=== PATIENT | female | born 1950 | race Caucasian/White ===

== ENCOUNTER 2020-04-29 08:33 | Day surgery (SDC) | payer OTHER, MEDICARE ==
--- OUTSIDE RECORDS SUMMARY | 2020-04-29 08:51 | XMS REPORT | Clinical Summary ---
:1950 Author Organization [facility] Address [address] [place] [address] Care Team Providers Name Role Phone Rafy Ortega MD Primary Care Provider Allergies Not on File Medications Not on file Active Problems Not on file Social History Tobacco Use Types Packs/Day Years Used Date Never Assessed Sex Assigned at Date Recorded Not on file Job Start Date Occupation Industry Not on file Not on file Not on file Travel History Travel Start Travel End No recent travel history available. Last Filed Vital Signs Not on file Plan of Treatment Health Maintenance Due Date Last Done Comments BREAST CANCER SCREENING 2002 COLONOSCOPY SCREENING 2002 SHINGLES VACCINES (#1) 2002 65+ PNEUMOCOCCAL VACCINE (1 of 2 - PCV13) 2017 INFLUENZA VACCINE 05/14/2020 Results Not on fileafter 04/29/2019 Insurance Payer Benefit Plan / Subscriber ID Effective Dates Phone Addre ss Type Group MEDICARE MEDICARE PART A xxxxxxxxxxx 1991-Present [place], [place] Medicare AND B AARP AARP SUPPLEMENT xxxxxxxxx 2018-[employer] Commercial t Advance Directives For more information, please contact: [phone] Type Date Recorded 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
--- OUTSIDE RECORDS SUMMARY | 2020-04-29 08:52 | XMS REPORT | Continuity of Care Document ---
:1950 Author Organization [facility] t Address [address] [place] [address] Care Team Providers Name Role Phone Jordan URBIN Montgomery Primary Care Physician Gema TONG Attending Clinician Julius RUBIN, K.H. Attending Clinician Gentry LEWIS, A Attending Clinician Unavailable Rylee Flores Attending Clinician Jaime RUBIN Attending Clinician Doctor Unassigned, Name Attending Clinician Unavailable Jaime RUBIN Admitting Clinician Payers Payer Name Policy Type Policy Number Effective Date Expiration Date S ource Problems This patient has no known problems. Allergies, Adverse Reactions, Alerts Allergy Allergy Status Severity Reaction(s) Onset Inactive Treating Comm ents Source Name Type Date Date Clinician pentobar DA Active [facility] 2018-10 [facility] [place] [facility] [place] [facility] 11[facility] [place] [facility] levoflox DA Active [place] 2018-10 [facility] acin 11-09 [place] 00:00: d 00 [facility] oseltami DA Active [place] 2018-10 [facility] vir 11-09 [place] 00:[facility]: d [facility] pentobar DA Active [place] 2016-10 [facility] 10-26 [place] [facility]: d [facility]ine DA Active [facility] 2016- [facility] 10-26 [place] 00:00: d 00 [facility] levoflox DA Active [place] 2016-10 [facility] acin 10-26 [place] [facility]: d [facility] oseltami DA Active [place] 2016-10 [facility] 10-26 [place] 00:[facility]: d [facility] Social History Social Habit Start Date Stop Date Quantity Comments Source Sex Assigned At Neetu stobenjamin Rastafarian Medications This patient has no known medications. Procedures This patient has no known procedures. Plan of Care Planned Activity Planned Date Details Comments Source Future Scheduled 2020-05-14 INFLUENZA VACCINE [place] [facility] 00:00:00 [code = INFLUENZA VACCINE] Future Scheduled 2017 65+ PNEUMOCOCCAL [place] [facility] Test 00:00:00 VACCINE (1 of 2 - PCV13) [code = 65+ PNEUMOCOCCAL VACCINE (1 of 2 - PCV13)] Future Scheduled 2002 BREAST CANCER [facility] thodist Test 00:00:00 SCREENING [code = BREAST CANCER SCREENING] Future Scheduled 2002 COLONOSCOPY SCREENING [facility] Rastafarian Test 00:00:00 [code = COLONOSCOPY SCREENING] Future Scheduled 2002 [facility] 00:00:00 [code = SHINGLES VACCINES (#1)] Encounters Start End Encounter Admission Attending Care Care Encounter Source Date/Time Date/Time Type Type Clinicians Facility Department ID 2020-01-16 2020-01-16 Refill Gema [facility] [id number] 00:00:00 00:00:00 Coby George [id number] [place] 4.2.7.2.686 Professio [phone] nal 134 [facility] 2020-01-01 2020-01-01 Telemedici Julius [facility] [id number] 11:00:00 11:30:00 ne Visit Sendflor George [id number] [place] [id number] Professbrian [phone] nal 059 [facility] 2019-12-21 2019-12-21 Transition Melissa Rinaldi [id number] 00:00:00 00:00:00 of Care Mart Lorenzo [id number] [place] [id number] [id number] 2019-12-17 2019-12-18 Emergency Rome Dumont [facility] [id number] 15:19:36 17:56:00 Paul Sandoval [id number] [place] 4.2.7.2.686 [place] [phone] 081 2019-12-17 2019-12-17 Orders Doctor SALLIE [id number] 00:00:00 00:00:00 Only Unassigned, DEMI [id number] [place] [facility] 4.2.7.2.686 [id number] 009 2019-12-02 2019-12-02 Refill Gema [facility] [id number] 00:00:00 00:00:00 Coby George [id number] [place] [id number] [facility] [phone] [facility] 134 [facility] Results Test Description Test Time Test Comments Results Result [place] Comments - CT NECK 2019-09-09 Name: W/CONTRAST 13:47:00 MARYSE HINTON [facility] : 1950 Age/S: 68 / F [id number] Unit #: [id number] Loc: [place] [address] Phys: Todd Ruffin III, MD Acct: [id number] Dis Date: Status: REG CLI PHONE #: [phone] Exam Date: 09/09/2019 1257 FAX #: Reason: MALIGNANT NEOPLASM EXAMS: CPT: [id number] CT NECK W/CONTRAST 257[address] CT neck with contrast. Location: B2 Clinical indication: 68-year-old with malignant thyroid neoplasm Comparison: None Technique: Computed axial images were obtained from the skull base through the thoracic inlet following IV administration of 100 mL Isovue-300. Up to date CT equipment and radiation dose technique were utilized. Findings: The thyroid is absent. No mass or lymphadenopathy is identified within or near the thyroidectomy bed. The submandibular glands and parotid glands are symmetric in size, without acute abnormality. No cervical lymphadenopathy. Upper lungs are grossly clear. Is been prior right inferior nasal turbinectomy. Intraorbital contents are unremarkable. No acute osseous abnormality. Impression: Prior thyroidectomy. No mass or lymphadenopathy is identified. at 1347 Reported and signed by: Ej Guzman M.D. CC: Hermes Yen MD; Todd Ruffin III, MD Technologist:Jose Rutledge, RT(R)(CT)(MRI) CTDI: DLP: Trnscb Date/Time: 09/09/2019 (907) [email or web address] Orig Print D/T: S: 09/09/2019 (3833) PAGE 1 Signed Report ISTAT-GLUCOSE 2019-09-09 12:06:00 Test Item Value Reference Range Interpretation Comme nts ISTAT-GLUCOSE (test code = GLUP) 95 mg/dL 70-105 N [id number] 12:06:00 Test Item Value Reference Range Interpretation Comments ISTAT-BUN (test code = BUNP) mg/dL 8-26 BEDSIDE [id number] 12:06:00 Test Item Value Reference Range Interpretation Comments BEDSIDE CREATININE (test code = mg/dL 0.6-1.3 CREATBED) [id number] 12:06:00 Test Item Value Reference Range Interpretation Comments ISTAT-GLUCOSE (test code = GLUP) 95 mg/dL 70-105 N [id number] 12:06:00 Test Item Value Reference Range Interpretation Comments ISTAT-BUN (test code = BUNP) 6 mg/dL 8-26 L BEDSIDE [id number] 12:06:00 Test Item Value Reference Range Interpretation Comments BEDSIDE CREATININE (test code = mg/dL 0.6-1.3 CREATBED) [id number] 12:06:00 Test Item Value Reference Range Interpretation Comments ISTAT-GLUCOSE (test code = GLUP) 95 mg/dL 70-105 N [id number] 12:06:00 Test Item Value Reference Range Interpretation Comments ISTAT-BUN (test code = BUNP) 6 mg/dL 8-26 L BEDSIDE [id number] 12:06:00 Test Item Value Reference Range Interpretation Comments BEDSIDE CREATININE (test code = 0.6 mg/dL 0.6-1.3 N CREATBED)
[2020-04-29] MEDS ORDERED: Ringers Lactate 1,000 ML IV ONE (09:05)
[2020-04-29] MEDS ORDERED: CEFOXITIN/SWI 1gm 1 GM/10 ML SYR ONE (09:06)
[2020-04-29] MEDS ORDERED: MIDAZOLAM HCL 2 MG/2 ML INJ ONE (09:09)
[2020-04-29] MEDS ORDERED: FENTANYL CITR 100 MCG/2 ML ONE (09:09)
[2020-04-29] MEDS ORDERED: LIDOCAINE 2% MPF 5 ML VIAL ONE (09:09)
[2020-04-29] MEDS ORDERED: ROCURONIUM 50 MG/5 ML VIAL IV ONE (09:09)
[2020-04-29] MEDS ORDERED: propofoL 200 MG/20 ML VIAL IV ONE (09:09)
[2020-04-29] MEDS ORDERED: ONDANSETRON 4 MG/2 ML VIAL ONE ×2 (09:10→11:36)
[2020-04-29] MEDS ORDERED: BUPIVACA 0.25%/EPI 0.0005%/PF 30 ML VIAL ONE (09:59)
[2020-04-29] MEDS ORDERED: KETOROLAC 30 MG/ML INJ ONE (11:10)
[2020-04-29] MEDS ORDERED: GLYCOPYRROLATE 0.2 MG/ML SYR ONE (11:11)
--- NOTE | 2020-04-29 11:11 | P.OP ---
Preoperative diagnosis: Chronic Cholecystitis Postoperative diagnosis: Chronic Cholecystitis Primary procedure: Laparoscopic Cholecystectomy Anesthesia: GETA + Local Estimated blood loss: <10cc Specimen: Gallbladder Findings: Blue Dome, large, floppy gallbladder, adhesions Complications: None Transferred to: Recovery Room Condition: Good
[2020-04-29] MEDS ORDERED: NEOSTIGMINE 1 MG/ML -5 ML ONE (11:18)
[2020-04-29] MEDS: HYDROMORPHONE HCL 1 MG/ML INJ ONE ×6 (11:25→11:50)
--- NOTE | 2020-04-29 11:47 | OP ---
Date of Procedure: 04/29/2020 Surgeon: Erasmo Larose MD, Preoperative Diagnosis: Chronic cholecystitis. Postoperative Diagnosis: Chronic cholecystitis. Procedure Performed: Laparoscopic cholecystectomy. Anesthesia: General endotracheal plus local with 0.5% Marcaine with epinephrine. Estimated Blood Loss: Less than 10 cc. Specimen: Gallbladder. Findings: 1.Blue dome gallbladder. 2.Gallbladder was found to be large, floppy and distended. 3.Intraabdominal adhesions were present from omentum to gallbladder. 4.The patient had a nodular appearance to the liver consistent with early possible cirrhosis. Complications: None. Disposition: Transferred to recovery room in good condition. Procedure In Detail: After informed was obtained, the patient was brought to the operating room, pre pped and draped in the usual sterile fashion. After adequate anesthesia was achieved , the supraumbi lical area was anesthetized with 0.25% Marcaine, sharply incised, a 5 mm trocar was introduced in the abdomen without evidence of complication. Insufflation was obtained to 15 mmHg at this time. There was no injury to vital structures upon entry into the abdomen. Additional trocar site was chosen in the epigastrium. This was similarly anesthetized and sharply incised. A 5 mm trocar was introduced in the abdomen without evidence of complication. The umbilical trocar then up-sized to a 12 mm unde r direct visualization without evidence of complication. The additional trocar was placed in the rig ht upper quadrant, similarly anesthetized and sharply incised. A 5 mm trocar was introduced in the a bdomen without evidence of complication. The patient was then positioned head up right-side up posit ion. Ratcheted grasper was used to grasp the patient's gallbladder, placed towards the patient's rig ht shoulder. Dissection was continued down to remove intraabdominal adhesions on the anterior surfac e of the gallbladder. After this was removed, the gallbladder was dissected down to the Andrew nenita ch area and 2 structures were noted entering the gallbladder. These were identified as both, cystic duct and the cystic artery. After completely skeletonizing these structures, the critical view of sa fety was obtained and after the critical view of safety was verified, Endo clips were then applied, d oubly on the proximal side and singly on the distal side of both, the cystic duct and cystic artery. These were both ligated using Endo Rock. At this point, the gallbladder was removed from the hepa tic fossa without evidence of complication, placed in an EndoCatch bag and removed through umbilical trocar. The abdomen was then completely irrigated and suctioned out until completely dry. No additi onal hemostatic measures required. Clips were found to be in good anatomic position without evidence if spillage of bile at the end the procedure. The patient tolerated the procedure well. At this po int, the gallbladder was sent off for pathologic examination. The patient was positioned back in a n eutral position. The umbilical trocar site was inspected. The umbilical trocar was removed. The um bilical trocar site was closed using a Naman-Josiah suture passer with 0 Vicryl in interrupted fas hion with good approximation of tissues. The abdomen was then completely desufflated under direct vi sualization without evidence of complication. All trocars were then removed. All skin incisions wer e copiously irrigated and closed with a 4-0 Monocryl in a running fashion with Dermabond placed over top. The patient tolerated the procedure well without evidence of complication and transferred to [facility] in good condition. All counts were correct at the end of the case. MARLEEN/ELDA Voice ID: [id number] Report ID: [id number]
[2020-04-29] MEDS ORDERED: HYDROCODONE/APAP 5/325 MG TAB ONE (12:43)
[2020-04-29 13:39] VITALS: BP 124/68; TEMP 97; O2SAT 97
== END 2020-04-29 13:10 | disposition home or self-care (01) ==
LOC: OR 08:33
PROVIDERS: ATTEND Surgery
PROC: 0FT44ZZ Resection of Gallbladder, Percutaneous Endoscopic Approach (ICD-10-PCS; principal; 2020-04-29 10:00)
DX: K81.1 Chronic cholecystitis (principal); I10 Essential (primary) hypertension; K21.9 Gastro-esophageal reflux disease without esophagitis; E89.0 Postprocedural hypothyroidism; Z11.59 Encounter for screening for other viral diseases; F17.200 Nicotine dependence, unspecified, uncomplicated; Z85.850 Personal history of malignant neoplasm of thyroid; Z88.3 Allergy status to other anti-infective agents; Z88.8 Allergy status to other drugs, medicaments and biological substances; Z80.1 Family history of malignant neoplasm of trachea, bronchus and lung
CPT/HCPCS: 88304; 47562; U0002 ×2; J2704; J2250; J3010; J1170 ×3; J2710; J7120; J2405 ×2

== ENCOUNTER 2020-07-26 16:01 | Emergency (ER) | payer OTHER, MEDICARE ==
--- OUTSIDE RECORDS SUMMARY | 2020-07-26 16:16 | XMS REPORT | Clinical Summary ---
:1950 Author Organization [facility] Address [address] [place] [address] Care Team Providers Name Role Phone Rafy Ortega MD Primary Care Provider Allergies Not on File Medications Not on file Active Problems Not on file Social History Tobacco Use Types Packs/Day Years Used Date Never Assessed Sex Assigned at Date Recorded Not on file Last Filed Vital Signs Not on file Plan of Treatment Health Maintenance Due Date Last Done Comments BREAST CANCER SCREENING 2002 COLONOSCOPY SCREENING 2002 SHINGLES VACCINES (#1) 2002 65+ PNEUMOCOCCAL VACCINE (1 of - PPSV23) 2017 INFLUENZA VACCINE 05/14/2020 Results Not on fileafter 07/26/2019 Insurance Payer Benefit Plan / Subscriber ID Effective Dates Phone Addre ss Type Group MEDICARE MEDICARE PART A [id number] 1991-Present [place], [place] Medicare AND B AARP AARP SUPPLEMENT [id number] 2018-[place] Commercial t Advance Directives For more information, please contact: [phone] Type Date Recorded 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
--- OUTSIDE RECORDS SUMMARY | 2020-07-26 16:17 | XMS REPORT | Continuity of Care Document ---
:1950 Author Organization [facility] t Address [address] [place] [address] Care Team Providers Name Role Phone Jordan RUBIN Thornton Primary Care Physician Gema TONG Attending Clinician [...] Date Clinician pentobar DA Active [facility] 2018-10 [facility] bital 11-09 [place] [facility]: d 00 [facility] codeine DA Active [place] 2018-10 [facility] 11-[facility] [place] [facility]: d 00 [facility] levoflox DA Active [place] 2018-10 [facility] acin 11-09 [place] 00:00: d 00 [facility] oseltami DA Active [place] 2018-10 [facility] vir 11-09 [place] 00:00: d 00 [facility] pentobar DA Active [place] 2016-10 [facility] 10-26 [place] 00:00: d 00 [facility] codeine DA Active [place] 2016- [facility] 10-26 [place] 00:00: d 00 [facility] levoflox DA Active [place] 2016-10 [facility] acin 10-26 [place] 00:[facility]: d [facility] oseltami DA Active [place] 2016-10 [facility] vir 10-26 [place] 00:00: d 00 [facility] Social History Social Habit Start Date Stop Date Quantity Comments Source Sex Assigned At Neetu sheeba Rastafarian Medications This patient has no known medications. Procedures This patient has no known procedures. Plan of Care Planned Activity Planned Date Details Comments Source Future Scheduled 2020-05-14 INFLUENZA VACCINE [facility] Rastafarian Test 00:00:00 [code = INFLUENZA VACCINE] Future Scheduled 2017 65+ PNEUMOCOCCAL [place] [facility]ast[facility] Test 00:00:00 VACCINE (1 of 1 - PPSV23) [code = 65+ PNEUMOCOCCAL VACCINE (1 of 1 - PPSV23)] Future Scheduled 2002 BREAST CANCER [facility] thodist Test 00:00:00 SCREENING [code = BREAST CANCER SCREENING] Future Scheduled 2002 COLONOSCOPY SCREENING [facility] Rastafarian Test 00:00:00 [code = COLONOSCOPY SCREENING] Future Scheduled 2002 SHINGLES VACCINES (#1) [facility] Rastafarian Test 00:00:00 [code = SHINGLES VACCINES (#1)] Encounters Start End Encounter Admission Attending Care Care Encounter Source Date/Time Date/Time Type Type Clinicians Facility Department ID 2020-01-16 2020-01-16 [facility] [id number] 00:00:00 00:00:00 Coby George 350.1.13.10 [place] 4.2.7.2.686 Professio [phone] nal 134 [facility] 2020-01-01 2020-01-01 Telemedici Julius [facility] [id number] 11:00:00 11:30:00 ne Visit Sendflor George 350.1.13.10 [place] 4.2.7.2.686 Professio [phone] nal 059 [facility] 2019-12-21 2019-12-21 Transition Melissa Rinaldi [id number] 00:00:00 00:00:00 of Care Mart Lorenzo 350.1.13.10 [place] 4.2.7.2.686 [phone] [id number] 2019-12-17 2019-12-18 Emergency Rome Dumont [facility] 1.2.840.11 [id number] 15:19:36 17:56:00 Paul Sandoval 350.1.13.10 [place] 4.2.7.2.686 [place] [phone] [id number] 2019-12-17 2019-12-17 Orders Doctor SALLIE [id number] 00:00:00 00:00:00 Only Unassigned, DEMI 350.1.13.10 [place] [facility] 4.2.7.2.686 [phone] [id number] 2019-12-02 2019-12-02 Refill Gema [facility] [id number] 00:00:00 00:00:00 Coby George 350.1.13.10 [place] 4.2.7.2.686 [facility] [phone] nal 134 [facility] Results Test Description Test Time Test Comments Results Result [facility] e Comments - CT NECK 2019-09-09 Name: W/CONTRAST 13:47:00 MARYSE HINTON [facility] ED : 1950 Age/S: 68 / F [address] Unit #: [id number] Loc: [place] [address] Phys: Todd Ruffin III, MD Acct: [id number] Dis Date: Status: REG CLI PHONE #: [phone] Exam Date: 09/09/2019 1257 FAX #: Reason: MALIGNANT NEOPLASM EXAMS: CPT: [id number] CT NECK W/CONTRAST 40982 CT neck with contrast. Location: B2 Clinical [...] Rutledge, RT(R)(CT)(MRI) CTDI: DLP: Trnscb Date/Time: 09/09/2019 (768) [id number] Orig Print D/T: S: 09/09/2019 (4121) PAGE 1 Signed Report ISTAT-GLUCOSE 2019-09-09 12:06:00 Test Item Value Reference Range Interpretation Comme nts ISTAT-GLUCOSE (test code = GLUP) 95 mg/dL 70-105 N [id number] 12:06:00 Test Item Value Reference Range Interpretation Comments ISTAT-BUN (test code = BUNP) mg/dL 8-26 BEDSIDE [id number] 12:06:00 Test Item Value Reference Range Interpretation Comments BEDSIDE CREATININE (test code = mg/dL 0.6-1.3 CREATBED) [id number] 12:06:00 Test Item Value Reference Range Interpretation Comments ISTAT-GLUCOSE (test code = GLUP) 95 mg/dL 70-105 N [id number] 12:06:00 Test Item Value Reference Range Interpretation Comments ISTAT-BUN (test code = BUNP) 6 mg/dL 8-26 L BEDSIDE [id number] 12:06:00 Test Item Value Reference Range Interpretation Comments BEDSIDE CREATININE (test code = mg/dL 0.6-1.3 CREATBED) [id number] 12:06:00 Test Item Value Reference Range Interpretation Comments ISTAT-GLUCOSE (test code = GLUP) 95 mg/dL 70-105 N [id number] 12:06:00 Test Item Value Reference Range Interpretation Comments ISTAT-BUN (test code = BUNP) 6 mg/dL 8-26 L BEDSIDE [id number] 12:06:00 Test Item Value Reference Range Interpretation Comments BEDSIDE CREATININE (test code = 0.6 mg/dL 0.6-1.3 N CREATBED)
--- NOTE | 2020-07-26 18:34 | RAD REPORT ---
EXAM DESCRIPTION: RAD - Chest Single View - 07/26/2020 6:01 pm CLINICAL HISTORY: Cough;SOB;Chest pain COMPARISON: Two view chest March 18, 2019, portable chest November 2016 TECHNIQUE: AP portable chest image was obtained 07/26/2020 6:01 pm . FINDINGS: No peripheral mass or consolidation. Chronic interstitial opacification is present not sub stantially different from comparison. Shallow inspiration and portable technique results in accentuat ed pattern. Central vasculature is prominent. Heart size is upper normal. Trachea is midline. No dallin urable pleural effusion and no pneumothorax. No acute bone findings seen. Left shoulder prosthesis in place. Advanced right shoulder degenerative changes are present. 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 Small hiatal hernia suspected. No acute aortic findings suspected. IMPRESSION: No peripheral mass or consolidation. Chronic interstitial pattern, accentuated by lower lung volume and portable technique, could mask int erstitial edema or infiltrate.
[2020-07-26] MEDS ORDERED: dexAMETHasone 4 MG/ML VIAL ONE (18:35)
[2020-07-26] MEDS ORDERED: ALBUTEROL INHALER 60 PUFF/8 GM IH ONE (18:35)
[2020-07-26 18:42] LABS: Absolute Lymphocytes (CBC) 0.9 K/uL (0.7-4.9); Basophils % 0.6 % (0-1.3); Hematocrit 35.4 % (36.0-45.0); Lymphocytes % 18.8 % (15.3-44.8); MPV 8.8 fL (7.6-11.3); RBC Red Blood Cell Count 4.06 M/uL (3.86-4.86)
[2020-07-26 18:43] LABS: Protime INR 1.1
[2020-07-26 18:50] LABS: ALT/SGPT 14 U/L (12-78); AST/SGOT 15 U/L (15-37); Albumin 3.9 g/dL (3.4-5.0); Alkaline Phosphatase 86 U/L (45-117); BUN Blood Urea Nitrogen 13 mg/dL (7-18); Bicarbonate 29 mmol/L (21-32); Bilirubin Direct < 0.1 mg/dL (0-0.2); Bilirubin Total 0.3 mg/dL (0.2-1.0); Glucose Level 72 mg/dL (74-106); Magnesium 2.3 mg/dL (1.8-2.4); NT PRO-BNP 460 pg/mL (<125); Protein, Total 7.1 g/dL (6.4-8.2); Sodium Level 139 mmol/L (136-145); Troponin (Emerg Dept Use Only) < 0.02 ng/mL (0.0-0.045)
--- NOTE | 2020-07-26 19:36 | EDPHYS ---
Physician Documentation [facility] Name: Lidya Moura Age: 69 yrs Sex: Female : 1950 Arrival Date: 07/26/2020 Time: 16:06 Bed 3 Private MD: Hermes Ortega T ED Physician Esvin Bueno HPI: 07/26 17:50 This 69 yrs old Female presents to ER via Wheelchair with complaints of cp Fever, Breathing Difficulty. 17:50 The patient reports fever, that was measured at 101 degrees Fahrenheit. Onset: The cp symptoms/episode began/occurred yesterday. Associated signs and symptoms: Pertinent positives: cough, shortness of breath, sore throat, Pertinent negatives: diarrhea, vomiting. Severity of symptoms: in the emergency department the symptoms are unchanged despite home interventions. Historical: - Allergies: 16:13 Levofloxacin; jd3 16:13 Nembutal Sodium; jd3 - PMHx: 16:13 Back pain; Hypertension; THYROID CANCER; jd3 - PSHx: 16:13 back surgery; Tubal ligation; Appendectomy; Knee surgery; Thyroidectomy; jd3 - Immunization history:: Adult Immunizations up to date. - Social history:: Smoking status: Patient reports the use of cigarette tobacco products, smokes one-half pack cigarettes per day. ROS: 17:55 Constitutional: Negative for chills, fever, poor PO intake. cp 17:55 Eyes: Negative for injury, pain, redness, and discharge. cp 17:55 ENT: Positive for sore throat, Negative for drainage from ear(s), ear pain, difficulty swallowing, difficulty handling secretions. 17:55 Cardiovascular: Positive for chest pain, with cough. 17:55 Respiratory: Positive for cough, "sounds productive", shortness of breath, on exertion. wheezing. 17:55 Abdomen/GI: Negative for abdominal pain, vomiting, diarrhea, constipation. 17:55 : Negative for urinary symptoms. Exam: 17:35 ECG was reviewed by the Attending Physician. cp 18:00 Constitutional: The patient appears in no acute distress, alert, awake, cp non-diaphoretic, non-toxic, well developed, well nourished. 18:00 Head/Face: Normocephalic, atraumatic. cp 18:00 Eyes: Periorbital structures: appear normal, Conjunctiva: normal, no exudate, no injection, Lids and lashes: appear normal, bilaterally. 18:00 ENT: External ear(s): are unremarkable, Nose: is normal, Mouth: Lips: moist, Oral mucosa: moist, Posterior pharynx: Airway: no evidence of obstruction, patent. 18:00 Neck: ROM/movement: is normal, is supple, no meningismus, no nuchal rigidity, Lymph nodes: no appreciated lymphadenopathy. 18:00 Chest/axilla: Inspection: normal, Palpation: is normal, no crepitus, no tenderness. 18:00 Cardiovascular: Rate: normal, Rhythm: regular, Edema: is not appreciated, JVD: is not appreciated. 18:00 Respiratory: the patient does not display signs of respiratory distress, Respirations: labored breathing, that is mild, intercostal retractions, are absent, tachypnea, is not appreciated, Breath sounds: rhonchi, are not appreciated, stridor, is not appreciated, wheezing: expiratory that is mild, is heard diffusely. 18:00 Abdomen/GI: Inspection: abdomen appears normal, Palpation: abdomen is soft and non-tender, in all quadrants. 18:00 Back: pain, is absent, ROM is normal. 18:00 Skin: no rash present. 18:00 Neuro: Orientation: to person, place \\T\\ time. Mentation: is normal. Vital Signs: 16:13 BP 111 / 69; Pulse 65; Resp 20 S; Temp 98.7(O); Pulse Ox 96% on R/A; Weight 77.11 kg jd3 (R); Height 5 ft. 1 in. (154.94 cm) (R); Pain 6/10; 18:35 Temp 98.8(O); aa5 19:30 BP 118 / 90; Pulse 70; Resp 16; Pulse Ox 95% on R/A; Pain 0/10; lp1 16:13 Body Mass Index 32.12 (77.11 kg, 154.94 cm) jd3 MDM: 17:20 Patient medically screened. cp 19:00 Differential diagnosis: URI, bronchitis, pneumonia COVID-19. cp 19:34 Data reviewed: vital signs, nurses notes, lab test result(s), EKG, radiologic studies, cp plain films. 19:34 Test interpretation: by ED physician or midlevel provider: ECG. Counseling: I had a cp detailed discussion with the patient and/or guardian regarding: the historical points, exam findings, and any diagnostic results supporting the discharge/admit diagnosis, lab results, radiology results, the need for outpatient follow up, an sba underwriter, to return to the emergency department if symptoms worsen or persist or if there are any questions or concerns that arise at home. ED course: VSS. Patient appears non-toxic and no signs of respiratory distress. Oxygen sats 95% on RA. Will discharge to home for continued monitoring. 07/26 17:46 Order name: Basic Metabolic Panel; Complete Time: 19:06 07/26 19:28 Interpretation: Normal except: CL 108; GLUC 72; GFR 55; CA 8.3. 07/26 17:46 Order name: CBC with Diff; Complete Time: 19:06 07/26 19:07 Interpretation: Normal except: HGB 11.7; HCT 35.4; RDW 15.8. 07/26 17:46 Order name: LFT's; Complete Time: 19:06 07/26 19:07 Interpretation: Reviewed. 07/26 17:46 Order name: Magnesium; Complete Time: 19:06 07/26 17:46 Order name: NT PRO-BNP; Complete Time: 19:06 07/26 17:46 Order name: PT-INR; Complete Time: 19:06 07/26 19:07 Interpretation: PT 13.0; Reviewed. 07/26 17:46 Order name: Troponin (emerg Dept Use Only); Complete Time: 19:06 07/26 19:28 Interpretation: TROPED < 0.02; Reviewed. 07/26 17:46 Order name: XRAY Chest (1 view); Complete Time: 18:41 cp 07/26 18:41 Interpretation: Report reviewed. 07/26 17:46 Order name: COVID-19 07/26 17:46 Order name: Influenza Screen (a \\T\\ B); Complete Time: 19:27 cp 07/26 17:46 Order name: Strep; Complete Time: 19:27 cp 07/26 17:46 Order name: Procalcitonin; Complete Time: 19:27 cp 07/26 19:18 Order name: Throat Culture EDSC 07/26 17:46 Order name: EKG; Complete Time: 17:48 cp 07/26 17:46 Order name: Cardiac monitoring; Complete Time: 18:35 cp 07/26 17:46 Order name: EKG - Nurse/Tech; Complete Time: 17:49 cp 07/26 17:46 Order name: IV Saline Lock; Complete Time: 18:35 cp 07/26 17:46 Order name: Labs collected and sent; Complete Time: 18:35 cp 07/26 17:46 Order name: O2 Per Protocol; Complete Time: 18:35 cp 07/26 17:46 Order name: O2 Sat Monitoring; Complete Time: 18:35 cp EC:35 Rate is 65 beats/min. Rhythm is regular. [place] interval is normal. QRS interval is normal. cp QT interval is normal. Interpreted by me. Reviewed by me. Administered Medications: 18:20 Drug: Albuterol HFA Inhaler 2 puffs Route: Inhalation; aa5 18:20 Drug: Decadron - Dexamethasone 6 mg Route: IVP; Site: right antecubital; aa5 19:52 Follow up: Response: No adverse reaction lp1 Disposition: 07/26/20 19:35 Discharged to Home. Impression: Acute bronchitis. - Condition is Stable. - Discharge Instructions: Acute Bronchitis, Adult, COVID-19. - Prescriptions for Tessalon Perles 100 mg Oral Capsule - take 2 capsule by ORAL route every 8 hours As needed; 30 capsule. Zithromax Z- Angel 250 mg Oral Tablet - take 1 tablet by ORAL route as directed for 5 days Day 1 - take two (2) tablets one time. Day 2, 3, 4 , 5 take one (1) tablet once daily.; 6 tablet. Albuterol Sulfate 90 mcg/actuation - inhale 1-2 puff by INHALATION route every 4-6 hours; 1 Inhaler. dexamethasone 2 mg Oral tablet - take 1 tablet by ORAL route 3 times per day for 5 days; 15 tablet. - Medication Reconciliation Form, Thank You Letter, Antibiotic Education, Prescription Opioid Use form. - Follow up: Private Physician; When: 1 - 2 days; Reason: Recheck today's complaints. - Problem is new. - Symptoms have improved. Addendum: 07/30/2020 06:59 Co-signature as Attending Physician, Esvin Bueno MD. r n Signatures: Dispatcher MedHoEsvin Sweet MD MD rn Calderon, Audri, RN RN aa5 Stephanie Shelton RN RN lp1 Robert Craig PA PA cp Jefferson Muse RN RN jd3 Corrections: (The following items were deleted from the chart) 07/26 19:28 19:06 Normal except: CL 108; GLUC 72; GFR 55. cp cp 19:35 19:35 07/26/2020 19:35 Discharged to Home. Impression: Acute upper respiratory cp infection, unspecified. Condition is Stable. Forms are Medication Reconciliation Form, Thank You Letter, Antibiotic Education, Prescription Opioid Use. Follow up: Private Physician; When: 1 - 2 days; Reason: Recheck today's complaints. Problem is new. Symptoms have improved. cp 19:52 19:35 07/26/2020 19:35 Discharged to Home. Impression: Acute bronchitis. Condition is lp1 Stable. Forms are Medication Reconciliation Form, Thank You Letter, Antibiotic Education, Prescription Opioid Use. Follow up: Private Physician; When: 1 - 2 days; Reason: Recheck today's complaints. Problem is new. Symptoms have improved. cp
--- NOTE | 2020-07-26 19:36 | ER ---
Nurse's Notes [facility] Name: Lidya Moura Age: 69 yrs Sex: Female : 1950 Arrival Date: 07/26/2020 Time: 16:06 Bed 3 Private MD: Hermes Ortega T Diagnosis: Acute bronchitis Presentation: 07/26 16:11 Chief complaint: Patient states: "I started having a problem breathing yesterday.". jd3 Coronavirus screen: difficulty breathing, Client presents with at least one sign or symptom that may indicate coronavirus-19. Standard/surgical mask placed on the client. Provider contacted for isolation considerations. Ebola Screen: Patient negative for fever greater than or equal to 101.5 degrees Fahrenheit, and additional compatible Ebola Virus Disease symptoms. Initial Sepsis Screen: Does the patient meet any 2 criteria? No. Patient's initial sepsis screen is negative. Does the patient have a suspected source of infection? No. Patient's initial sepsis screen is negative. Risk Assessment: Do you want to hurt yourself or someone else? Patient reports no desire to harm self or others. Onset of symptoms was July 23, 2020. 16:11 Method Of Arrival: Wheelchair jd3 16:11 Acuity: DEVAN 3 jd3 Historical: - Allergies: 16:13 Levofloxacin; jd3 16:13 Nembutal Sodium; jd3 - PMHx: 16:13 Back pain; Hypertension; THYROID CANCER; jd3 - PSHx: 16:13 back surgery; Tubal ligation; Appendectomy; Knee surgery; Thyroidectomy; jd3 - Immunization history:: Adult Immunizations up to date. - Social history:: Smoking status: Patient reports the use of cigarette tobacco products, smokes one-half pack cigarettes per day. Screenin:10 Abuse screen: Denies threats or abuse. Nutritional screening: No deficits noted. aa5 Tuberculosis screening: No symptoms or risk factors identified. Fall Risk IV access (20 points). Ambulatory Aid- Crutches/Cane/Walker (15 pts). Total Jenkins Fall Scale indicates Low Risk Score (25-44 pts). Fall prevention measures have been instituted. Side Rails Up X 2 Placed close to Nursing Station. Assessment: 18:00 General: Appears comfortable, Behavior is calm, cooperative, Reports fever for up to aa5 102.0 F at home . Pain: Denies pain. Neuro: Level of Consciousness is awake, alert, obeys commands, Oriented to person, place, time, situation. Cardiovascular: Heart tones S1 S2 present Rhythm is sinus rhythm. Respiratory: Reports intermittent SOB and cough Airway is patent Respiratory effort is even, unlabored, Respiratory pattern is regular, symmetrical, Breath sounds are diminished bilaterally. GI: Abdomen is round Abd is soft and non tender X 4 quads. : No signs and/or symptoms were reported regarding the genitourinary system. EENT: No signs and/or symptoms were reported regarding the EENT system. Derm: Skin is pink, warm \\T\\ dry. Musculoskeletal: Range of motion: intact in all extremities. 18:35 Reassessment: Pt assisted to bedside commode, pt voided without difficulty. Pt placed aa5 back in bed. Pt notified of wait time for results. Warm blankets given and lights dimmed for comfort. . 19:27 General: Appears in no apparent distress. Behavior is appropriate for age. Pain: Denies lp1 pain. Neuro: Level of Consciousness is awake, alert, obeys commands, Oriented to person, place, time, situation. Cardiovascular: Patient's skin is warm and dry. Respiratory: Reports shortness of breath on exertion cough that is productive, Airway is patent Trachea midline Respiratory effort is even, unlabored, Respiratory pattern is regular, symmetrical, Breath sounds with rhonchi bilaterally. in left posterior lower lobe and right posterior lower lobe Onset: The symptoms/episode began/occurred gradually. GI: No signs and/or symptoms were reported involving the gastrointestinal system. : No signs and/or symptoms were reported regarding the genitourinary system. EENT: No signs and/or symptoms were reported regarding the EENT system. Derm: Skin is intact, Skin is dry, Skin is normal. Musculoskeletal: No deficits noted. Vital Signs: 16:13 BP 111 / 69; Pulse 65; Resp 20 S; Temp 98.7(O); Pulse Ox 96% on R/A; Weight 77.11 kg jd3 (R); Height 5 ft. 1 in. (154.94 cm) (R); Pain 6/10; 18:35 Temp 98.8(O); aa5 19:30 BP 118 / 90; Pulse 70; Resp 16; Pulse Ox 95% on R/A; Pain 0/10; lp1 16:13 Body Mass Index 32.12 (77.11 kg, 154.94 cm) jd3 ED Course: 16:06 Patient arrived in ED. mr 16:06 Hermes Ortega MD is Private Physician. mr 16:12 Triage completed. jd3 16:13 Arm band placed on. jd3 17:17 Robert Craig PA is PHCP. cp 17:17 Esvin Bueno MD is Attending Physician. cp 17:29 EKG done, by ED staff, reviewed by Esvin Bueno MD. mt 17:31 Elsa Frey, DEBBIE is Primary Nurse. aa5 18:00 Patient has correct armband on for positive identification. Placed in gown. Bed in low aa5 position. Call light in reach. Side rails up X2. 18:00 production shift supervisor on. Pulse ox on. NIBP on. aa5 18:02 XRAY Chest (1 view) In Process Unspecified. EDMS 18:08 Initial lab(s) drawn, by me, sent to lab. Inserted saline lock: 20 gauge in right aa5 antecubital area, using aseptic technique. Blood collected. 18:10 Flu and/or RSV swab sent to lab. Strep swab sent to lab. aa5 18:12 COVID-19 swab collected and sent to lab. aa5 19:02 Report given to DEBBIE Brown and DEBBIE Johnson. aa5 19:51 No provider procedures requiring assistance completed. IV discontinued, No lp1 redness/swelling at site. Pressure dressing applied. Administered Medications: 18:20 Drug: Albuterol HFA Inhaler 2 puffs Route: Inhalation; aa5 18:20 Drug: Decadron - Dexamethasone 6 mg Route: IVP; Site: right antecubital; aa5 19:52 Follow up: Response: No adverse reaction lp1 Outcome: 19:35 Discharge ordered by MD. cp 19:51 Discharged to home via wheelchair, with family. lp1 19:51 Condition: good 19:51 Discharge instructions given to patient, Instructed on discharge instructions, follow up and referral plans. medication usage, Demonstrated understanding of instructions, follow-up care, medications, Prescriptions given X 4. 19:52 Patient left the ED. lp1 Addendum: 07/31/2020 19:11 Addendum: COVID-19 Result: Negative result given to RN to notify pt. Notified pt of d m5 negative COVID 19 swab results. Pt advised that even with a negative test result they should remain in isolation until symptom free for 3 days without medication. Pt also advised to return to the ED for worsening symptoms. Signatures: Dispatcher [employer] Sylvia Jefferson RN RN dm5 Lillian Arceo mr Frey, Elsa, RN RN aa5 Stephanie Shelton RN RN lp1 Robert Craig PA PA cp Thompson, Moriah mt Davies, Jonathon RN RN jd3
[2020-07-26 20:51] VITALS: TEMP 98.8
[2020-07-26 20:53] VITALS: BP 118/90; O2SAT 95
--- NOTE | 2020-07-28 07:07 | EKG ---
Test Date: 2020-07-26 Test Time: 17:27:03 Traffic Enumerator: CASSANDRA MEASUREMENT RESULTS: Intervals: Rate: 65 KS: 158 QRSD: 72 QT: 410 QTc: 426 [place]: P: 54 KS: 158 QRS: 37 T: 65 INTERPRETIVE STATEMENTS: Normal sinus rhythm with sinus arrhythmia Normal ECG Compared to ECG 11/17/2016 05:22:03 Sinus bradycardia no longer present Electronically Signed On 07-28-20 07:04:08 CDT by Luis Bone
== END 2020-07-26 19:52 | disposition home or self-care (01) ==
LOC: ER 16:01
DX: J20.9 Acute bronchitis, unspecified (principal); Z20.828 Contact with and (suspected) exposure to other viral communicable diseases; I10 Essential (primary) hypertension; Z85.850 Personal history of malignant neoplasm of thyroid; Z88.8 Allergy status to other drugs, medicaments and biological substances
CPT/HCPCS: 93005; 87070; 85025; 80048; 36415; 83735; 85610; 80076; 87081; 84484; 84145; 83880; 87804 ×2; 71045; 96374; 99285; U0002; J1100

== ENCOUNTER 2021-03-20 07:31 | Day surgery (SDC) | payer OTHER, MEDICARE ==
[2021-03-20] MEDS ORDERED: Ringers Lactate 1,000 ML IV ONE (08:13)
[2021-03-20] MEDS ORDERED: propofoL 200 MG/20 ML VIAL IV ONE (08:43)
[2021-03-20] MEDS ORDERED: LIDOCAINE 1% MPF 5 ML VIAL ONE (08:44)
[2021-03-20] MEDS ORDERED: FENTANYL CITR 100 MCG/2 ML ONE ×2 (08:44→09:26)
[2021-03-20] MEDS ORDERED: ROCURONIUM 50 MG/5 ML VIAL IV ONE (08:44)
[2021-03-20] MEDS: CEFAZOLIN/SWI 2gm 2 GM/20 ML SYR ONE ×2 (08:45→09:05)
[2021-03-20] MEDS ORDERED: BUPIVACAINE 0.25% PF 30 ML VIAL ONE (08:49)
[2021-03-20] MEDS ORDERED: CEFAZOLIN/SWI 2gm 2 GM/20 ML SYR IVP SCH (09:00)
[2021-03-20] MEDS ORDERED: KETOROLAC 30 MG/ML INJ ONE (09:28)
[2021-03-20] MEDS ORDERED: dexAMETHasone 10 MG/ML VIAL ONE (09:28)
[2021-03-20] MEDS ORDERED: GLYCOPYRROLATE 0.2 MG/ML SYR ONE (09:31)
[2021-03-20] MEDS ORDERED: NEOSTIGMINE 1 MG/ML -5 ML ONE (09:31)
[2021-03-20] MEDS ORDERED: ONDANSETRON 4 MG/2 ML VIAL ONE ×3 (09:31→10:35)
--- NOTE | 2021-03-20 09:46 | P.OP ---
Preoperative diagnosis: Ventral Incarcerated Periumbilical Hernia Postoperative diagnosis: Ventral Incarcerated Periumbilical Hernia Primary procedure: Laparoscopic Ventral Hernia Repair with mesh Secondary procedure: Laparoscopic Adhesiolysis Anesthesia: GETA + Local Estimated blood loss: <10cc Specimen: none Findings: incarcerated ventral hernia Complications: None Implants: 11cm Round Bard Ventralite Mesh with Echo Transferred to: Recovery Room Condition: Good
[2021-03-20] MEDS: HYDROMORPHONE HCL 1 MG/ML INJ ONE ×4 (09:59→10:30)
[2021-03-20] MEDS ORDERED: HYDROCODONE/APAP 5/325 MG TAB ONE (12:01)
[2021-03-20 12:44] VITALS: BP 140/80; O2SAT 99
[2021-03-20 13:24] VITALS: TEMP 97
--- NOTE | 2021-03-20 18:54 | OP ---
Date of Procedure: 03/20/2021 Surgeon: Erasmo Larose MD, Preoperative Diagnosis: Ventral incarcerated periumbilical hernia. Postoperative Diagnosis: Ventral incarcerated periumbilical Procedures: 1.Laparoscopic ventral hernia repair with mesh. 2.Laparoscopic adhesiolysis. Anesthesia: General endotracheal plus local with 0.25% Marcaine without epinephrine. Estimated Blood Loss: Less than 10 mL. Specimen: None. Findings: Incarcerated ventral abdominal hernia. Complications: None. Implants: An 11 cm Bard Ventralight mesh with Echo Positioning System. Disposition: The patient was transferred to recovery room in good condition. Procedure In Detail: After informed consent was obtained, the patient was brought to the operating r oom, prepped and draped in the usual sterile fashion. After adequate anesthesia achieved, the area o f the left upper quadrant was anesthetized with 0.25% Marcaine and sharply incised. A 5 mm 0-degree optical trocar was introduced in the abdomen without evidence of complication. Insufflation was obta ined to 15 mmHg at this time. There was no injury to vital structure upon entry to the abdomen. Add itional trocar located in the left lower quadrant, at this same anesthetized, sharply incised and a 1 2 mm trocar was placed under direct visualization without evidence of complication. LigaSure was the n used to help reduce an incarcerated ventral abdominal wall hernia. Using a combination of electroc autery/ligature ligation as well as blunt dissection, the incarcerated omentum was removed from the h ernia sac without evidence of complication and returned to the normal anatomic position. I then insp ected the hernia defect and found to be approximately 3 cm in size in the midline. At this point, I brought the Endo Stitch with 0 V-Loc suture and closed the hernia defect using a running 0 V-Loc sutu re as described with good apposition and approximation tissues. I then sized the mesh appropriately and brought in the Bard Ventralight ST mesh with Echo Positioning System to the left lower quadrant t rocar, deployed the 11 cm mesh at this point after positioning it centrally over the defect. At this point, using the absorbable fixation tack, a crown was placed at this point and the balloon deployme nt system was removed through the trocar and found to be intact. At this point, the mesh was secured to the anterior abdominal wall using approximately 45 absorbable fixation tacks with good apposition of the tissue. No hemostatic maneuvers were required. The patient was then inspected under de-suff lation without evidence of complication. The mesh was in good position. I then rotated the patient slightly varying, closed the left lower quadrant trocar site using a Francine suture passer wi th 0 Vicryl in interrupted fashion with good approximation of tissues. The abdomen was then complete ly desufflated under direct visualization without evidence of complication. Remaining trocar was rem zara. All skin incisions were copiously irrigated and closed with 4-0 Monocryl in a running fashion. Dermabond placed over top. The patient tolerated the procedure well without evidence of complicati on and transferred to PACU in good condition. All counts were correct at the end of the case. MARLEEN/ELDA Voice ID: [id number] Report ID: [id number]
== END 2021-03-20 12:15 | disposition home or self-care (01) ==
LOC: OR 07:31
PROVIDERS: ATTEND Surgery
PROC: 0WUF4JZ Supplement Abdominal Wall with Synthetic Substitute, Percutaneous Endoscopic Approach (ICD-10-PCS; principal; 2021-03-20 08:30)
DX: K43.6 Other and unspecified ventral hernia with obstruction, without gangrene (principal); R10.9 Unspecified abdominal pain; Z20.822 Contact with and (suspected) exposure to COVID-19
CPT/HCPCS: 49653; U0003; J2704; J3010 ×2; J1100; J1170 ×2; J2710; J0690; J7120; J2405 ×3; C1781

== ENCOUNTER 2022-02-27 07:30 | Day surgery (SDC) | payer OTHER, MEDICARE ==
--- NOTE | 2022-02-26 09:20 | RAD REPORT ---
EXAM DESCRIPTION: Elena Mao And Lat (2 Views)02/26/2022 9:08 am CLINICAL HISTORY: Preop for cardiac catheterization COMPARISON: 2019 FINDINGS: 2 centimeter opacity right suprahilar region. Area of subsegmental atelectasis right upper lobe. Remainder of the lungs appear clear of acute infiltrate. Heart is normal size. Prominent kyphosis IMPRESSION: 2 centimeter opacity right suprahilar region. This may represent confluence of ribs and vessels or a nodule. CT chest is recommended
[2022-02-26 09:32] LABS: Absolute Lymphocytes (CBC) 1.9 K/uL (0.7-4.9); Hematocrit 40.9 % (36.0-45.0); Lymphocytes % 21.8 % (15.3-44.8); RBC Red Blood Cell Count 4.73 M/uL (3.86-4.86)
[2022-02-26 09:36] LABS: Protime INR 1.13
[2022-02-26 09:46] LABS: Potassium 4.4 mmol/L (3.5-5.1)
[~2022-02-27 07:30] MED LIST: NA CHLORIDE 0.9% 500 ML ONE
[2022-02-27] MEDS ORDERED: FENTANYL CITR 100 MCG/2 ML ONE (08:04)
[2022-02-27] MEDS ORDERED: HEPA 1000U/500MLS 1,000 UNIT/500 ML BAG IV ONE (08:04)
[2022-02-27] MEDS ORDERED: MIDAZOLAM HCL 2 MG/2 ML INJ ONE ×3 (08:04→08:51)
[2022-02-27] MEDS ORDERED: NA CHLORIDE 0.9% 0 ML ONE (08:05)
[2022-02-27] MEDS ORDERED: ATROPINE SULF 1 MG/10 ML SYR IV ONE (08:05)
[2022-02-27 10:16] VITALS: O2SAT 97
--- NOTE | 2022-02-27 10:45 | OP ---
Surgeon: Luis Bone MD [employer] Supervisor: Ms. Su Agudelo. Indication: Admitted as an outpatient to the laboratory chemical assistant today on 02/27/2022. The patient was admitted because of unstable angina. She is 71. Has a history of hypertension and hypothyroidism with class ic unstable angina symptoms. Procedure In Detail: Brought to the laboratory chemical assistant as an outpatient today. She was prepped and draped in the routine sterile fashion. Given Versed and fentanyl for sedation. A 6-Lao sheath was introduc ed in the right common femoral artery successfully using the Seldinger technique and 10 cc of Xylocai ne. She underwent left heart catheterization, selective coronary arteriogram, and a common femoral a rtery angiogram. Alyson catheters were used to cannulate the right main and the left main. She was found to have a normal circumflex that was small, nondominant. Left main was normal. The LAD had a myocardial bridge in the mid section. The RCA had a 40% mid stenosis, she was right dominant. Comm on femoral artery angiogram was normal without any significant stenosis. Angio-Seal was used to clos e the case. Total conscious sedation 45 minutes. 6-Lao sheath and catheters were used. The judy ent tolerated the procedure well. No complication. Blood Loss: 5 mL. 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 Plan: Medical therapy. I will increase her carvedilol to 25 b.i.d., consider nitroglycerin p.r.n. The patient will be staying in the hospital for 2 hours of bedrest after Angio-Seal and after she goes home, I will see her in the offic e in 2 weeks. VIRGIL/ELDA Voice ID: [id number] Report ID: [id number]
[2022-02-27 11:18] VITALS: BP 132/66
== END 2022-02-27 11:00 | disposition home or self-care (01) ==
LOC: CCL 07:30
DX: I25.110 Atherosclerotic heart disease of native coronary artery with unstable angina pectoris (principal); Q24.5 Malformation of coronary vessels; I10 Essential (primary) hypertension; E03.9 Hypothyroidism, unspecified; F32.A Depression, unspecified; Z88.1 Allergy status to other antibiotic agents; Z88.5 Allergy status to narcotic agent; Z88.8 Allergy status to other drugs, medicaments and biological substances; Z20.822 Contact with and (suspected) exposure to COVID-19
CPT/HCPCS: 85025; 80048; 36415; 85610; 85730; 71046; 93454; U0003; C1893; Q9966; C1760; G0269; J2250 ×2; J3010; J7040; J1644; J0583

== ENCOUNTER 2022-12-06 12:43 | Emergency (ER) | payer OTHER, MEDICARE ==
--- OUTSIDE RECORDS SUMMARY | 2022-12-06 12:54 | XMS REPORT | Continuity of Care Document ---
:1950 Author Organization [facility] t Address [address] [place] [place] [address] Care Team Providers Name Role Phone Hermes Ortega MD Primary Care Physician [phone] JOHNNY ARMENTA Attending Clinician Unavailable JOHNNY RIVERS Attending Clinician Unavailable JOHNNY RIVERS Attending Clinician Unavailable Bobo Attending Clinician Unavailable Darrell Elmore Attending Clinician Unavailable Stanley Katz Attending Clinician Unavailable KAY_Bety_CAROLINA Attending Clinician Unavailable Claudia RUBIN, Nik Kevin Attending Clinician Mario LEWIS, Emilee Attending Clinician Unavailable Bradley Roth MD Attending Clinician Nabor Dias NP, Rosalia Attending Clinician Maurice Morley MA Attending Clinician Unavailable Anoop RUBIN, Ines Smith Attending Clinician VLAD MARKHAM Attending Clinician Unavailable Ruben Browne Attending Clinician Unavailable Vlad Markham PA-C Attending Clinician Johnny Armenta MD Attending Clinician [facility], [facility] Lab Main Attending Clinician Unavailable Doctor Unassigned, [place] Attending Clinician Unavailable Crescencio FIGUEROA, Netta Xie Attending Clinician Neftali Cain DO Attending Clinician Lab, [facility] Pob I Attending Clinician Unavailable Eulogio RICARDO, Janak Attending Clinician JANAK LANTIGUA Attending Clinician Unavailable Es Almeida Attending Clinician Selvin RUBIN, Sendflor K.H. Attending Clinician SELVIN SENDFLOR K.H. Attending Clinician Unavailable Gentry LEWIS, Mart Goldman Attending Clinician Unavailable KIERRA DEY Attending Clinician Unavailable Julia RICARDO, Rome Mckee Attending Clinician Kierra Dey MD Attending Clinician Brianna_Nubia Attending Clinician Unavailable JOHNNY ARMENTA Admitting Clinician Unavailable JOHNNY RIVERS Admitting Clinician Unavailable Bobo Admitting Clinician Unavailable Darrell Elmore Admitting Clinician Unavailable Stanley Katz Admitting Clinician Unavailable Ruben Browne Admitting Clinician Unavailable Patrick_Galilea_CAROLINA Admitting Clinician Unavailable NIK PEREZ Admitting Clinician Unavailable INES DAVALOS Admitting Clinician Unavailable Johnny Armenta MD Admitting Clinician KIERRA DEY Admitting Clinician Unavailable Kierra Dey MD Admitting Clinician Shin Admitting Clinician Unavailable Payers Payer Name Policy Type Policy Number Effective Date Expiration Date S ouramanda MEDICARE PART A \\T\\ [id number] 1991 B 00:00:00 [facility] [id number] 2018 MEDICARE SUPPLEMENT 00:00:00 [place] B-[place]: [id number] 1991 [place] [employer] ([employer]) 00:00:00 [facility] [id number] 2021 OPTIONS (MEDICARE 00:00:00 SUPPLEMENT) CGS (MEDICARE DME [id number] 1991 [place] C) 00:00:00 Problems Condition Condition Condition Status Onset Resolution Last Treating Co mments Source Name Details Category Date Date Treatment Clinician Date Pain of Pain of Problem Active 2021-10 Brenda right Right 2-14 Orth[facility] shoulder Shoulder 00:00: dic joint Joint 00 Sports Medicin e Osteoarthr Osteoarthr Problem Active 2021-10 A zalea itis of itis of 2-14 Orthope right Right 00:00: dic glenohumer Glenohumer 00 Sp orts al joint al Joint Medici n e Osteoarthr Osteoarthr Problem Active 2021-10 A zalea itis of itis of 2-14 Orthope joint of Joint of 00:00: dic right Right 00 Sports shoulder Shoulder Medici n region Region e Mechanical Mechanical Problem Active 2021-10 A aurylea complicati Complicati 10-15 Or thope on of on of 00:00: dic internal Internal 00 Sports joint Joint Medicin prosthesis Prosthesis e History of History of Problem Active 2021-10 A aurylejones malignant Malignant 0-23 Orth ope neoplasm Neoplasm 00:00: dic of thyroid of Thyroid 00 Sp orts Medicin e Pain of Pain of Problem Active 2021-10 Brenda left knee Left Knee 0-05 Orth ope joint Joint 00:00: dic 00 Sports Medicin e Hyperparat Hyperparat Problem Active A ghazal hyroidism hyroidism 9-28 Orth ope 00:00: dic 00 Sports Medicin e Gastroesop Gastroesop Problem Active A ghazal hageal hageal 9-28 Orthope reflux Reflux 00:00: dic disease Disease 00 Sports without without Medicin esophagiti Esophagiti e s s Low back Low Back Problem Active Azale a pain Pain 9-28 Orthope 00:00: dic 00 Sports Medicin e Pain due Pain Due Problem Active Azale a to to 9-28 Orthope internal Internal 00:00: dic prosthetic Prosthetic 00 Sp orts device Device Medicin e Pain of Pain of Problem Active Brenda left Left 9-27 Orthope shoulder Shoulder 00:00: dic joint Joint 00 Sports Medicin e Abdominal Abdominal Disease Active Met hodi pain pain 4-22 st 00:00: Hospita 00 l Hiatal Hiatal Disease Active [facility] hernia hernia 4-21 st 00:00: Hospita 00 l Hiatal Hiatal Disease Active 2020-10 [facility] hernia hernia 2-28 st with GERD with GERD 00:00: Hosp king and and 00 l esophagiti esophagiti s s Knee pain Knee Pain Problem Active 2020-10 Katelyn middletona 2-01 Orthope 00:00: dic 00 Sports Medicin e Secondary Secondary Problem Active 2020-10 Katelyn morley hyperparat Hyperparat 1-08 Or thope hyroidism hyroidism 00:00: dic 00 Sports Medicin e 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 00 Sports Medicin e 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 Livan goldman 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 Ankylosis 00:00: dic 00 Sports Medicin e Gastroesop Gastroesop Problem Active 2020-10 Jones jeffersemijones hageal hageal 0-08 Orthope reflux Reflux 00:00: dic disease Disease 00 Sports Medicin e Pain in Pain in Problem Active Brenda left lower Left Lower 9-27 Or thope limb Limb 00:00: dic 00 Sports Medicin e Pain in Pain in Problem Active Brenda right arm Right Arm 9-27 Orth ope 00:00: dic 00 Sports Medicin e Pain in Pain in Problem Active Brenda bilateral Bilateral 9-27 Orth ope legs Legs 00:00: dic 00 Sports Medicin e Smoker Smoker Problem Active Brenda 8-30 Orthope 00:00: dic 00 Sports Medicin e Lumbar Lumbar Problem Active Brenda spondylosi Spondylosi 8-30 Or thope s s 00:00: dic 00 Sports Medicin e Degenerati Degenerati Problem Active Jones jefferspeyman on of on of 8-30 Orthope cervical Cervical 00:00: dic interverte Interverte 00 Sp orts bral disc bral Disc Medi ann e Degenerati Degenerati Problem Active A aurylea on of on of 8-30 Orthope lumbar Lumbar 00:00: dic interverte Interverte 00 Sp orts bral disc bral Disc Medi ann e Spinal Spinal Problem Active Brenda stenosis Stenosis 8-30 Orthop e in in 00:00: dic cervical Cervical 00 Sports region Region Medicin e Kyphosis Kyphosis Problem Active Azale a deformity Deformity 8-30 Orth ope of spine of Spine 00:00: dic 00 Sports Medicin e Late Late Problem Active Brenda effect of Effect of 8-30 Orth ope fracture Fracture 00:00: dic of of 00 Sports thoracic Thoracic Medici n vertebra Vertebra e Neck pain Neck Pain Problem Active Aza peyman 8-16 Orthope 00:00: dic 00 Sports Medicin e Localized, Localized, Problem Active A noaha primary Primary 5-19 Orthope osteoarthr Osteoarthr 00:00: di c itis itis 00 Sports Medicin e Tear of Tear of Problem Active Brenda lateral Lateral 5-19 Orthope meniscus Meniscus 00:00: dic of knee of Knee 00 Sports Medicin e Essential Essential Disease Active Uni vers hypertensi hypertensi 3-06 it y of on on 00:00: [place] 00 Medical Branch Cigarette Cigarette Disease Active Uni vers nicotine nicotine 3-06 [place] dependence [place] without 00 Medical complicati complicati Br anch on on DE LA TORRE DE LA TORRE Disease Active Univers (dyspnea (dyspnea 3-06 ity of on on 00:00: [place] exertion) exertion) 00 [facility] ck Branch Atypical Atypical Disease Active Unive rs chest pain chest pain 3-05 it y of 00:00: [place] 00 Medical Branch Fracture Fracture Problem Active Azale a of upper of Upper 1-22 Orthop e end of End of 00:00: dic humerus Humerus 00 Sports Medicin e Malignant Malignant Problem Active 2016-10 Aza peyman tumor of Tumor of 1-08 Orthop e thyroid Thyroid 00:00: dic gland Gland 00 Sports Medicin e Postoperat Postoperat Problem Active 2016-10 A ghazal chiquita chiquita 1-08 Orthope hypothyroi Hypothyroi 00:00: di c dism dism 00 Sports Medicin e Vitamin D Vitamin D Problem Active 2016-10 Aza peyman deficiency Deficiency 08 Or thope 00:00: dic 00 Sports Medicin e Depressive Depressive Problem Active 2016-10 A aurylea disorder Disorder 08 Orthop e 00:00: dic 00 Sports Medicin e Glaucoma Glaucoma Problem Active 2016-10 Azale a 08 Orthope 00:00: dic 00 Sports Medicin e Hypertensi Hypertensi Problem Active 2016-10 A ghazal ve ve 08 Orthope disorder Disorder 00:00: dic 00 Sports Medicin e Backache Backache Problem Active 2016-10 Azale a 08 Orthope 00:00: dic 00 Sports Medicin e Osteoporos Osteoporos Problem Active 2016-10 A ghazal is is 10-21 Orthope 00:00: dic 00 Sports Medicin e History of History of Problem Active 2016-10 A ghazal fracture Fracture 08 Orthop e 00:00: dic 00 Sports Medicin e Postsurgic Postsurgic Disease Active U nivers al al 6-20 ity of hypothyroi [place] dis[place] dism 00 [facility] Thyroid Thyroid Disease Active Univers cancer cancer 6-20 ity of 00:00: [place] 00 [facility] Bone Bone Disease Active Univers marrow marrow 6-20 ity of edema edema 00:00: [place] 00 [facility] Acquired Acquired Problem Active Azale a trigger Trigger 7-01 Orthope finger Finger 00:00: dic 00 Sports Medicin e Allergies, Adverse Reactions, Alerts Allergy Allergy Status Severity Reaction(s) Onset Inactive Treating Comm ents Source Name Type Date Date Clinician codeine DA Active CA NAUSEA-SENSI 2021-10 [facility] TIVE 2-19 Clear 00:00: God[place] 00 [facility] naloxone DA Active SV HEART 2021-10 [facility] PALPITATION, 2-19 Chely r FLUID IN 00:00: Godwin LUNGS 00 [facility] pentobar DA Active SV RESPIRATORY [facility]ital DISTRESS 07-11 [facility] 00:[facility] [place] codeine DA Active CA NAUSEA [facility] 07-11 [facility] [place] levoflox DA Active SV SWELLING [facility] acin 9-28 [facility] 00:[facility]: [facility] [place] oseltami DA Active SV ANXIETY [facility] vir 07-11 [facility] 00:[facility]: [facility] [place] Phenobar Propensi Active Hallucinatio "I get Methodi bital ty to ns 4-[address] adverse 00:00: " Hospita reaction 00 l s to drug SEPTRA Allergy Active Brenda to 8-30 Orthope substanc 00:00: dic e 00 Sports Medicin e pentobar DA Active SV RESPIRATORY 2018-10 [facility] bital DISTRESS 11-09 [place] 00:00: Orthope 00 dic Hospita l codeine DA Active CA NAUSEA 2018-10 [facility] 11-09 [place] 00:00: Orthope 00 dic Hospita l levoflox DA Active SV SWELLING 2018-10 [facility] acin 11-09 [place] 00:00: Orthope 00 dic Hospita l oseltami DA Active SV ANXIETY 2018-10 [facility] vir 11-09 [place] 00:00: Orthope 00 dic Hospita l pentobar DA Active SV 2018-10 [facility] bital 11-09 [place] 00:00: Orthope 00 dic Hospita l codeine DA Active CA 2018- [facility] 11-09 [place] 00:00: Orthope 00 dic Hospita l levoflox DA Active SV 2018-10 [facility] acin 11-09 [place] 00:00: Orthope 00 dic Hospita l oseltami DA Active SV 2018-10 [facility] vir 11-09 [place] 00:00: Orthope 00 dic Hospita l Oseltami Propensi Active Nausea Univer s vir ty to and/or 4-04 ity of Phosphat adverse Vomiting 00:00: [place] e reaction 00 Medical s Branch OSELTAMI DRUG Active N/V Univers VIR INGREDI 4-04 ity of PHOSPHAT 00:00: [place] E 00 Medical Branch pentobar DA Active SV 2016-10 [facility] [place] [facility] d [facility] codeine DA Active CA 2016- [facility] [place] [facility]: d [facility] levoflox DA Active SV 2016- [facility] acin [facility] [place] 00:[facility]: d [facility] oseltami DA Active SV 2016- [facility] vir 10-26 [place] 00:[facility]: d [facility] Codeine Propensi Active GI 2016-10 Methodi ty to Intolerance 10-26 st adverse 00:00: Hospita reaction 00 l s to drug Oseltami Propensi Active GI 2016-10 Method i vir ty to Intolerance 10-26 st adverse 00:00: Hospita reaction 00 l s to drug Levoflox Propensi Active Swelling Breathing M ethodi acin ty to 6-[address] adverse 00:00: Hospita reaction 00 l s to drug Pentobar Propensi Active Shortness Of Methodi bital ty to Breath 20 st adverse 00:00: Hospita reaction 00 l s to drug Levoflox Propensi Active Swelling Univ ers acin ty to 6-20 ity of adverse 00:00: [place] reaction 00 Medical s Branch Nembutal Propensi Active Anaphylaxis U nivers ty to 6-20 ity of adverse 00:00: [place] reaction 00 Medical s Branch LEVOFLOX DRUG Active Swelling Univer s ACIN INGREDI 6-20 ity of 00:00: Medical Branch NEMBUTAL DRUG Active High Anaphylaxis Uni vers 6-20 ity of 00:00: [place] [facility] Marcaine Allergy Active Brenda to 04-13 Orthope substanc 00:00: dic e 00 Sports Medicin e NEMBUTAL Allergy Active Brenda to 04-13 Orthope substanc 00:00: dic e 00 Sports Medicin e STADOL Allergy Active Brenda to 04-13 Orthope substanc 00:00: dic e 00 Sports Medicin e Levaquin Allergy Active Brenda to 04-13 Orthope substanc 00:00: dic e 00 Sports Medicin e Pentamid Propensi Active Other (See Me thodi ine ty to Comments) 03-17 st adverse 00:00: Hospita reaction 00 l s to drug Narcan Allergy Active Brenda to Orthope substanc dic e Sports Medicin e NO KNOWN Drug Active Univers ALLERGIE Class ity of S [facility] Family History Family Member Diagnosis Comments Start Date Stop Date Source Natural father [facility] Social History Social Habit Start Date Stop Date Quantity Comments Source History of tobacco Cigarette Smoker [facility] Exposure to 2022-11-09 2022-11-19 Yes [place] of SARS-CoV-2 (event) 00:00:00 13:19:00 [facility] Alcohol intake 2022-02-05 2022-02-05 Lifetime [facility] 00:00:00 00:00:00 non-drinker Hospital (finding) Cigarettes smoked 2022-01-25 2022-01-25 [facility] current (pack per 00:00:00 00:00:00 Hospita l day) - Reported Cigarette 2022-01-25 2022-01-25 [facility] pack-years 00:00:00 00:00:00 Hospital Tobacco use and 2022-01-25 2022-01-25 Smokeless [facility] exposure 00:00:00 00:00:00 tobacco non-user Hospital Sex Ass[birth year] [facility] 00:00:00 00:00:00 Hospital Smoking Status Start Date Stop Date Source Former Smoker Brenda [facility] Unknown if ever smoked [facility] Smokes tobacco daily 2022-01-25 00:00:00 [facility] Medications Ordered Filled Start Stop Current Ordering Indication Dosage Frequency Signature Comments Components Source Medication Medication Date Date Medication? Clinician (SIG) Name Name NaCl 0.9% 2022- No 1000mL at 999 Uni vers (NS) bolus 2- 02-06 mL/hr, ity of infusion 22:00: 23:42 1,000 mL, Gabe as 1,000 mL 00 :00 IV Medical Infusion, Branch ONCE, 1 dose, On Sat11/19/22 at 1600, ALAN NaCl 0.9% 2022- No 1000mL at 999 Uni vers (NS) bolus 2-06 02-06 mL/hr, ity of infusion 20:15: 21:04 1,000 mL, Gabe as 1,000 mL 00 :00 IV Medical Infusion, Branch ONCE, 1 dose, On Sat11/19/22 at 1415, ALAN sertraline Yes 150mg QD Take 150 Me thodi (ZOLOFT) 4-[address] 100 MG 13:48: mouth Hospita tablet 01 daily. l sertraline Yes 150mg QD Take 150 Me thodi (ZOLOFT) 4-[address] 100 MG 13:48: mouth Hospita tablet 01 daily. l sertraline 0 Yes 150mg QD Take 150 Me thodi (ZOLOFT) 4-[address] 100 MG 13:48: mouth Hospita tablet 01 daily. l sertraline 2021-0 Yes 150mg QD Take 150 Me thodi (ZOLOFT) 4-[address] 100 MG 13:48: mouth Hospita tablet 01 daily. l sertraline 202-0 Yes 150mg QD Take 150 Me thodi (ZOLOFT) 4-[address] 100 MG 13:48: mouth Hospita tablet 01 daily. l sertraline 2021-0 Yes 150mg QD Take 150 Me thodi (ZOLOFT) 4-[address] 100 MG 13:48: mouth Hospita tablet 01 daily. l liothyronin 2021-0 Yes 10ug QD Take 10 Met hodi e (CYTOMEL) 4-[address] 5 MCG 13:48: mouth Hospita tablet 55 daily. l sucralfate 2021-0 Yes 1g QD Take 1 g Met hodi (CARAFATE) 4-[address] 1 gram 13:48: every Hospita tablet 55 evening. l albuterol 2021-0 Yes 2{puff} Q6H Inhale 2 M ethodi (PROAIR 4-[address] HFA) 90 13:48: every 6 Hospita mcg/actuati 55 (six) l on inhaler hours as needed for wheezing. liothyronin 2021-0 Yes 10ug QD Take 10 Met hodi e (CYTOMEL) 4-[address] 5 MCG 13:48: mouth Hospita tablet 55 daily. l sucralfate 2021-0 Yes 1g QD Take 1 g Met hodi (CARAFATE) 4-[address] 1 gram 13:48: every Hospita tablet 55 evening. l albuterol 2022-0 Yes 2{puff} Q6H Inhale 2 M ethodi (PROAIR 4-[address] HFA) 90 13:48: every 6 Hospita mcg/actuati 55 (six) l on inhaler hours as needed for wheezing. liothyronin 2-0 Yes 10ug QD Take 10 Met hodi e (CYTOMEL) 4-[address] 5 MCG 13:48: mouth Hospita tablet 55 daily. l sucralfate 2021-0 Yes 1g QD Take 1 g Met hodi (CARAFATE) 4-[address] 1 gram 13:48: every Hospita tablet 55 evening. l albuterol 2021-0 Yes 2{puff} Q6H Inhale 2 M ethodi (PROAIR 4-[address] HFA) 90 13:48: every 6 Hospita mcg/actuati 55 (six) l on inhaler hours as needed for wheezing. liothyronin 2021-0 Yes 10ug QD Take 10 Met hodi e (CYTOMEL) 4-[address] 5 MCG 13:48: mouth Hospita tablet 55 daily. l sucralfate 2021-0 Yes 1g QD Take 1 g Met hodi (CARAFATE) 4-[address] 1 gram 13:48: every Hospita tablet 55 evening. l albuterol 2021-0 Yes 2{puff} Q6H Inhale 2 M ethodi (PROAIR 4-[address] HFA) 90 13:48: every 6 Hospita mcg/actuati 55 (six) l on inhaler hours as needed for wheezing. liothyronin 2021-0 Yes 10ug QD Take 10 Met hodi e (CYTOMEL) 4-[address] 5 MCG 13:48: mouth Hospita tablet 55 daily. l sucralfate 2021-0 Yes 1g QD Take 1 g Met hodi (CARAFATE) 4-[address] 1 gram 13:48: every Hospita tablet 55 evening. l albuterol 2021-0 Yes 2{puff} Q6H Inhale 2 M ethodi (PROAIR 4-[address] HFA) 90 13:48: every 6 Hospita mcg/actuati 55 (six) l on inhaler hours as needed for wheezing. liothyronin 2-0 Yes 10ug QD Take 10 Met hodi e (CYTOMEL) 4-[address] 5 MCG 13:48: mouth Hospita tablet 55 daily. l sucralfate 2021-0 Yes 1g QD Take 1 g Met hodi (CARAFATE) 4-[address] 1 gram 13:48: every Hospita tablet 55 evening. l albuterol 2021-0 Yes 2{puff} Q6H Inhale 2 M ethodi (PROAIR 4-[address] HFA) 90 13:48: every 6 Hospita mcg/actuati 55 (six) l on inhaler hours as needed for wheezing. tiZANidine 2022-0 Yes 4mg Q8H Take 4 mg Me thodi (ZANAFLEX) 4-[address] 4 MG tablet 00:00: every 8 Hos marry 00 (eight) l hours. tiZANidine 2022-0 Yes 4mg Q8H Take 4 mg Me thodi (ZANAFLEX) 4-[address] 4 MG tablet 00:00: every 8 Hos marry 00 (eight) l hours. tiZANidine 2022-0 Yes 4mg Q8H Take 4 mg Me thodi (ZANAFLEX) 4-[address] 4 MG tablet 00:00: every 8 Hos marry 00 (eight) l hours. tiZANidine 2022-0 Yes 4mg Q8H Take 4 mg Me thodi (ZANAFLEX) 4-[address] 4 MG tablet 00:00: every 8 Hos marry 00 (eight) l hours. tiZANidine 2022-0 Yes 4mg Q8H Take 4 mg Me thodi (ZANAFLEX) 4-[address] 4 MG tablet 00:00: every 8 Hos marry 00 (eight) l hours. tiZANidine 2022-0 Yes 4mg Q8H Take 4 mg Me thodi (ZANAFLEX) 4-[address] 4 MG tablet 00:00: every 8 Hos marry 00 (eight) l hours. lisinopriL 2022-0 2022- No QD Take by Met cody (SONALIL) -28 11-[address] 20 mg 16:14: 00:00 daily. Hospita tablet 33 :00 l lisinopriL 2022-0 2022- No QD Take by Met cody (PRINIVIL) -28 11-[address] 20 mg 16:14: 00:00 daily. Hospita tablet 33 :00 l lisinopriL 2022-0 2022- No QD Take by Met cody (PRINIVIL) -28 11-[address] 20 mg 16:14: 00:00 daily. Hospita tablet 33 :00 l lisinopriL 2022-0 2022- No QD Take by Met cody (PRINIVIL) -15 02-[address] 20 mg 16:14: 00:00 daily. Hospita tablet 33 :00 l DULoxetine 2021- No 60mg QD Take 60 mg Methodi (CYMBALTA) 2-15 02-[address] 60 MG 16:14: 00:00 daily. Hospita capsule 29 :00 l DULoxetine 2021- No 60mg QD Take 60 mg Methodi (CYMBALTA) 2-15 02-[address] 60 MG 16:14: 00:00 daily. Hospita capsule 29 :00 l DULoxetine 2021- No 60mg QD Take 60 mg [facility]i (CYMBALTA) 2-15 02-[address] 60 MG 16:14: 00:00 daily. Hospita capsule 29 :00 l DULoxetine 2021- No 60mg QD Take 60 mg [facility] (CYMBALTA) 2-15 02-[address] 60 MG 16:14: 00:00 daily. Hospita capsule 29 :00 l amLODIPine 2021- No amlodipine Methodi (NORVASC) 5 2-15 02-[address] mg tablet 16:14: 00:00 tablet Hospi ta 26 :00 TAKE 1 l TABLET BY MOUTH IN THE MORNING amLODIPine 2021- No amlodipine Methodi (NORVASC) 5 2-15 02-[address] mg tablet 16:14: 00:00 tablet Hospi ta 26 :00 TAKE 1 l TABLET BY MOUTH IN THE MORNING amLODIPine 2021- No amlodipine Methodi (NORVASC) 5 2-15 02-[address] mg tablet 16:14: 00:00 tablet Hospi ta 26 :00 TAKE 1 l TABLET BY MOUTH IN THE MORNING amLODIPine 2021- No amlodipine Methodi (NORVASC) 5 2-15 02-[address] mg tablet 16:14: 00:00 tablet Hospi ta 26 :00 TAKE 1 l TABLET BY MOUTH IN THE MORNING predniSONE 2020-10- No Method i (DELTASONE) 2 02-15 st 10 mg 00:00: 00:00 Hospita tablet 00 :00 l predniSONE 2020-10- No Method i (DELTASONE) 12-10 02-15 st 10 mg 00:00: 00:00 Hospita tablet 00 :00 l predniSONE 2020-10- No Method i (DELTASONE) 12-10-15 st 10 mg 00:00: 00:00 Hospita tablet 00 :00 l predniSONE 2020-10- No Method i (DELTASONE) 12-10-15 st 10 mg 00:00: 00:00 Hospita tablet 00 :00 l carvediloL 2020-10 Yes 12.5mg Q.5D Take 12.5 Methodi (COREG) 2-[address] 12.5 MG 00:00: mouth 2 Hospita tablet 00 (two) l times a day. carvediloL 2020-10 Yes 12.5mg Q.5D Take 12.5 Methodi (COREG) 2-[address] 12.5 MG 00:00: mouth 2 Hospita tablet 00 (two) l times a day. carvediloL 2020-10 Yes 12.5mg Q.5D Take 12.5 Methodi (COREG) 2-[address] 12.5 MG 00:00: mouth 2 Hospita tablet 00 (two) l times a day. carvediloL 2020-10 Yes 12.5mg Q.5D Take 12.5 Methodi (COREG) 2-[address] 12.5 MG 00:00: mouth 2 Hospita tablet 00 (two) l times a day. carvediloL 2020-10 Yes 12.5mg Q.5D Take 12.5 Methodi (COREG) 2-[address] 12.5 MG 00:00: mouth 2 Hospita tablet 00 (two) l times a day. carvediloL 2020-10 Yes 12.5mg Q.5D Take 12.5 Methodi (COREG) 2-[address] 12.5 MG 00:00: mouth 2 Hospita tablet 00 (two) l times a day. cholecalcif 2020-10 Yes Method i rosy, 1-12 st vitamin D3, 00:00: Hospit a 1,250 mcg 00 l (50,000 unit) capsule cholecalcif 2020-10 Yes Method i rosy, 1-12 st vitamin D3, 00:00: Hospit a 1,250 mcg 00 l (50,000 unit) capsule cholecalcif 2020-10 Yes Method i rosy, 1-12 st vitamin D3, 00:00: Hospit a 1,250 mcg 00 l (50,000 unit) capsule cholecalcif 2020-10 Yes Method i rosy, 1-12 st vitamin D3, 00:00: Hospit a 1,250 mcg 00 l (50,000 unit) capsule cholecalcif 2020-10 Yes Method i rosy, 1-12 st vitamin D3, 00:00: Hospit a 1,250 mcg 00 l (50,000 unit) capsule cholecalcif 2020-10 Yes Method i rosy, 1-12 st vitamin D3, 00:00: Hospit a 1,250 mcg 00 l (50,000 unit) capsule sertraline sertraline No sertraline Brenda 50 mg 50 mg 8-30 50 mg Orthope tablet tablet 00:00: tablet dic 00 Sports Medicin e baclofen 10 baclofen 10 No baclofen Brenda mg tablet mg tablet 8-30 10 mg Orth ope 00:00: tablet dic 00 Sports Medicin e omeprazole omeprazole No omeprazole Brenda 20 mg 20 mg 8-30 20 mg Orthope capsule,del capsule,del 00:00: capsule,de dic ayed ayed 00 layed Sports release release release Medici n e sertraline sertraline No sertraline Brenda 50 mg 50 mg 8-30 50 mg Orthope tablet tablet 00:00: tablet dic 00 Sports Medicin e DULoxetine Yes 60mg Take 60 mg U nivers 60 mg 7-14 by mouth ity of capsule 20:27: daily. [place] [address] Medical Branch carvedilol Yes 12.5mg Take 12.5 Univers 12.5 mg 7-14 mg by ity of tablet 20:27: mouth 2 [place] [address] (two) Medical times Branch daily with meals. amLODIPine Yes 5mg Take 5 mg Un rex 5 mg tablet 7-14 by mouth ity of 20:27: daily. [place] [address] Medical Branch methadone 5 Yes 10mg Take 10 mg Univers mg tablet 7-14 by mouth ity of 20:27: every 6 [place] [address] (six) Medical hours as Branch needed. baclofen 10 Yes 10mg Take 10 mg Univers mg tablet 7-14 by mouth 3 ity of 20:27: (three) [place] 28 times Medical daily. Branch tiZANidine Yes 4mg Take 4 mg Un rex (ZANAFLEX) 7-14 by mouth 3 ity of 4 mg 20:27: (three) [place] capsule 28 times Medical daily. Branch liothyronin Yes 10ug Take 10 Uni vers e (CYTOMEL) 7-14 mcg by ity of 5 mcg 20:27: mouth [place] tablet 28 daily. Medical Branch SERTraline Yes 100mg Take 100 Un rex (ZOLOFT) 7-14 mg by ity of 100 mg 20:27: mouth [place] tablet 28 daily. Medical Branch DULoxetine Yes 60mg Take 60 mg U nivers 60 mg 7-14 by mouth ity of capsule 20:27: daily. [place] [address] Medical Branch carvedilol Yes 12.5mg Take 12.5 [facility] 12.5 mg 7-14 mg by ity of tablet 20:27: mouth 2 [place] (two) Medical times Branch daily with meals. amLODIPine Yes 5mg Take 5 mg Un rex 5 mg tablet 7-14 by mouth ity of 20:27: daily. [place] [address] Medical Branch methadone 5 Yes 10mg Take 10 mg [facility] mg tablet 7-14 by mouth ity of 20:27: every 6 [place] [address] (six) Medical hours as Branch needed. baclofen 10 Yes 10mg Take 10 mg [facility] mg tablet 7-14 by mouth 3 ity of 20:27: (three) [place] 28 times Medical daily. Branch tiZANidine Yes 4mg Take 4 mg [facility] (ZANAFLEX) 7-14 by mouth 3 ity of 4 mg 20:27: (three) [place] capsule 28 times Medical daily. Branch liothyronin Yes 10ug Take 10 Uni vers e (CYTOMEL) 7-14 mcg by ity of 5 mcg 20:27: mouth [place] tablet 28 daily. Medical Branch SERTraline Yes 100mg Take 100 Un re[facility] (ZOLOFT) 7-14 mg by ity of 100 mg 20:27: mouth [place] tablet 28 daily. Medical Branch DULoxetine 2021-0 Yes 60mg Take 60 mg U nivers 60 mg 7-14 by mouth ity of capsule 20:27: daily. [place] [address] Medical Branch carvedilol Yes 12.5mg Take 12.5 [facility] 12.5 mg 7-14 mg by ity of tablet 20:27: mouth 2 (two) Medical times Branch daily with meals. amLODIPine Yes 5mg Take 5 mg Un [facility] 5 mg tablet 7-14 by mouth ity of 20:27: daily. [place] [address] Medical Branch methadone 5 Yes 10mg Take 10 mg [facility] mg tablet 7-14 by mouth ity of 20:27: every 6 [place] [address] (six) Medical hours as Branch needed. baclofen 10 Yes 10mg Take 10 mg [facility] mg tablet 7-14 by mouth 3 ity of 20:27: (three) [place] 28 times Medical daily. Branch tiZANidine Yes 4mg Take 4 mg Un [facility] (ZANAFLEX) 7-14 by mouth 3 ity of 4 mg 20:27: (three) [place] capsule 28 times Medical daily. Branch liothyronin Yes 10ug Take 10 Uni vers e (CYTOMEL) 7-14 mcg by ity of 5 mcg 20:27: mouth [place] tablet 28 daily. Medical Branch SERTraline Yes 100mg Take 100 Un rex (ZOLOFT) 7-14 mg by ity of 100 mg 20:27: mouth [place] tablet 28 daily. Medical Branch DUOVISC Yes PRN, Univers (DUOVISC 04-26 Starting ity of VISCO 18:31: Wed [place] ELASTIC) 3 00 04/26/21 at Med ical %-4 %(0.5 1331, Branch mL) 1 % Until (0.55 mL) Discontinu intraocular ed, injection Routine, Intra-op DUOVISC 2020- No PRN, Univers (DUOVISC 04-2614 Starting ity of VISCO 18:31: 22:27 Wed [place] ELASTIC) 3 00 :28 04/26/21 at Med ical %-4 %(0.5 1331, Branch mL) 1 % Until Wed (0.55 mL) 04/26/21 at intraocular 1727, injection Routine, Intra-op carbachoL Yes PRN, Univers (MIOSTAT) 04-26 Starting ity of 0.01 % 18:29: Wed [place] intraocular 00 04/26/21 at Pa dical injection 1329, Branch Until Discontinu ed, Routine, Intra-op ceFAZolin Yes PRN, Univers (ANCEF) 04-26 Starting ity of injection 18:29: Wed [place] 00 04/26/21 at [facility] 1329, Branch Until Discontinu ed, ALAN, Intra-op neomycin-po Yes PRN, Univer s lymyxin-dex 04-26 Starting ity of amethasone 18:29: Wed [place] (MAXITROL) 00 04/26/21 at [facility] ical 3.5 1329, Branch mg/g-10,000 Until unit/g-0.1 Discontinu % ed, ophthalmic Routine, ointment Intra-op carbachoL 2020- No PRN, Univers (MIOSTAT) 04-26 Starting ity o f 0.01 % 18:29: 22:27 Wed [place] intraocular 00 :28 04/26/21 at Pa dical injection 1329, Branch Until Sat04/26/21 at 1727, Routine, Intra-op ceFAZolin 0 2020- No PRN, Univers (ANCEF) 04-26 Starting ity of injection 18:29: 22:27 Wed [place] 00 :28 04/26/21 at Medical 1329, Branch Until Sat04/26/21 at 1727, ALAN, Intra-op neomycin-po 2020- No PRN, Unive rs lymyxin-dex 04-26 Starting ity of amethasone 18:29: 22:27 Wed [place] (MAXITROL) 00 :28 04/26/21 at [facility] ical 3.5 1329, Branch mg/g-10,000 Until Wed unit/g-0.1 04/26/21 at % 1727, ophthalmic Routine, ointment Intra-op dexamethaso Yes PRN, Univer s ne 04-26 Starting ity of (DECADRON 18:28: Wed [place] PHOSPHATE) 00 04/26/21 at [facility] ical injection 1328, Branch Until Discontinu ed, Routine, Intra-op dexamethaso 2020- No PRN, Unive rs ne 04-26 Starting ity of (DECADRON 18:28: 22:27 Sat [place] PHOSPHATE) 00 :28 04/26/21 at [facility] ical injection 1328, Branch Until Sat04/26/21 at 1727, Routine, Intra-op balanced Yes PRN, Univers salt irrig 04-26 Starting ity o f soln comb1 18:17: Sat [place] (BSS PLUS) 00 04/26/21 at [facility] ical ophthalmic 1317, Branch solution Until 500 mL bag Discontinu ed, Routine, Intra-op EPINEPHrine Yes PRN, Univer s 1:1,000 (1 04-26 Starting ity o f mg/mL) 18:17: Sat (ADRENALIN) 00 04/26/21 at Pa dical injection 1317, Branch Until Discontinu ed, Routine, Intra-op sodium Yes PRN, Univers chloride 04-26 Starting ity of (NS) 18:17: Sat [place] injection 00 04/26/21 at [facility] [place] 1317, Branch Until Discontinu ed, Routine, Intra-op balanced 2020- No PRN, Univers salt irrig 04-26 Starting ity of soln comb1 18:17: 22:27 Sat [place] (BSS PLUS) 00 :28 04/26/21 at [facility] ical ophthalmic 1317, Branch solution Until Wed 500 mL bag 04/26/21 at 1727, Routine, Intra-op EPINEPHrine 2020- No PRN, Unive rs 1:1,000 (1 04-26 Starting ity of mg/mL) 18:17: 22:27 Sat [place] (ADRENALIN) 00 :28 04/26/21 at Pa dical injection 1317, Branch Until Sat04/26/21 at 1727, Routine, Intra-op sodium 2020- No PRN, Univers chloride 04-26 Starting ity of (NS) 18:17: 22:27 Sat [place] injection 00 :28 7 at [facility] ck 1317, Branch Until 04/26/21 at 1727, Routine, Intra-op water for Yes PRN, Univers irrigation 04-26 Starting ity o f irrigation 18:13: Sat [place] solution 00 04/26/21 at Medic al 1313, Branch Until Discontinu ed, Routine, Intra-op water for 2020- No PRN, Univers irrigation 04-26 Starting ity of irrigation 18:13: 22:27 [facility] solution 00 :28 04/26/21 at Medic al 1313, Branch Until Sat04/26/21 at 1727, Routine, Intra-op eye block Yes PRN, Univers syringe 04-26 Starting ity o f mL 18:10: Sat [place] 00 04/26/21 at Medical 1310, Branch Until Discontinu ed, Intra-op Hyaluronida Yes PRN, [facility] s se, Human 04-26 Starting ity of Recomb. 18:10: Sat [place] (HYLENEX) 00 04/26/21 at [facility] ck injection 1310, Branch Until Discontinu ed, Routine, Intra-op eye block 2020- No PRN, Univers syringe 11 04-26 Starting ity of mL 18:10: 22:27 [facility] 00 :28 04/26/21 at Medical 1310, Branch Until Sat04/26/21 at 1727, Intra-op Hyaluronida 2020- No PRN, [facility] rs se, Human 04-26 Starting ity o f Recomb. 18:10: 22:27 [facility] (HYLENEX) 00 :28 04/26/21 at [facility] [place] injection 1310, Branch Until Sat04/26/21 at 1727, Routine, Intra-op mydriatic 2020- No .5mL 0.5 mL, Univ ers #5 04-26 Right Eye, ity of ophthalmic 17:00: 17:15 ONCE, 1 [place] solution 00 :00 dose, Sat Medica l 0.5 mL 04/26/21 at Branch syringe 1200, Routine, DSU Pre-op lactated 2020- No 1000mL at 42 Unive rs ringers IV 04-26 mL/hr, ity of infusion 17:00: 17:15 1,000 mL, [place] 1,000 mL 00 :00 IV Medical Infusion, Branch ONCE, 1 dose, 04/26/21 at 1200, Routine, DSU Pre-op mydriatic 2020- No .5mL 0.5 mL, Univ ers #5 04-2614 Right Eye, ity of ophthalmic 17:00: 17:15 ONCE, 1 [place] solution 00 :00 dose, Wed Medica l 0.5 mL 04/26/21 at Branch syringe 1200, Routine, DSU Pre-op lactated 2020- No 1000mL at 42 Unive rs ringers IV 04-26 07-14 mL/hr, ity of infusion 17:00: 17:15 1,000 mL, [place] 1,000 mL 00 :00 IV Medical Infusion, Branch ONCE, 1 dose, 04/26/21 at 1200, Routine, DSU Pre-op DULoxetine Yes 60mg Take 60 mg U nivers 60 mg 7-14 by mouth ity of capsule 15:27: daily. [address] carvedilol Yes 12.5mg Take 12.5 [facility] 12.5 mg 7-14 mg by ity of tablet 15:27: mouth 2 [place] 28 (two) Medical times Branch daily with meals. amLODIPine Yes 5mg Take 5 mg Un rex 5 mg tablet 7-14 by mouth ity of 15:27: daily. [address] Branch methadone 5 Yes 10mg Take 10 mg [facility] mg tablet 7-14 by mouth ity of 15:27: every 6 [place] 28 (six) Medical hours as Branch needed. baclofen 10 Yes 10mg Take 10 mg [facility] mg tablet 7-14 by mouth 3 ity of 15:27: (three) [place] 28 times Medical daily. Branch tiZANidine Yes 4mg Take 4 mg Un re[facility] (ZANAFLEX) 7-14 by mouth 3 ity of 4 mg 15:27: (three) [place] capsule 28 times Medical daily. Branch liothyronin Yes 10ug Take 10 Uni vers e (CYTOMEL) 7-14 mcg by ity of 5 mcg 15:27: mouth [place] tablet 28 daily. Medical Branch SERTraline Yes 100mg Take 100 Un rex (ZOLOFT) 7-14 mg by ity of 100 mg 15:27: mouth [place] tablet 28 daily. Medical Branch HYDROcodone 2020- No 1{tbl} 1 tablet, Univers -acetaminop 7-04 07-04 Oral, ity of hen (NORCO) 04:45: 03:40 ONCE, 1 [place] 10-325 mg 00 :00 dose, Sat Medic al tablet 1 04/15/21 at [place] tablet 2345, Routine NaCl 0.9% 2019-10- No 500mL at 999 Univ ers (NS) bolus 1-27 11-27 mL/hr, 500 it y of infusion 03:00: 05:13 mL, IV [place] 500 mL 00 :00 Infusion, Medical ONCE, 1 Branch dose, [place] 09/08/20 at 2100, ALAN CLOTRIMAZOL 2019-0 Yes [id number] APPLY U nivers E-BETAMETHA 3-31 CREAM ity of SONE cream 00:00: TOPICALLY [place] 00 TO AREA Medical TWICE Branch DAILY CLOTRIMAZOL 2020-0 Yes [id number] APPLY U nivers E-BETAMETHA 3-31 CREAM ity of SONE cream 00:00: TOPICALLY [place] 00 TO AREA Medical TWICE Branch DAILY CLOTRIMAZOL 2020-0 Yes [id number] APPLY U nivers E-BETAMETHA 3-31 CREAM ity of SONE cream 00:00: TOPICALLY [place] 00 TO AREA Medical TWICE Branch DAILY CLOTRIMAZOL 2020-0 Yes [id number] APPLY U nivers E-BETAMETHA 3-31 CREAM ity of SONE cream 00:00: TOPICALLY [place] 00 TO AREA Medical TWICE Branch DAILY CLOTRIMAZOL 2020-0 Yes [id number] APPLY U nivers E-BETAMETHA 3-31 CREAM ity of SONE cream 00:00: TOPICALLY [place] 00 TO AREA Medical TWICE Branch DAILY CLOTRIMAZOL 2020-0 Yes [id number] APPLY U nivers E-BETAMETHA 3-31 CREAM ity of SONE cream 00:00: TOPICALLY [place] 00 TO AREA Medical TWICE Branch DAILY CLOTRIMAZOL 2020-0 Yes [id number] APPLY U nivers E-BETAMETHA 3-31 CREAM ity of SONE cream 00:00: TOPICALLY [place] 00 TO AREA Medical TWICE Branch DAILY CLOTRIMAZOL 2020-0 Yes [id number] APPLY U nivers E-BETAMETHA 3-31 CREAM ity of SONE cream 00:00: TOPICALLY [place] 00 TO AREA Medical TWICE Branch DAILY CLOTRIMAZOL 2020-0 Yes [id number] APPLY U nivers E-BETAMETHA 3-31 CREAM ity of SONE cream 00:00: TOPICALLY [place] 00 TO AREA Medical TWICE Branch DAILY CLOTRIMAZOL 2020-0 Yes [id number] APPLY U nivers E-BETAMETHA 3-31 CREAM ity of SONE cream 00:00: TOPICALLY [place] 00 TO AREA Medical TWICE Branch DAILY CLOTRIMAZOL 2020-0 Yes [id number] APPLY U nivers E-BETAMETHA 3-31 CREAM ity of SONE cream 00:00: TOPICALLY [place] 00 TO AREA Medical TWICE Branch DAILY clotrimazol 0 2021- No APPLY Meth [facility] e-betametha 3-31 04-14 CREAM [facility] 00:00: 00:00 TOPICALLY [facility] (LOTRISONE) 00 :00 TO AREA l 1-0.05 % TWICE cream DAILY clotrimazol 0 2021- No APPLY Meth alva e-betametha 3--14 CREAM [facility] 00:00: 00:00 TOPICALLY [facility] (LOTRISONE) 00 :00 TO AREA l 1-0.05 % TWICE cream DAILY clotrimazol 0 2021- No APPLY Meth alva e-betametha 3- 04-14 CREAM [facility] 00:00: 00:00 TOPICALLY [facility] (LOTRISONE) 00 :00 TO AREA l 1-0.05 % TWICE cream DAILY clotrimazol 0 2021- No APPLY Meth alva e-betametha 3-31 04-14 CREAM [facility] 00:00: 00:00 TOPICALLY [facility] (LOTRISONE) 00 :00 TO AREA l 1-0.05 % TWICE cream DAILY clotrimazol 0 2021- No APPLY Meth alva e-betametha 3-31 04-14 CREAM [facility] 00:00: 00:00 TOPICALLY [facility] (LOTRISONE) 00 :00 TO AREA l 1-0.05 % TWICE cream DAILY clotrimazol 2021- No APPLY Meth alva e-betametha 3- 04-[address] [facility] 00:00: 00:00 TOPICALLY [facility] (LOTRISONE) 00 :00 TO AREA l 1-0.05 % TWICE cream DAILY DULoxetine 2020-0 Yes 60mg Take 60 mg U nivers 60 mg 3-07 by mouth ity of capsule 00:07: daily. [place] [address] Medical Branch carvedilol 2020-0 Yes 12.5mg Take 12.5 Univers 12.5 mg 3-07 mg by ity of tablet 00:07: mouth 2 [place] [address] (two) Medical times Branch daily with meals. amLODIPine 2020-0 Yes 5mg Take 5 mg Un rex 5 mg tablet 3-07 by mouth ity of 00:07: daily. [place] [address] Medical Branch methadone 5 2020-0 Yes 10mg Take 10 mg Univers mg tablet 3-07 by mouth ity of 00:07: every 6 [place] [address] (six) Medical hours as Branch needed. baclofen 10 2020-0 Yes 10mg Take 10 mg Univers mg tablet 3-07 by mouth 3 ity of 00:07: (three) [place] [address] times Medical daily. Branch tiZANidine 2020-0 Yes 4mg Take 4 mg Un rex (ZANAFLEX) 3-07 by mouth 3 ity of 4 mg 00:07: (three) [place] capsule times Medical daily. Branch liothyronin 2020-0 Yes 10ug Take 10 Uni vers e (CYTOMEL) 3-07 mcg by ity of 5 mcg 00:07: mouth [place] tablet 11 daily. Medical Branch SERTraline 2020-0 Yes 100mg Take 100 Un rex (ZOLOFT) 3-07 mg by ity of 100 mg 00:07: mouth [place] tablet 11 daily. Medical Branch DULoxetine 2020-0 Yes 60mg Take 60 mg U nivers 60 mg 3-07 by mouth ity of capsule 00:07: daily. [place] [address] Medical Branch carvedilol 2020-0 Yes 12.5mg Take 12.5 Univers 12.5 mg 3-07 mg by ity of tablet 00:07: mouth 2 [place] [address] (two) Medical times [place] daily with meals. amLODIPine 2020-0 Yes 5mg Take 5 mg Un rex 5 mg tablet 3-07 by mouth ity of 00:07: daily. [place] [address] Medical Branch methadone 5 2020-0 Yes 10mg Take 10 mg Univers mg tablet 3-07 by mouth ity of 00:07: every 6 [place] [address] (six) Medical hours as Branch needed. baclofen 10 2020-0 Yes 10mg Take 10 mg [facility] mg tablet 3-07 by mouth 3 ity of 00:07: (three) [place] 11 times Medical daily. Branch tiZANidine 2020-0 Yes 4mg Take 4 mg Un rex (ZANAFLEX) 3-07 by mouth 3 ity of 4 mg 00:07: (three) [place] capsule 11 times Medical daily. Branch liothyronin 2020-0 Yes 10ug Take 10 Uni vers e (CYTOMEL) 3-07 mcg by ity of 5 mcg 00:07: mouth [place] tablet 11 daily. Medical Branch SERTraline 2020-0 Yes 100mg Take 100 Un rex (ZOLOFT) 3-07 mg by ity of 100 mg 00:07: mouth [place] tablet 11 daily. Medical Branch DULoxetine 2020-0 Yes 60mg Take 60 mg U nivers 60 mg 3-07 by mouth ity of capsule 00:07: daily. [place] [address] Medical Branch carvedilol 2020-0 Yes 12.5mg Take 12.5 Univers 12.5 mg 3-07 mg by ity of tablet 00:07: mouth 2 [place] [address] (two) Medical times Branch daily with meals. amLODIPine 2020-0 Yes 5mg Take 5 mg Un rex 5 mg tablet 3-07 by mouth ity of 00:07: daily. [place] [address] Medical Branch methadone 5 2020-0 Yes 10mg Take 10 mg Univers mg tablet 3-07 by mouth ity of 00:07: every 6 [place] [address] (six) Medical hours as Branch needed. baclofen 10 2020-0 Yes 10mg Take 10 mg Univers mg tablet 3-07 by mouth 3 ity of 00:07: (three) [place] 11 times Medical daily. Branch tiZANidine 2020-0 Yes 4mg Take 4 mg Un rex (ZANAFLEX) 3-07 by mouth 3 ity of 4 mg 00:07: (three) [place] capsule 11 times Medical daily. Branch liothyronin 2020-0 Yes 10ug Take 10 Uni vers e (CYTOMEL) 3-07 mcg by ity of 5 mcg 00:07: mouth [place] tablet 11 daily. Medical Branch SERTraline 2020-0 Yes 100mg Take 100 Un rex (ZOLOFT) 3-07 mg by ity of 100 mg 00:07: mouth [place] tablet 11 daily. Medical Branch DULoxetine 2020-0 Yes 60mg Take 60 mg U nivers 60 mg 3-07 by mouth ity of capsule 00:07: daily. [place] [address] Medical Branch carvedilol 2020-0 Yes 12.5mg Take 12.5 Univers 12.5 mg 3-07 mg by ity of tablet 00:07: mouth 2 [place] [address] (two) Medical times [place] daily with meals. amLODIPine 2020-0 Yes 5mg Take 5 mg Un rex 5 mg tablet 3-07 by mouth ity of 00:07: daily. [address] Branch methadone 5 2020-0 Yes 10mg Take 10 mg Univers mg tablet 3-07 by mouth ity of 00:07: every 6 [place] [address] (six) Medical hours as Branch needed. baclofen 10 2020-0 Yes 10mg Take 10 mg Univers mg tablet 3-07 by mouth 3 ity of 00:07: (three) [place] 11 times Medical daily. Branch tiZANidine 2020-0 Yes 4mg Take 4 mg Un rex (ZANAFLEX) 3-07 by mouth 3 ity of 4 mg 00:07: (three) [place] capsule 11 times Medical daily. Branch liothyronin 2020-0 Yes 10ug Take 10 Uni vers e (CYTOMEL) 3-07 mcg by ity of 5 mcg 00:07: mouth [place] tablet 11 daily. Medical Branch SERTraline 2020-0 Yes 100mg Take 100 Un rex (ZOLOFT) 3-07 mg by ity of 100 mg 00:07: mouth [place] tablet 11 daily. Medical Branch DULoxetine 2020-0 Yes 60mg Take 60 mg U nivers 60 mg 3-07 by mouth ity of capsule 00:07: daily. [place] [address] Medical Branch carvedilol 2020-0 Yes 12.5mg Take 12.5 Univers 12.5 mg 3-07 mg by ity of tablet 00:07: mouth 2 [place] [address] (two) Medical times [place] daily with meals. amLODIPine 2020-0 Yes 5mg Take 5 mg Un rex 5 mg tablet 3-07 by mouth ity of 00:07: daily. [place] [address] Medical Branch methadone 5 2020-0 Yes 10mg Take 10 mg Univers mg tablet 3-07 by mouth ity of 00:07: every 6 [place] [address] (six) Medical hours as Branch needed. baclofen 10 2020-0 Yes 10mg Take 10 mg Univers mg tablet 3-07 by mouth 3 ity of 00:07: (three) [place] 11 times Medical daily. Branch tiZANidine 2020-0 Yes 4mg Take 4 mg Un rex (ZANAFLEX) 3-07 by mouth 3 ity of 4 mg 00:07: (three) [place] capsule 11 times Medical daily. Branch liothyronin 2020-0 Yes 10ug Take 10 Uni vers e (CYTOMEL) 3-07 mcg by ity of 5 mcg 00:07: mouth [place] tablet 11 daily. Medical Branch SERTraline 2020-0 Yes 100mg Take 100 Un rex (ZOLOFT) 3-07 mg by ity of 100 mg 00:07: mouth [place] tablet 11 daily. Medical Branch DULoxetine 2020-0 Yes 60mg Take 60 mg U nivers 60 mg 3-07 by mouth ity of capsule 00:07: daily. [place] [address] Medical Branch carvedilol 2020-0 Yes 12.5mg Take 12.5 Univers 12.5 mg 3-07 mg by ity of tablet 00:07: mouth 2 [place] [address] (two) Medical times Branch daily with meals. amLODIPine 2020-0 Yes 5mg Take 5 mg Un rex 5 mg tablet 3-07 by mouth ity of 00:07: daily. [place] [address] Medical Branch methadone 5 2020-0 Yes 10mg Take 10 mg Univers mg tablet 3-07 by mouth ity of 00:07: every 6 [place] [address] (six) Medical hours as Branch needed. baclofen 10 2020-0 Yes 10mg Take 10 mg Univers mg tablet 3-07 by mouth 3 ity of 00:07: (three) [place] 11 times Medical daily. Branch tiZANidine 2020-0 Yes 4mg Take 4 mg Un rex (ZANAFLEX) 3-07 by mouth 3 ity of 4 mg 00:07: (three) [place] capsule 11 times Medical daily. Branch liothyronin 2020-0 Yes 10ug Take 10 Uni vers e (CYTOMEL) 3-07 mcg by ity of 5 mcg 00:07: mouth [place] tablet 11 daily. Medical Branch SERTraline 2020-0 Yes 100mg Take 100 Un rex (ZOLOFT) 3-07 mg by ity of 100 mg 00:07: mouth [place] tablet 11 daily. Medical Branch DULoxetine 2020-0 Yes 60mg Take 60 mg U nivers 60 mg 3-07 by mouth ity of capsule 00:07: daily. [place] [address] Medical Branch carvedilol 2020-0 Yes 12.5mg Take 12.5 [facility] 12.5 mg 3-07 mg by ity of tablet 00:07: mouth 2 [place] [address] (two) Medical times [place] daily with meals. amLODIPine 2020-0 Yes 5mg Take 5 mg Un rex 5 mg tablet 3-07 by mouth ity of 00:07: daily. [address] Branch methadone 5 2020-0 Yes 10mg Take 10 mg [facility] mg tablet 3-07 by mouth ity of 00:07: every 6 [place] [address] (six) Medical hours as Branch needed. baclofen 10 2020-0 Yes 10mg Take 10 mg [facility] mg tablet 3-07 by mouth 3 ity of 00:07: (three) [place] [address] times Medical daily. Branch tiZANidine 2020-0 Yes 4mg Take 4 mg Un rex (ZANAFLEX) 3-07 by mouth 3 ity of 4 mg 00:07: (three) [place] [id number] times Medical daily. Branch liothyronin 2020-0 Yes 10ug Take 10 Uni vers e (CYTOMEL) 3-07 mcg by ity of 5 mcg 00:07: mouth [place] tablet 11 daily. Medical Branch SERTraline 2020-0 Yes 100mg Take 100 Un rex (ZOLOFT) 3-07 mg by ity of 100 mg 00:07: mouth [place] tablet 11 daily. Medical Branch DULoxetine 2020-0 Yes 60mg Take 60 mg U nivers 60 mg 3-07 by mouth ity of capsule 00:07: daily. [address] carvedilol 2020-0 Yes 12.5mg Take 12.5 Univers 12.5 mg 3-07 mg by ity of tablet 00:07: mouth 2 [place] [address] (two) Medical times [place] daily with meals. amLODIPine 2020-0 Yes 5mg Take 5 mg Un rex 5 mg tablet 3-07 by mouth ity of 00:07: daily. [place] [address] Medical Branch methadone 5 2020-0 Yes 10mg Take 10 mg Univers mg tablet 3-07 by mouth ity of 00:07: every 6 [place] [address] (six) Medical hours as Branch needed. baclofen 10 2020-0 Yes 10mg Take 10 mg Univers mg tablet 3-07 by mouth 3 ity of 00:07: (three) [place] 11 times Medical daily. Branch tiZANidine 2020-0 Yes 4mg Take 4 mg Un rex (ZANAFLEX) 3-07 by mouth 3 ity of 4 mg 00:07: (three) [place] capsule 11 times Medical daily. Branch liothyronin 2020-0 Yes 10ug Take 10 Uni vers e (CYTOMEL) 3-07 mcg by ity of 5 mcg 00:07: mouth [place] tablet 11 daily. Medical Branch SERTraline 2020-0 Yes 100mg Take 100 Un rex (ZOLOFT) 3-07 mg by ity of 100 mg 00:07: mouth [place] tablet 11 daily. Medical Branch DULoxetine 2020-0 Yes 60mg Take 60 mg U nivers 60 mg 3-07 by mouth ity of capsule 00:07: daily. [place] [address] Medical Branch carvedilol 2020-0 Yes 12.5mg Take 12.5 Univers 12.5 mg 3-07 mg by ity of tablet 00:07: mouth 2 [place] [address] (two) Medical times Branch daily with meals. amLODIPine 2020-0 Yes 5mg Take 5 mg Un rex 5 mg tablet 3-07 by mouth ity of 00:07: daily. [place] [address] Medical Branch methadone 5 2020-0 Yes 10mg Take 10 mg [facility] mg tablet 3-07 by mouth ity of 00:07: every 6 [place] [address] (six) Medical hours as Branch needed. baclofen 10 2020-0 Yes 10mg Take 10 mg [facility] mg tablet 3-07 by mouth 3 ity of 00:07: (three) [place] 11 times Medical daily. Branch tiZANidine 2020-0 Yes 4mg Take 4 mg Un rex (ZANAFLEX) 3-07 by mouth 3 ity of 4 mg 00:07: (three) [place] capsule 11 times Medical daily. Branch liothyronin 2020-0 Yes 10ug Take 10 Uni vers e (CYTOMEL) 3-07 mcg by ity of 5 mcg 00:07: mouth [place] tablet 11 daily. Medical Branch SERTraline 2020-0 Yes 100mg Take 100 Un rex (ZOLOFT) 3-07 mg by ity of 100 mg 00:07: mouth [place] tablet 11 daily. Medical Branch DULoxetine 2020-0 Yes 60mg Take 60 mg U nivers 60 mg 3-07 by mouth ity of capsule 00:07: daily. [place] [address] Medical Branch carvedilol 2020-0 Yes 12.5mg Take 12.5 [facility] 12.5 mg 3-07 mg by ity of tablet 00:07: mouth 2 [place] [address] (two) Medical times Branch daily with meals. amLODIPine 2020-0 Yes 5mg Take 5 mg Un rex 5 mg tablet 3-07 by mouth ity of 00:07: daily. [place] [address] Medical Branch methadone 5 2020-0 Yes 10mg Take 10 mg [facility] mg tablet 3-07 by mouth ity of 00:07: every 6 [place] [address] (six) Medical hours as Branch needed. baclofen 10 2020-0 Yes 10mg Take 10 mg Univers mg tablet 3-07 by mouth 3 ity of 00:07: (three) [place] 11 times Medical daily. Branch tiZANidine 2020-0 Yes 4mg Take 4 mg Un rex (ZANAFLEX) 3-07 by mouth 3 ity of 4 mg 00:07: (three) [place] capsule 11 times Medical daily. Branch liothyronin 2020-0 Yes 10ug Take 10 Uni vers e (CYTOMEL) 3-07 mcg by ity of 5 mcg 00:07: mouth [place] tablet 11 daily. Medical Branch SERTraline 2020-0 Yes 100mg Take 100 Un rex (ZOLOFT) 3-07 mg by ity of 100 mg 00:07: mouth [place] tablet 11 daily. Medical Branch SERTraline 2020-0 Yes 50mg 50 mg, Unive rs (ZOLOFT) 3-06 Oral, ity of tablet 50 15:00: DAILY, [place] mg 00 First dose Medical on Sat [place] 12/18/19 at 0900, Until Discontinu ed, Routine carvediloL 2020-0 Yes 12.5mg 12.5 mg, U nivers (COREG) 3-06 Oral, BID ity of tablet 12.5 14:00: MEALS, [place] mg 00 First dose Medical on Sat Branch 12/18/19 at 0800, Until Discontinu ed, Routine levothyroxi 2020-0 Yes 150ug 150 mcg, U nivers ne 3-06 Oral, ity of (SYNTHROID) 12:00: QAM-0600, [place] tablet 150 00 First dose Med ical mcg on Sat Branch 12/18/19 at 0600, Until Discontinu ed, Routine nicotine 2020-0 Yes 1{patch 1 Patch, Un rex (NICODERM) 3-06 } Topical, ity o f 21 mg/24 hr 06:30: Administer [place] patch 1 00 over 24 Medical Patch Hours, Branch Q24H, First dose on Sat12/18/19 at 0030, Until Discontinu ed, Routine baclofen 2020-0 Yes 10mg 10 mg, Univers (LIORESAL) 3-06 Oral, TID, ity of tablet 10 05:30: First dose [place] mg 00 on [facility] 12/17/19 at Branch 2330, Until Discontinu ed, Routine methadone 2020-0 Yes 10mg 10 mg, Univer s (DOLOPHINE 3-06 Oral, QPM, ity of HCL) tablet 03:00: First dose [place] 10 mg 00 on [facility] Medical 12/17/19 at Branch 2100, Until Discontinu ed, Routine nitroglycer 2020-0 Yes .4mg 0.4 mg, Uni vers in 12-17 Sublingual ity of (NITROSTAT) 01:45: , Q5MIN [place] sublingual 02 PRN, Medical tablet 0.4 Starting Branc h mg [facility] 12/17/19 at 1945, Until Discontinu ed, ALAN, Chest pain ondansetron 2020-0 Yes 4mg 4 mg, Slow [facility] (ZOFRAN 12-17 IV Push, ity of (PF)) 00:41: Q6HPRN, [place] injection 4 33 Starting Medi ck mg [facility] 12/17/19 Branch at 1841, Until Discontinu ed, Routine, Nausea and Vomiting (N/V) acetaminoph 2020-0 Yes 650mg 650 mg, Un rex en 06 Oral, ity of (TYLENOL) 00:41: Q6HPRN, [place] tablet 650 22 Starting Medic al mg [facility] 12/17/19 Branch at 1841, Until Discontinu ed, Routine, Pain (scale 1-3) nitroglycer 2020-0 2020- No .4mg 0.4 mg, Un rex in 12-16 03-05 Sublingual ity of (NITROSTAT) 22:30: 22:33 , ONCE, 1 [place] sublingual 00 :00 dose, [facility] Medi ck tablet 0.4 12/17/19 at Bran ch mg 1645, ALAN CLOTRIMAZOL 2020-0 Yes [id number] APPLY U nivers E-BETAMETHA 2-19 CREAM ity of SONE cream 00:00: [place]ICALLY [place] 00 TO AREA Medical TWICE Branch DAILY CLOTRIMAZOL 2020-0 Yes [id number] APPLY U nivers E-BETAMETHA 2-19 CREAM ity of SONE cream 00:00[place] 00 TO AREA Medical TWICE Branch DAILY CLOTRIMAZOL 2020-0 Yes [id number] APPLY U nivers E-BETAMETHA 2-19 CREAM ity of SONE cream 00:00: [place]ALLY [place] 00 TO AREA Medical TWICE Branch DAILY CLOTRIMAZOL 2020-0 Yes [id number] APPLY U nivers E-BETAMETHA 2-19 CREAM ity of SONE cream 00:00: [place]ALLY [place] 00 TO AREA Medical TWICE Branch DAILY CLOTRIMAZOL 2019-0 Yes [id number] APPLY U nivers E-BETAMETHA 2-19 CREAM ity of SONE cream 00:00: [place]ALLY [place] 00 TO AREA Medical TWICE Branch DAILY DULoxetine 2018-10 Yes 60mg Take 60 mg U nivers 60 mg 2-12 by mouth ity of capsule 20:29: daily. [address] carvedilol 2018-10 Yes 12.5mg Take 12.5 [facility] 12.5 mg 2-12 mg by ity of tablet 20:29: mouth 2 [place] [address] (two) Medical times Branch daily with meals. amLODIPine 2018-10 Yes 5mg Take 5 mg Un re[facility] 5 mg tablet 2-12 by mouth ity of 20:29: daily. [address] methadone 5 2018-10 Yes 5mg Take 5 mg U nivers mg tablet 2-12 by mouth ity of 20:29: every 6 [place] [address] (six) Medical hours as Branch needed. baclofen 10 2018-10 Yes 10mg Take 10 mg [facility] mg tablet 2-12 by mouth 3 ity of 20:29: (three) [place] [address] times Medical daily. Branch tiZANidine 2018-10 Yes 4mg Take 4 mg [facility] (ZANAFLEX) 2-12 by mouth 3 ity of 4 mg 20:29: (three) [place] capsule times Medical daily. Branch DULoxetine 2018-10 Yes 60mg Take 60 mg U nivers 60 mg 2-12 by mouth ity of capsule 20:29: daily. [address] carvedilol 2018-10 Yes 12.5mg Take 12.5 [facility] 12.5 mg 2-12 mg by ity of tablet 20:29: mouth 2 [place] 46 (two) Medical times Branch daily with meals. amLODIPine 2018-10 Yes 5mg Take 5 mg Un [facility] 5 mg tablet 2-12 by mouth ity of 20:29: daily. [place] [address] Medical Branch methadone 5 2018-10 Yes 5mg Take 5 mg U nivers mg tablet 2-12 by mouth ity of 20:29: every 6 [place] [address] (six) Medical hours as Branch needed. baclofen 10 2018-10 Yes 10mg Take 10 mg [facility] mg tablet 2-12 by mouth 3 ity of 20:29: (three) [place] 46 times Medical daily. Branch tiZANidine 2018-10 Yes 4mg Take 4 mg Un [facility] (ZANAFLEX) 2-12 by mouth 3 ity of 4 mg 20:29: (three) [place] capsule 46 times Medical daily. Branch clotrimazol 2018-10 2020- No [id number] [facility] 2 it y of sone cream 00:00: 20:10 (two) [place] 00 :03 times Medical daily. Branch methadone 2018-10 Yes 20mg Q.[id number] Take 20 mg [facility] (DOLOPHINE) 1-11 [id number] mouth [address] 10 MG 00:00: 3D (three) [facility]osp[facility] tablet 00 times a l day as needed, methadone 2018-10 Yes 20mg Q.[id number] Take 20 mg [facility] (DOLOPHINE) 1-11 [id number] [address] mouth [address] 10 MG 00:00: 3D (three) Hospita tablet 00 times a l day as needed, methadone 2018-10 Yes 20mg Q.[id number] Take 20 mg [facility] (DOLOPHINE) 1-11 [id number] mouth [address] 10 MG 00:00: 3D (three) Hospita tablet 00 times a l day as needed, methadone 2018-10 Yes 20mg Q.[id number] Take 20 mg [facility] (DOLOPHINE) 1-11 [id number] mouth [address] 10 MG 00:00: 3D (three) Hospita tablet 00 times a l day as needed, methadone 2018-10 Yes 20mg Q.[id number] Take 20 mg [facility] (DOLOPHINE) 1-11 [id number] mouth [address] 10 MG 00:00: 3D (three) Hospita tablet 00 times a l day as needed, methadone 2018-10 Yes 20mg Q.[id number] Take 20 mg [facility] (DOLOPHINE) 1-11 [id number] mouth [address] 10 MG 00:00: 3D (three) Hospita tablet 00 times a l day as needed, baclofen 2018-10 Yes 10mg Q.[id number] Take 10 mg [facility] (LIORESAL) 1-04 [id number] mouth [facility] [address] 10 MG 00:00: 3D (three) Hospita tablet 00 times a l day as needed. baclofen 2018-10 Yes 10mg Q.[id number] Take 10 mg [facility] (LIORESAL) 1-04 [id number] [facility] mouth [facility] 10 MG 00:00: 3D (three) Hospita tablet 00 times a l day as needed. baclofen 2018-10 Yes 10mg Q.[id number] Take 10 mg [facility] (LIORESAL) 1-04 [id number] mouth [address] 10 MG 00:00: 3D (three) Hospita tablet 00 times a l day as needed. baclofen 2018-10 Yes 10mg Q.[id number] Take 10 mg [facility] (LIORESAL) 1-04 [id number] mouth [address] 10 MG 00:00: 3D (three) Hospita tablet 00 times a l day as needed. baclofen 2018-10 Yes 10mg Q.[id number] Take 10 mg [facility] (LIORESAL) 1-04 [id number] mouth [address] 10 MG 00:00: 3D (three) Hospita tablet 00 times a l day as needed. baclofen 2018-10 Yes 10mg Q.[id number] Take 10 mg [facility] (LIORESAL) 1-[id number] mouth [address] 10 MG 00:00: 3D (three) Hospita tablet 00 times a l day as needed. omeprazole 2018-10 Yes 40mg Q.5D Take 40 mg M [facility] (PriLOSEC) 0-[address] 40 MG 00:00: (two) Hospita capsule 00 times a l day. omeprazole 2018-10 Yes 40mg Q.5D Take 40 mg [facility] (PriLOSEC) 0-[address] 40 MG 00:00: (two) Hospita capsule 00 times a l day. omeprazole 2018-10 Yes 40mg Q.5D Take 40 mg M [facility] (PriLOSEC) 0-[address] 40 MG 00:00: (two) Hospita capsule 00 times a l day. omeprazole 2018-10 Yes 40mg Q.5D Take 40 mg M [facility] (PriLOSEC) 0-[address] 40 MG 00:00: (two) Hospita capsule 00 times a l day. omeprazole 2018-10 Yes 40mg Q.5D Take 40 mg M [facility] (PriLOSEC) 0-[address] 40 MG 00:00: (two) Hospita capsule 00 times a l day. omeprazole 2018-10 Yes 40mg Q.5D Take 40 mg M [facility] (PriLOSEC) 0-[address] 40 MG 00:00: (two) Hospita capsule 00 times a l day. alendronate 2021- No 70mg Take 70 mg [facility] (FOSAMAX) 06-[address] 70 MG 00:00: 00:00 Hospita tablet 00 :00 l alendronate 2021- No 70mg Take 70 mg [facility] (FOSAMAX) 06-[address] 70 MG 00:00: 00:00 Hospita tablet 00 :00 l alendronate 2021- No 70mg Take 70 mg [facility] (FOSAMAX) 06-[address] 70 MG 00:00: 00:00 Hospita tablet 00 :00 l alendronate 2021- No 70mg Take 70 mg [facility] (FOSAMAX) 06-[address] 70 MG 00:00: 00:00 Hospita tablet 00 :00 l benzonatate 2018- Yes [id number] 100mg Take 1 [facility] 100 mg 4-18 capsule by ity of capsule 00:00: mouth 3 (three) Medical times Branch daily as needed for Cough. benzonatate 2018- Yes [id number] 100mg Take 1 [facility] 100 mg 4-18 capsule by ity of capsule 00:00: mouth 3 (three) Medical times Branch daily as needed for Cough. benzonatate 2019-0 Yes [id number] 100mg Take 1 [facility] 100 mg 4-18 capsule by ity of capsule 00:00: mouth 3 (three) Medical times Branch daily as needed for Cough. benzonatate 2019-0 Yes [id number] 100mg Take 1 [facility] 100 mg 4-18 capsule by ity of capsule 00:00: mouth 3 (three) Medical times Branch daily as needed for Cough. benzonatate 2018-0 Yes [id number] 100mg Take 1 [facility] 100 mg 4-18 capsule by ity of capsule 00:00: mouth 3 (three) Medical times Branch daily as needed for Cough. benzonatate 2018-0 Yes [id number] 100mg Take 1 [facility] 100 mg 4-18 capsule by ity of capsule 00:00: mouth (three) Medical times Branch daily as needed for Cough. benzonatate 2018-0 Yes [id number] 100mg Take 1 [facility] 100 mg 4-18 capsule by ity of capsule 00:00: mouth (three) Medical times Branch daily as needed for Cough. benzonatate 2018-0 Yes [id number] 100mg Take 1 [facility] 100 mg 4-18 capsule by ity of capsule 00:00: mouth (three) Medical times Branch daily as needed for Cough. benzonatate 2018-0 Yes [id number] 100mg Take 1 [facility] 100 mg 4-18 capsule by ity of capsule 00:00: mouth (three) Medical times Branch daily as needed for Cough. benzonatate 2018-0 Yes [id number] 100mg Take 1 [facility] 100 mg 4-18 capsule by ity of capsule 00:00: mouth (three) Medical times Branch daily as needed for Cough. benzonatate 2018-0 Yes [id number] 100mg Take 1 [facility] 100 mg 4-18 capsule by ity of capsule 00:00: mouth 3 (three) Medical times Branch daily as needed for Cough. benzonatate 2019-0 Yes [id number] 100mg Take 1 [facility] 100 mg 4-18 capsule by ity of capsule 00:00: mouth 3 (three) Medical times Branch daily as needed for Cough. benzonatate 2018-0 Yes [id number] 100mg Take 1 [facility] 100 mg 4-18 capsule by ity of capsule 00:00: mouth 3 [place] 00 (three) Medical times Branch daily as needed for Cough. benzonatate 2019-0 Yes [id number] 100mg Take 1 [facility] 100 mg 4-18 capsule by ity of capsule 00:00: mouth 3 [place] 00 (three) Medical times Branch daily as needed for Cough. benzonatate 2019-0 Yes [id number] 100mg Take 1 [facility] 100 mg 4-18 capsule by ity of capsule 00:00: mouth 3 [place] 00 (three) Medical times Branch daily as needed for Cough. benzonatate 2019-0 Yes [id number] 100mg Take 1 [facility] 100 mg 4-18 capsule by ity of capsule 00:00: mouth 3 [place] 00 (three) Medical times Branch daily as needed for Cough. acetaminoph Yes [id number] 1-2 [facility] en-codeine 4-04 [id number] tablets by i ty of 300-30 mg 00:00: mouth [place] tablet 00 every 6 Medical hours as Branch needed for pain ibuprofen 2018- Yes [id number] 400mg Take 1 [facility] 400 mg 4-04 [id number] tablet by ity of tablet 00:00: mouth [place] 00 every 6 Medical (six) Branch hours. acetaminoph Yes [id number] 1-2 [facility] en-codeine 4-04 [id number] tablets by i ty of 300-30 mg 00:00: mouth [place] tablet 00 every 6 Medical hours as Branch needed for pain ibuprofen 2018- Yes [id number] 400mg Take 1 [facility] 400 mg 4-04 [id number] tablet by ity of tablet 00:00: mouth [place] 00 every 6 Medical (six) Branch hours. acetaminoph Yes [id number] 1-2 [facility] en-codeine 4-04 [id number] tablets by i ty of 300-30 mg 00:00: mouth [place] tablet 00 every 6 Medical hours as Branch needed for pain ibuprofen 2018- Yes [id number] 400mg Take 1 [facility] 400 mg 4-04 [id number] tablet by ity of tablet 00:00: mouth [place] 00 every 6 Medical (six) Branch hours. acetaminoph Yes [id number] 1-2 [facility] en-codeine 4-04 [id number] tablets by i ty of 300-30 mg 00:00: mouth [place] tablet 00 every 6 Medical hours as Branch needed for pain ibuprofen 2018- Yes [id number] 400mg Take 1 [facility] 400 mg 4-04 [id number] tablet by ity of tablet 00:00: mouth [place] 00 every 6 Medical (six) Branch hours. acetaminoph 2018- Yes [id number] 1-2 [facility] en-codeine 4-04 [id number] tablets by i ty of 300-30 mg 00:00: mouth [place] tablet 00 every 6 Medical hours as Branch needed for pain ibuprofen 2019-0 Yes [id number] 400mg Take 1 [facility] 400 mg 4-04 [id number] tablet by ity of tablet 00:00: mouth [place] 00 every 6 Medical (six) Branch hours. acetaminoph 2018- Yes [id number] 1-2 [facility] en-codeine 4-04 [id number] tablets by i ty of 300-30 mg 00:00: mouth [place] tablet 00 every 6 Medical hours as Branch needed for pain ibuprofen 2018- Yes [id number] 400mg Take 1 [facility] 400 mg 4-04 [id number] tablet by ity of tablet 00:00: mouth [place] 00 every 6 Medical (six) Branch hours. acetaminoph 2018- Yes [id number] 1-2 [facility] en-codeine 4-04 [id number] tablets by i ty of 300-30 mg 00:00: mouth [place] tablet 00 every 6 Medical hours as Branch needed for pain ibuprofen 2019-0 Yes [id number] 400mg Take 1 [facility] 400 mg 4-04 [id number] tablet by ity of tablet 00:00: mouth [place] 00 every 6 Medical (six) Branch hours. acetaminoph 2018- Yes [id number] 1-2 [facility] en-codeine 4-04 [id number] tablets by i ty of 300-30 mg 00:00: mouth [place] tablet 00 every 6 Medical hours as Branch needed for pain ibuprofen 2019-0 Yes [id number] 400mg Take 1 [facility] 400 mg 4-04 [id number] tablet by ity of tablet 00:00: mouth [place] 00 every 6 Medical (six) Branch hours. acetaminoph 2018- Yes [id number] 1-2 [facility] en-codeine 4-04 [id number] tablets by i ty of 300-30 mg 00:00: mouth [place] tablet 00 every 6 Medical hours as Branch needed for pain ibuprofen 2019-0 Yes [id number] 400mg Take 1 [facility] 400 mg 4-04 [id number] tablet by ity of tablet 00:00: mouth [place] 00 every 6 Medical (six) Branch hours. acetaminoph 2018- Yes [id number] 1-2 [facility] en-codeine 4-04 [id number] tablets by i ty of 300-30 mg 00:00: mouth [place] tablet 00 every 6 Medical hours as Branch needed for pain ibuprofen 2019-0 Yes [id number] 400mg Take 1 [facility] 400 mg 4-04 [id number] tablet by ity of tablet 00:00: mouth [place] 00 every 6 Medical (six) Branch hours. acetaminoph 2019-0 Yes [id number] 1-2 [facility] en-codeine 4-04 [id number] tablets by i ty of 300-30 mg 00:00: mouth [place] tablet 00 every 6 Medical hours as Branch needed for pain ibuprofen 2019-0 Yes [id number] 400mg Take 1 [facility] 400 mg 4-04 [id number] tablet by ity of tablet 00:00: mouth [place] 00 every 6 Medical (six) Branch hours. acetaminoph 2019-0 Yes [id number] 1-2 [facility] en-codeine 4-04 [id number] tablets by i ty of 300-30 mg 00:00: mouth [place] tablet 00 every 6 Medical hours as Branch needed for pain ibuprofen 2019-0 Yes [id number] 400mg Take 1 [facility] 400 mg 4-04 [id number] tablet by ity of tablet 00:00: mouth [place] 00 every 6 Medical (six) Branch hours. acetaminoph 2019-0 Yes [id number] 1-2 [facility] en-codeine 4-04 [id number] tablets by i ty of 300-30 mg 00:00: mouth [place] tablet 00 every 6 Medical hours as Branch needed for pain acetaminoph 2019-0 Yes [id number] 1-2 [facility] en-codeine 4-04 [id number] tablets by i ty of 300-30 mg 00:00: mouth [place] tablet 00 every 6 Medical hours as Branch needed for pain ibuprofen 2019-0 Yes [id number] 400mg Take 1 [facility] 400 mg 4-04 [id number] tablet by ity of tablet 00:00: mouth [place] 00 every 6 Medical (six) Branch hours. ibuprofen 2019-0 Yes [id number] 400mg Take 1 [facility] 400 mg 4-04 [id number] tablet by ity of tablet 00:00: mouth [place] 00 every 6 Medical (six) Branch hours. acetaminoph 2019-0 Yes [id number] 1-2 [facility] en-codeine 4-04 [id number] tablets by i ty of 300-30 mg 00:00: mouth [place] tablet 00 every 6 Medical hours as Branch needed for pain ibuprofen Yes [id number] 400mg Take 1 [facility] 400 mg 01-15 [id number] tablet by ity of tablet 00:00: mouth [place] 00 every 6 Medical (six) Branch hours. acetaminoph Yes [id number] 1-2 [facility] en-codeine 4- [id number] tablets by i ty of 300-30 mg 00:00: mouth [place] tablet 00 every 6 Medical hours as Branch needed for pain ibuprofen Yes [id number] 400mg Take 1 [facility] 400 mg 4- [id number] tablet by ity of tablet 00:00: mouth [place] 00 every 6 Medical (six) Branch hours. clindamycin clindamycin 2016-10 No clindamyci [facility]da HCl 300 mg HCl 300 mg 1-10 n HCl 300 [facility] capsule capsule 00:00: mg capsule d ic 00 Sports Medicin e Carbatrol Carbatrol 2016-10 No Carbatrol Brenda 100 mg 100 mg 1-08 100 mg [facility] capsule, capsule, 00:00: capsule, d ic extended extended 00 extended Spo rts release release release Medici n e Cymbalta 60 Cymbalta 60 2016-10 No Cymbalta Brenda mg mg 1-08 60 mg [facility] capsule,del capsule,del 00:00: capsule,de dic ayed ayed 00 layed Sports release release release Medici n e Synthroid Synthroid 2016-10 No Synthroid Brenda 25 mcg 25 mcg 1-08 25 mcg [facility] tablet tablet 00:00: tablet dic 00 Sports Medicin e levothyroxi Yes levothyrox [facility] 6-[address] (SYNTHROID) 00:00: mcg tablet [facility]osp[facility] 150 mcg 00 TAKE 1 l tablet TABLET BY MOUTH ONCE DAILY IN THE MORNING levothyroxi Yes levothyrox [facility] ne 6-[address] (SYNTHROID) 00:00: mcg tablet [facility]osp[facility] 150 mcg 00 TAKE 1 l tablet TABLET BY MOUTH ONCE DAILY IN THE MORNING levothyroxi Yes levothyrox [facility] ne 6-[address] (SYNTHROID) 00:00: mcg tablet [facility]ospita 150 mcg 00 TAKE 1 l tablet TABLET BY MOUTH ONCE DAILY IN THE MORNING levothyroxi Yes levothyrox [facility] ne 6-[address] (SYNTHROID) 00:00: mcg tablet [facility]ospita 150 mcg 00 TAKE 1 l tablet TABLET BY MOUTH ONCE DAILY IN THE MORNING levothyroxi 2017-0 Yes levothyrox [facility] ne 6-[address] (SYNTHROID) 00:00: mcg tablet [facility]ospita 150 mcg 00 TAKE 1 l tablet TABLET BY MOUTH ONCE DAILY IN THE MORNING levothyroxi 2017-0 Yes levothyrox [facility] ne 6-[address] (SYNTHROID) 00:00: mcg tablet [facility]ospita 150 mcg 00 TAKE 1 l tablet TABLET BY MOUTH ONCE DAILY IN THE MORNING levothyroxi 2017-0 Yes 150ug Take 1 Uni vers ne 150 mcg 6-27 tablet by ity of tablet 00:00: mouth [place] 00 every Medical morning. Branch ergocalcife 2017-0 Yes [id number] Take 1 Un [facility] rol, 6-27 capsule by ity of vitamin d2, 00:00: mouth [place] (VITAMIN 00 weekly. Medical D2) 50,000 Branch unit capsule levothyroxi 2017-0 Yes 150ug Take 1 Uni vers ne 150 mcg 6-27 tablet by ity of tablet 00:00: mouth [place] 00 every Medical morning. Branch ergocalcife 2017-0 Yes [id number] Take 1 [facility] rol, 6-27 capsule by ity of vitamin d2, 00:00: mouth [place] (VITAMIN 00 weekly. Medical D2) 50,000 Branch unit capsule levothyroxi 2017-0 Yes 150ug Take 1 Uni vers ne 150 mcg 6-27 tablet by ity of tablet 00:00: mouth [place] 00 every Medical morning. Branch ergocalcife 2017-0 Yes [id number] Take 1 [facility] rol, 6-27 capsule by ity of vitamin d2, 00:00: mouth [place] (VITAMIN 00 weekly. Medical D2) 50,000 Branch unit capsule levothyroxi 2017-0 Yes 150ug Take 1 Uni vers ne 150 mcg 6-27 tablet by ity of tablet 00:00: mouth [place] 00 every Medical morning. Branch ergocalcife 2017-0 Yes [id number] Take 1 [facility] rol, 6-27 capsule by ity of vitamin d2, 00:00: mouth [place] (VITAMIN 00 weekly. Medical D2) 50,000 Branch unit capsule levothyroxi 2017-0 Yes 150ug Take 1 Uni vers ne 150 mcg 6-27 tablet by ity of tablet 00:00: mouth [place] 00 every Medical morning. Branch ergocalcife 2017-0 Yes [id number] Take 1 [facility] rol, 6-27 capsule by ity of vitamin d2, 00:00: mouth [place] (VITAMIN 00 weekly. Medical D2) 50,000 Branch unit capsule levothyroxi 2017-0 Yes 150ug Take 1 [facility] vers ne 150 mcg 6-27 tablet by ity of tablet 00:00: mouth [place] 00 every Medical morning. Branch ergocalcife 2017-0 Yes [id number] Take 1 [facility] rol, 6-27 capsule by ity of vitamin d2, 00:00: mouth [place] (VITAMIN 00 weekly. Medical D2) 50,000 Branch unit capsule levothyroxi 2017-0 Yes 150ug Take 1 Uni vers ne 150 mcg 6-27 tablet by ity of tablet 00:00: mouth [place] 00 every Medical morning. Branch ergocalcife 2017-0 Yes [id number] Take 1 [facility] rol, 6-27 capsule by ity of vitamin d2, 00:00: mouth [place] (VITAMIN 00 weekly. Medical D2) 50,000 Branch unit capsule levothyroxi 2017-0 Yes 150ug Take 1 Uni vers ne 150 mcg 6-27 tablet by ity of tablet 00:00: mouth [place] 00 every Medical morning. Branch ergocalcife 2017-0 Yes [id number] Take 1 [facility] rol, 6-27 capsule by ity of vitamin d2, 00:00: mouth [place] (VITAMIN 00 weekly. Medical D2) 50,000 Branch unit capsule levothyroxi 2017-0 Yes 150ug Take 1 [facility] vers ne 150 mcg 6-27 tablet by ity of tablet 00:00: mouth [place] 00 every Medical morning. Branch ergocalcife 2017-0 Yes [id number] Take 1 [facility] rol, 6-27 capsule by ity of vitamin d2, 00:00: mouth [place] (VITAMIN 00 weekly. Medical D2) 50,000 Branch unit capsule levothyroxi 2017-0 Yes 150ug Take 1 [facility] vers ne 150 mcg 6-27 tablet by ity of tablet 00:00: mouth [place] 00 every Medical morning. Branch ergocalcife 2017-0 Yes [id number] Take 1 [facility] rol, 6-27 capsule by ity of vitamin d2, 00:00: mouth [place] (VITAMIN 00 weekly. Medical D2) 50,000 Branch unit capsule levothyroxi 2017-0 Yes 150ug Take 1 [facility] vers ne 150 mcg 6-27 tablet by ity of tablet 00:00: mouth [place] 00 every Medical morning. Branch ergocalcife 2017-0 Yes [id number] Take 1 [facility] rol, 6-27 capsule by ity of vitamin d2, 00:00: mouth [place] (VITAMIN 00 weekly. Medical D2) 50,000 Branch unit capsule levothyroxi 2017-0 Yes 150ug Take 1 [facility] vers ne 150 mcg 6-27 tablet by ity of tablet 00:00: mouth [place] 00 every Medical morning. Branch ergocalcife 2017-0 Yes [id number] Take 1 [facility] rol, 6-27 capsule by ity of vitamin d2, 00:00: mouth [place] (VITAMIN 00 weekly. Medical D2) 50,000 Branch unit capsule levothyroxi 2017-0 Yes 150ug Take 1 Uni vers ne 150 mcg 6-27 tablet by ity of tablet 00:00: mouth [place] 00 every Medical morning. Branch ergocalcife 2017-0 Yes [id number] Take 1 [facility] rol, 6-27 capsule by ity of vitamin d2, 00:00: mouth [place] (VITAMIN 00 weekly. Medical D2) 50,000 Branch unit capsule levothyroxi 2017-0 Yes 150ug Take 1 Uni vers ne 150 mcg 6-27 tablet by ity of tablet 00:00: mouth [place] 00 every Medical morning. Branch ergocalcife 2017-0 Yes [id number] Take 1 [facility] rol, 6-27 capsule by ity of vitamin d2, 00:00: mouth [place] (VITAMIN 00 weekly. Medical D2) 50,000 Branch unit capsule levothyroxi 2017-0 Yes 150ug Take 1 [facility] vers ne 150 mcg 6-27 tablet by ity of tablet 00:00: mouth [place] 00 every Medical morning. Branch ergocalcife 2017-0 Yes [id number] Take 1 [facility] rol, 6-27 capsule by ity of vitamin d2, 00:00: mouth [place] (VITAMIN 00 weekly. Medical D2) 50,000 Branch unit capsule levothyroxi 2017-0 Yes 150ug Take 1 Uni vers ne 150 mcg 6-27 tablet by ity of tablet 00:00: mouth [place] 00 every Medical morning. Branch ergocalcife 2017-0 Yes [id number] Take 1 [facility] rol, 6-27 capsule by ity of vitamin d2, 00:00: mouth [place] (VITAMIN 00 weekly. Medical D2) 50,000 Branch unit capsule ergocalcife 2021- No 1{capsu Q7D Take 1 [facility] rol 6 02-15 le} capsule by st (VITAMIN 00:00: 00:00 mouth once [facility] D2) 50,000 00 :00 a week. l unit capsule ergocalcife 2021- No 1{capsu Q7D Take 1 [facility]l 6 02-15 le} capsule by st (VITAMIN 00:00: 00:00 mouth once [facility] D2) 50,000 00 :00 a week. l unit capsule ergocalcife 2021- No 1{capsu Q7D Take 1 [facility] rol 6 02-15 le} capsule by st (VITAMIN 00:00: 00:00 mouth once [facility] D2) 50,000 00 :00 a week. l unit capsule ergocalcife 2021- No 1{capsu Q7D Take 1 [facility] rol 6 02-15 le} capsule by st (VITAMIN 00:00: 00:00 mouth once [facility] D2) 50,000 00 :00 a week. l unit capsule aripiprazol aripiprazol No aripiprazo [facility]da e 10 mg e 10 mg le 10 mg Orth[facility] pe tablet TAKE tablet TAKE tablet dic 1 TABLET BY 1 TABLET BY TAKE 1 Sports MOUTH AT MOUTH AT TABLET BY Me dicin BEDTIME BEDTIME MOUTH AT e BEDTIME BinaxNOW BinaxNOW No BinaxNOW Aza peyman COVID-19 Ag COVID-19 Ag COVID-19 [facility] Self Test Self Test Ag Self di c kit Use as kit Use as Test kit Sports Directed on Directed on Use as Medicin the Package the Package Directed e on the Package carvedilol carvedilol No carvedilol Brenda 12.5 mg 12.5 mg 12.5 mg [facility] e tablet TAKE tablet TAKE tablet dic 1 TABLET BY 1 TABLET BY TAKE 1 Sports MOUTH TWICE MOUTH TWICE TABLET BY Medicin DAILY DAILY MOUTH e TWICE DAILY cholecalcif cholecalcif No cholecalci Brenda rosy rosy ferol [facility] (vitamin (vitamin (vitamin dic D3) 1,250 D3) 1,250 D3) 1,250 Sports mcg (50,000 mcg (50,000 mcg M edicin unit) unit) (50,000 e capsule capsule unit) TAKE ONE TAKE ONE capsule CAPSULE A CAPSULE A TAKE ONE DAY FOR 10 DAY FOR 10 CAPSULE A WEEKS, THEN WEEKS, THEN DAY FOR 10 1 CAPSULE A 1 CAPSULE A WEEKS, DAY FOR A DAY FOR A THEN 1 MONTH MONTH CAPSULE A DAY FOR A MONTH Euthyrox Euthyrox No Euthyrox Aza peyman 150 mcg 150 mcg 150 mcg Orthop e tablet TAKE tablet TAKE tablet dic 1 TABLET BY 1 TABLET BY TAKE 1 Sports MOUTH ONCE MOUTH ONCE TABLET BY Medicin DAILY IN DAILY IN MOUTH ONCE e THE MORNING THE MORNING DAILY IN THE MORNING levothyroxi levothyroxi No levothyrox Brenda ne 175 mcg ne 175 mcg ine 175 [facility] tablet tablet mcg tablet dic Sports Medicin e liothyronin liothyronin No liothyroni Brenda e 5 mcg e 5 mcg ne 5 mcg Ortho pe tablet TAKE tablet TAKE tablet dic 1 TABLET BY 1 TABLET BY TAKE 1 Sports MOUTH TWICE MOUTH TWICE TABLET BY Medicin DAILY DAILY MOUTH e TWICE DAILY methadone methadone No methadone Brenda 10 mg 10 mg 10 mg [facility] tablet TAKE tablet TAKE tablet dic 1 TABLET BY 1 TABLET BY TAKE 1 Sports MOUTH EVERY MOUTH EVERY TABLET BY Medicin 8 HOURS 8 HOURS MOUTH e EVERY 8 HOURS sertraline sertraline No sertraline Brenda 100 mg 100 mg 100 mg [facility] tablet TAKE tablet TAKE tablet dic 1 TABLET BY 1 TABLET BY TAKE 1 Sports MOUTH ONCE MOUTH ONCE TABLET BY Medicin DAILY IN DAILY IN MOUTH ONCE e THE MORNING THE MORNING DAILY IN THE MORNING tizanidine tizanidine No tizanidine Brenda 4 mg tablet 4 mg tablet 4 mg O rthope TAKE 1 TAKE 1 tablet dic TABLET BY TABLET BY TAKE 1 Spo rts MOUTH EVERY MOUTH EVERY TABLET BY Medicin 8 HOURS 8 HOURS MOUTH e EVERY 8 HOURS aripiprazol aripiprazol No aripiprazo Brenda e 10 mg e 10 mg le 10 mg [facility] pe tablet TAKE tablet TAKE tablet dic 1 TABLET BY 1 TABLET BY TAKE 1 Sports MOUTH AT MOUTH AT TABLET BY Pa dicin BEDTIME BEDTIME MOUTH AT e BEDTIME BinaxNOW BinaxNOW No BinaxNOW Aza peyman COVID-19 Ag COVID-19 Ag COVID-19 [facility] Self Test Self Test Ag Self di c kit Use as kit Use as Test kit Sports Directed on Directed on Use as Medicin the Package the Package Directed e on the Package carvedilol carvedilol No carvedilol Brenda 12.5 mg 12.5 mg 12.5 mg [facility] e tablet TAKE tablet TAKE tablet dic 1 TABLET BY 1 TABLET BY TAKE 1 Sports MOUTH TWICE MOUTH TWICE TABLET BY Medicin DAILY DAILY MOUTH e TWICE DAILY cholecalcif cholecalcif No cholecalci Brenda rosy rosy ferol [facility] (vitamin (vitamin (vitamin dic D3) 1,250 D3) 1,250 D3) 1,250 Sports mcg (50,000 mcg (50,000 mcg M edicin unit) unit) (50,000 e capsule capsule unit) TAKE ONE TAKE ONE capsule CAPSULE A CAPSULE A TAKE ONE DAY FOR 10 DAY FOR 10 CAPSULE A WEEKS, THEN WEEKS, THEN DAY FOR 1 CAPSULE A 1 CAPSULE A WEEKS, DAY FOR A DAY FOR A THEN 1 MONTH MONTH CAPSULE A DAY FOR A MONTH Euthyrox Euthyrox No Euthyrox Aza peyman 150 mcg 150 mcg 150 mcg [facility] e tablet TAKE tablet TAKE tablet dic 1 TABLET BY 1 TABLET BY TAKE 1 Sports MOUTH ONCE MOUTH ONCE TABLET BY Medicin DAILY IN DAILY IN MOUTH ONCE e THE MORNING THE MORNING DAILY IN THE MORNING liothyronin liothyronin No liothyroni Brenda e 5 mcg e 5 mcg ne 5 mcg [facility] pe tablet TAKE tablet TAKE tablet dic 1 TABLET BY 1 TABLET BY TAKE 1 Sports MOUTH TWICE MOUTH TWICE TABLET BY Medicin DAILY DAILY MOUTH e TWICE DAILY methadone methadone No methadone Brenda 10 mg 10 mg 10 mg [facility] tablet TAKE tablet TAKE tablet dic 1 TABLET BY 1 TABLET BY TAKE 1 Sports MOUTH EVERY MOUTH EVERY TABLET BY Medicin 8 HOURS 8 HOURS MOUTH e EVERY 8 HOURS sertraline sertraline No sertraline Brenda 100 mg 100 mg 100 mg [facility] tablet TAKE tablet TAKE tablet dic 1 TABLET BY 1 TABLET BY TAKE 1 Sports MOUTH ONCE MOUTH ONCE TABLET BY Medicin DAILY IN DAILY IN MOUTH ONCE e THE MORNING THE MORNING DAILY IN THE MORNING tizanidine tizanidine No tizanidine Brenda 4 mg tablet 4 mg tablet 4 mg [facility] TAKE 1 TAKE 1 tablet dic TABLET BY TABLET BY TAKE 1 Spo rts MOUTH EVERY MOUTH EVERY TABLET BY Medicin 8 HOURS 8 HOURS MOUTH e EVERY 8 HOURS aripiprazol aripiprazol No aripiprazo Brenda e 10 mg e 10 mg le 10 mg [facility] pe tablet TAKE tablet TAKE tablet dic 1 TABLET BY 1 TABLET BY TAKE 1 Sports MOUTH AT MOUTH AT TABLET BY Pa dicin BEDTIME BEDTIME MOUTH AT e BEDTIME BinaxNOW BinaxNOW No BinaxNOW Aza peyman COVID-19 Ag COVID-19 Ag COVID-19 [facility] Self Test Self Test Ag Self di c kit Use as kit Use as Test kit Sports Directed on Directed on Use as Medicin the Package the Package Directed e on the Package carvedilol carvedilol No carvedilol Brenda 12.5 mg 12.5 mg 12.5 mg [facility] e tablet TAKE tablet TAKE tablet dic 1 TABLET BY 1 TABLET BY TAKE 1 Sports MOUTH TWICE MOUTH TWICE TABLET BY Medicin DAILY DAILY MOUTH e TWICE DAILY cefuroxime cefuroxime No cefuroxime Brenda axetil 500 axetil 500 axetil 500 [facility] mg tablet mg tablet mg tablet dic Sports Medicin e cholecalcif cholecalcif No cholecalci Brenda rosy rosy ferol [facility] (vitamin (vitamin (vitamin dic D3) 1,250 D3) 1,250 D3) 1,250 Sports mcg (50,000 mcg (50,000 mcg M edicin unit) unit) (50,000 e capsule capsule unit) TAKE ONE TAKE ONE capsule CAPSULE A CAPSULE A TAKE ONE DAY FOR 10 DAY FOR 10 CAPSULE A WEEKS, THEN WEEKS, THEN DAY FOR 10 1 CAPSULE A 1 CAPSULE A WEEKS, DAY FOR A DAY FOR A THEN 1 MONTH MONTH CAPSULE A DAY FOR A MONTH cyanocobala cyanocobala No cyanocobal [facility] min (vit min (vit garcia (vit Or thope B-12) 1,000 B-12) 1,000 B-12) dic mcg/mL mcg/mL 1,000 [facility] injection injection mcg/mL Med icin solution solution injection e INJECT 1 ML INJECT 1 ML solution INTRAMUSCUL INTRAMUSCUL INJECT 1 BECKA ONCE A BECKA ONCE A ML WEEK WEEK INTRAMUSCU LARLY ONCE A WEEK dicyclomine dicyclomine No dicyclomin Brenda 10 mg 10 mg e 10 mg [facility] capsule capsule capsule dic TAKE 1 TAKE 1 TAKE 1 Sports CAPSULE BY CAPSULE BY CAPSULE BY Medicin MOUTH EVERY MOUTH EVERY MOUTH e 8 HOURS 8 HOURS EVERY 8 NEEDED NEEDED HOURS NEEDED Euthyrox Euthyrox No Euthyrox Aza peyman 150 mcg 150 mcg 150 mcg [facility] e tablet TAKE tablet TAKE tablet dic 1 TABLET BY 1 TABLET BY TAKE 1 Sports MOUTH ONCE MOUTH ONCE TABLET BY Medicin DAILY IN DAILY IN MOUTH ONCE e THE MORNING THE MORNING DAILY IN THE MORNING famotidine famotidine No famotidine Brenda 40 mg 40 mg 40 mg [facility] tablet tablet tablet dic [facility] Medicin e liothyronin liothyronin No liothyroni Brenda e 5 mcg e 5 mcg ne 5 mcg [facility] pe tablet TAKE tablet TAKE tablet dic 1 TABLET BY 1 TABLET BY TAKE 1 Sports MOUTH TWICE MOUTH TWICE TABLET BY Medicin DAILY DAILY MOUTH e TWICE DAILY methadone methadone No methadone Brenda 10 mg 10 mg 10 mg [facility] tablet TAKE tablet TAKE tablet dic 1 TABLET BY 1 TABLET BY TAKE 1 Sports MOUTH EVERY MOUTH EVERY TABLET BY Medicin 8 HOURS 8 HOURS MOUTH e EVERY 8 HOURS omeprazole omeprazole No omeprazole Brenda 40 mg 40 mg 40 mg [facility] capsule,del capsule,del capsule,de dic ayed ayed layed Sports release release release Medici n TAKE 1 TAKE 1 TAKE 1 e CAPSULE BY CAPSULE BY CAPSULE BY MOUTH TWICE MOUTH TWICE MOUTH DAILY. TAKE DAILY. TAKE TWICE 30 MINUTES 30 MINUTES DAILY. BEFORE BEFORE TAKE 30 BREAKFAST BREAKFAST MINUTES AND LAST AND LAST BEFORE MEAL FOR MEAL FOR BREAKFAST ONE MONTH ONE MONTH AND LAST AFTER ONE AFTER ONE MEAL FOR MONTH TAKE MONTH TAKE ONE MONTH ONCE DAILY ONCE DAILY AFTER ONE MONTH TAKE ONCE DAILY sertraline sertraline No sertraline Brenda 100 mg 100 mg 100 mg [facility] tablet TAKE tablet TAKE tablet dic 1 TABLET BY 1 TABLET BY TAKE 1 Sports MOUTH ONCE MOUTH ONCE TABLET BY Medicin DAILY IN DAILY IN MOUTH ONCE e THE MORNING THE MORNING DAILY IN THE MORNING tizanidine tizanidine No tizanidine Brenda 4 mg tablet 4 mg tablet 4 mg [facility] TAKE 1 TAKE 1 tablet dic TABLET BY TABLET BY TAKE 1 Spo rts MOUTH EVERY MOUTH EVERY TABLET BY Medicin 8 HOURS 8 HOURS MOUTH e EVERY 8 HOURS aripiprazol aripiprazol No aripiprazo Brenda e 10 mg e 10 mg le 10 mg [facility] pe tablet TAKE tablet TAKE tablet dic 1 TABLET BY 1 TABLET BY TAKE 1 Sports MOUTH AT MOUTH AT TABLET BY Pa dicin BEDTIME BEDTIME MOUTH AT e BEDTIME BinaxNOW BinaxNOW No BinaxNOW Aza peyman COVID-19 Ag COVID-19 Ag COVID-19 [facility] Self Test Self Test Ag Self di c kit Use as kit Use as Test kit Sports Directed on Directed on Use as Medicin the Package the Package Directed e on the Package carvedilol carvedilol No carvedilol Brenda 12.5 mg 12.5 mg 12.5 mg [facility] e tablet TAKE tablet TAKE tablet dic 1 TABLET BY 1 TABLET BY TAKE 1 Sports MOUTH TWICE MOUTH TWICE TABLET BY Medicin DAILY DAILY MOUTH e TWICE DAILY cefuroxime cefuroxime No cefuroxime Brenda axetil 500 axetil 500 axetil 500 [facility] mg tablet mg tablet mg tablet dic Sports Medicin e cholecalcif cholecalcif No cholecalci Brenda rosy rosy ferol [facility] (vitamin (vitamin (vitamin dic D3) 1,250 D3) 1,250 D3) 1,250 Sports mcg (50,000 mcg (50,000 mcg M edicin unit) unit) (50,000 e capsule capsule unit) TAKE ONE TAKE ONE capsule CAPSULE A CAPSULE A TAKE ONE DAY FOR 10 DAY FOR 10 CAPSULE A WEEKS, THEN WEEKS, THEN DAY FOR 10 1 CAPSULE A 1 CAPSULE A WEEKS, DAY FOR A DAY FOR A THEN 1 MONTH MONTH CAPSULE A DAY FOR A MONTH cyanocobala cyanocobala No cyanocobal [facility] min (vit min (vit garcia (vit Or thope B-12) 1,000 B-12) 1,000 B-12) dic mcg/mL mcg/mL 1,000 [facility] injection injection mcg/mL Med icin solution solution injection e INJECT 1 ML INJECT 1 ML solution INTRAMUSCUL INTRAMUSCUL INJECT 1 BECKA ONCE A BECKA ONCE A ML WEEK WEEK INTRAMUSCU LARLY ONCE A WEEK dicyclomine dicyclomine No dicyclomin Brenda 10 mg 10 mg e 10 mg [facility] capsule capsule capsule dic TAKE 1 TAKE 1 TAKE 1 Sports CAPSULE BY CAPSULE BY CAPSULE BY Medicin MOUTH EVERY MOUTH EVERY MOUTH e 8 HOURS 8 HOURS EVERY 8 NEEDED NEEDED HOURS NEEDED Euthyrox Euthyrox No Euthyrox Aza peyman 150 mcg 150 mcg 150 mcg [facility] e tablet TAKE tablet TAKE tablet dic 1 TABLET BY 1 TABLET BY TAKE 1 Sports MOUTH ONCE MOUTH ONCE TABLET BY Medicin DAILY IN DAILY IN MOUTH ONCE e THE MORNING THE MORNING DAILY IN THE MORNING famotidine famotidine No famotidine Brenda 40 mg 40 mg 40 mg [facility] tablet tablet tablet dic [facility] Medicin e liothyronin liothyronin No liothyroni Brenda e 5 mcg e 5 mcg ne 5 mcg [facility] pe tablet TAKE tablet TAKE tablet dic 1 TABLET BY 1 TABLET BY TAKE 1 Sports MOUTH TWICE MOUTH TWICE TABLET BY Medicin DAILY DAILY MOUTH e TWICE DAILY methadone methadone No methadone Brenda 10 mg 10 mg 10 mg [facility] tablet TAKE tablet TAKE tablet dic 1 TABLET BY 1 TABLET BY TAKE 1 Sports MOUTH EVERY MOUTH EVERY TABLET BY Medicin 8 HOURS 8 HOURS MOUTH e EVERY 8 HOURS omeprazole omeprazole No omeprazole Brenda 40 mg 40 mg 40 mg [facility] capsule,del capsule,del capsule,de dic ayed ayed layed Sports release release release Medici n TAKE 1 TAKE 1 TAKE 1 e CAPSULE BY CAPSULE BY CAPSULE BY MOUTH TWICE MOUTH TWICE MOUTH DAILY. TAKE DAILY. TAKE TWICE 30 MINUTES 30 MINUTES DAILY. BEFORE BEFORE TAKE 30 BREAKFAST BREAKFAST MINUTES AND LAST AND LAST BEFORE MEAL FOR MEAL FOR BREAKFAST ONE MONTH ONE MONTH AND LAST AFTER ONE AFTER ONE MEAL FOR MONTH TAKE MONTH TAKE ONE MONTH ONCE DAILY ONCE DAILY AFTER ONE MONTH TAKE ONCE DAILY sertraline sertraline No sertraline Brenda 100 mg 100 mg 100 mg [facility] tablet TAKE tablet TAKE tablet dic 1 TABLET BY 1 TABLET BY TAKE 1 Sports MOUTH ONCE MOUTH ONCE TABLET BY Medicin DAILY IN DAILY IN MOUTH ONCE e THE MORNING THE MORNING DAILY IN THE MORNING tizanidine tizanidine No tizanidine Brenda 4 mg tablet 4 mg tablet 4 mg [facility] TAKE 1 TAKE 1 tablet dic TABLET BY TABLET BY TAKE 1 Spo rts MOUTH EVERY MOUTH EVERY TABLET BY Medicin 8 HOURS 8 HOURS MOUTH e EVERY 8 HOURS aripiprazol aripiprazol No aripiprazo Brenda e 10 mg e 10 mg le 10 mg [facility] pe tablet TAKE tablet TAKE tablet dic 1 TABLET BY 1 TABLET BY TAKE 1 Sports MOUTH AT MOUTH AT TABLET BY Me dicin BEDTIME BEDTIME MOUTH AT e BEDTIME BinaxNOW BinaxNOW No BinaxNOW Aza peyman COVID-19 Ag COVID-19 Ag COVID-19 [facility] Self Test Self Test Ag Self di c kit Use as kit Use as Test kit Sports Directed on Directed on Use as Medicin the Package the Package Directed e on the Package carvedilol carvedilol No carvedilol Brenda 12.5 mg 12.5 mg 12.5 mg [facility] e tablet TAKE tablet TAKE tablet dic 1 TABLET BY 1 TABLET BY TAKE 1 Sports MOUTH TWICE MOUTH TWICE TABLET BY Medicin DAILY DAILY MOUTH e TWICE DAILY cefuroxime cefuroxime No cefuroxime Brenda axetil 500 axetil 500 axetil 500 [facility] mg tablet mg tablet mg tablet dic Sports Medicin e cholecalcif cholecalcif No cholecalci Brenda rosy rosy ferol [facility] (vitamin (vitamin (vitamin dic D3) 1,250 D3) 1,250 D3) 1,250 Sports mcg (50,000 mcg (50,000 mcg M edicin unit) unit) (50,000 e capsule capsule unit) TAKE ONE TAKE ONE capsule CAPSULE A CAPSULE A TAKE ONE DAY FOR 10 DAY FOR 10 CAPSULE A WEEKS, THEN WEEKS, THEN DAY FOR 10 1 CAPSULE A 1 CAPSULE A WEEKS, DAY FOR A DAY FOR A THEN 1 MONTH MONTH CAPSULE A DAY FOR A MONTH cyanocobala cyanocobala No cyanocobal [facility] min (vit min (vit garcia (vit Or thope B-12) 1,000 B-12) 1,000 B-12) dic mcg/mL mcg/mL 1,000 [facility] injection injection mcg/mL Med icin solution solution injection e INJECT 1 ML INJECT 1 ML solution INTRAMUSCUL INTRAMUSCUL INJECT 1 BECKA ONCE A BECKA ONCE A ML WEEK WEEK INTRAMUSCU LARLY ONCE A WEEK dicyclomine dicyclomine No dicyclomin Brenda 10 mg 10 mg e 10 mg [facility] capsule capsule capsule dic TAKE 1 TAKE 1 TAKE 1 Sports CAPSULE BY CAPSULE BY CAPSULE BY Medicin MOUTH EVERY MOUTH EVERY MOUTH e 8 HOURS 8 HOURS EVERY 8 NEEDED NEEDED HOURS NEEDED Euthyrox Euthyrox No Euthyrox Aza peyman 150 mcg 150 mcg 150 mcg [facility] e tablet TAKE tablet TAKE tablet dic 1 TABLET BY 1 TABLET BY TAKE 1 Sports MOUTH ONCE MOUTH ONCE TABLET BY Medicin DAILY IN DAILY IN MOUTH ONCE e THE MORNING THE MORNING DAILY IN THE MORNING famotidine famotidine No famotidine Brenda 40 mg 40 mg 40 mg [facility] tablet tablet tablet dic [facility] e liothyronin liothyronin No liothyroni Brenda e 5 mcg e 5 mcg ne 5 mcg [facility] pe tablet TAKE tablet TAKE tablet dic 2 TABLETS 2 TABLETS TAKE 2 Spo rts BY MOUTH BY MOUTH TABLETS BY M edicin ONCE DAILY ONCE DAILY MOUTH ONCE e DAILY methadone methadone No methadone Brenda 10 mg 10 mg 10 mg [facility] tablet TAKE tablet TAKE tablet dic 1 TABLET BY 1 TABLET BY TAKE 1 Sports MOUTH EVERY MOUTH EVERY TABLET BY Medicin 8 HOURS 8 HOURS MOUTH e EVERY 8 HOURS omeprazole omeprazole No omeprazole Brenda 40 mg 40 mg 40 mg [facility] capsule,del capsule,del capsule,de dic ayed ayed layed Sports release release release Medici n TAKE 1 TAKE 1 TAKE 1 e CAPSULE BY CAPSULE BY CAPSULE BY MOUTH TWICE MOUTH TWICE MOUTH DAILY DAILY TWICE DAILY ondansetron ondansetron No ondansetro Brenda HCl 4 mg HCl 4 mg n HCl 4 mg [facility] tablet tablet tablet dic Sports Medicin e sertraline sertraline No sertraline Brenda 100 mg 100 mg 100 mg [facility] tablet TAKE tablet TAKE tablet dic 1 TABLET BY 1 TABLET BY TAKE 1 Sports MOUTH ONCE MOUTH ONCE TABLET BY Medicin DAILY IN DAILY IN MOUTH ONCE e THE MORNING THE MORNING DAILY IN THE MORNING tizanidine tizanidine No tizanidine Brenda 4 mg tablet 4 mg tablet 4 mg [facility] TAKE 1 TAKE 1 tablet dic TABLET BY TABLET BY TAKE 1 Spo rts MOUTH EVERY MOUTH EVERY TABLET BY Medicin 8 HOURS 8 HOURS MOUTH e EVERY 8 HOURS ursodiol ursodiol No ursodiol Aza peyman 500 mg 500 mg 500 mg [facility] tablet TAKE tablet TAKE tablet dic 1 TABLET BY 1 TABLET BY TAKE 1 Sports MOUTH ONCE MOUTH ONCE TABLET BY Medicin DAILY DAILY MOUTH ONCE e DAILY aripiprazol aripiprazol No aripiprazo Brenda e 10 mg e 10 mg le 10 mg [facility] pe tablet TAKE tablet TAKE tablet dic 1 TABLET BY 1 TABLET BY TAKE 1 Sports MOUTH AT MOUTH AT TABLET BY Pa dicin BEDTIME BEDTIME MOUTH AT e BEDTIME BinaxNOW BinaxNOW No BinaxNOW Aza peyman COVID-19 Ag COVID-19 Ag COVID-19 [facility] Self Test Self Test Ag Self di c kit Use as kit Use as Test kit Sports Directed on Directed on Use as Medicin the Package the Package Directed e on the Package carvedilol carvedilol No carvedilol Brenda 12.5 mg 12.5 mg 12.5 mg [facility] e tablet TAKE tablet TAKE tablet dic 1 TABLET BY 1 TABLET BY TAKE 1 Sports MOUTH TWICE MOUTH TWICE TABLET BY Medicin DAILY DAILY MOUTH e TWICE DAILY cefuroxime cefuroxime No cefuroxime Brenda axetil 500 axetil 500 axetil 500 [facility] mg tablet mg tablet mg tablet dic Sports Medicin e cholecalcif cholecalcif No cholecalci Brenda rosy rosy ferol [facility] (vitamin (vitamin (vitamin dic D3) 1,250 D3) 1,250 D3) 1,250 [facility] mcg (50,000 mcg (50,000 mcg M edicin unit) unit) (50,000 e capsule capsule unit) TAKE ONE TAKE ONE capsule CAPSULE A CAPSULE A TAKE ONE DAY FOR 10 DAY FOR 10 CAPSULE A WEEKS, THEN WEEKS, THEN DAY FOR 10 1 CAPSULE A 1 CAPSULE A WEEKS, DAY FOR A DAY FOR A THEN 1 MONTH MONTH CAPSULE A DAY FOR A MONTH cyanocobala cyanocobala No cyanocobal [facility] min (vit min (vit garcia (vit Or thope B-12) 1,000 B-12) 1,000 B-12) dic mcg/mL mcg/mL 1,000 [facility] injection injection mcg/mL Med icin solution solution injection e INJECT 1 ML INJECT 1 ML solution INTRAMUSCUL INTRAMUSCUL INJECT 1 BECKA ONCE A BECKA ONCE A ML WEEK WEEK INTRAMUSCU LARLY ONCE A WEEK dicyclomine dicyclomine No dicyclomin Brenda 10 mg 10 mg e 10 mg [facility] capsule capsule capsule dic TAKE 1 TAKE 1 TAKE 1 Sports CAPSULE BY CAPSULE BY CAPSULE BY Medicin MOUTH EVERY MOUTH EVERY MOUTH e 8 HOURS 8 HOURS EVERY 8 NEEDED NEEDED HOURS NEEDED Euthyrox Euthyrox No Euthyrox Aza peyman 150 mcg 150 mcg 150 mcg [facility] e tablet TAKE tablet TAKE tablet dic 1 TABLET BY 1 TABLET BY TAKE 1 Sports MOUTH ONCE MOUTH ONCE TABLET BY Medicin DAILY IN DAILY IN MOUTH ONCE e THE MORNING THE MORNING DAILY IN THE MORNING famotidine famotidine No famotidine Brenda 40 mg 40 mg 40 mg [facility] tablet tablet tablet dic [facility]in e liothyronin liothyronin No liothyroni Brenda e 5 mcg e 5 mcg ne 5 mcg [facility] pe tablet TAKE tablet TAKE tablet dic 2 TABLETS 2 TABLETS TAKE 2 Spo rts BY MOUTH BY MOUTH TABLETS BY M edicin ONCE DAILY ONCE DAILY MOUTH ONCE e DAILY methadone methadone No methadone Brenda 10 mg 10 mg 10 mg [facility] tablet TAKE tablet TAKE tablet dic 1 TABLET BY 1 TABLET BY TAKE 1 Sports MOUTH EVERY MOUTH EVERY TABLET BY Medicin 8 HOURS 8 HOURS MOUTH e EVERY 8 HOURS omeprazole omeprazole No omeprazole Brenda 40 mg 40 mg 40 mg [facility] capsule,del capsule,del capsule,de dic ayed ayed layed Sports release release release Medici n TAKE 1 TAKE 1 TAKE 1 e CAPSULE BY CAPSULE BY CAPSULE BY MOUTH TWICE MOUTH TWICE MOUTH DAILY DAILY TWICE DAILY ondansetron ondansetron No ondansetro Brenda HCl 4 mg HCl 4 mg n HCl 4 mg [facility] tablet tablet tablet dic Sports Medicin e sertraline sertraline No sertraline Brenda 100 mg 100 mg 100 mg [facility] tablet TAKE tablet TAKE tablet dic 1 TABLET BY 1 TABLET BY TAKE 1 Sports MOUTH ONCE MOUTH ONCE TABLET BY Medicin DAILY IN DAILY IN MOUTH ONCE e THE MORNING THE MORNING DAILY IN THE MORNING tizanidine tizanidine No tizanidine Brenda 4 mg tablet 4 mg tablet 4 mg [facility] TAKE 1 TAKE 1 tablet dic TABLET BY TABLET BY TAKE 1 Spo rts MOUTH EVERY MOUTH EVERY TABLET BY Medicin 8 HOURS 8 HOURS MOUTH e EVERY 8 HOURS ursodiol ursodiol No ursodiol Aza peyman 500 mg 500 mg 500 mg [facility] tablet TAKE tablet TAKE tablet dic 1 TABLET BY 1 TABLET BY TAKE 1 Sports MOUTH ONCE MOUTH ONCE TABLET BY Medicin DAILY DAILY MOUTH ONCE e DAILY aripiprazol aripiprazol No aripiprazo Brenda e 10 mg e 10 mg le 10 mg [facility] pe tablet TAKE tablet TAKE tablet dic 1 TABLET BY 1 TABLET BY TAKE 1 Sports MOUTH AT MOUTH AT TABLET BY Pa dicin BEDTIME BEDTIME MOUTH AT e BEDTIME BinaxNOW BinaxNOW No BinaxNOW Aza peyman COVID-19 Ag COVID-19 Ag COVID-19 [facility] Self Test Self Test Ag Self di c kit Use as kit Use as Test kit Sports Directed on Directed on Use as Medicin the Package the Package Directed e on the Package carvedilol carvedilol No carvedilol Brenda 12.5 mg 12.5 mg 12.5 mg [facility] e tablet TAKE tablet TAKE tablet dic 1 TABLET BY 1 TABLET BY TAKE 1 Sports MOUTH TWICE MOUTH TWICE TABLET BY Medicin DAILY DAILY MOUTH e TWICE DAILY cefuroxime cefuroxime No cefuroxime Brenda axetil 500 axetil 500 axetil 500 [facility] mg tablet mg tablet mg tablet dic Sports Medicin e cholecalcif cholecalcif No cholecalci [facility]da rosy rosy ferol [facility] (vitamin (vitamin (vitamin dic D3) 1,250 D3) 1,250 D3) 1,250 [facility] mcg (50,000 mcg (50,000 mcg M edicin unit) unit) (50,000 e capsule capsule unit) TAKE ONE TAKE ONE capsule CAPSULE A CAPSULE A TAKE ONE DAY FOR 10 DAY FOR 10 CAPSULE A WEEKS, THEN WEEKS, THEN DAY FOR 10 1 CAPSULE A 1 CAPSULE A WEEKS, DAY FOR A DAY FOR A THEN 1 MONTH MONTH CAPSULE A DAY FOR A MONTH Colace 100 Colace 100 No 1capsul Q1D Colace 100 Brenda mg capsule mg capsule e(s) mg capsule [facility] Take 1 Take 1 Take 1 dic capsule capsule capsule Sports every day every day every day Medicin by oral by oral by oral e route. route. route. cyanocobala cyanocobala No cyanocobal [facility] min (vit min (vit garcia (vit Or thope B-12) 1,000 B-12) 1,000 B-12) dic mcg/mL mcg/mL 1,000 [facility] injection injection mcg/mL Med icin solution solution injection e INJECT 1 ML INJECT 1 ML solution INTRAMUSCUL INTRAMUSCUL INJECT 1 BECKA ONCE A BECKA ONCE A ML WEEK WEEK INTRAMUSCU LARLY ONCE A WEEK diclofenac diclofenac No diclofenac Brenda ER 100 mg ER 100 mg ER 100 mg [facility] tablet,exte tablet,exte tablet,ext dic nded nded ended Sports release 24 release 24 release 24 Medicin hr Take 1 hr Take 1 hr Take 1 e tablet tablet tablet every day every day every day by oral by oral by oral route. route. route. dicyclomine dicyclomine No dicyclomin Brenda 10 mg 10 mg e 10 mg [facility] capsule capsule capsule dic TAKE 1 TAKE 1 TAKE 1 Sports CAPSULE BY CAPSULE BY CAPSULE BY Medicin MOUTH EVERY MOUTH EVERY MOUTH e 8 HOURS 8 HOURS EVERY 8 NEEDED NEEDED HOURS NEEDED doxycycline doxycycline No doxycyclin Brenda hyclate 100 hyclate 100 e hyclate [facility] mg capsule mg capsule 100 mg d ic Take 1 Take 1 capsule Sports capsule capsule Take 1 Medicin twice a day twice a day capsule e by oral by oral twice a route for route for day by 14 days. 14 days. oral route for 14 days. Euthyrox Euthyrox No Euthyrox Aza peyman 150 mcg 150 mcg 150 mcg [facility] e tablet TAKE tablet TAKE tablet dic 1 TABLET BY 1 TABLET BY TAKE 1 Sports MOUTH ONCE MOUTH ONCE TABLET BY Medicin DAILY IN DAILY IN MOUTH ONCE e THE MORNING THE MORNING DAILY IN THE MORNING famotidine famotidine No famotidine Brenda 40 mg 40 mg 40 mg [facility] tablet tablet tablet dic Sports Medicin e liothyronin liothyronin No liothyroni Brenda e 5 mcg e 5 mcg ne 5 mcg [facility] pe tablet TAKE tablet TAKE tablet dic 2 TABLETS 2 TABLETS TAKE 2 Spo rts BY MOUTH BY MOUTH TABLETS BY Jonna jenkins ONCE DAILY ONCE DAILY MOUTH ONCE e DAILY methadone methadone No methadone Brenda 10 mg 10 mg 10 mg [facility] tablet TAKE tablet TAKE tablet dic 1 TABLET BY 1 TABLET BY TAKE 1 Sports MOUTH EVERY MOUTH EVERY TABLET BY Medicin 8 HOURS 8 HOURS MOUTH e EVERY 8 HOURS omeprazole omeprazole No omeprazole Brenda 40 mg 40 mg 40 mg [facility] capsule,del capsule,del capsule,de dic ayed ayed layed Sports release release release Medici n TAKE 1 TAKE 1 TAKE 1 e CAPSULE BY CAPSULE BY CAPSULE BY MOUTH TWICE MOUTH TWICE MOUTH DAILY DAILY TWICE DAILY ondansetron ondansetron No ondansetro Brenda 4 mg 4 mg n 4 mg [facility] disintegrat disintegrat disintegra dic ing tablet ing tablet ting Spo rts Place 1 Place 1 tablet Medicin tablet tablet Place 1 e twice a day twice a day tablet by by twice a translingua translingua day by l route. l route. translingu al route. ondansetron ondansetron No ondansetro [facility] HCl 4 mg HCl 4 mg n HCl 4 mg [facility] tablet tablet tablet dic Sports Medicin e sertraline sertraline No sertraline Brenda 100 mg 100 mg 100 mg [facility] tablet TAKE tablet TAKE tablet dic 1 TABLET BY 1 TABLET BY TAKE 1 Sports MOUTH ONCE MOUTH ONCE TABLET BY Medicin DAILY IN DAILY IN MOUTH ONCE e THE MORNING THE MORNING DAILY IN THE MORNING tizanidine tizanidine No tizanidine Brenda 4 mg tablet 4 mg tablet 4 mg [facility] TAKE 1 TAKE 1 tablet dic TABLET BY TABLET BY TAKE 1 Spo rts MOUTH EVERY MOUTH EVERY TABLET BY Medicin 8 HOURS 8 HOURS MOUTH e EVERY 8 HOURS ursodiol ursodiol No ursodiol Aza peyman 500 mg 500 mg 500 mg [facility] tablet TAKE tablet TAKE tablet dic 1 TABLET BY 1 TABLET BY TAKE 1 Sports MOUTH ONCE MOUTH ONCE TABLET BY Medicin DAILY DAILY MOUTH ONCE e DAILY aripiprazol aripiprazol No aripiprazo Brenda e 10 mg e 10 mg le 10 mg [facility] pe tablet TAKE tablet TAKE tablet dic 1 TABLET BY 1 TABLET BY TAKE 1 Sports MOUTH AT MOUTH AT TABLET BY Me dicin BEDTIME BEDTIME MOUTH AT e BEDTIME BinaxNOW BinaxNOW No BinaxNOW Aza peyman COVID-19 Ag COVID-19 Ag COVID-19 [facility] Self Test Self Test Ag Self di c kit Use as kit Use as Test kit Sports Directed on Directed on Use as Medicin the Package the Package Directed e on the Package carvedilol carvedilol No carvedilol Brenda 12.5 mg 12.5 mg 12.5 mg [facility] e tablet TAKE tablet TAKE tablet dic 1 TABLET BY 1 TABLET BY TAKE 1 Sports MOUTH TWICE MOUTH TWICE TABLET BY Medicin DAILY DAILY MOUTH e TWICE DAILY cefuroxime cefuroxime No cefuroxime Brenda axetil 500 axetil 500 axetil 500 [facility] mg tablet mg tablet mg tablet dic Sports Medicin e cholecalcif cholecalcif No cholecalci [facility]da rosy rosy ferol [facility] (vitamin (vitamin (vitamin dic D3) 1,250 D3) 1,250 D3) 1,250 Sports mcg (50,000 mcg (50,000 mcg M edicin unit) unit) (50,000 e capsule capsule unit) TAKE ONE TAKE ONE capsule CAPSULE A CAPSULE A TAKE ONE DAY FOR 10 DAY FOR 10 CAPSULE A WEEKS, THEN WEEKS, THEN DAY FOR 10 1 CAPSULE A 1 CAPSULE A WEEKS, DAY FOR A DAY FOR A THEN 1 MONTH MONTH CAPSULE A DAY FOR A MONTH Colace 100 Colace 100 No 1capsul Q1D Colace 100 [facility] mg capsule mg capsule e(s) mg capsule [facility] Take 1 Take 1 Take 1 dic capsule capsule capsule Sports every day every day every day Medicin by oral by oral by oral e route. route. route. cyanocobala cyanocobala No cyanocobal [facility] min (vit min (vit garcia (vit Or thope B-12) 1,000 B-12) 1,000 B-12) dic mcg/mL mcg/mL 1,000 [facility] injection injection mcg/mL Med icin solution solution injection e INJECT 1 ML INJECT 1 ML solution INTRAMUSCUL INTRAMUSCUL INJECT 1 BECKA ONCE A BECKA ONCE A ML WEEK WEEK INTRAMUSCU LARLY ONCE A WEEK diclofenac diclofenac No diclofenac Brenda ER 100 mg ER 100 mg ER 100 mg [facility] tablet,exte tablet,exte tablet,ext dic nded nded ended Sports release 24 release 24 release 24 Medicin hr Take 1 hr Take 1 hr Take 1 e tablet tablet tablet every day every day every day by oral by oral by oral route. route. route. dicyclomine dicyclomine No dicyclomin Brenda 10 mg 10 mg e 10 mg [facility] capsule capsule capsule dic TAKE 1 TAKE 1 TAKE 1 Sports CAPSULE BY CAPSULE BY CAPSULE BY Medicin MOUTH EVERY MOUTH EVERY MOUTH e 8 HOURS 8 HOURS EVERY 8 NEEDED NEEDED HOURS NEEDED doxycycline doxycycline No doxycyclin Brenda hyclate 100 hyclate 100 e hyclate [facility] mg capsule mg capsule 100 mg d ic Take 1 Take 1 capsule Sports capsule capsule Take 1 Medicin twice a day twice a day capsule e by oral by oral twice a route for route for day by 14 days. 14 days. oral route for 14 days. Euthyrox Euthyrox No Euthyrox Aza peyman 150 mcg 150 mcg 150 mcg [facility] e tablet TAKE tablet TAKE tablet dic 1 TABLET BY 1 TABLET BY TAKE 1 Sports MOUTH ONCE MOUTH ONCE TABLET BY Medicin DAILY IN DAILY IN MOUTH ONCE e THE MORNING THE MORNING DAILY IN THE MORNING famotidine famotidine No famotidine Brenda 40 mg 40 mg 40 mg [facility] tablet tablet tablet dic Sports Medicin e liothyronin liothyronin No liothyroni Brenda e 5 mcg e 5 mcg ne 5 mcg Orth[facility] pe tablet TAKE tablet TAKE tablet dic 2 TABLETS 2 TABLETS TAKE 2 Spo rts BY MOUTH BY MOUTH TABLETS BY Jonna jenkins ONCE DAILY ONCE DAILY MOUTH ONCE e DAILY methadone methadone No methadone Brenda 10 mg 10 mg 10 mg [facility] tablet TAKE tablet TAKE tablet dic 1 TABLET BY 1 TABLET BY TAKE 1 Sports MOUTH EVERY MOUTH EVERY TABLET BY Medicin 8 HOURS 8 HOURS MOUTH e EVERY 8 HOURS omeprazole omeprazole No omeprazole Brenda 40 mg 40 mg 40 mg [facility] capsule,del capsule,del capsule,de dic ayed ayed layed Sports release release release Medici n TAKE 1 TAKE 1 TAKE 1 e CAPSULE BY CAPSULE BY CAPSULE BY MOUTH TWICE MOUTH TWICE MOUTH DAILY DAILY TWICE DAILY ondansetron ondansetron No ondansetro Brenda 4 mg 4 mg n 4 mg [facility] disintegrat disintegrat disintegra dic ing tablet ing tablet ting Spo rts Place 1 Place 1 tablet Medicin tablet tablet Place 1 e twice a day twice a day tablet by by twice a translingua translingua day by l route. l route. translingu al route. ondansetron ondansetron No ondansetro Brenda HCl 4 mg HCl 4 mg n HCl 4 mg O [facility] tablet tablet tablet dic Sports Medicin e sertraline sertraline No sertraline Brenda 100 mg 100 mg 100 mg [facility] tablet TAKE tablet TAKE tablet dic 1 TABLET BY 1 TABLET BY TAKE 1 Sports MOUTH ONCE MOUTH ONCE TABLET BY Medicin DAILY IN DAILY IN MOUTH ONCE e THE MORNING THE MORNING DAILY IN THE MORNING tizanidine tizanidine No tizanidine Brenda 4 mg tablet 4 mg tablet 4 mg O r[facility]ope TAKE 1 TAKE 1 tablet dic TABLET BY TABLET BY TAKE 1 Spo rts MOUTH EVERY MOUTH EVERY TABLET BY Medicin 8 HOURS 8 HOURS MOUTH e EVERY 8 HOURS ursodiol ursodiol No ursodiol Aza peyman 500 mg 500 mg 500 mg [facility] tablet TAKE tablet TAKE tablet dic 1 TABLET BY 1 TABLET BY TAKE 1 Sports MOUTH ONCE MOUTH ONCE TABLET BY Medicin DAILY DAILY MOUTH ONCE e DAILY aripiprazol aripiprazol No aripiprazo Brenda e 10 mg e 10 mg le 10 mg [facility] pe tablet TAKE tablet TAKE tablet dic 1 TABLET BY 1 TABLET BY TAKE 1 Sports MOUTH AT MOUTH AT TABLET BY Me dicin BEDTIME BEDTIME MOUTH AT e BEDTIME BinaxNOW BinaxNOW No BinaxNOW Aza peyman COVID-19 Ag COVID-19 Ag COVID-19 [facility] Self Test Self Test Ag Self di c kit Use as kit Use as Test kit Sports Directed on Directed on Use as Medicin the Package the Package Directed e on the Package carvedilol carvedilol No carvedilol Brenda 12.5 mg 12.5 mg 12.5 mg [facility] e tablet TAKE tablet TAKE tablet dic 1 TABLET BY 1 TABLET BY TAKE 1 Sports MOUTH TWICE MOUTH TWICE TABLET BY Medicin DAILY DAILY MOUTH e TWICE DAILY cefuroxime cefuroxime No cefuroxime Brenda axetil 500 axetil 500 axetil 500 [facility] mg tablet mg tablet mg tablet dic Sports Medicin e cholecalcif cholecalcif No cholecalci Brenda rosy rosy ferol [facility] (vitamin (vitamin (vitamin dic D3) 1,250 D3) 1,250 D3) 1,250 Sports mcg (50,000 mcg (50,000 mcg M edicin unit) unit) (50,000 e capsule capsule unit) TAKE ONE TAKE ONE capsule CAPSULE A CAPSULE A TAKE ONE DAY FOR 10 DAY FOR 10 CAPSULE A WEEKS, THEN WEEKS, THEN DAY FOR 10 1 CAPSULE A 1 CAPSULE A WEEKS, DAY FOR A DAY FOR A THEN 1 MONTH MONTH CAPSULE A DAY FOR A MONTH cyanocobala cyanocobala No cyanocobal Brenda min (vit min (vit garcia (vit Or thope B-12) 1,000 B-12) 1,000 B-12) dic mcg/mL mcg/mL 1,000 Sports injection injection mcg/mL Med icin solution solution injection e INJECT 1 ML INJECT 1 ML solution INTRAMUSCUL INTRAMUSCUL INJECT 1 BECKA ONCE A BECKA ONCE A ML WEEK WEEK INTRAMUSCU LARLY ONCE A WEEK diclofenac diclofenac No diclofenac Brenda ER 100 mg ER 100 mg ER 100 mg [facility] tablet,exte tablet,exte tablet,ext dic nded nded ended Sports release 24 release 24 release 24 Medicin hr Take 1 hr Take 1 hr Take 1 e tablet tablet tablet every day every day every day by oral by oral by oral route. route. route. dicyclomine dicyclomine No dicyclomin Brenda 10 mg 10 mg e 10 mg [facility] capsule capsule capsule dic TAKE 1 TAKE 1 TAKE 1 Sports CAPSULE BY CAPSULE BY CAPSULE BY Medicin MOUTH EVERY MOUTH EVERY MOUTH e 8 HOURS 8 HOURS EVERY 8 NEEDED NEEDED HOURS NEEDED docusate docusate No docusate Aza peymna sodium 100 sodium 100 sodium 100 [facility] mg capsule mg capsule mg capsule dic TAKE 1 TAKE 1 TAKE 1 Sports CAPSULE BY CAPSULE BY CAPSULE BY Medicin MOUTH ONCE MOUTH ONCE MOUTH ONCE e DAILY DAILY DAILY doxycycline doxycycline No doxycyclin Brenda hyclate 100 hyclate 100 e hyclate [facility] mg capsule mg capsule 100 mg d ic Take 1 Take 1 capsule Sports capsule capsule Take 1 Medicin twice a day twice a day capsule e by oral by oral twice a route for route for day by 14 days. 14 days. oral route for 14 days. Euthyrox Euthyrox No Euthyrox Aza peyman 150 mcg 150 mcg 150 mcg [facility] e tablet TAKE tablet TAKE tablet dic 1 TABLET BY 1 TABLET BY TAKE 1 Sports MOUTH ONCE MOUTH ONCE TABLET BY Medicin DAILY IN DAILY IN MOUTH ONCE e THE MORNING THE MORNING DAILY IN THE MORNING famotidine famotidine No famotidine Brenda 40 mg 40 mg 40 mg [facility] tablet tablet tablet dic Sports Medicin e liothyronin liothyronin No liothyroni Brenda e 5 mcg e 5 mcg ne 5 mcg [facility] pe tablet TAKE tablet TAKE tablet dic 2 TABLETS 2 TABLETS TAKE 2 Spo rts BY MOUTH BY MOUTH TABLETS BY Jonna edicin ONCE DAILY ONCE DAILY MOUTH ONCE e DAILY methadone methadone No methadone Brenda 10 mg 10 mg 10 mg [facility] tablet TAKE tablet TAKE tablet dic 1 TABLET BY 1 TABLET BY TAKE 1 Sports MOUTH EVERY MOUTH EVERY TABLET BY Medicin 8 HOURS 8 HOURS MOUTH e EVERY 8 HOURS omeprazole omeprazole No omeprazole Brenda 40 mg 40 mg 40 mg [facility] capsule,del capsule,del capsule,de dic ayed ayed layed Sports release release release Medici n TAKE 1 TAKE 1 TAKE 1 e CAPSULE BY CAPSULE BY CAPSULE BY MOUTH TWICE MOUTH TWICE MOUTH DAILY DAILY TWICE DAILY ondansetron ondansetron No ondansetro Brenda 4 mg 4 mg n 4 mg [facility] disintegrat disintegrat disintegra dic ing tablet ing tablet ting Spo rts Place 1 Place 1 tablet Medicin tablet tablet Place 1 e twice a day twice a day tablet by by twice a translingua translingua day by l route. l route. translingu al route. ondansetron ondansetron No ondansetro Brenda HCl 4 mg HCl 4 mg n HCl 4 mg [facility] tablet tablet tablet dic Sports Medicin e sertraline sertraline No sertraline Brenda 100 mg 100 mg 100 mg [facility] tablet TAKE tablet TAKE tablet dic 1 TABLET BY 1 TABLET BY TAKE 1 Sports MOUTH ONCE MOUTH ONCE TABLET BY Medicin DAILY IN DAILY IN MOUTH ONCE e THE MORNING THE MORNING DAILY IN THE MORNING tizanidine tizanidine No tizanidine Brenda 4 mg tablet 4 mg tablet 4 mg O [facility]ope TAKE 1 TAKE 1 tablet dic TABLET BY TABLET BY TAKE 1 Spo rts MOUTH EVERY MOUTH EVERY TABLET BY Medicin 8 HOURS 8 HOURS MOUTH e EVERY 8 HOURS ursodiol ursodiol No ursodiol Aza peyman 500 mg 500 mg 500 mg [facility] tablet TAKE tablet TAKE tablet dic 1 TABLET BY 1 TABLET BY TAKE 1 Sports MOUTH ONCE MOUTH ONCE TABLET BY Medicin DAILY DAILY MOUTH ONCE e DAILY Abilify 30 Abilify 30 No Abilify 30 Brenda mg tablet mg tablet mg tablet [facility] once a day once a day once a day dic Sports Medicin e aripiprazol aripiprazol No aripiprazo Brenda e 10 mg e 10 mg le 10 mg [facility] pe tablet TAKE tablet TAKE tablet dic 1 TABLET BY 1 TABLET BY TAKE 1 Sports MOUTH AT MOUTH AT TABLET BY Me dicin BEDTIME BEDTIME MOUTH AT e BEDTIME BinaxNOW BinaxNOW No BinaxNOW Aza peyman COVID-19 Ag COVID-19 Ag COVID-19 [facility] Self Test Self Test Ag Self di c kit Use as kit Use as Test kit Sports Directed on Directed on Use as Medicin the Package the Package Directed e on the Package carvedilol carvedilol No carvedilol Rbenda 12.5 mg 12.5 mg 12.5 mg [facility] e tablet TAKE tablet TAKE tablet dic 1 TABLET BY 1 TABLET BY TAKE 1 Sports MOUTH TWICE MOUTH TWICE TABLET BY Medicin DAILY DAILY MOUTH e TWICE DAILY cefuroxime cefuroxime No cefuroxime Brenda axetil 500 axetil 500 axetil 500 [facility] mg tablet mg tablet mg tablet dic TAKE 1 TAKE 1 TAKE 1 Sports TABLET BY TABLET BY TABLET BY Medicin MOUTH TWICE MOUTH TWICE MOUTH e DAILY DAILY TWICE DAILY cholecalcif cholecalcif No cholecalci Brenda rosy rosy ferol [facility] (vitamin (vitamin (vitamin dic D3) 1,250 D3) 1,250 D3) 1,250 Sports mcg (50,000 mcg (50,000 mcg M edicin unit) unit) (50,000 e capsule capsule unit) TAKE ONE TAKE ONE capsule CAPSULE A CAPSULE A TAKE ONE DAY FOR 10 DAY FOR 10 CAPSULE A WEEKS, THEN WEEKS, THEN DAY FOR 10 1 CAPSULE A 1 CAPSULE A WEEKS, DAY FOR A DAY FOR A THEN 1 MONTH MONTH CAPSULE A DAY FOR A MONTH Euthyrox Euthyrox No Euthyrox Aza peyman 150 mcg 150 mcg 150 mcg [facility] e tablet TAKE tablet TAKE tablet dic 1 TABLET BY 1 TABLET BY TAKE 1 Sports MOUTH ONCE MOUTH ONCE TABLET BY Medicin DAILY IN DAILY IN MOUTH ONCE e THE MORNING THE MORNING DAILY IN THE MORNING hydrocortis hydrocortis No hydrocorti Brenda one 2.5 % one 2.5 % sone 2.5 % [facility] topical topical topical dic cream APPLY cream APPLY cream Sports IN AND IN AND APPLY IN Medicin AROUND AROUND AND AROUND e RECTUM RECTUM RECTUM AFTER SITZ AFTER SITZ AFTER SITZ BATH TWICE BATH TWICE BATH TWICE DAILY DAILY DAILY liothyronin liothyronin No liothyroni Brenda e 5 mcg e 5 mcg ne 5 mcg [facility] pe tablet TAKE tablet TAKE tablet dic 1 TABLET BY 1 TABLET BY TAKE 1 Sports MOUTH TWICE MOUTH TWICE TABLET BY Medicin DAILY DAILY MOUTH e TWICE DAILY lubiproston lubiproston No lubiprosto Brenda e 8 mcg e 8 mcg ne 8 mcg [facility] pe capsule capsule capsule dic TAKE 1 TAKE 1 TAKE 1 Sports CAPSULE BY CAPSULE BY CAPSULE BY Medicin MOUTH TWICE MOUTH TWICE MOUTH e DAILY DAILY TWICE DAILY methadone methadone No methadone Brenda 10 mg 10 mg 10 mg [facility] tablet TAKE tablet TAKE tablet dic 1 TABLET BY 1 TABLET BY TAKE 1 Sports MOUTH EVERY MOUTH EVERY TABLET BY Medicin 8 HOURS 8 HOURS MOUTH e EVERY 8 HOURS methocarbam methocarbam No methocarba Brenda ol 500 mg ol 500 mg mol 500 mg [facility] tablet TAKE tablet TAKE tablet dic 1 TO 2 1 TO 2 TAKE 1 TO Sports TABLETS BY TABLETS BY 2 TABLETS Medicin MOUTH 4 MOUTH 4 BY MOUTH 4 e TIMES DAILY TIMES DAILY TIMES FOR 7 DAYS FOR 7 DAYS DAILY FOR 7 DAYS methylpredn methylpredn No methylpred Brenda isolone 4 isolone 4 nisolone 4 [facility] mg tablet mg tablet mg tablet dic TAKE 1 TAKE 1 TAKE 1 Sports TABLET BY TABLET BY TABLET BY Medicin MOUTH THREE MOUTH THREE MOUTH e TIMES DAILY TIMES DAILY THREE ON DAYS ON DAYS TIMES 1-2, THEN 1 1-2, THEN 1 DAILY ON TABLET TWO TABLET TWO DAYS 1-2, TIMES DAILY TIMES DAILY THEN 1 ON DAYS ON DAYS TABLET TWO 3-4, THEN 1 3-4, THEN 1 TIMES TABLET TABLET DAILY ON DAILY ON DAILY ON DAYS 3-4, DAYS 5-6 DAYS 5-6 THEN 1 TABLET DAILY ON DAYS 5-6 omeprazole omeprazole No omeprazole Brenda 40 mg 40 mg 40 mg [facility] capsule,del capsule,del capsule,de dic ayed ayed layed Sports release release release Medici n TAKE 1 TAKE 1 TAKE 1 e CAPSULE BY CAPSULE BY CAPSULE BY MOUTH TWICE MOUTH TWICE MOUTH DAILY DAILY TWICE DAILY omeprazole omeprazole No omeprazole Brenda 40 40 40 [facility] mg-sodium mg-sodium mg-sodium dic bicarbonate bicarbonate bicarbonat Sports 1.1 gram 1.1 gram e 1.1 gram M edicin capsule capsule capsule e once a day once a day once a day ondansetron ondansetron No ondansetro Brenda HCl 4 mg HCl 4 mg n HCl 4 mg [facility] tablet TAKE tablet TAKE tablet dic 1 TABLET BY 1 TABLET BY TAKE 1 Sports MOUTH EVERY MOUTH EVERY TABLET BY Medicin 6 HOURS 6 HOURS MOUTH e NEEDED NEEDED EVERY 6 HOURS NEEDED pantoprazol pantoprazol No pantoprazo Brenda e 40 mg e 40 mg le 40 mg Orth[facility] pe tablet,mariola tablet,mariola tablet,del dic yed release yed release ayed S ports TAKE 1 TAKE 1 release Medicin TABLET BY TABLET BY TAKE 1 e MOUTH TWICE MOUTH TWICE TABLET BY DAILY DAILY MOUTH TWICE DAILY prednisone prednisone No prednisone Brenda 10 mg 10 mg 10 mg [facility] tablet TAKE tablet TAKE tablet dic 1 TABLET BY 1 TABLET BY TAKE 1 Sports MOUTH TWICE MOUTH TWICE TABLET BY Medicin DAILY DAILY MOUTH e TWICE DAILY sertraline sertraline No sertraline Brenda 100 mg 100 mg 100 mg [facility] tablet TAKE tablet TAKE tablet dic 1 TABLET BY 1 TABLET BY TAKE 1 Sports MOUTH ONCE MOUTH ONCE TABLET BY Medicin DAILY IN DAILY IN MOUTH ONCE e THE MORNING THE MORNING DAILY IN THE MORNING sucralfate sucralfate No sucralfate Brenda 1 gram 1 gram 1 gram [facility] tablet TAKE tablet TAKE tablet dic 1 TABLET BY 1 TABLET BY TAKE 1 Sports MOUTH ONCE MOUTH ONCE TABLET BY Medicin DAILY DAILY MOUTH ONCE e DAILY tizanidine tizanidine No tizanidine Brenda 4 mg tablet 4 mg tablet 4 mg O [facility]ope TAKE 1 TAKE 1 tablet dic TABLET BY TABLET BY TAKE 1 Spo rts MOUTH EVERY MOUTH EVERY TABLET BY Medicin 8 HOURS 8 HOURS MOUTH e EVERY 8 HOURS Immunizations Ordered Immunization Filled Immunization Date Status Commen ts Source Name Name pneumococcal pneumococcal 2022-06-23 Completed Brenda polysaccharide PPV23 polysaccharide PPV23 00:00:00 [facility] pneumococcal pneumococcal 2022-06-23 Completed Brenda polysaccharide PPV23 polysaccharide PPV23 00:00:00 [facility] pneumococcal pneumococcal 2022-06-23 Completed Brenda polysaccharide PPV23 polysaccharide PPV23 00:00:00 [facility] pneumococcal pneumococcal 2022-06-23 Completed Brenda polysaccharide PPV23 polysaccharide PPV23 00:00:00 [facility] pneumococcal pneumococcal 2022-06-23 Completed Brenda polysaccharide PPV23 polysaccharide PPV23 00:00:00 [facility] SARS-COV-2 COVID-19 2021-01-16 Completed [facility] PFIZER VACCINE 00:00:00 [facility] SARS-COV-2 COVID-19 2021-01-16 Completed [facility] of PFIZER VACCINE 00:00:00 [facility] SARS-COV-2 COVID-19 2021-01-16 Completed [facility] PFIZER VACCINE 00:00:00 [facility] SARS-COV-2 COVID-19 2021-01-16 Completed [facility] of PFIZER VACCINE 00:00:00 [facility] SARS-COV-2 COVID-19 2020-12-26 Completed [facility] of PFIZER VACCINE 00:00:00 [facility] SARS-COV-2 COVID-19 2020-12-26 Completed [facility] of PFIZER VACCINE 00:00:00 [facility] SARS-COV-2 COVID-19 2020-12-26 Completed [facility] of PFIZER VACCINE 00:00:00 [facility] SARS-COV-2 COVID-19 2020-12-26 Completed [facility] of PFIZER VACCINE 00:00:00 [facility] Influenza Virus 2019-07-14 Completed [facility] Vaccine 00:00:00 [facility] Influenza Virus 2019-07-14 Completed [facility] Vaccine 00:00:00 [facility] Influenza Virus 2019-07-14 Completed [facility] of Vaccine 00:00:00 [facility] Influenza Virus 2019-07-14 Completed [facility] of Vaccine 00:00:00 [facility] Influenza Virus 2019-07-14 Completed [facility] of Vaccine 00:00:00 [facility] Influenza Virus 2019-07-14 Completed [facility] of Vaccine 00:00:00 [facility] Influenza Virus 2019-07-14 Completed [facility] of Vaccine 00:00:00 [facility] Influenza Virus 2019-07-14 Completed [facility] of Vaccine 00:00:00 [facility] Influenza Virus 2019-07-14 Completed [facility] of Vaccine 00:00:00 [facility] Influenza Virus 2019-07-14 Completed [facility] of Vaccine 00:00:00 [facility] Influenza Virus 2019-07-14 Completed [facility] of Vaccine 00:00:00 [facility] Influenza Virus 2019-07-14 Completed [facility] of Vaccine 00:00:00 [facility] Influenza Virus 2019-07-14 Completed [facility] of Vaccine 00:00:00 [facility] Influenza Virus 2019-07-14 Completed Univers[facility] y of Vaccine 00:00:00 [facility] Vital Signs Vital Name Observation Time Observation Value Comments Source Systolic blood 2022-11-19 108 mm[Hg] [facility] pressure 23:00:00 [facility] Diastolic blood 2022-11-19 79 mm[Hg] [place] o f pressure 23:00:00 [facility] Heart rate 2022-11-19 72 /min [facility] 23:00:00 [facility] Respiratory rate 2022-11-19 18 /min [facility] 23:00:00 [facility] Oxygen saturation 2022-11-19 96 /min [facility] Arterial blood 23:00:00 [facility] by Pulse oximetry [place] Body temperature 2022-11-19 35.61 Svitlana [facility] 19:17:00 [facility] Body weight 2022-11-19 74.844 kg University 19:00:00 [facility] BMI 2022-11-19 29.23 kg/m2 University 19:00:00 [facility] Height 2022-11-07 63 [in_i] [facility] 00:00:00 [facility] BMI (Body Mass 2022-11-07 28.5 kg/m2 Brenda Index) 00:00:00 [facility] Body Weight 2022-11-07 161 [lb_av] Brenda 00:00:00 [facility] Height 2022-08-15 63 [in_i] Brenda 00:00:00 [facility] BMI (Body Mass 2022-08-15 28.5 kg/m2 Brenda Index) 00:00:00 [facility] Body Weight 2022-08-15 161 [lb_av] Brenda 00:00:00 [facility] Height 2022-07-18 63 [in_i] Brenda 00:00:00 [facility] BMI (Body Mass 2022-07-18 28.5 kg/m2 Brenda Index) 00:00:00 [facility] Body Weight 2022-07-18 161 [lb_av] Brenda 00:00:00 [facility] BP Diastolic 2022-07-11 74 mm[Hg] [facility]da 00:00:00 [facility] Height 2022-07-11 63 [in_i] Brenda 00:00:00 [facility] BMI (Body Mass 2022-07-11 28.6 kg/m2 Brenda Index) 00:00:00 [facility] BP Systolic 2022-07-11 128 mm[Hg] [facility]da 00:00:00 [facility] Body Weight 2022-07-11 161.4 [lb_av] Brenda 00:00:00 [facility] Systolic blood 2021-04-26 146 mm[Hg] [facility] pressure 18:55:00 [facility] Diastolic blood 2021-04-26 75 mm[Hg] [facility] f pressure 18:55:00 [facility] Heart rate 2021-04-26 52 /min University 18:55:00 [facility] Respiratory rate 2021-04-26 16 /min [facility] 18:55:00 [facility] Oxygen saturation 2021-04-26 99 /min [facility] Arterial blood 18:55:00 [facility] Pulse oximetry [place] Body temperature 2021-04-26 35.94 Svitlana [facility] 18:35:00 [facility] Body height 2021-04-25 160 cm [place] of 18:45:00 [facility] Body weight 2021-04-25 74.844 [address] [place] of 18:45:00 [facility] BMI 2021-04-25 29.23 kg/m2 [facility] 18:45:00 [facility] Systolic blood 2021-04-26 134 mm[Hg] [facility] pressure 16:55:00 [facility] Diastolic blood 2021-04-26 69 mm[Hg] University o f pressure 16:55:00 [facility] Heart rate 2021-04-26 53 /min [facility] of 16:55:00 [facility] Body temperature 2021-04-26 36.72 Svitlana [facility] 16:55:00 [facility] Respiratory rate 2021-04-26 16 /min University of 16:55:00 [facility] Oxygen saturation 2021-04-26 99 /min [facility] in Arterial blood 16:55:00 [facility] Pulse oximetry [facility] Body height 2021-04-25 160 cm University of 18:45:00 [facility] Body weight 2021-04-25 74.844 kg University of 18:45:00 [facility] BMI 2021-04-25 29.23 kg/m2 University of 18:45:00 [facility] Systolic blood 2021-04-26 134 mm[Hg] [facility] pressure 16:55:00 [facility] Diastolic blood 2021-04-26 69 mm[Hg] University o f pressure 16:55:00 [facility] Heart rate 2021-04-26 53 /min [facility] of 16:55:00 [facility] Body temperature 2021-04-26 36.72 Svitlana [facility] of 16:55:00 [facility] Respiratory rate 2021-04-26 16 /min [facility] of 16:55:00 [facility] Oxygen saturation 2021-04-26 99 /min [facility] in Arterial blood 16:55:00 [place] [facility] Pulse oximetry [facility] Body height 2021-04-25 160 cm University of 18:45:00 [facility] Body weight 2021-04-25 74.844 kg University of 18:45:00 [facility] BMI 2021-04-25 29.23 kg/m2 University of 18:45:00 [facility] Systolic blood 2021-04-16 154 mm[Hg] [facility] pressure 03:43:15 [facility] Diastolic blood 2021-04-16 83 mm[Hg] University o f pressure 03:43:15 [facility] Heart rate 2021-04-16 65 /min [facility] of 03:43:15 [facility] Respiratory rate 2021-04-16 18 /min University of 03:43:15 [facility] Oxygen saturation 2021-04-16 99 /min [facility] in Arterial blood 03:43:15 [place] [facility] by Pulse oximetry [facility] Body temperature 2021-04-16 37.28 Svitlana [place] of 01:36:00 [facility] Body height 2021-04-16 154.9 cm University of 01:36:00 [facility] Body weight 2021-04-16 74.844 kg University of 01:36:00 [facility] BMI 2021-04-16 31.18 kg/m2 University of 01:36:00 [facility] Systolic blood 2020-09-09 127 mm[Hg] [facility] pressure 05:14:00 [facility] Diastolic blood 2020-09-09 75 mm[Hg] University o f pressure 05:14:00 [facility] Heart rate 2020-09-09 65 /min University 05:14:00 [facility] Respiratory rate 2020-09-09 18 /min [facility] 05:14:00 [facility] Oxygen saturation 2020-09-09 96 /min [place] of in Arterial blood 05:14:00 [facility] Pulse oximetry [place] Body temperature 2020-09-09 36.44 Svitlana [facility] 02:36:00 [facility] Body height 2020-09-09 157.5 cm University :36: [facility] Body weight 2020-09-09 77.111 kg University 02:36:00 [facility] [facility] BMI 2020-09-09 31.09 kg/m2 University 02:36:00 [facility] Systolic blood 2019-12-18 118 mm[Hg] University of pressure 17:00:00 [facility] Diastolic blood 2019-12-18 72 mm[Hg] University o f pressure 17:00:00 [facility] Heart rate 2019-12-18 61 /min University of 17:00:00 [facility] Body temperature 2019-12-18 36.67 Svitlana University of 17:00:00 [facility] Respiratory rate 2019-12-18 17 /min University of 17:00:00 [facility] Oxygen saturation 2019-12-18 97 /min [place] of in Arterial blood 17:00:00 [place] [facility] by Pulse oximetry Branch Body height 2019-12-18 154.9 cm University of 02:02:00 [facility] Body weight 2019-12-18 71.215 kg Bedscale upon [facility] 02:02:00 admission to [facility]. Branch BMI 2019-12-18 29.66 kg/m2 University of 02:02:00 [facility] Systolic blood 2022-02-03 151 mm[Hg] [facility] pressure 13:47:00 Hospital Diastolic blood 2022-02-03 84 mm[Hg] [facility] pressure 13:47:00 Hospital Heart rate 2022-02-03 63 /min [facility] 12:53:53 Hospital Oxygen saturation 2022-02-03 95 /min [facility] in Arterial blood 12:53:53 Hospital by Pulse oximetry Body temperature 2022-02-03 36.39 Svitlana [facility] 12:53:07 Hospital Respiratory rate 2022-02-03 18 /min [facility] 12:53:07 Hospital Body height 2022-02-01 157.5 cm [facility] 12:46:00 Hospital Body weight 2022-02-01 68.04 kg [facility] 12:46:00 Hospital BMI 2022-02-01 27.44 kg/m2 [facility] 12:46:00 Hospital Procedures Procedure Date / Time Performing Source Performed Clinician EKG-12 LEAD 2022-11-19 [facility] [place] 23:06:33 Medical Branch URINALYSIS 2022-11-19 [facility] [place] 22:11:[address] HEAD WO CONTRAST 2022-11-19 [facility] 21:40:47 Medical Branch XR CHEST 1 VW 2022-11-19 [facility] [place] 19:41:20 [facility] Branch RAPID INFLUENZA A/B 2022-11-19 [facility], [facility] 19:35:00 [facility] Branch BLOOD CULTURE SCREEN 2022-11-19 [facility] 19:31:00 [facility] Branch PHOSPHORUS 2022-11-19 [facility], [facility] [place] 19:31:00 Medical Branch CREATINE KINASE 2022-11-19 [facility], [facility] [place] 19:31:00 [facility] Branch LIPASE 2022-11-19 [facility], [facility] [place] 19:31:00 Medical Branch MAGNESIUM 2022-11-19 [facility], [facility] [place] 19:31:00 Medical Branch TROPONIN I 2022-11-19 [facility] [place] 19:31:00 [facility] Branch FREE T4 2022-11-19 [facility], [facility] [place] 19:31:00 Medical Branch THYROID STIMULATING HORMONE 2022-11-19 [facility] 19:31:00 Medical Branch COMP. METABOLIC PANEL ([id number]) 2022-11-19 [facility] 19:31:00 Medical Branch CBC WITH DIFF 2022-11-19 [facility] [place] 19:31:00 Medical Branch N-TERMINAL PRO-BNP 2022-11-19 [facility] 19:31:00 Medical Branch LACTIC ACID WHOLE BLOOD 2022-11-19 [facility] 19:31:00 Medical Branch RAPID RSV 2022-11-19 [facility] [place] 19:31:00 Medical Branch COVID-19 (ID NOW RAPID 2022-11-19 [facility] TESTING) 19:31:00 Medical Branch CONSENT/REFUSAL FOR DIAGNOSIS 2022-11-19 Doctor Unassigned, [facility] AND TREATMENT 18:56:33 [facility] XR, shoulder, 2 or more view 2022-11-07 [facility] 00:00:00 Sports Medicine XR, shoulder, 2 or more view 2022-10-05 [facility] 00:00:00 Sports Medicine XR, shoulder, 2 or more view 2022-09-26 [facility] 00:00:00 Sports Medicine XR, knee, 4 or more view 2022-07-18 [facility] 00:00:00 Sports Medicine XR, shoulder, 2 or more view 2022-07-11 [facility] 00:00:[address], arthrogram, shoulder 2022-07-11 [facility] 00:00:00 Sports Medicine ZZCOVID-19 ANTI-SPIKE IGG 2022-02-03 Hermes Montalvo [facility] ANTIBODY TITER 11:16:00 Db BASIC METABOLIC PANEL 2022-02-[address] [facility] 11:16:00 [facility] CBC WITH PLATELET AND [facility]22[facility] 11:16:00 [facility] MAGNESIUM LEVEL 2022-02-03 [facility] 11:16:00 [facility] PHOSPHORUS LEVEL 2022-02-03 [facility] 11:16:00 [facility] ZZCOVID-19 SEROLOGY PATIENT 2022-02-03 Hermes Montalvo [facility] SURVEILLANCE 11:16:00 Db ESTIMATED GFR 2022-02-03 Nik Perez [facility] pital 11:16:00 DURABLE MEDICAL EQUIPMENT 2022-02-02 Nik Perez [facility] 17:07:33 BASIC METABOLIC PANEL 2022-02-02 [facility] 09:52:00 [facility] CBC WITH PLATELET AND 2022-02-02 [facility] DIFFERENTIAL 09:52:00 [facility] MAGNESIUM LEVEL 2022-02-02 Sp, [facility] Hospit al 09:52:00 [facility] PHOSPHORUS LEVEL 2022-02-02 Sp, [facility] Hospi quang 09:52:00 [facility] ESTIMATED GFR 2022-02-02 Nik Perez [facility] pital 09:52:00 ECG 12-LEAD 2022-02-02 Juancarlos Martinez [facility] 01:06:29 Kimberly Symone CBC WITH PLATELET AND 2022-02-01 [facility] DIFFERENTIAL 17:22:00 [facility] BASIC METABOLIC PANEL 2022-02-01 [facility] 17:22:00 [facility] MAGNESIUM LEVEL 2022-02-01 [facility]00 [facility] PHOSPHORUS LEVEL 2022-02-01 [facility] 17:22:00 [facility] ESTIMATED GFR 2022-02-01 Nik Perez [facility] pital 17:22:00 [place] AN ELECTIVE ENDOTRACHEAL 2022-02-01 Bradley Roth [facility] AIRWAY 14:45:00 REPAIR, HIATAL HERNIA, 2022-02-[address] [facility] LAPAROSCOPIC 14:37:00 ABO AND RH CONFIRMATION BY 2022-02-01 Nik Perez [facility] PROTOCOL 13:30:00 COVID-19 QUALITATIVE RT-PCR 2022-01-29 Nik Perez [facility] 22:05:00 HEMOGLOBIN A1C 2022-01-29 Rosalia Webber Ho spital 22:00:00 HEPATIC FUNCTION PANEL 2022-01-29 [facility] 22:00:00 CBC WITH PLATELET AND 2022-01-29 Nik Perez [facility] DIFFERENTIAL 22:00:00 BASIC METABOLIC PANEL 2022-01-29 [facility] 22:00:00 PARTIAL THROMBOPLASTIN TIME 2022-01-29 Nik Perez [facility] (PTT) 22:00:00 PROTHROMBIN TIME WITH INR 2022-01-29 Nik Perez [facility] 22:00:00 ESTIMATED GFR 2022-01-29 Nik Perez Hos pital 22:00:00 TYPE AND SCREEN 2022-01-29 Nik Perez Hos pital 22:00:00 ESOPHAGEAL MANOMETRY WITH 2021-10-31 Ines Davalos [facility] IMPEDANCE PROBE 18:00:00 Ayshe MRI ABD/PELVIC EXTERNAL STUDY 2021-09-15 Nik Perez [facility] 16:51:00 FL EXTERNAL STUDY EXAM 2021-09-[address] [facility] 16:57:00 PHACOEMULSIFICATION OF 2021-04-26 Johnny Armenta [facility] CATARACT WITH INTRAOCULAR 17:59:00 Medica l Branch LENS IMPLANT ASSIGNMENT OF BENEFITS 2021-04-19 Doctor Unassigned, [facility] 21:17:41 [facility] XR CERVICAL SPINE 3 VW 2021-04-16 Netta Cadena [facility] 02:03:58 Medical Branch XR RIBS 3 VW RIGHT 2021-04-16 Netta Cadena [facility] 02:03:36 Medical Branch XR SCAPULA RIGHT 2021-04-16 Netta Cadena [facility] 02:03:[address] HEAD WO CONTRAST 2021-04-16 Netta Cadena [facility] 02:02:21 Medical Branch CONSENT/REFUSAL FOR DIAGNOSIS 2021-04-16 Doctor Unassigned, [facility] AND TREATMENT 01:27:29 [facility] NOTICE OF PRIVACY PRACTICES 2021-04-16 Doctor Unassigned, [facility] 01:27:01 [facility] URINALYSIS 2020-09-09 Es Daugherty [facility] 03:44:00 Medical Branch XR CHEST 1 VW COVID 2020-09-09 Es Daugherty [facility] 03:27:38 Medical Branch TROPONIN I 2020-09-09 Es Daugherty [facility] xa 02:59:00 Medical Branch COMP. METABOLIC PANEL ([id number]) 2020-09-09 Es Daugherty [facility] 02:59:00 Medical Branch CBC WITH DIFF 2020-09-09 Es Daugherty [facility] 02:59:00 Medical Branch N-TERMINAL PRO-BNP 2020-09-09 Es Daugherty [facility] 02:59:00 Medical Branch COVID-19 (ID NOW RAPID 2020-09-09 Es Daugherty [facility] TESTING) 02:59:00 Medical Branch CONSENT/REFUSAL FOR DIAGNOSIS 2020-09-09 Doctor Unassigned, [facility] AND TREATMENT 02:34:19 [facility] ECHO ROUTINE W/DOPPLER COLOR 2019-12-18 Kayla Meredith Carla [facility] 14:22:36 Medical Branch TROPONIN I 2019-12-18 Tiburcio [facility] 10:21:00 Medical Branch BASIC METABOLIC PANEL (NA, K, 2019-12-18 Meredith Finney a [facility] CL, CO2, GLUCOSE, BUN, 10:21:00 Medical B ran CREATININE, CA) CBC WITH DIFFERENTIAL 2019-12-18 Meredith Finney [facility] 10:21:00 Medical Branch TROPONIN I 2019-12-18 Tiburcio [facility] [place] 04:34:00 Medical Branch XR CHEST 2 VW 2019-12-17 Rome Dumont [facility] 21:57:43 Medical Branch LIPASE 2019-12-17 Rome Dumont [facility] xas 21:37:00 Medical Branch MAGNESIUM 2019-12-17 Meredith Finney [facility] 21:37:00 Medical Branch TROPONIN I 2019-12-17 Rome Dumont [facility] xas 21:37:00 Medical Branch COMP. METABOLIC PANEL ([id number]) 2019-12-17 Rome [facility] 21:37:00 Medical Branch CBC WITH DIFFERENTIAL 2019-12-17 Rome Dumont [facility] 21:37:00 Medical Branch PROTHROMBIN TIME / INR 2019-12-17 Rome Dumont [facility] 21:37:00 Medical Branch ACTIVATED PARTIAL THRMPLAS 2019-12-17 Rome Dumont [facility] 21:37:00 Medical Branch EKG-12 LEAD 2019-12-17 Rome Dumont [facility] xas 21:30:59 Medical Branch EKG-12 LEAD 2019-12-17 Vic Monet [facility] xa 21:16:18 Medical Branch NOTICE OF PRIVACY PRACTICES 2019-12-17 Doctor Unassigned, [facility] 21:11:07 [facility] CONSENT/REFUSAL FOR DIAGNOSIS 2019-12-17 Doctor Unassigned, [facility] AND TREATMENT 21:08:57 [facility] Appendectomy [facility] Arm Surgery [facility] Back Surgery [facility] Cancer Surgery [facility] ENT/Sinus Surgery [facility] Gallbladder Surgery [facility] Hand Surgery [facility] Hernia Repair [facility] Neck Surgery [facility] Shoulder Surgery [facility] Thyroid Surgery [facility] Tonsillectomy [facility] Plan of Care Planned Activity Planned Date Details Comments Source Future Scheduled Test 2022-11-02 65+ PNEUMOCOCCAL Me [facility] 16:11:57 VACCINE (1 - PCV) [code = 65+ PNEUMOCOCCAL VACCINE (1 - PCV)] Future Scheduled Test 2022-11-02 Hepatitis C screening [facility] 16:11:57 (procedure) [code = 437019865] Future Scheduled Test 2022-11-02 BREAST CANCER [facility] 16:11:57 SCREENING [code = BREAST CANCER SCREENING] Future Scheduled Test 2022-11-02 COLONOSCOPY SCREENING [facility] 16:11:57 [code = COLONOSCOPY SCREENING] Future Scheduled Test 2022-11-02 SHINGLES VACCINES (1 [facility] 16:11:57 of 2) [code = SHINGLES VACCINES (1 of 2)] Future Scheduled Test 2022-11-02 COVID-19 VACCINE (4 - [facility] 16:11:57 Booster for Pfizer series) [code = COVID-19 VACCINE (4 - Booster for Pfizer series)] Future Scheduled Test 2022-11-02 INFLUENZA VACCINE [facility] 16:11:57 [code = INFLUENZA VACCINE] Future Scheduled Test 2022-11-02 65+ PNEUMOCOCCAL [facility] 16:11:57 VACCINE (1 - PCV) [code = 65+ PNEUMOCOCCAL VACCINE (1 - PCV)] Future Scheduled Test 2022-11-02 Hepatitis C screening [facility] 16:11:57 (procedure) [code = [id number]] Future Scheduled Test 2022-11-02 BREAST CANCER [facility] 16:11:57 SCREENING [code = BREAST CANCER SCREENING] Future Scheduled Test 2022-11-02 COLONOSCOPY SCREENING [facility] 16:11:57 [code = COLONOSCOPY SCREENING] Future Scheduled Test 2022-11-02 SHINGLES VACCINES (1 [facility] 16:11:57 of 2) [code = SHINGLES VACCINES (1 of 2)] Future Scheduled Test 2022-11-02 COVID-19 VACCINE (4 - [facility] 16:11:57 Booster for Pfizer series) [code = COVID-19 VACCINE (4 - Booster for Pfizer series)] Future Scheduled Test 2022-11-02 INFLUENZA VACCINE [facility] 16:11:57 [code = INFLUENZA VACCINE] Future Scheduled Test 2022-10-01 65+ PNEUMOCOCCAL [facility] 10:16:43 VACCINE (1 - PCV) [code = 65+ PNEUMOCOCCAL VACCINE (1 - PCV)] Future Scheduled Test 2022-10-01 Hepatitis C screening [facility] 10:16:43 (procedure) [code = [id number]] Future Scheduled Test 2022-10-01 BREAST CANCER [facility] 10:16:43 SCREENING [code = BREAST CANCER SCREENING] Future Scheduled Test 2022-10-01 COLONOSCOPY SCREENING [facility] 10:16:43 [code = COLONOSCOPY SCREENING] Future Scheduled Test 2022-10-01 SHINGLES VACCINES (1 [facility] 10:16:43 of 2) [code = SHINGLES VACCINES (1 of 2)] Future Scheduled Test 2022-10-01 COVID-19 VACCINE ([address] [place] [address] 10:16:43 Booster for Pfizer series) [code = COVID-19 VACCINE (4 - Booster for Pfizer series)] Future Scheduled Test 2022-10-01 INFLUENZA VACCINE [facility] 10:16:43 [code = INFLUENZA VACCINE] Future Scheduled Test 2022-07-11 HEPATITIS B VACCINES [facility] 12:14:51 (1 of 3 - 3-dose series) [code = HEPATITIS B VACCINES (1 of 3 - 3-dose series)] Future Scheduled Test 2022-07-11 65+ PNEUMOCOCCAL [facility] 12:14:51 VACCINE (1 - PCV) [code = 65+ PNEUMOCOCCAL VACCINE (1 - PCV)] Future Scheduled Test 2022-07-11 Hepatitis C screening [facility] 12:14:51 (procedure) [code = [id number]] Future Scheduled Test 2022-07-11 BREAST CANCER [facility] 12:14:51 SCREENING [code = BREAST CANCER SCREENING] Future Scheduled Test 2022-07-11 COLONOSCOPY SCREENING [facility] 12:14:51 [code = COLONOSCOPY SCREENING] Future Scheduled Test 2022-07-11 SHINGLES VACCINES (1 [facility] 12:14:51 of 2) [code = SHINGLES VACCINES (1 of 2)] Future Scheduled Test 2022-07-11 COVID-19 VACCINE ([address] [place] [address] 12:14:51 Booster for Pfizer series) [code = COVID-19 VACCINE (4 - Booster for Pfizer series)] Future Scheduled Test 2022-07-11 INFLUENZA VACCINE [facility] 12:14:51 [code = INFLUENZA VACCINE] Future Scheduled Test 2022-07-11 HEPATITIS B VACCINES [facility] 12:14:51 (1 of 3 - 3-dose series) [code = HEPATITIS B VACCINES (1 of 3 - 3-dose series)] Future Scheduled Test 2022-07-11 65+ PNEUMOCOCCAL [facility] 12:14:51 VACCINE (1 - PCV) [code = 65+ PNEUMOCOCCAL VACCINE (1 - PCV)] Future Scheduled Test 2022-07-11 Hepatitis C screening [facility] 12:14:51 (procedure) [code = [id number]] Future Scheduled Test 2022-07-11 BREAST CANCER [facility] 12:14:51 SCREENING [code = BREAST CANCER SCREENING] Future Scheduled Test 2022-07-11 COLONOSCOPY SCREENING [facility] 12:14:51 [code = COLONOSCOPY SCREENING] Future Scheduled Test 2022-07-11 SHINGLES VACCINES (1 [facility] 12:14:51 of 2) [code = SHINGLES VACCINES (1 of 2)] Future Scheduled Test 2022-07-11 COVID-19 VACCINE ([address] [place] [address] 12:14:51 Booster for Pfizer series) [code = COVID-19 VACCINE (4 - Booster for Pfizer series)] Future Scheduled Test 2022-07-11 INFLUENZA VACCINE [facility] 12:14:51 [code = INFLUENZA VACCINE] Diagnostic Test 2022-07-11 CBC w/ diff [code = [facility] Pending 00:00:00 CBC w/ diff] Sports Medicine Diagnostic Test 2022-07-11 ESR (erythrocyte [facility] Pending 00:00:00 sedimentation rate), Sports Medicine blood [code = ESR (erythrocyte sedimentation rate), blood] Diagnostic Test 2022-07-11 CRP, high [facility] Pending 00:00:00 sensitivity, csf Sports Medi cine [code = CRP, high sensitivity, csf] Future Scheduled Test 2022-06-29 HEPATITIS B VACCINES [facility] 06:56:20 (1 of 3 - 3-dose series) [code = HEPATITIS B VACCINES (1 of 3 - 3-dose series)] Future Scheduled Test 2022-06-29 65+ PNEUMOCOCCAL Me [facility] 06:56:20 VACCINE (1 - PCV) [code = 65+ PNEUMOCOCCAL VACCINE (1 - PCV)] Future Scheduled Test 2022-06-29 Hepatitis C screening [facility] 06:56:20 (procedure) [code = [id number]] Future Scheduled Test 2022-06-29 BREAST CANCER [facility] 06:56:20 SCREENING [code = BREAST CANCER SCREENING] Future Scheduled Test 2022-06-29 COLONOSCOPY SCREENING [facility] 06:56:20 [code = COLONOSCOPY SCREENING] Future Scheduled Test 2022-06-29 SHINGLES VACCINES (1 [facility] 06:56:20 of 2) [code = SHINGLES VACCINES (1 of 2)] Future Scheduled Test 2022-06-29 COVID-19 VACCINE (4 [facility] 06:56:20 Booster for Pfizer series) [code = COVID-19 VACCINE (4 - Booster for Pfizer series)] Future Scheduled Test 2022-06-29 INFLUENZA VACCINE [facility] 06:56:20 [code = INFLUENZA VACCINE] Future Scheduled Test COVID-19 VACCINE (1) [facility] [code = COVID-19 VACCINE (1)] Future Scheduled Test Hepatitis C screening [facility] (procedure) [code = [id number]] Future Scheduled Test BREAST CANCER [facility] SCREENING [code = BREAST CANCER SCREENING] Future Scheduled Test COLONOSCOPY SCREENING [facility] [code = COLONOSCOPY SCREENING] Future Scheduled Test SHINGLES VACCINES [facility] (#1) [code = SHINGLES VACCINES (#1)] Future Scheduled Test 65+ PNEUMOCOCCAL [facility] VACCINE (1 of 1 - PPSV23) [code = 65+ PNEUMOCOCCAL VACCINE (1 of 1 - PPSV23)] Future Scheduled Test INFLUENZA VACCINE [facility] [code = INFLUENZA VACCINE] Instructions [facility] Encounters Start End Encounter Admission Attending Care Care Encounter Source Date/Time Date/Time Type Type Clinicians Facility Department ID 2021-08-14 Emergency [facility] [id number] Univers 05:48:20 [facility] 2021-08-14 Outpatient Lavinia [facility] OPH [id number] Univers 03:42:31 JOHNNY [facility] 2021-08-12 Emergency [facility] [id number] Univers 07:55:52 [facility] 2022-11-19 2022-11-19 Emergency X [facility]IA [facility] ERT [id number] Univers 13:03:00 17:46:00 CYNTHIA JOHNNY [facility] 2022-11-19 2022-11-19 Emergency [facility] [id number] Univers 13:03:00 17:46:00 Johnny JAMES [id number] i ty clarisa STEVENS [id number] [facility] [id number] [place] [id number] Branch 2022-11-07 2022-11-07 Outpatient KAY_Sebastián_Caroline AOSM AOSM [id number] Brenda 00:00:00 00:00:00 Rebel [id number] [facility] 2022-11-07 2022-11-07 Outpatient FOG_Allen_J AOSM AOSM [id number] Brenda 00:00:00 00:00:00 Rebel [id number] Orth[facility] 2022-11-07 2022-11-07 Darrell Bennett AOSM [place] - Ortho 125 Brenda 00:00:00 00:00:00 Mercy Elmore MD: [id number] FOG_Of[address] [facility] [place] [address] , Ph. [phone] 2022-11-02 2022-11-02 Outpatient FOG_Allen_J AOSM AOSM [id number] Brenda 00:00:00 00:00:00 Rebel [id number] [facility] 2022-10-24 2022-10-24 Outpatient FOG_Allen_J AOSM AOSM [id number] Brenda 00:00:00 00:00:00 Rebel [id number] [facility] 2022-10-24 2022-10-24 Outpatient FOG_Allen_J AOSM AOSM [id number] Brenda 00:00:00 00:00:00 Rebel [id number] Orth[facility] 2022-10-24 2022-10-24 Outpatient FOG_Allen_J AOSM AOSM [id number] Brenda 00:00:00 00:00:00 Rebel [id number] [facility] 2022-10-22 2022-10-23 Inpatient EM Catarina, HCATO SURG [id number] [facility] 08:46:00 13:53:00 [facility] 2022-10-22 2022-10-22 Outpatient FOG_Allen_J AOSM AOSM [id number] Brenda 00:00:00 00:00:00 Rebel [id number] Orth[facility] pe [facility] 2022-10-22 2022-10-22 Darrell Bennett AO [place] - Ortho 109 Brenda 00:00:00 00:00:00 Mercy Elmore MD: [id number] FOG_Ofc dic [facility] Spo [facility] [place] [address] , Ph. [phone] 2022-10-05 2022-10-05 Outpatient FOG_Allen_J AOSM AOSM [id number] Brenda 00:00:00 00:00:00 Rebel [id number] Orth[facility] pe [facility] 2022-10-05 2022-10-05 Outpatient FOG_Allen_J AOSM AOSM [id number] Brenda 00:00:00 00:00:00 Rebel [id number] Ortho pe dic [facility] Medic[facility] e 2022-10-05 2022-10-05 Darrell GALLE[place] - Ortho Brenda 00:00:00 00:00:00 Mercy Elmore MD: [id number] FOG_Ofc dic [facility] Spo [facility] [place] [address] , Ph. [phone] 2022-10-04 2022-10-04 Outpatient FOG_Allen_J AOSM AOSM [id number] Brenda 00:00:00 00:00:00 Rebel [id number] Ortho pe dic [facility] 2022-10-01 2022-10-01 Outpatient ROSALINDA ElmoreELADIA [id number] [facility] 16:15:00 16:15:00 Darrell Tamayo [facility] 2022-10-01 2022-10-01 Outpatient ROSALINDA Elmore [facility] [id number] [facility] 08:00:00 16:00:00 Darrell [facility] 2022-09-29 2022-09-29 Outpatient FOG_Allen_J AOSM AOSM [id number] Brenda 00:00:00 00:00:00 Rebel [id number] Ortho pe dic [facility] 2022-09-26 2022-09-26 Outpatient FOG_Allen_J AOSM AOSM [id number] Brenda 00:00:00 00:00:00 Rebel [id number] Ortho pe dic [facility] 2022-09-26 2022-09-26 Darrell C AOSM [place] - Ortho 214 Brenda 00:00:00 00:00:00 Mercy Elmore MD: [id number] FOG_Ofc dic [facility] Spo [facility] [place] [address] , Ph. [phone] 2022-09-14 2022-09-14 Outpatient FOG_Allen_J AOSM AOSM [id number] Brenda 00:00:00 00:00:00 Rebel [id number] Ortho pe dic [facility] 2022-08-24 2022-08-24 Outpatient FOG_Allen_J AOSM AOSM [id number] Brenda 00:00:00 00:00:00 Rebel [id number] Ortho pe dic [facility] 2022-08-15 2022-08-15 Outpatient FOG_Allen_J AOSM AOSM [id number] Brenda 00:00:00 00:00:00 Rebel [id number] Ortho pe dic [facility] 2022-08-15 2022-08-15 Darrell Bennett AOSM [place] - Ortho 102 Brenda 00:00:00 00:00:00 Meryc Elmore MD: [id number] FOG_Ofc dic [facility] e [address] , Ph. [phone] 2022-07-19 2022-07-19 Outpatient FOG_Allen_J AOSM AOSM [id number] Brenda 00:00:00 00:00:00 Rebel [id number] Ortho pe dic [facility] Medic[facility] 2022-07-18 2022-07-18 Outpatient FOG_Allen_J AOSM AOSM 621 [id number] Brenda 00:00:00 00:00:00 Rebel [id number] Ortho pe dic Sports Medicin e 2022-07-18 2022-07-18 Omar Bennett AOSM [place] - Ortho 05 Brenda 00:00:00 00:00:00 MD Sebastián: [place] 520 [facility] [facility] [address] , Ph. [phone] 2022-07-17 2022-07-17 Outpatient FOG_Allen_J AOSM AOSM 621 7959-20 Brenda 00:00:00 00:00:00 Rebel [id number] Ortho pe dic Sports Medicin e 2022-07-11 2022-07-11 Outpatient ELADIA ElmoreO [id number] [facility] 16:12:00 16:12:00 Darrell Glover [facility] 2022-07-11 2022-07-11 Outpatient ANDREW MurphyTO LABO [id number] [facility] 12:31:00 12:31:00 Yomna 42 [facility] 2022-07-11 2022-07-11 Outpatient JAY Dash LABO [id number] [facility] 12:09:00 12:09:00 Darrell Lai [facility] 2022-07-11 2022-07-11 Outpatient JAY Dash RADI [id number] [facility] 10:59:00 10:59:00 Darrell Aguiar [facility] 2022-07-11 2022-07-11 Outpatient FOG_Halamic AOSM AOSM 621 [id number] Brenda 00:00:00 00:00:00 ek_Mar_NP [id number] Orth ope dic Sports Medicin e 2022-07-11 2022-07-11 Darrell Bennett AOSM [place] - Ortho 395[address] 928 Brenda 00:00:00 00:00:00 Mercy Elmore MD: 7401 FOG_Ofc dic [facility], [place] [address] , Ph. [phone] 2022-07-06 2022-07-06 Outpatient FOG_Halamic AOSM AOSM 621 [id number] Brenda 00:00:00 00:00:00 ek_Mar_NP 864755 Orth ope dic Sports Medicin e 2022-06-26 2022-06-26 Outpatient FOG_Halamic AOSM AOSM 621 [id number] Brenda 00:00:00 00:00:00 ek_Mar_NP 284911 Orth ope dic Sports Medicin e 2022-03-19 2022-03-19 Telephone Claudia, 1.2.840.6 [id number] Methodi 00:00:00 00:00:00 [place]. [address]805.1.[address] 3.430.2.7 Hospit a .3.265894 l .8 2022-03-19 2022-03-19 Telephone Perez, 1.2.840.5 [id number] Methodi 00:00:00 00:00:00 Nik [address]253.1.[address] 3.430.2.7 Hospit a .3.948419 l .8 2022-03-09 2022-03-09 Travel 1.2.840.1 1.2.504.393 3718 909019 Methodi 00:00:00 00:00:[address] 3.430.2.7 0.2.7.3.698 Ho spita .3.943487 084.8 l .8 2022-03-09 2022-03-09 Travel 1.2.840.1 1.2.031.237 0061 826200 Methodi 00:00:00 00:00:[address] 3.430.2.7 0.2.7.3.698 Ho spita .3.474029 084.8 l .8 2022-03-08 2022-03-08 Telephone Claudia, 1.2.840.2 [id number] Methodi 00:00:00 00:00:00 [place] [address]657.1.[address] 3.430.2.7 Hospit a .3.686798 l .8 2022-03-08 2022-03-08 Telephone Claudia, 1.2.840.0 [id number] Methodi 00:00:00 00:00:[address]39.1.[address] 3.430.2.7 Hospit a .3.910156 l .8 2022-02-14 2022-02-14 Telephone Claudia, 1.2.840.0 [id number] Methodi 00:00:00 00:00:[address] Nik [address] 97847.1.[address] 3.430.2.7 Hospit a .3.054839 l .8 2022-02-14 2022-02-14 Telephone Perez, 1.2.840.5 [id number] Methodi 00:00:00 00:00:[address] Nik [address]66.1.[address] 3.430.2.7 Hospit a .3.764029 l .8 2022-02-13 2022-02-13 Office Perez, 1.2.840.6 [id number] Methodi 15:15:00 16:10:30 Visit Nik RKassy 02019.1.[address] 3.430.2.7 Hospit a .3.682540 l .8 2022-02-13 2022-02-13 Office Perez, 1.2.840.7 [id number] Methodi 15:15:00 16:10:30 Visit Nik R. 00416.1.[address] 3.430.2.7 Hospit a .3.369782 l .8 2022-02-13 2022-02-13 Travel 1.2.840.1 1.2.867.805 2859 951126 Methodi 00:00:00 00:00:[address] 3.430.2.7 0.2.7.3.698 Ho spita .3.103805 084.8 l .8 2022-02-13 2022-02-13 Travel 1.2.840.1 1.2.611.577 2817 011995 Methodi 00:00:00 00:00:[address] 3.430.2.7 0.2.7.3.698 Ho spita .3.321141 084.8 l .8 2022-02-12 2022-02-12 Telephone Perez, 1.2.840.6 [id number] Methodi 00:00:00 00:00:[address]00.1.[address] 3.430.2.7 Hospit a .3.785036 l .8 2022-02-12 2022-02-12 [facility], 1.2.840.4 [id number] Methodi 00:00:00 00:00:[address]40.1.[address] 3.430.2.7 Hospit a .3.602254 l .8 2022-02-05 2022-02-05 Travel 1.2.840.1 1.2.179.236 0218 663535 Methodi 00:00:00 00:00:[address] 3.430.2.7 0.2.7.3.698 Ho spita .3.939296 084.8 l .8 2022-02-05 2022-02-05 Patient Mario, 1.2.840.1 [id number] Methodi 00:00:00 00:00:00 Outreach Emilee 24821.1.[address] 3.430.2.7 Hospit a .3.446234 l .8 2022-02-05 2022-02-05 Patient Mario, 1.2.840.1 [id number] 441 [id number] Methodi 00:00:00 00:00:00 Outreach Emilee 39555.1.[address] 3.430.2.7 Hospit a .3.314611 l .8 2022-02-05 2022-02-05 Travel 1.2.840.1 1.2.993.404 6829 905092 Methodi 00:00:00 00:00:[address] 3.430.2.7 0.2.7.3.698 Ho spita .3.356602 084.8 l .8 2022-02-01 2022-02-03 [facility], 1.2.840.1 [id number] 21 [id number] Methodi 06:07:00 13:48:00 [facility] Nik Kevin 92854.1.[address] 3.430.2.7 Hospit a .3.245330 l .8 2022-02-01 2022-02-03 [facility], 1.2.840.1 [id number] Methodi 06:07:00 13:48:00 Encounter Nik Kevin 83887.1.[address] 3.430.2.7 Hospit a .3.363490 l .8 2022-02-01 2022-02-01 Anesthesia Bradley Roth 1.2.840.1 104 [id number] Methodi 09:37:00 11:55:00 Event Rosalia Webber 51249.1.[address] 3.430.2.7 Hospit a .3.751091 l .8 2022-02-01 2022-02-01 Anesthesia Bradley Roth 1.2.840.1 629232 [id number] Methodi 09:37:00 11:55:00 Event [place] Rosalia Dias 69416.1.[address] 3.430.2.7 Hospit a .3.377512 l .8 2022-02-01 2022-02-01 Surgery [place], 1.2.840.1 [id number] 029 [id number] Methodi 09:00:00 11:35:00 [place] [address]. 98250.1.[address] 3.430.2.7 Hospit a .3.338550 l .8 2022-02-01 2022-02-01 Surgery [place], 1.2.840.1 [id number] 117 [id number] Methodi 09:00:00 11:35:00 Nik R[address] 91874.1.[address] 3.430.2.7 Hospit a .3.357921 l .8 2022-02-01 2022-02-01 Travel 1.2.840.1 1.2.173.167 7364 564157 Methodi 00:00:00 00:00:[address] 3.430.2.7 0.2.7.3.698 Ho spita .3.650224 084.8 l .8 2022-02-01 2022-02-01 Travel 1.2.840.1 1.2.549.840 9603 628032 Methodi 00:00:00 00:00:[address] 3.430.2.7 0.2.7.3.698 Ho spita .3.736266 084.8 l .8 2022-01-29 2022-01-29 Pre-Admiss Claudia, 1.2.840.1 [id number] Methodi 16:10:00 17:10:00 ion Nik R. 67497.1.[address] Testing 3.430.2.7 Hospit a .3.735305 l .8 2022-01-29 2022-01-29 Pre-Admiss Perez, 1.2.840.1 [id number] Methodi 16:10:00 17:10:00 ion Nik R. 59504.1.[address] Testing 3.430.2.7 Hospit a .3.863375 l .8 2022-01-29 2022-01-29 Travel 1.2.840.1 1.2.804.308 3586 611667 Methodi 00:00:00 00:00:[address] 3.430.2.7 0.2.7.3.698 Ho spita .3.254765 084.8 l .8 2022-01-29 2022-01-29 Travel 1.2.840.1 1.2.228.796 2064 397048 Methodi 00:00:00 00:00:[address] 3.430.2.7 0.2.7.3.698 Ho spita .3.453725 084.8 l .8 2022-01-19 2022-01-19 Telephone Claudia, 1.2.840.5 [id number] Methodi 00:00:00 00:00:00 [address]59.1.[address] 3.430.2.7 Hospit a .3.902427 l .8 2022-01-19 2022-01-19 Telephone Claudia, 1.2.840.2 [id number] Methodi 00:00:00 00:00:00 Nik Kevin 07744.1.[address] 3.430.2.7 Hospit a .3.422615 l .8 2022-01-10 2022-01-10 Orders Peyman, 1.2.840.6 [id number] 746 [id number] Methodi 00:00:00 00:00:00 Only Sakia 06548.1.[address] 3.430.2.7 Hospit a .3.080315 l .8 2022-01-10 2022-01-10 Orders Peyman 1.2.840.3 [id number] 660 [id number] Methodi 00:00:00 00:00:00 Only Sakia 97685.1.[address] 3.430.2.7 Hospit a .3.216582 l .8 2022-01-08 2022-01-08 Telephone Claudia, 1.2.840.4 [id number] Methodi 00:00:00 00:00:00 Nik Kevin 01459.1.[address] 3.430.2.7 Hospit a .3.556392 l .8 2022-01-08 2022-01-08 Telephone Claudia, 1.2.840.4 [id number] Methodi 00:00:00 00:00:00 Nik Kevin 26046.1.[address] 3.430.2.7 Hospit a .3.638709 l .8 2021-11-23 2021-11-23 Office Claudia, 1.2.840.7 [id number] Methodi 15:00:00 16:33:21 Visit Nik Kevin 78987.1.[address] 3.430.2.7 Hospit a .3.680116 l .8 2021-11-23 2021-11-23 Travel 1.2.840.1 1.2.367.987 5930 710233 Methodi 00:00:00 00:00:[address] 3.430.2.7 0.2.7.3.698 Ho spita .3.845256 084.8 l .8 2021-11-21 2021-11-21 Travel 1.2.840.1 1.2.854.538 6263 212166 Methodi 00:00:00 00:00:[address] 3.430.2.7 0.2.7.3.698 Ho spita .3.646684 084.8 l .8 2021-11-15 2021-11-15 Telephone Perez, 1.2.840.9 [id number] Methodi 00:00:00 00:00:[address] Nik Kevin [address]35.1.[address] 3.430.2.7 Hospit a .3.052134 l .8 2021-10-31 2021-10-31 Surgery Ergun, 1.2.840.1 [id number] 469165 5276 Methodi 12:00:00 14:00:[address] Ayshe 3.430.2.7 Hospit a .3.898857 l .8 2021-10-31 2021-10-31 [facility] Ergun, 1.2.840.1 [id number] 60367 91836 Methodi 11:46:00 13:50:00 Encounter Ines 49215.1.[address] Ayshe 3.430.2.7 Hospit a .3.500627 l .8 2021-10-27 2021-10-27 Telephone Perez, 1.2.840.6 [id number] Methodi 00:00:00 00:00:00 Nik Kevin 92547.1.[address] 3.430.2.7 Hospit a .3.558682 l .8 2021-10-27 2021-10-27 Travel 1.2.840.1 1.2.956.579 3374 939572 Methodi 00:00:00 00:00:[address] 3.430.2.7 0.2.7.3.698 Ho spita .3.542669 084.8 l .8 2021-10-10 2021-10-10 [facility], 1.2.840.1 [id number] 21 [id number] Methodi 15:49:13 23:59:00 Encounter Nik R. 07849.1.[address] 3.430.2.7 Hospit a .3.096804 l .8 2021-10-10 2021-10-10 [facility], 1.2.840.0 [id number] 21 [id number] Methodi 15:15:00 16:47:46 Visit Nik R. 57124.1.[address] 3.430.2.7 Hospit a .3.760106 l .8 2021-10-10 2021-10-10 [facility], 1.2.840.1 [id number] 21 [id number] Methodi 15:43:19 15:48:00 Encounter Nik R. 59238.1.[address] 3.430.2.7 Hospit a .3.495624 l .8 2021-10-10 2021-10-10 [facility], 1.2.840.1 [id number] 21 [id number] Methodi 15:42:15 15:42:15 Encounter Nik R. 79051.1.[address] 3.430.2.7 Hospit a .3.462556 l .8 2021-10-10 2021-10-10 Travel 1.2.840.1 1.2.062.892 1750 304738 Methodi 00:00:00 00:00:[address] 3.430.2.7 0.2.7.3.698 Ho spita .3.315869 084.8 l .8 2021-10-03 2021-10-03 Travel 1.2.840.1 1.2.009.034 6271 425659 Methodi 00:00:00 00:00:[address] 3.430.2.7 0.2.7.3.698 Ho spita .3.594950 084.8 l .8 2021-10-03 2021-10-03 Telephone Claudia, 1.2.840.3 [id number] Method 00:00:00 00:00:00 Nik Kevin 57918.1.[address] 3.430.2.7 Hospit a .3.489555 l .8 2021-05-31 2021-05-31 Outpatient [facility] [id number] [facility] 13:00:00 13:00:00 VLAD romero [facility] 2021-05-30 2021-05-30 Outpatient ROSALINDA [facility] [id number] [facility] 07:33:00 07:33:00 Ruben Philippe [facility] 2021-05-24 2021-05-24 [facility] 1.2.210.603 3286 5944 00:00:00 00:00:00 Vlad James 350.1.13.10 [place] 4.2.7.2.686 Professio [phone] [address] 2021-05-24 2021-05-24 [facility] 1.2.109.069 0233 5944 Univers 00:00:00 00:00:00 Vlad James 350.1.13.10 i [place] [phone] Pa dical [address] 2021-04-26 2021-04-26 [facility] 1.2.405.368 6391 9175 [facility] 11:32:00 14:10:00 Encounter Johnny James 350.1.13.10 ity [place] [phone] [address] 2021-04-26 2021-04-26 Surgery [facility] 1.2.840.114 [id number] 31 12:45:00 13:25:00 Ariel 350.1.13.10 [place] 4.2.7.2.686 Surgical [id number] [place] 020 2021-04-26 2021-04-26 Surgery Kathi [facility] 1.2.840.114 49112 131 Univers 12:45:00 13:25:00 Johnny James 350.1.13.10 [place]y [place]2.[place] [phone] [facility] [address] 2021-04-19 2021-04-19 Wood Lathe Operator Chitra, Adc Lab Main [facility] 1.2.8 40.114 [id number] Univers 16:19:22 16:34:22 Visit Johnny Armenta 350.1.13.1 0 [place].2.[place] [phone] Pa dic[address] 2021-04-19 2021-04-19 Outpatient R KATHI [facility] [id number] 0559 Univers 16:30:00 16:30:00 JOHNNY romero [facility] 2021-04-19 2021-04-19 Orders Doctor SALLIE 1.2.840.114 [id number] Univers 00:00:00 00:00:00 Only Unassigned, DEMI 350.1.13.10 ity of [place] [facility] 4.2.7.2.686 Gabe as [phone] [facility] [place] [address] [place] 2021-04-15 2021-04-15 [facility] 1.2.391.650 2208 3150 Univers 20:30:00 22:55:00 Netta James 350.1.13.10 [place].2.[place] [phone] [facility] [place] [address] [place] 2021-04-15 2021-04-15 Orders Doctor SALLIE 1.2.840.114 [id number] Univers 00:00:00 00:00:00 Only Unassigned, DEMI 350.1.13.10 ity of [place] [facility] 4.2.7.2.686 Gabe as [phone] [facility] [place] [address] [place] 2020-12-12 2020-12-12 Patient [facility] 1.2.840.114 [id number] 11 Univers 00:00:00 00:00:00 Outreach Neftali PRIMARY 350.1.13.10 i ty of [place] [facility] 4.2.7.2.686 [place] [phone] Pa dical [address] [place] 2020-12-05 2020-12-05 Laboratory Lab, [facility] Fam Pob I [facility] 1.2. 840.114 [id number] Univers 10:31:04 10:51:04 Only Eulogio Janak Daniel 350.1.13.10 ity of [place] 4.2.7.2.686 Gabe as Professio [phone] [facility] nal [address] [place] [address] 2020-12-05 2020-12-05 Laboratory Lab, [facility] 1..840.114 81 614119 10:31:04 10:51:04 Only Fam Pob I Health 350.1.13.10 [place] 4.2.7.2.686 Professio [phone] nal [facility] Office Building [facility] 2020-12-05 2020-12-05 Outpatient [facility] [id number] Univers 10:40:00 10:40:00 JANAK itkarri of [facility] 2020-09-08 2020-09-08 Emergency [facility] 1.2.655.458 0851 3821 Univers 20:34:00 23:19:00 Es James 350.1.13.10 i ty [place].2.[place] [phone] [facility] [place] [address] [place] 2020-01-16 2020-01-16 [facility]oretha [facility] 1.2.164.897 9241 2612 Univers 00:00:00 00:00:00 Vlad James 350.1.13.10 i ty of [place].2.[place] [phone] Pa dical nal 134 [facility] 2020-01-01 2020-01-01 Telemedici [facility] 1.2.840.114 748 51015 Univers 11:00:00 11:30:00 ne Visit Adrianna James 350.1.13.10 [place].7.2.[place] [phone] Pa dical nal 059 [facility] 2020-01-01 2020-01-01 Outpatient Lavinia MONTALVO, [facility] [id number] Univers 11:00:00 11:00:00 SENDIL ity of [facility] 2019-12-21 2019-12-21 Transition Gentry Ruibenjamin 1.2.840.114 746 78978 Univers 00:00:00 00:00:00 of Care Mart Goldman Bj 350.1.13.10 ity of [place]2.7.2.686 [place] [phone] [facility] [place] [address] 2019-12-17 2019-12-18 Outpatient X [facility] [id number] 8694 Univers 15:19:36 17:56:00 ADNAN ity of [facility] 2019-12-17 2019-12-18 Emergency Rome Dumont [facility] 1.2.840.11 4 [id number] Univers 15:19:36 17:56:00 Kierra Dey 350.1.13.10 [place].2.[place] [phone] [facility] [place] [address] 2019-12-17 2019-12-17 Orders Doctor SALLIE 1.2.840.114 [id number] Univers 00:00:00 00:00:00 Only Unassigned, DEMI 350.1.13.10 ity of [place] [facility] 4.2.7.2.686 Gabe as [phone] [facility] [place] [address] 2019-12-02 2019-12-02 Refdoretha Markham [facility] 1.2.718.537 9416 2756 Univers 00:00:00 00:00:00 Vlad James 350.1.13.10 i ty [place].2.[place] [phone] Pa dical nal 134 [facility] 2016-09-04 2016-09-04 Outpatient Raju_P MMG MMG 94912-3 020 [place] 03:16:00 03:16:00 1112 [facility] Results Test Description Test Time Test Comments Results Result Comments Source THYROID STIMULATING HORMONE 2022-11-19 20:29:56 Test Item Value Reference Range Interpretation Comme nts TSH (test code = 8072732774) 35.80 See_Comment H [Automated message] The system which generated this result transmitted ref erence range: 0.45 - 4.70 mIU /L. The reference range was not u sed to interpret this result as normal/abnormal. Lab Interpretation (test code Abnormal = 72212-2) [id number] 20:16:35 Test Item Value Reference Range Interpretation Comments FREE T4 (test code = 0.92 See_Comment [Autom ated message] [id number]) The system [employer] h generated this result transmitted ref erence range: 0.78 - 2 .20 ng/dL:. The ref erence range was not u sed to interpret this result as normal/abnor mal. Lab Interpretation (test Normal code = 66028-8) [facility] [id number] 20:11:34 Test Item Value Reference Range Interpretation Comments TROPONIN I (test code = 0.015 ng/mL <=0.034 7934418527) [place] (test code = [place]) Reference (Normal) Range (defined by the 99th percentile reference limit): <= 0.034 ng/mL Note: Cardiac troponin begins to rise 3-4 hours after the onset of ischemia. Repeat in 4-6 hours if the sample was drawn within 3-4 hours of the onset of the symptom and found normal. Diagnosis of myocardial injury is made with acute changes in cTn concentrations with at least one serial sample above the 99th percentile upper reference limit (URL), taken together with the patient's clinical presentation. Biotin has been reported to cause a negative bias, interpret results relative to patient's use of biotin. Lab Interpretation Normal (test code = 89155-6) [facility] [id number] 20:08:13 Test Item Value Reference Range Interpretation Comments NT-proBNP (test code = 438 pg/mL <=125 H 5590328635) [place] (test code = [place]) Biotin has been reported to cause a negative bias, interpret results relative to patient's use of biotin. Lab Interpretation (test Abnormal code = 54719-4) [facility]2023-02-06 19:59:32 Test Item Value Reference Range Interpretation Comments MAGNESIUM (test code = 9518515178) 1.8 mg/dL 1.7-2.4 Lab Interpretation (test code = Normal 44317-5) [facility]. METABOLIC PANEL (40342)2022-11-19 19:59:31 Test Item Value Reference Range Interpretation Comments NA (test code = 133 mmol/L 135-145 L 5678840111) K (test code = 4.1 mmol/L 3.5-5.0 0919892453) CL (test code = 103 mmol/L 98-108 0825748683) CO2 TOTAL (test code = 22 mmol/L 23-31 L 1505318002) AGAP (test code = 8 2-16 4545436327) BUN (test code = 21 mg/dL 7-23 9100112724) GLUCOSE (test code = 123 mg/dL 70-110 H 5876784587) CREATININE (test code = 1.34 mg/dL 0.50-1.04 H 9215336045) TOTAL BILI (test code = 0.4 mg/dL 0.1-1.1 0737530314) CALCIUM (test code = 9.0 mg/dL 8.6-10.6 3621990071) T PROTEIN (test code = 6.0 g/dL 6.3-8.2 L 3306277357) ALBUMIN (test code = 3.7 g/dL 3.5-5.0 7760084646) ALK PHOS (test code = 114 U/L 34-122 0792146499) ALTv (test code = 13 U/L 5-35 1742-6) AST(SGOT) (test code = 20 U/L 13-40 8387914039) eGFR (test code = 39.2 mL/min/1.73m2 3683561900) [place] (test code = [place]) Association of Glomerular Filtration Rate (GFR) and Staging of Kidney Disease* + --+ --+ ------+| GFR (mL/min/1.73 m2) ?| With Kidney Damage ?| ?Without Kidney Damage+ --------+ --------+ +| ?>90 ?| ?Stage one ?| ? Normal ?+ ---+ ---+ -------+| ?60-89 ?| ?Stage two ?| ? Decreased GFR ? + --+ --+ ------+| ?30-59 ?| ?Stage three ?| ? Stage three ? + --+ --+ ------+| ?15-29 ?| ?Stage four ? | ? Stage four ?+ ---+ ---+ -------+| ?<15 (or dialysis) ? ?| ?Stage five ? | ? Stage five ?+ ---+ ---+ -------+ *Each stage assumes the associated GFR level has been in effect for at least three months. ?Stages 1 to 5, with or without kidney disease, indicate chronic kidney disease. Notes: Determination of stages one and two (with eGFR >59mL/min/1.73 m2) requires estimation of kidney damage for at least three months as defined by structural or functional abnormalities of the kidney, manifested by either:Pathological abnormalities or Markers of kidney damage (including abnormalities in the composition of the blood or urine or abnormalities in imaging tests). Lab Interpretation Abnormal (test code = 42095-3) [facility] Test Item Value Reference Range Interpretation Comments LIPASE (test code = 1731031628) 145 U/L 0-220 Lab Interpretation (test code = Normal 30946-0) [facility] 19:[facility]:11 Test Item Value Reference Range Interpretation Comments PHOSPHORUS (test code = 4524535224) 2.9 mg/dL 2.5-5.0 Lab Interpretation (test code = Normal 34350-6) [facility] [id number] 19:58:51 Test Item Value Reference Range Interpretation Comments CK (test code = 7977085547) 35 U/L 33-194 Lab Interpretation (test code = Normal 05421-9) [facility] [id number] 19:46:12 Test Item Value Reference Range Interpretation Comments WBC (test code = 7.18 See_Comment [Automated 3190-2) message] The sy stem which generated this result transmitted reference range : 4.30 - 11.10 10*3/?L. The reference range was not used to interpret this result as normal/abnormal . RBC (test code = 4.47 See_Comment [Automated 789-8) message] The sy stem which generated this result transmitted reference range : 3.93 - 5.25 10*6/?L. The reference range was not used to interpret this result as normal/abnormal . HGB (test code = 12.5 g/dL 11.6-15.0 718-7) HCT (test code = 38.0 % 35.7-45.2 4544-3) MCV (test code = 85.0 fL 80.6-95.5 787-2) MCH (test code = 28.0 pg 25.9-32.8 785-6) MCHC (test code = 32.9 g/dL 31.6-35.1 786-4) RDW-SD (test code = 46.1 fL 39.0-49.9 62702-5) RDW-CV (test code = 14.9 % 12.0-15.5 788-0) PLT (test code = 324 See_Comment [Automated 777-3) message] The sy stem which generated this result transmitted reference range : 166 - 358 10*3/ ?L. The reference r xiomara was not used to interpret this result as normal/abnormal . MPV (test code = 8.9 fL 9.5-12.9 L 77928-4) NRBC/100 WBC (test 0.0 See_Comment [Automat ed code = [id number]) message] The system which generated this result transmitted reference range : 0.0 - 10.0 /100 WBCs. The refer ence range was not u sed to interpret th is result as normal/abnormal . NRBC x10^3 (test code See_Comment [Auto mated = [id number]) message] The s ystem which generated this result transmitted reference range : 10*3/?L. The reference range was not used to interpret this result as normal/abnormal . GRAN MAT (NEUT) % 63.1 % (test code = 770-8) IMM GRAN % (test code 0.80 % = 5459438790) LYMPH % (test code = 27.9 % 736-9) MONO % (test code = 6.4 % 5905-5) EOS % (test code = 1.1 % 713-8) BASO % (test code = 0.7 % 706-2) GRAN MAT x10^3(ANC) 4.53 10*3/uL 1.88-7.09 (test code = 0262705081) IMM GRAN x10^3 (test 0.06 10*3/uL 0.00-0.06 code = 9259991892) LYMPH x10^3 (test code 2.00 10*3/uL 1.32-3.29 = 731-0) MONO x10^3 (test code 0.46 10*3/uL 0.33-0.92 = 742-7) EOS x10^3 (test code = 0.08 10*3/uL 0.03-0.39 711-2) BASO x10^3 (test code 0.05 10*3/uL 0.01-0.07 = 704-7) Lab Interpretation Abnormal (test code = 84708-7) [facility] [id number] [facility] [id number] 15:04:00[facility] MedicineSIC METABOLIC [id number] 07:08:00 Test Item Value Reference Range Interpretation Comments SODIUM (test code = 134 mmol/L 136-145 L NA) POTASSIUM (test 5.8 mmol/L 3.5-5.1 H code = K) CHLORIDE (test code 100.0 mmol/L 98-107 N = CL) CARBON DIOXIDE 26.7 mmol/L 21-32 N (test code = CO2) GLUCOSE (test code 116 mg/dL 70-110 H = GLU) BLOOD UREA NITROGEN 16 mg/dL 7-18 N (test code = BUN) GLOMERULAR 75.2 >60 The Glomerular FILTRATION RATE Filtration R ate is a (test code = GFR) calculated parameterbased on serum Creatinin e, patient age and sex. GFR valuesless than 60 mL/min/1.73 squ are meters are leigh cative ofChronic Kidne y Disease. Values less than 15 mL/min/1.73squa re meters indicate Kidney failure. The calculation for GFR is based on the CK D-EPI (2020) calculat ion. This formulais race indifferent and is the recommended for dawit for GFRby the N [facility] Found[facility] on for Adults.The GFR will not calculate i f the sex is unknown or if thepatient's ag e is <18 years. CREATININE (test 0.84 mg/dL 0.55-1.30 N code = CREAT) CALCIUM (test code 8.1 mg/dL 8.2-10.1 L = CA) - XR SHOULDER 1 V [id number] 07:08:00 [facility] 1950 Sex: F Patient Name: MARYSE MOURA Unit No: [id number] EXAMS: CPT CODE: [id number] XR SHOULDER 1 [place] [id number] AP portable left shoulder COMMENT: The patient is status post reverse prosthesis placement which is articulating normally. at 0708 Reported and signed by: Ruben Muñiz MD CC: Darrell Elmore MD; Brian Katz MD Technologist: ISMAEL HORN. RT(R) Transcribed D/ (0708) t.[email or web address] [facility] NAME: MARYSE MOURA [address] [facility] [address] PHYS: Brian Oneil DO : 1950 AGE: 71 SEX: F [place], [place] [address] LOC: Y.306 A PHONE #: [phone] EXAM DATE: 10/22/2022 STATUS: ADM IN FAX #: [phone] RAD #: D/C DT PAGE 1 Signed Report Patient Name: MARYSE MOURA Unit No: [id number] EXAMS: CPT CODE: [id number] XR SHOULDER 1 V [id number] (Continued) Orig Print D/T: S: 10/23/2022 (0711) [facility] NAME: MARYSE MOURA [address] [facility] PHYS: RORO Nilo TenorioBrian medley DO : 1950 AGE: 71 SEX: F [place], [place] [address] LOC: Y.306 A PHONE #: [phone] EXAM DATE: 10/22/2022 STATUS: ADM INFAX #: [phone] RAD #: D/C DT PAGE 2 Signed Report CBC W/AUTO [id number] 06:14:00 Test Item Value Reference Range Interpretation Comments WHITE BLOOD CELL (test code = WBC) 11.0 K/mm3 5.8-11.0 N RED BLOOD CELL (test code = RBC) 3.84 M/mm3 4.2-5.4 L HEMOGLOBIN (test code = HGB) 10.4 g/dL 12-16 L HEMATOCRIT (test code = HCT) 32.4 % 37-47 L MEAN CELL VOLUME (test code = MCV) 84 fL 80-98 N MEAN CELL HGB (test code = MCH) 27.1 pg 27-34 N MEAN CELL HGB CONCENTRATION (test 32.1 g/dL 30.8-34.1 N code = MCHC) RED CELL DISTRIBUTION WIDTH (test 16.0 % 11-16 N code = RDW) PLT (test code = PLT) 165 K/mm3 130-400 N MEAN PLATELET VOLUME (test code = 9.7 fL 8.9-12.1 N MPV) NEUTROPHIL % (test code = NT%) 86.5 % 45-70 H LYMPHOCYTE % (test code = LY%) 7.0 % 20-40 L MONOCYTE % (test code = MO%) 5.8 % 3-10 N EOSINOPHIL % (test code = EO%) 0.0 % 1-5 L BASOPHIL % (test code = BA%) 0.1 % 0.0-1.1 N NEUTROPHIL # (test code = NT#) 9.53 K/mm3 2.00-7.50 H LYMPHOCYTE # (test code = LY#) 0.77 K/mm3 1.50-4.00 L MONOCYTE # (test code = MO#) 0.64 K/mm3 0.2-0.8 N EOSINOPHIL # (test code = EO#) 0.00 K/mm3 0.04-0.4 L BASOPHIL # (test code = BA#) 0.01 K/mm3 0.02-0.10 L MANUAL DIFF REQUIRED (test code = NO MANUAL DIFF MDIFF) NUCLEATED RED BLOOD CELL (test 0 % 0-0 N code = NRBC) SPECIMEN COMMENT: POD #1SYNOVIAL FLD CELL [id number] 22:06:00 Test Item Value Reference Range Interpretation Comments SYNOVIAL FLD HEMOLYZED LT. YELLOW COLOR (test code = COLSY) SYNOVIAL FLD HAZY CLEAR APPEARANCE (test code = APPSY) SYNOVIAL FLD 1.0 mL VOLUME (test code = VOLSY) SYNOVIAL FLD WBC 226.000 /MM3 0-200 H (test code = WBCSY) SYNOVIAL FLD RBC 94523.000 /mm3 0-2 H NOTE: An automated (test code = method is now b eimelony RBCSY) used to determinesynovi al fluid WBC and RBC cou nts. The differential wi llstill be performed ma nually. SYNOVIAL FLD POLY 10 % 0-25 N (test code = POLYSY) SYNOVIAL FLD 62 % 0-78 N LYMPHOCYTE (test code = LYMPHSY) SYNOVIAL FLD 15 % 0-71 N MONOCYTE (test code = MONOSY) SYNOVIAL FLD 13 % LINING CELLS (test code = LINSY) Cell count and Differential panel - Synovial [id number] 15:45:00 Test Item Value Reference Range Interpretation Comments synovial fld color (test code hemolyzed lt. yellow = synovial fld color) synovial fld appearance (test hazy clear code = synovial fld appearance) synovial fld volume (test code 1.0 mL = synovial fld volume) synovial fld WBC (test code = 226.000 /mm3 0-200 H synovial fld WBC) synovial fld RBC (test code = 75147.000 /mm3 0-2 H synovial fld RBC) synovial fld poly (test code = 10 % 0-25 synovial fld poly) synovial fld lymphocyte (test 62 % 0-78 code = synovial fld lymphocyte) synovial fld monocyte (test 15 % 0-71 code = synovial fld monocyte) synovial fld lining cells 13 % (test code = synovial fld lining cells) performing lab: (test code = performing lab:) [facility] - Synovial [id number] 15:45:00 Test Item Value Reference Range Interpretation Comments synovial fld color (test code hemolyzed lt. yellow = synovial fld color) synovial fld appearance (test hazy clear code = synovial fld appearance) synovial fld volume (test code 1.0 mL = synovial fld volume) synovial fld WBC (test code = 226.000 /mm3 0-200 H synovial fld WBC) synovial fld RBC (test code = 33153.000 /mm3 0-2 H synovial fld RBC) synovial fld poly (test code = 10 % 0-25 synovial fld poly) synovial fld lymphocyte (test 62 % 0-78 code = synovial fld lymphocyte) synovial fld monocyte (test 15 % 0-71 code = synovial fld monocyte) synovial fld lining cells 13 % (test code = synovial fld lining cells) performing lab: (test code = performing lab:) [facility] [id number] 13:32:00 Test Item Value Reference Range Interpretation Comments SODIUM (test code = 136 mmol/L 136-145 N NA) POTASSIUM (test 5.1 mmol/L 3.5-5.1 N code = K) CHLORIDE (test code 101.0 mmol/L 98-107 N = CL) CARBON DIOXIDE 25.1 mmol/L 21-32 N (test code = CO2) GLUCOSE (test code 81 mg/dL 70-110 N = GLU) BLOOD UREA NITROGEN 24 mg/dL 7-18 H (test code = BUN) GLOMERULAR 61.0 >60 The Glomerular FILTRATION RATE Filtration R ate is a (test code = GFR) calculated parameterbased on serum Creatinin e, patient age and sex. GFR valuesless than 60 mL/min/1.73 squ are meters are leigh cative ofChronic Kidne y Disease. Values less than 15 mL/min/1.73squa re meters indicate Kidney failure. The calculation for GFR is based on the CK D-EPI (2020) calculat ion. This formulais race indifferent and is the recommended for dawit for GFRby the N [facility] on for Adults.The GFR will not calculate i f the sex is unknown or if thepatient's ag e is <18 years. CREATININE (test 1.00 mg/dL 0.55-1.30 N code = CREAT) TOTAL PROTEIN (test 6.6 g/dL 6.4-8.2 N code = PROT) ALBUMIN (test code 4.1 g/dL 3.4-5.0 N = ALB) GLOBULIN (test code 2.5 g/dL 2.2-4.2 N = GLOB) ALBUMIN/GLOBULIN 1.6 0.7-2.0 N RATIO (test code = A/G) CALCIUM (test code 8.9 mg/dL 8.2-10.1 N = CA) BILIRUBIN TOTAL 0.30 mg/dL 0.2-1.00 N (test code = BILT) SGOT/AST (test code 14.0 U/L 15-37 L = AST) SGPT/ALT (test code 21.0 U/L 12-78 N Please n ote new normal = ALT) range. ALKALINE 81 U/L 46-116 N PHOSPHATASE TOTAL (test code = ALKP) PROTHROMBIN [id number] 13:27:00 Test Item Value Reference Range Interpretation Comments PROTHROMBIN TIME 11.4 secs 9.7-12.5 N Please note new normal PATIENT (test code = range. PTP) INTERNATIONAL NORMAL 1.03 <2.0 RECOMME NDED THERAPEUTIC RATIO (test code = RANGE FOR ORAL INR) ANTICOAGULANTTR EATMENT: CONDITION INRPr ophylaxis of venous throm bosis in 2.0 - 3.0 high- risk medical or surg ical patientsTreatme nt of venous thrombos is 2.0 - 3.0Prevention o f embolism 2.0 - 3.0Prevention o f recurrent embol ism, or 3.0 - 4.5 patie nts with mechanical pros thetic intravascular v carr[place] IS PATIENT ON ANTICOAGULANTS ? NHas Lab been notified if Patient is on Heparin Drip? NOIf Yes, orderCBC, OCCULT BLOOD, PT every other day NTHROMBOPLASTIN TIME [id number] 13:27:00 Test Item Value Reference Range Interpretation Comments PTT ACTIVATED (test 29.9 secs 26.6-34.6 N Please n ote new code = APTT) normal range. IS PATIENT ON ANTICOAGULANTS ? MOas Lab been notified if Patient is on Heparin Drip? NOIf Yes, orderCBC, OCCULT BLOOD, PT every other day NCBC W/AUTO DIFF 2022-10-01 12:52:00 Test Item Value Reference Range Interpretation Comments WHITE BLOOD CELL (test code = WBC) 6.3 K/mm3 5.8-11.0 N RED BLOOD CELL (test code = RBC) 4.48 M/mm3 4.2-5.4 N HEMOGLOBIN (test code = HGB) 12.0 g/dL 12-16 N HEMATOCRIT (test code = HCT) 36.9 % 37-47 L MEAN CELL VOLUME (test code = MCV) 82 fL 80-98 N MEAN CELL HGB (test code = MCH) 26.8 pg 27-34 L MEAN CELL HGB CONCENTRATION (test 32.5 g/dL 30.8-34.1 N code = MCHC) RED CELL DISTRIBUTION WIDTH (test 16.0 % 11-16 N code = RDW) PLT (test code = PLT) 218 K/mm3 130-400 N MEAN PLATELET VOLUME (test code = 9.9 fL 8.9-12.1 N MPV) NEUTROPHIL % (test code = NT%) 67.0 % 45-70 N LYMPHOCYTE % (test code = LY%) 24.1 % 20-40 N MONOCYTE % (test code = MO%) 7.7 % 3-10 N EOSINOPHIL % (test code = EO%) 0.2 % 1-5 L BASOPHIL % (test code = BA%) 0.8 % 0.0-1.1 N NEUTROPHIL # (test code = NT#) 4.21 K/mm3 2.00-7.50 N LYMPHOCYTE # (test code = LY#) 1.51 K/mm3 1.50-4.00 N MONOCYTE # (test code = MO#) 0.48 K/mm3 0.2-0.8 N EOSINOPHIL # (test code = EO#) 0.01 K/mm3 0.04-0.4 L BASOPHIL # (test code = BA#) 0.05 K/mm3 0.02-0.10 N MANUAL DIFF REQUIRED (test code = NO MANUAL DIFF MDIFF) NUCLEATED RED BLOOD CELL (test 0 % 0-0 N code = NRBC) CBC W Auto Differential panel - [id number] 11:30:00 Test Item Value Reference Range Interpretation Comments white blood cell (test code = 6.3 K/mm3 5.8-11.0 white blood cell) red blood cell (test code = red 4.48 M/mm3 4.2-5.4 blood cell) hemoglobin (test code = 12.0 g/dL 12-16 hemoglobin) hematocrit (test code = 36.9 % 37-47 L hematocrit) mean cell volume (test code = mean 82 fL 80-98 cell volume) mean cell HGB (test code = mean 26.8 pg 27-34 L cell HGB) mean cell HGB concentration (test 32.5 g/dL 30.8-34.1 code = mean cell HGB concentration) red cell distribution width (test 16.0 % 11-16 code = red cell distribution width) plt (test code = plt) 218 K/mm3 130-400 mean platelet volume (test code = 9.9 fL 8.9-12.1 mean platelet volume) neutrophil % (test code = 67.0 % 45-70 neutrophil %) lymphocyte % (test code = 24.1 % 20-40 lymphocyte %) monocyte % (test code = monocyte 7.7 % 3-10 %) eosinophil % (test code = 0.2 % 1-5 L eosinophil %) basophil % (test code = basophil 0.8 % 0.0-1.1 %) neutrophil # (test code = 4.21 K/mm3 2.00-7.50 neutrophil #) lymphocyte # (test code = 1.51 K/mm3 1.50-4.00 lymphocyte #) monocyte # (test code = monocyte 0.48 K/mm3 0.2-0.8 #) eosinophil # (test code = 0.01 K/mm3 0.04-0.4 L eosinophil #) basophil # (test code = basophil 0.05 K/mm3 0.02-0.10 #) manual diff required (test code = no manual diff manual diff required) nucleated red blood cell (test 0 % 0-0 code = nucleated red blood cell) performing lab: (test code = performing lab:) [facility] MedicinePro[facility] (PT)2022-10-01 11:30:00 Test Item Value Reference Range Interpretation Comments prothrombin time patient (test code 11.4 secs 9.7-12.5 = prothrombin time patient) international normal ratio (test 1.03 <2.0 code = international normal ratio) performing lab: (test code = performing lab:) [facility]oplastin time [id number] 11:30:00 Test Item Value Reference Range Interpretation Comments PTT activated (test code = PTT 29.9 secs 26.6-34.6 activated) performing lab: (test code = performing lab:) [facility] HospitalComprehensive [facility] 2000 panel - Serum or [id number] 11:30:00 Test Item Value Reference Range Interpretation Comments sodium (test code = sodium) 136 mmol/L 136-145 potassium (test code = 5.1 mmol/L 3.5-5.1 potassium) chloride (test code = chloride) 101.0 mmol/L 98-107 carbon dioxide (test code = 25.1 mmol/L 21-32 carbon dioxide) glucose (test code = glucose) 81 mg/dL 70-110 blood urea nitrogen (test code = 24 mg/dL 7-18 H blood urea nitrogen) glomerular filtration rate (test 61.0 >60 code = glomerular filtration rate) creatinine (test code = 1.00 mg/dL 0.55-1.30 creatinine) total protein (test code = total 6.6 g/dL 6.4-8.2 protein) albumin (test code = albumin) 4.1 g/dL 3.4-5.0 globulin (test code = globulin) 2.5 g/dL 2.2-4.2 albumin/globulin ratio (test 1.6 0.7-2.0 code = albumin/globulin ratio) calcium (test code = calcium) 8.9 mg/dL 8.2-10.1 bilirubin total (test code = 0.30 mg/dL 0.2-1.00 bilirubin total) SGOT/AST (test code = SGOT/AST) 14.0 U/L 15-37 L SGPT/ALT (test code = SGPT/ALT) 21.0 U/L 12-78 alkaline phosphatase total (test 81 U/L 46-116 code = alkaline phosphatase total) performing lab: (test code = performing lab:) [facility] HospitalMethicillin resistant Staphylococcus aureus [Presence] in Specimen by Organism specific [id number] 11:30:00 Test Item Value Reference Range Interpretation Comments MRSA surveillance screen (test code see below = MRSA surveillance screen) performing lab: (test code = performing lab:) [facility]mss[facility] PCR surveillance [id number] 11:30:00 Test Item Value Reference Range Interpretation Comments mssa PCR surveillance screen (test see below code = mssa PCR surveillance screen) performing lab: (test code = performing lab:) [facility] HospitalCBC W Auto Differential panel - [id number] 11:30:00 Test Item Value Reference Range Interpretation Comments white blood cell (test code = 6.3 K/mm3 5.8-11.0 white blood cell) red blood cell (test code = red 4.48 M/mm3 4.2-5.4 blood cell) hemoglobin (test code = 12.0 g/dL -16 hemoglobin) hematocrit (test code = 36.9 % 37-47 L hematocrit) mean cell volume (test code = mean 82 fL 80-98 cell volume) mean cell HGB (test code = mean 26.8 pg 27-34 L cell HGB) mean cell HGB concentration (test 32.5 g/dL 30.8-34.1 code = mean cell HGB concentration) red cell distribution width (test 16.0 % 16 code = red cell distribution width) plt (test code = plt) 218 K/mm3 130-400 mean platelet volume (test code = 9.9 fL 8.9-12.1 mean platelet volume) neutrophil % (test code = 67.0 % 45-70 neutrophil %) lymphocyte % (test code = 24.1 % 20-40 lymphocyte %) monocyte % (test code = monocyte 7.7 % 3-10 %) eosinophil % (test code = 0.2 % 1-5 L eosinophil %) basophil % (test code = basophil 0.8 % 0.0-1.1 %) neutrophil # (test code = 4.21 K/mm3 2.00-7.50 neutrophil #) lymphocyte # (test code = 1.51 K/mm3 1.50-4.00 lymphocyte #) monocyte # (test code = monocyte 0.48 K/mm3 0.2-0.8 #) eosinophil # (test code = 0.01 K/mm3 0.04-0.4 L eosinophil #) basophil # (test code = basophil 0.05 K/mm3 0.02-0.10 #) manual diff required (test code = no manual diff manual diff required) nucleated red blood cell (test 0 % 0-0 code = nucleated red blood cell) performing lab: (test code = performing lab:) [facility] HospitalProthrombin time (PT)2022-10-01 11:30:00 Test Item Value Reference Range Interpretation Comments prothrombin time patient (test code 11.4 secs 9.7-12.5 = prothrombin time patient) international normal ratio (test 1.03 <2.0 code = international normal ratio) performing lab: (test code = performing lab:) [facility] Hospitalthromboplastin time [id number] 11:30:00 Test Item Value Reference Range Interpretation Comments PTT activated (test code = PTT 29.9 secs 26.6-34.6 activated) performing lab: (test code = performing lab:) [facility] HospitalComprehensive metabolic 2000 panel - Serum or [id number] 11:30:00 Test Item Value Reference Range Interpretation Comments sodium (test code = sodium) 136 mmol/L 136-145 potassium (test code = 5.1 mmol/L 3.5-5.1 potassium) chloride (test code = chloride) 101.0 mmol/L 98-107 carbon dioxide (test code = 25.1 mmol/L 21-32 carbon dioxide) glucose (test code = glucose) 81 mg/dL 70-110 blood urea nitrogen (test code = 24 mg/dL 7-18 H blood urea nitrogen) glomerular filtration rate (test 61.0 >60 code = glomerular filtration rate) creatinine (test code = 1.00 mg/dL 0.55-1.30 creatinine) total protein (test code = total 6.6 g/dL 6.4-8.2 protein) albumin (test code = albumin) 4.1 g/dL 3.4-5.0 globulin (test code = globulin) 2.5 g/dL 2.2-4.2 albumin/globulin ratio (test 1.6 0.7-2.0 code = albumin/globulin ratio) calcium (test code = calcium) 8.9 mg/dL 8.2-10.1 bilirubin total (test code = 0.30 mg/dL 0.2-1.00 bilirubin total) SGOT/AST (test code = SGOT/AST) 14.0 U/L 15-37 L SGPT/ALT (test code = SGPT/ALT) 21.0 U/L 12-78 alkaline phosphatase total (test 81 U/L 46-116 code = alkaline phosphatase total) performing lab: (test code = performing lab:) [facility] HospitalMethicillin resistant Staphylococcus aureus [Presence] in Specimen by Organism specific [id number] 11:30:00 Test Item Value Reference Range Interpretation Comments MRSA surveillance screen (test code see below = MRSA surveillance screen) performing lab: (test code = performing lab:) [facility] PCR surveillance [id number] 11:30:00 Test Item Value Reference Range Interpretation Comments mssa PCR surveillance screen (test see below code = mssa PCR surveillance screen) performing lab: (test code = performing lab:) [facility] W Auto Differential panel - [id number] 11:30:00 Test Item Value Reference Range Interpretation Comments white blood cell (test code = 6.3 K/mm3 5.8-11.0 white blood cell) red blood cell (test code = red 4.48 M/mm3 4.2-5.4 blood cell) hemoglobin (test code = 12.0 g/dL 12-16 hemoglobin) hematocrit (test code = 36.9 % 37-47 L hematocrit) mean cell volume (test code = mean 82 fL 80-98 cell volume) mean cell HGB (test code = mean 26.8 pg 27-34 L cell HGB) mean cell HGB concentration (test 32.5 g/dL 30.8-34.1 code = mean cell HGB concentration) red cell distribution width (test 16.0 % 11-16 code = red cell distribution width) plt (test code = plt) 218 K/mm3 130-400 mean platelet volume (test code = 9.9 fL 8.9-12.1 mean platelet volume) neutrophil % (test code = 67.0 % 45-70 neutrophil %) lymphocyte % (test code = 24.1 % 20-40 lymphocyte %) monocyte % (test code = monocyte 7.7 % 3-10 %) eosinophil % (test code = 0.2 % 1-5 L eosinophil %) basophil % (test code = basophil 0.8 % 0.0-1.1 %) neutrophil # (test code = 4.21 K/mm3 2.00-7.50 neutrophil #) lymphocyte # (test code = 1.51 K/mm3 1.50-4.00 lymphocyte #) monocyte # (test code = monocyte 0.48 K/mm3 0.2-0.8 #) eosinophil # (test code = 0.01 K/mm3 0.04-0.4 L eosinophil #) basophil # (test code = basophil 0.05 K/mm3 0.02-0.10 #) manual diff required (test code = no manual diff manual diff required) nucleated red blood cell (test 0 % 0-0 code = nucleated red blood cell) performing lab: (test code = performing lab:) [facility] HospitalProthrombin time (PT)2022-10-01 11:30:00 Test Item Value Reference Range Interpretation Comments prothrombin time patient (test code 11.4 secs 9.7-12.5 = prothrombin time patient) international normal ratio (test 1.03 <2.0 code = international normal ratio) performing lab: (test code = performing lab:) [facility] Hospitalthromboplastin time [id number] 11:30:00 Test Item Value Reference Range Interpretation Comments PTT activated (test code = PTT 29.9 secs 26.6-34.6 activated) performing lab: (test code = performing lab:) [facility]Comprehensive [facility] 2000 panel - Serum or [id number] 11:30:00 Test Item Value Reference Range Interpretation Comments sodium (test code = sodium) 136 mmol/L 136-145 potassium (test code = 5.1 mmol/L 3.5-5.1 potassium) chloride (test code = chloride) 101.0 mmol/L 98-107 carbon dioxide (test code = 25.1 mmol/L 21-32 carbon dioxide) glucose (test code = glucose) 81 mg/dL 70-110 blood urea nitrogen (test code = 24 mg/dL 7-18 H blood urea nitrogen) glomerular filtration rate (test 61.0 >60 code = glomerular filtration rate) creatinine (test code = 1.00 mg/dL 0.55-1.30 creatinine) total protein (test code = total 6.6 g/dL 6.4-8.2 protein) albumin (test code = albumin) 4.1 g/dL 3.4-5.0 globulin (test code = globulin) 2.5 g/dL 2.2-4.2 albumin/globulin ratio (test 1.6 0.7-2.0 code = albumin/globulin ratio) calcium (test code = calcium) 8.9 mg/dL 8.2-10.1 bilirubin total (test code = 0.30 mg/dL 0.2-1.00 bilirubin total) SGOT/AST (test code = SGOT/AST) 14.0 U/L 15-37 L SGPT/ALT (test code = SGPT/ALT) 21.0 U/L 12-78 alkaline phosphatase total (test 81 U/L 46-116 code = alkaline phosphatase total) performing lab: (test code = performing lab:) [facility] HospitalMethicillin resistant Staphylococcus aureus [Presence] in Specimen by Organism specific [id number] 11:30:00 Test Item Value Reference Range Interpretation Comments MRSA surveillance screen (test code see below = MRSA surveillance screen) performing lab: (test code = performing lab:) [facility] surveillance [id number] 11:30:00 Test Item Value Reference Range Interpretation Comments mssa PCR surveillance screen (test see below code = mssa PCR surveillance screen) performing lab: (test code = performing lab:) [facility] HospitalCB W Auto Differential panel - [id number] 11:30:00 Test Item Value Reference Range Interpretation Comments white blood cell (test code = 6.3 K/mm3 5.8-11.0 white blood cell) red blood cell (test code = red 4.48 M/mm3 4.2-5.4 blood cell) hemoglobin (test code = 12.0 g/dL 12-16 hemoglobin) hematocrit (test code = 36.9 % 37-47 L hematocrit) mean cell volume (test code = mean 82 fL 80-98 cell volume) mean cell HGB (test code = mean 26.8 pg 27-34 L cell HGB) mean cell HGB concentration (test 32.5 g/dL 30.8-34.1 code = mean cell HGB concentration) red cell distribution width (test 16.0 % 11-16 code = red cell distribution width) plt (test code = plt) 218 K/mm3 130-400 mean platelet volume (test code = 9.9 fL 8.9-12.1 mean platelet volume) neutrophil % (test code = 67.0 % 45-70 neutrophil %) lymphocyte % (test code = 24.1 % 20-40 lymphocyte %) monocyte % (test code = monocyte 7.7 % 3-10 %) eosinophil % (test code = 0.2 % 1-5 L eosinophil %) basophil % (test code = basophil 0.8 % 0.0-1.1 %) neutrophil # (test code = 4.21 K/mm3 2.00-7.50 neutrophil #) lymphocyte # (test code = 1.51 K/mm3 1.50-4.00 lymphocyte #) monocyte # (test code = monocyte 0.48 K/mm3 0.2-0.8 #) eosinophil # (test code = 0.01 K/mm3 0.04-0.4 L eosinophil #) basophil # (test code = basophil 0.05 K/mm3 0.02-0.10 #) manual diff required (test code = no manual diff manual diff required) nucleated red blood cell (test 0 % 0-0 code = nucleated red blood cell) performing lab: (test code = performing lab:) [facility] HospitalProthrombin [facility] (PT)2022-10-01 11:30:00 Test Item Value Reference Range Interpretation Comments prothrombin time patient (test code 11.4 secs 9.7-12.5 = prothrombin time patient) international normal ratio (test 1.03 <2.0 code = international normal ratio) performing lab: (test code = performing lab:) [facility] Hospitalthromboplastin time [id number] 11:30:00 Test Item Value Reference Range Interpretation Comments PTT activated (test code = PTT 29.9 secs 26.6-34.6 activated) performing lab: (test code = performing lab:) [facility]Com[facility] 2000 panel - Serum or [id number] 11:30:00 Test Item Value Reference Range Interpretation Comments sodium (test code = sodium) 136 mmol/L 136-145 potassium (test code = 5.1 mmol/L 3.5-5.1 potassium) chloride (test code = chloride) 101.0 mmol/L 98-107 carbon dioxide (test code = 25.1 mmol/L 21-32 carbon dioxide) glucose (test code = glucose) 81 mg/dL 70-110 blood urea nitrogen (test code = 24 mg/dL 7-18 H blood urea nitrogen) glomerular filtration rate (test 61.0 >60 code = glomerular filtration rate) creatinine (test code = 1.00 mg/dL 0.55-1.30 creatinine) total protein (test code = total 6.6 g/dL 6.4-8.2 protein) albumin (test code = albumin) 4.1 g/dL 3.4-5.0 globulin (test code = globulin) 2.5 g/dL 2.2-4.2 albumin/globulin ratio (test 1.6 0.7-2.0 code = albumin/globulin ratio) calcium (test code = calcium) 8.9 mg/dL 8.2-10.1 bilirubin total (test code = 0.30 mg/dL 0.2-1.00 bilirubin total) SGOT/AST (test code = SGOT/AST) 14.0 U/L 15-37 L SGPT/ALT (test code = SGPT/ALT) 21.0 U/L 12-78 alkaline phosphatase total (test 81 U/L 46-116 code = alkaline phosphatase total) performing lab: (test code = performing lab:) [facility] HospitalMethicillin resistant Staphylococcus aureus [Presence] in Specimen by Organism specific [id number] 11:30:00 Test Item Value Reference Range Interpretation Comments MRSA surveillance screen (test code see below = MRSA surveillance screen) performing lab: (test code = performing lab:) [facility] surveillance [id number] 11:30:00 Test Item Value Reference Range Interpretation Comments mssa PCR surveillance screen (test see below code = mssa PCR surveillance screen) performing lab: (test code = performing lab:) [facility] [id number] 15:43:00 Test Item Value Reference Interpretation Comments Range THYROGLOBULIN (test 0.1 ng/mL 1.5-38.5 L THYROBLO BULIN BY ADAIR code = THYROGL) COMMENT: ACC ORDING TO THE [employer] [place],THE REFERENCE INTER JANICE FOR THYROGLOBULIN ( TG) SHOULD BERELATED TO EU THYROID PATIENTS AND NO T FOR PATIENTS WHOUND ERWENT A THYROIDECTOMY. TG REFERENCE INTERVALS FOR T HESEPATIENTS DEPEND ON THE R ESIDUAL MASS OF THE THYROID TISSUELEFT AFTER SURGERY. ESTABLISHING A POST-OPERATIV E BASELINEIS RECOMENDED. THE ASSAY LIMIT OF QUANTITATION IS 0.1 ng/mLTHYROGLOBU NAHEED MEASURED BY LANIE COUL TER IMMUNOMETRIC SAYUnit of Measure: microg soumya/dL AB THYROGLOBULIN < 1.0 0.0-0.9 H Thyroglobul in Antibody (test code = IU/mL measured by [facility] THYROAB) CoulterMethodol ogyUnit of measure: Data Center Manager ational Units/mL PARATHYROID HORMONE [id number] 12:26:00 Test Item Value Reference Range Interpretation Comments PARATHYROID HORMONE 115.0 pg/mL 15-65 H Performe d At: HD INTACT (test code = [facility] [id number] PARAI) [place], [place] [id number] Ari Hansen MD Ph:[phone] - CT UP EXTREM W/CONT [id number] 07:55:00 [facility] 1950 Sex: F Patient Name: MARYSE MOURA Unit No: [id number] EXAMS: CPT CODE: [id number] CT UP EXTREM W/[place] [address] RIGHT SHOULDER ARTHROGRAM AND ASPIRATION DIAGNOSIS: Postoperative synovitis. 0.5 mL of clear fluid aspirated and sent for analysis. COMMENT: COMPARISON: No prior exams available. After informed consent was obtained a shoulder aspiration was followed by a single-contrast arthrogram performed with Isovue-300 . 5 seconds of fluoroscopy time was utilized. There was constriction of the axillary recess of the joint. An AP radiograph was obtained. No immediate complications were encountered. 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 No subluxation is seen. Capsular irregularity is noted postoperatively. No fractures are seen. COMMENT: COMPARISON: No priorexams available. Scans were performed with thin sections post arthrography and reconstructions were o btained. Bony abnormalities are present as noted. The joint is distended with contrast. Moderate rotator cuff atrophy is present. No loose bodies are identified. at 0755 Reported and signed by: Ruben Muñiz MD CC: Darrell Elmore MD; Ruben Browne M.D. Technologist: Aftab SantosRT(R) CTDI: DLP: Trnscrpt: 07/12/2022 (0755) t.SDR.JCL [facility] NAME: MARYSE MOURA [address] [place] [address] PHYS: Darrell Parker MD : 1950 AGE: 71 SEX: F [place] [address] : Y.RAD PHONE #: [phone] EXAM DATE: 07/11/2022 STATUS: DEP CLI FAX #: [phone] RAD #: D/C DT PAGE 1 Signed Report Patient Name: MARYSE MOURA Unit No: [id number] EXAMS: CPT CODE: [id number] CT UP EXTREM W/[place] [address] (Continued) Orig Print D/T: S: 07/12/2022 (0758) [facility] NAME: MARYSE MOURA [address] [place] [address] PHYS: Darrell Parker MD : 1950 AGE: 71 SEX: F [place] [address] LOC: Y.RAD PHONE #: [phone] EXAM DATE: 07/11/2022 STATUS: DEP CLI FAX #: [phone] RAD #: D/C DT PAGE 2 Signed Report- XR ARTHROGRAM SHLDR [id number] 07:55:00 [facility] : 1950 Sex: F Patient Name: MARYSE MOURA Unit No: [id number] EXAMS: CPT CODE: [id number] [place] [address] RIGHT SHOULDER ARTHROGRAM AND ASPIRATION DIAGNOSIS: Postoperative synovitis. 0.5 mL of clear fluid aspirated and sent for analysis. COMMENT: COMPARISON: No prior exams available. After informed consent was obtained a shoulder aspiration was followed by a single-contrast arthrogram performedwith Isovue-300 . 5 seconds of fluoroscopy time was utilized. There was constriction of the axillaryrecess of the joint. An AP radiograph was obtained. No immediate complications were encountered. 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 No subluxation is seen. Capsular irregularity is noted postoperatively. No fractures are seen. COMMENT: COMPARISON: No prior exams available. Scans were performed with thin sections post arthrography and reconstructions wereobtained. Bony abnormalities are present as noted. The joint is distended with contrast. Moderate rotator cuff atrophy is present. No loose bodies are identified. at 0755 Reported and signed by: Ruben Muñiz MD CC: Darrell Elmore MD; Ruben Browne M.D. Technologist: RT Omid.(R) Transcribed D/ (0755) Sara.JCL [facility] NAME: MARYSE MOURA [address] [facility] PHYS: Darrell Parker MD : 1950 AGE: 71 SEX: F [place], [place] [address] LOC: Y.RAD PHONE #: [phone] EXAM DATE: 07/11/2022 STATUS: DEP CLI FAX #: [phone] RAD #: D/C DT PAGE 1 Signed Report Patient Name: MARYSE MOURA Unit No: [id number] EXAMS: CPT CODE: [id number] [place] [address] (Continued) Orig Print D/T: S: 07/12/2022 (0758) [facility] NAME: MARYSE MOURA [address] [facility] PHYS: Darrell Parker MD : 1950 AGE: 71 SEX: F [place] [address] LOC: Y.RAD PHONE #: [phone] EXAM DATE:07/11/2022 STATUS: DEP CLI FAX #: [phone] RAD #: D/C DT PAGE 2 Signed ReportSED [id number] 07:24:00 Test Item Value Reference Range Interpretation Comments SED RATE (test code = 6 mm/hr 0-40 Perfor med At: HD [facility] SEDW) [id number] [place], [place] [id number] Ari aHnsen MD Ph:[phone] T3 [id number] 21:58:00 Test Item Value Reference Range Interpretation Comments T3 FREE (test code = T3F) 2.86 pg/mL 2.18-3.98 T4 [id number] 21:58:00 Test Item Value Reference Range Interpretation Comments T4 FREE (test code = T4F) 1.28 ng/dL 0.76-1.46 THYROID STIMULATING [id number] 21:58:00 Test Item Value Reference Range Interpretation Comments THYROID STIMULATING 0.83 0.36-3.74 Test Per formed in HORMONE (test code = MicroIn ternational Units/mL TSH) T3 [id number] 21:57:00 Test Item Value Reference Range Interpretation Comments T3 FREE (test code = T3F) 2.86 pg/mL 2.18-3.98 N T4 [id number] 21:57:00 Test Item Value Reference Range Interpretation Comments T4 FREE (test code = T4F) 1.28 ng/dL 0.76-1.46 N THYROID STIMULATING [id number] 21:57:00 Test Item Value Reference Range Interpretation Comments THYROID STIMULATING 0.83 0.36-3.74 N Test Per formed in HORMONE (test code = MicroIn ternational Units/mL TSH) COMPREHENSIVE METABOLIC [id number] 14:16:00 Test Item Value Reference Range Interpretation Comments SODIUM (test code = 135 mmol/L 136-145 L NA) POTASSIUM (test code = 4.6 mmol/L 3.5-5.1 N K) CHLORIDE (test code = 100.0 mmol/L 98-107 N CL) CARBON DIOXIDE (test 26.9 mmol/L 21-32 N code = CO2) GLUCOSE (test code = 125 mg/dL 70-110 H GLU) BLOOD UREA NITROGEN 18 mg/dL 7-18 N (test code = BUN) GLOMERULAR FILTRATION 59.8 >60 Unit o f measure: RATE (test code = GFR) mL/mi n/1.73 [id number] Range:Healthy Adults >90 mL/min/1.73 m2 For Chronic Kidney Disease: Stage II Mild Decrease i n GFR 60-90 Stage III Moderate Decrea se in GFR 30-59 St age IV Severe Decre ase in GFR 15-29 St age V Kidney Failur e <15 CREATININE (test code 0.93 mg/dL 0.55-1.30 N = CREAT) TOTAL PROTEIN (test 6.4 g/dL 6.4-8.2 N code = PROT) ALBUMIN (test code = 3.6 g/dL 3.4-5.0 N ALB) GLOBULIN (test code = 2.8 g/dL 2.2-4.2 N GLOB) ALBUMIN/GLOBULIN RATIO 1.3 0.7-2.0 N (test code = A/G) CALCIUM (test code = 8.6 mg/dL 8.2-10.1 N CA) BILIRUBIN TOTAL (test 0.20 mg/dL 0.2-1.00 N code = BILT) SGOT/AST (test code = 14.0 U/L 15-37 L AST) SGPT/ALT (test code = 17.0 U/L 12-78 N Please note new ALT) normal range. ALKALINE PHOSPHATASE 67 U/L 46-116 N TOTAL (test code = ALKP) C REACTIVE [id number] 14:15:00 Test Item Value Reference Range Interpretation Comments C REACTIVE PROTEIN (test code = < 0.2 mg/dL <0.9 CRP) AFB [id number] 13:47:00 Test Item Value Reference Range Interpretation Comments AFB smear (test code = AFB smear) see below performing lab: (test code = performing lab:) [facility] MedicineFungus identified in Specimen by Fungus stain 2022-07-11 13:47:00 Test Item Value Reference Range Interpretation Comments smear fungus (test code = smear see below fungus) performing lab: (test code = performing lab:) [facility] MedicineAFB [id number] 13:47:00 Test Item Value Reference Range Interpretation Comments AFB smear (test code = AFB smear) see below performing lab: (test code = performing lab:) [facility] MedicineFungus identified in Specimen by Fungus stain 2022-07-11 13:47:00 Test Item Value Reference Range Interpretation Comments smear fungus (test code = smear see below fungus) performing lab: (test code = performing lab:) [facility] MedicineMicroscopic observation [Identifier] in Specimen by Gram [id number] 13:47:00 Test Item Value Reference Range Interpretation Comments gram stain (test code = gram stain) see below performing lab: (test code = performing lab:) [facility] Medicineanaerobic [id number] 13:47:00 Test Item Value Reference Range Interpretation Comments anaerobic culture (test code = see below anaerobic culture) performing lab: (test code = performing lab:) [facility] MedicineBacteria identified in Synovial fluid by [id number] 13:47:00 Test Item Value Reference Range Interpretation Comments joint fluid culture see below (test code = joint fluid culture) blank (test code = blank) [address] [place] See_Comment [Auto mated message] (test code = [address] generated this result transmitted ref erence range: 72809. T he reference range was not used to int erpret this result as normal/abnormal . performing lab: (test code = performing lab:) [facility] W/AUTO [id number] 13:25:00 Test Item Value Reference Range Interpretation Comments WHITE BLOOD CELL (test code = WBC) 4.8 K/mm3 5.8-11.0 L RED BLOOD CELL (test code = RBC) 3.94 M/mm3 4.2-5.4 L HEMOGLOBIN (test code = HGB) 10.9 g/dL 12-16 L HEMATOCRIT (test code = HCT) 33.7 % 37-47 L MEAN CELL VOLUME (test code = MCV) 86 fL 80-98 N MEAN CELL HGB (test code = MCH) 27.7 pg 27-34 N MEAN CELL HGB CONCENTRATION (test 32.3 g/dL 30.8-34.1 N code = MCHC) RED CELL DISTRIBUTION WIDTH (test 14.1 % 11-16 N code = RDW) PLT (test code = PLT) 215 K/mm3 130-400 N MEAN PLATELET VOLUME (test code = 9.3 fL 8.9-12.1 N MPV) NEUTROPHIL % (test code = NT%) 60.5 % 45-70 N LYMPHOCYTE % (test code = LY%) 31.2 % 20-40 N MONOCYTE % (test code = MO%) 7.1 % 3-10 N EOSINOPHIL % (test code = EO%) 0.2 % 1-5 L BASOPHIL % (test code = BA%) 0.6 % 0.0-1.1 N NEUTROPHIL # (test code = NT#) 2.91 K/mm3 2.00-7.50 N LYMPHOCYTE # (test code = LY#) 1.50 K/mm3 1.50-4.00 N MONOCYTE # (test code = MO#) 0.34 K/mm3 0.2-0.8 N EOSINOPHIL # (test code = EO#) 0.01 K/mm3 0.04-0.4 L BASOPHIL # (test code = BA#) 0.03 K/mm3 0.02-0.10 N MANUAL DIFF REQUIRED (test code = NO MANUAL DIFF MDIFF) NUCLEATED RED BLOOD CELL (test 0 % 0-0 N code = NRBC) CBC W Auto Differential panel - [id number] 12:45:00 Test Item Value Reference Range Interpretation Comments white blood cell (test code = 4.8 K/mm3 5.8-11.0 L white blood cell) red blood cell (test code = red 3.94 M/mm3 4.2-5.4 L blood cell) hemoglobin (test code = 10.9 g/dL 12-16 L hemoglobin) hematocrit (test code = 33.7 % 37-47 L hematocrit) mean cell volume (test code = mean 86 fL 80-98 cell volume) mean cell HGB (test code = mean 27.7 pg 27-34 cell HGB) mean cell HGB concentration (test 32.3 g/dL 30.8-34.1 code = mean cell HGB concentration) red cell distribution width (test 14.1 % 11-16 code = red cell distribution width) plt (test code = plt) 215 K/mm3 130-400 mean platelet volume (test code = 9.3 fL 8.9-12.1 mean platelet volume) neutrophil % (test code = 60.5 % 45-70 neutrophil %) lymphocyte % (test code = 31.2 % 20-40 lymphocyte %) monocyte % (test code = monocyte 7.1 % 3-10 %) eosinophil % (test code = 0.2 % 1-5 L eosinophil %) basophil % (test code = basophil 0.6 % 0.0-1.1 %) neutrophil # (test code = 2.91 K/mm3 2.00-7.50 neutrophil #) lymphocyte # (test code = 1.50 K/mm3 1.50-4.00 lymphocyte #) monocyte # (test code = monocyte 0.34 K/mm3 0.2-0.8 #) eosinophil # (test code = 0.01 K/mm3 0.04-0.4 L eosinophil #) basophil # (test code = basophil 0.03 K/mm3 0.02-0.10 #) manual diff required (test code = no manual diff manual diff required) nucleated red blood cell (test 0 % 0-0 code = nucleated red blood cell) performing lab: (test code = performing lab:) [facility] reactive [id number] 12:45:00 Test Item Value Reference Range Interpretation Comments C reactive protein (test code = C < 0.2 <0.9 reactive protein) performing lab: (test code = performing lab:) [facility] Medicinesed [id number] 12:45:00 Test Item Value Reference Range Interpretation Comments sed rate (test code = sed rate) 6 mm/HR 0-40 performing lab: (test code = performing lab:) [facility] Auto Differential panel - [id number] 12:45:00 Test Item Value Reference Range Interpretation Comments white blood cell (test code = 4.8 K/mm3 5.8-11.0 L white blood cell) red blood cell (test code = red 3.94 M/mm3 4.2-5.4 L blood cell) hemoglobin (test code = 10.9 g/dL 12-16 L hemoglobin) hematocrit (test code = 33.7 % 37-47 L hematocrit) mean cell volume (test code = mean 86 fL 80-98 cell volume) mean cell HGB (test code = mean 27.7 pg 27-34 cell HGB) mean cell HGB concentration (test 32.3 g/dL 30.8-34.1 code = mean cell HGB concentration) red cell distribution width (test 14.1 % 11-16 code = red cell distribution width) plt (test code = plt) 215 K/mm3 130-400 mean platelet volume (test code = 9.3 fL 8.9-12.1 mean platelet volume) neutrophil % (test code = 60.5 % 45-70 neutrophil %) lymphocyte % (test code = 31.2 % 20-40 lymphocyte %) monocyte % (test code = monocyte 7.1 % 3-10 %) eosinophil % (test code = 0.2 % 1-5 L eosinophil %) basophil % (test code = basophil 0.6 % 0.0-1.1 %) neutrophil # (test code = 2.91 K/mm3 2.00-7.50 neutrophil #) lymphocyte # (test code = 1.50 K/mm3 1.50-4.00 lymphocyte #) monocyte # (test code = monocyte 0.34 K/mm3 0.2-0.8 #) eosinophil # (test code = 0.01 K/mm3 0.04-0.4 L eosinophil #) basophil # (test code = basophil 0.03 K/mm3 0.02-0.10 #) manual diff required (test code = no manual diff manual diff required) nucleated red blood cell (test 0 % 0-0 code = nucleated red blood cell) performing lab: (test code = performing lab:) [facility] reactive [id number] 12:45:00 Test Item Value Reference Range Interpretation Comments C reactive protein (test code = C < 0.2 <0.9 reactive protein) performing lab: (test code = performing lab:) [facility] Medicinesed [id number] 12:45:00 Test Item Value Reference Range Interpretation Comments sed rate (test code = sed rate) 6 mm/HR 0-40 performing lab: (test code = performing lab:) [facility] Electric Bed [id number] 16:38:01 Test Item Value Reference Range Interpretation Comments SUPPLIER NAME (test code [facility] = 6415) SUPPLIER PHONE (test code [phone] = 6416) ORDER STATUS (test code = Delivery Successful 6417) DELIVERY NOTE (test code = 6419) REQUESTED DELIVEY DATE 02/02/2022 (test code = 6420) ITEM DESCRIPTION (test Half Bed Rails Qty : 1 code = 6423) EXPECTED DELIVERY DATE 02/03/2022 (test code = 6421) ACTUAL DELIVERY DATE 02/03/2022 (test code = 6422) [facility] Electric Bed [id number] 16:38:01 Test Item Value Reference Range Interpretation Comments SUPPLIER NAME (test code [facility] = 6415) SUPPLIER PHONE (test code [phone] = 6416) ORDER STATUS (test code = Delivery Successful 6417) DELIVERY NOTE (test code = 6419) REQUESTED DELIVEY DATE 02/02/2022 (test code = 6420) ITEM DESCRIPTION (test Half Bed Rails Qty : 1 code = 6423) EXPECTED DELIVERY DATE 02/03/2022 (test code = 6421) ACTUAL DELIVERY DATE 02/03/2022 (test code = 6422) [facility] Electric Bed [id number] 16:38:01 Test Item Value Reference Range Interpretation Comments SUPPLIER NAME (test code [facility] = 6415) SUPPLIER PHONE (test code [phone] = 6416) ORDER STATUS (test code = Delivery Successful 6417) DELIVERY NOTE (test code = 6419) REQUESTED DELIVEY DATE 02/02/2022 (test code = 6420) ITEM DESCRIPTION (test Half Bed Rails Qty : 1 code = 6423) EXPECTED DELIVERY DATE 02/03/2022 (test code = 6421) ACTUAL DELIVERY DATE 02/03/2022 (test code = 6422) [facility] Electric Bed [id number] 16:38:01 Test Item Value Reference Range Interpretation Comments [facility] SUPPLIER PHONE (test code [phone] = 6416) ORDER STATUS (test code = Delivery Successful 6417) DELIVERY NOTE (test code = 6419) REQUESTED DELIVEY DATE 02/02/2022 (test code = 6420) ITEM DESCRIPTION (test Half Bed Rails Qty : 1 code = 6423) EXPECTED DELIVERY DATE 02/03/2022 (test code = 6421) ACTUAL DELIVERY DATE 02/03/2022 (test code = 6422) [facility] Electric Bed [id number] 16:38:01 Test Item Value Reference Range Interpretation Comments [facility]PPLIER [facility] (test code [facility]15) SUPPLIER PHONE (test code [phone] = 6416) ORDER STATUS (test code = Delivery Successful 6417) DELIVERY NOTE (test code = 6419) REQUESTED DELIVEY DATE 02/02/2022 (test code = 6420) ITEM DESCRIPTION (test Half Bed Rails Qty : 1 code = 6423) EXPECTED DELIVERY DATE 02/03/2022 (test code = 6421) ACTUAL DELIVERY DATE 02/03/2022 (test code = 6422) [facility] Electric Bed [id number] 16:38:01 Test Item Value Reference Range Interpretation Comments SUPPLIER NAME (test code [facility] = 6415) SUPPLIER PHONE (test code [phone] = 6416) ORDER STATUS (test code = Delivery Successful 6417) DELIVERY NOTE (test code = 6419) REQUESTED DELIVEY DATE 02/02/2022 (test code = 6420) ITEM DESCRIPTION (test Half Bed Rails Qty : 1 code = 6423) EXPECTED DELIVERY DATE 02/03/2022 (test code = 6421) ACTUAL DELIVERY DATE 02/03/2022 (test code = 6422) [address]2022-04-22 14:21:22 Test Item Value Reference Range Interpretation Comments Ventricular rate (test code = 253) Atrial rate (test code = 255) KS interval (test code = 266) QRSD interval (test code = 260) QT interval (test code = 264) QTC interval (test code = 265) P axis 1 (test code = 267) QRS axis 1 (test code = 268) T wave axis (test code = 270) EKG impression (test Normal sinus code = 273) rhythm-Inferior infarct , age undetermined-Abnormal ECG-No previous ECGs available-Electronica lly Signed By Tierney Li MD ([id number]) on 02/02/2022 9:21:15 AM [address]2022-04-22 14:21:22 Test Item Value Reference Range Interpretation Comments Ventricular rate (test code = 253) Atrial rate (test code = 255) KS interval (test code = 266) QRSD interval (test code = 260) QT interval (test code = 264) QTC interval (test code = 265) P axis 1 (test code = 267) QRS axis 1 (test code = 268) T wave axis (test code = 270) EKG impression (test Normal sinus code = 273) rhythm-Inferior infarct , age undetermined-Abnormal ECG-No previous ECGs available-Electronica lly Signed By Tierney Li MD ([id number]) on 02/02/2022 9:21:15 AM [address]2022-04-22 14:21:22 Test Item Value Reference Range Interpretation Comments Ventricular rate (test code = 253) Atrial rate (test code = 255) KS interval (test code = 266) QRSD interval (test code = 260) QT interval (test code = 264) QTC interval (test code = 265) P axis 1 (test code = 267) QRS axis 1 (test code = 268) T wave axis (test code = 270) EKG impression (test Normal sinus code = 273) rhythm-Inferior infarct , age undetermined-Abnormal ECG-No previous ECGs available-Electronica lly Signed By Tierney Li MD ([id number]) on 02/02/2022 9:21:15 AM [address]2022-04-22 14:21:22 Test Item Value Reference Range Interpretation Comments Ventricular rate (test code = 253) Atrial rate (test code = 255) KS interval (test code = 266) QRSD interval (test code = 260) QT interval (test code = 264) QTC interval (test code = 265) P axis 1 (test code = 267) QRS axis 1 (test code = 268) T wave axis (test code = 270) EKG impression (test Normal sinus code = 273) rhythm-Inferior infarct , age undetermined-Abnormal ECG-No previous ECGs available-Electronica lly Signed By Tierney Li MD ([id number]) on 02/02/2022 9:21:15 AM [address]2022-04-22 14:21:22 Test Item Value Reference Range Interpretation Comments Ventricular rate (test 68 code = 253) Atrial rate (test code = 68 255) KS interval (test code = 128 266) QRSD interval (test code 80 = 260) QT interval (test code = 398 264) QTC interval (test code 423 = 265) P axis 1 (test code = 22 267) QRS axis 1 (test code = -28 268) T wave axis (test code = -16 270) EKG impression (test Normal sinus code = 273) rhythm-Inferior infarct , age undetermined-Abnormal ECG-No previous ECGs available-Electronica lly Signed By Tierney Li MD ([id number]) on 02/02/2022 9:21:15 AM [address]2022-04-22 14:21:22 Test Item Value Reference Range Interpretation Comments Ventricular rate (test 68 code = 253) Atrial rate (test code = 68 255) KS interval (test code = 128 266) QRSD interval (test code 80 = 260) QT interval (test code = 398 264) QTC interval (test code 423 = 265) P axis 1 (test code = 22 267) QRS axis 1 (test code = -28 268) T wave axis (test code = -16 270) EKG impression (test Normal sinus code = 273) rhythm-Inferior infarct , age undetermined-Abnormal ECG-No previous ECGs available-Electronica lly Signed By Tierney Li MD ([id number]) on 02/02/2022 9:21:15 AM [facility] WkjdyjcrCWUY-SkK-6 (COVID-19) RNA [Presence] in Respiratory specimen by LIAM with probe [id number] 01:51:36 Test Item Value Reference Range Interpretation Comments SARS-CoV-2 (COVID-19) RNA Not detected [Presence] in Respiratory specimen by LIAM with probe detection (test code = 92719-0) Whether patient is employed in a Unknown healthcare setting (test code = 76421-1) Whether the patient has symptoms Unknown related to condition of interest (test code = 54857-2) Whether the patient was Unknown hospitalized for condition of interest (test code = 54887-4) Whether the patient was admitted Unknown to intensive care unit (ICU) for condition of interest (test code = 79115-7) Whether patient resides in a Unknown congregate care setting (test code = 74121-0) status (test code = Unknown 05140-6) Date and time of symptom onset Unknown (test code = 22905-5) [facility] XR T-SPINE 2 [id number] 04:39:00 [facility] 1950 Sex: F Patient Name: MARYSE MOURA Unit No: [id number] EXAMS: CPT CODE: [id number] XR T-SPINE 2 [id number] [id number] COMPARISON: Concurrent MRI of the cervical spine. IMAGES PROVIDED: 4 views of the cervical spine and 2 views of the thoracic spine FINDINGS: Cervical spine: C4-C6 ACDF is demonstrated with intact hardware. Posterior fusion of the lower cervical spine is also demonstrated. There is solid interbodyfusion C5-C6 and C6-C7 interbody fusion is noted. No acute fracture. No pathologic motion with flexion/extension. Osteopenia is present. Soft tissues are unremarkable. Lung apices are clear. Thoracic spine: Osteopenia is noted, limiting examination. There is marked accentuation of thoracic kyphosis ofthe lower thoracic spine with compression/wedging of the lower thoracic vertebral bodies, chronic inappearance. No definite acute fracture is visualized. Marked lower thoracic disc degeneration is noted. Visualized lungs are clear. Cholecystectomy clips are present. IMPRESSION: 1. Postoperative cervical spine without evidence of dynamic instability. 2. Chronic appearing compression/wedging of lowerthoracic vertebral bodies contributing to accentuation of kyphosis. 3. Osteopenia ElectronicallySigned by Karen Sung on 06/01/2021 at 2944 Reported and signed by: Anatoliy Sung M.D. CC: Ruben Browne M.D. Technologist: RT. Omid(R) Transcribed D/ (0439) [facility]: [facility] [address] [place] [address] PHYS: Ruben Leon MD : 1950 AGE: 70 SEX: F [place] [address] LOC: Y.MRIPHONE #: [phone] EXAM DATE: 05/30/2021 STATUS: DEP CLI FAX #: [phone] RAD #: D/C DT PAGE 1Signed Report Patient Name: MARYSE MOURA Unit No: [id number] EXAMS: CPT CODE: [id number] XR T-SPINE 2 VIEWS 64368 <Continued> Orig Print D/T: S: 06/01/2021 (0442) [facility] [address] [facility] PHYS: Ruben Leon MD : 1950 AGE: 70 SEX: F [place] [address] LOC: Y.MRI PHONE #: [phone] EXAM DATE: 05/30/2021 STATUS: DEP CLI FAX #: [phone] RAD #: D/C DT PAGE 2 Signed Report- XR C-SPINE 4-5 [id number] 04:39:00 [facility] 1950 Sex: F Patient Name: MARYSE MOURA Unit No: [id number] EXAMS: CPT CODE: [id number] XR C-SPINE 4-5 V 42655 COMPARISON: Concurrent MRI of the cervical spine. IMAGES PROVIDED: 4 views of the cervical spine and 2 views of the thoracic spine FINDINGS: Cervical spine: C4-C6 ACDF is demonstrated with intact hardware. Posterior fusion of the lower cervical spine is also demonstrated. There is solid interbody fusion C5-C6 and C6-C7 interbody fusion is noted. No acute fracture. No pathologic motion with flexion/extension. Osteopenia is present. Soft tissues are unremarkable. Lung apices are clear. Thoracic spine: Osteopenia is noted, limiting examination. There is marked accentuation of thoracic kyphosis of the lower thoracic spine with compression/wedging of the lower thoracic vertebral bodies, chronic in appearance. No definite acute fracture is visualized. Marked lower thoracic disc degeneration is noted. Visualized lungs are clear. Cholecystectomy clips are present. IMPRESSION: 1. Postoperative cervical spine without evidence of dynamic instability. 2. Chronic appearing compression/wedging of lower thoracic vertebral bodies contributing to accentuation of kyphosis. 3. Osteopenia at 043 Reported and signed by: Anatoliy Sung M.D. CC: Ruben Browne M.D. Technologist: RT. Omid(R) Transcribed D/ (3292) [facility]: [facility]OURA [address] [facility]: Ruben Leon MD : 1950 AGE: 70 SEX: F [place], [place] [address] LOC: Y.MRI PHONE #: [phone] EXAM DATE: 05/30/2021 STATUS: DEP CLI FAX #: [phone] RAD #: D/C DT PAGE 1 Signed Report Patient Name: MARYSE MOURA Unit No: [id number] EXAMS: CPT CODE: [id number] XR C-SPINE 4-5 V 02225 <Continued> Orig Print D/T: S: 06/01/2021 (0442) [facility] NAME: MARYSE MOURA [address] [facility] PHYS: Ruben Leon MD : 1950 AGE: 70 SEX: F [place] [address] LOC: Y.MRI PHONE #: [phone] EXAM DATE: 05/30/2021 STATUS: DEP CLI FAX #: [phone] RAD #: D/C DT PAGE 2 Signed Report- MRI C-SPINE W/O [id number] 10:53:00 [facility] 1950 Sex: F Patient Name: MARYSE MOURA Unit No: [id number] EXAMS: CPT CODE: [id number] MRI C-SPINE W/O [id number] TECHNIQUE: Multiplanar, multisequence MRI examination performed of the cervical spine without intravenous contrast material. COMPARISON: CT dated 09/09/2019 FINDINGS: Postoperative changes of C4-C6 ACDF demonstrated. No interbody fusion of C4-C5 is visualized. There is solid interbody fusion at C5- C6 and C6-C7. Interspinous fusion is noted from C4 to C7. Alignment: Grade 1 spondylolisthesis ofC3-C4 and grade 1 retrolisthesis of C4-C5. Bone Lesion / Fracture: None present. Cervical Spinal Cord: No cord expansion or abnormal signal. Prevertebral / Paraspinal Soft Tissues: Unremarkable. C2/3: Broad disc bulge osteophyte complex is noted as well as severe left facet hypertrophy. There is moderate left, mild right foraminal stenosis as well as severe central canal stenosis. C3/4: A large left asymmetric disc bulge ossify complex is demonstrated as well as severe left facet and uncovertebral hypertrophy. There is severe central canal stenosis as well as severe left, moderate right foraminal stenosis. C4/5: Grade 1 retrolisthesis. A left asymmetric disc bulge osteophyte complex is noted as well as marked bilateral uncovertebral hypertrophy. Left-sided facet degeneration is present. There issevere left, moderate to severe right foraminal stenosis as well as severe central canal stenosis. C5/6: Interbody fusion is present as well as bilateral facet joint fusion. No significant foraminal orcentral canal stenosis. C6/7: Interbody fusion is present as well as bilateral facet joint fusion. No foraminal or central canal stenosis. C7/T1: A broad disc bulge osteophyte complex contributes to mild central canal stenosis. Severe bilateral uncovertebral hypertrophy is greater on the left with severe left, moderate to severe right foraminal stenosis. IMPRESSION: Extensive postoperative changes ofthe cervical spine with severe central canal stenosis from C2-C3 to C4-C5. [facility] NAME: MARYSE MOURA [address] [facility] PHYS: Ruben Leon MD : 1950 AGE: 70SEX: F [place], [place] [address] LOC: Y.MRI PHONE #: [phone] EXAM DATE: 05/30/2021 STATUS: REG CLI FAX #: [phone] RAD #: D/C DT PAGE 1 Signed Report (CONTINUED) Patient Name: MARYSE MOURA Unit No: [id number] EXAMS: CPT CODE: [id number] MRI C-SPINE W/O CONT 57259 <Continued> at 1053 Reported and signed by: Anatoliy Sung M.D. CC: Ruben Browne M.D. Technologist: Maribel Medrano, RT(R) Transcribed D/ (1053) [facility] NAME: MARYSE MOURA [address] [place] [address] PHYS: Ruben Leon MD : 1950 AGE: 70 SEX: F [place] [address] LOC: Y.MRI PHONE #: [phone] EXAM DATE: 05/30/2021 STATUS: REG CLI FAX #: [phone] RAD #: D/C DT PAGE 2 Signed Report Patient Name: MARYSE MOURA Unit No: [id number] EXAMS: CPT CODE: [id number] MRI C-SPINE W/O CONT 17553 <Continued> Orig Print D/T: S: 05/30/2021 (1056) [facility] NAME: MARYSE MOURA [address] [facility] PHYS: Ruben Leon MD : 1950 AGE: 70 SEX: F [place] [address] LOC: Y.MRI PHONE #: [phone] EXAM DATE: 05/30/2021 STATUS: REG CLI FAX #: [phone] RAD #: D/C DT PAGE 3 Signed ReportCT Head W/O [id number] 02:46:21No acute intracranial abnormalities. RL: 6190 AFC: [id number] End of report ORDERING CLINICIAN: NETTA CADENA TECHNIQUE: Axial scanning of the brain was performed without IV contrast. CT scan was performed according to the ALARA (as low as reasonablyachievable) principal. INDICATION: Head trauma COMPARISON: None DISCUSSION:There is no intracranial hemorrhage, extra-axial fluid collections, midlineshift or hydrocephalus. There is no loss of the haley-white matterdifferentiation. No mass lesion is identified. There is a small left parietal scalp hematoma. There is no skull fracture. The parenchymal volume is within normal limits for the patient's age. [facility], Radiant Results Inft User - 04/15/2021 9:47 PM CDT ORDERING CLINICIAN: NETTA ESCOBAR: Axial scanning of the brain was performed without IV contrast.CT scan was performed according to the ALARA (as low as reasonablyachievable) principal.INDICATION: Head traumaCOMPARISON: NoneDISCUSSION:There is no intracranial hemorrhage, extra-axial fluid collections, midlineshift or hydrocephalus. There is no loss of the haley-white matterdifferentiation. No mass lesion is identified.There is a small left parietal scalp hematoma. There is no skull fracture.The parenchymal volume is within normal limits for the patient's age.IMPRESSIONNo acute intracranial abnormalities.RL: 6190AFC: 57596Hfg of report [facility] 3 [id number] 02:45:49Impression: 1. No acute fracture or traumatic subluxation.2. Prior cervical fusion at C4-C7, with anterior fusion hardware at C4-C6. RL: 2824 End of Report Electronically signed by Misha Mccord MD at 04/15 9:45 PMExam: Cervical Spine, 04/15/2021 8:45 PM. Ordering Physician: NETTA CADENA. History: Neck pain. Technique: 3 views of the cervical spine. Comparison: None. Findings: Dens is intact. C1-K6uqvzhrjipxuf shows mild degenerative changes. Thereis diffuse osteopenia. Vertebral body heights are maintained. ?There isgrade 1 anterolisthesis of C3 on C4. There are changes of anterior cervicaldiscectomy and fusion at C4-C6. There is solid interbody osseous fusion atC5-C7. Facet and uncovertebral arthrosis are seen at multiple levels.Prevertebral soft tissues are normal. Visualized lungs are clear. [facility], [facility]iant Results Inft User - 04/15/2021 9:46 PM CDTFormatting of this note might be differentfrom the original.Exam: Cervical Spine, 04/15/2021 8:45 PM.Ordering Physician: NETTA CADENA.History: Neck pain.Technique: 3 views of the cervical spine.Comparison: None.Findings: Dens is intact. C1-K7ieieztogatyp shows mild degenerative changes. Thereis diffuse osteopenia. Vertebral body heights are maintained. There isgrade 1 anterolisthesis of C3 on C4. There are changes of anterior cervicaldiscectomy and fusion at C4-C6. There is solid interbody osseous fusion atC5-C7. Facet and uncovertebral arthrosis are seen at multiple levels.Prevertebral soft tissues are normal. Visualized lungs are clear. IMPRESSIONImpression: 1. No acute fracture or traumatic subluxation.2. Prior cervical fusion at C4-C7, with anterior fusion hardware at C4-C6.RL: 2824End of Report [facility] SCAPULA [id number] 02:44:28Impression: No acute osseous abnormality. AFC: 42076VW: 460End of report. Exam: Right scapula, 04/15/2021 8:45 PM. Ordering Physician: NETTA CADENA. History: Pain s/p fall . Technique: Right scapula 2 views Comparison: None. Findings: No acute fracture. No dislocation. Chronic fracture deformity of the right humeral proximal metaphysis andhead. Sclerotic densities and osseous lucencies in the proximal righthumerus are most likely from a chronic healed fracture deformity or lesslikely osseous lesions. Ossific density subjacent to the glenohumeral jointmeasuring 1.8 cm is a possible intra- articular loose body. Diffuseosteopenia. [facility], [facility] Results Inft User - 04/15/2021 9:45 PM CDTFormatting of this note might be different from the origi nal.Exam: Right scapula, 04/15/2021 8:45 PM.Ordering Physician: NETTA CADENA.History: Pain s/p fall.Technique: Right scapula 2 viewsComparison: None.Findings: No acute fracture. No dislocation. Chronic fracture deformity of the right humeral proximal metaphysis andhead. Sclerotic densities and osseous lucencies in the proximal righthumerus are most likely from a chronic healed fracture deformity orlesslikely osseous lesions. Ossific density subjacent to the glenohumeral jointmeasuring 1.8 cm is apossible intra-articular loose body. Diffuseosteopenia.IMPRESSIONImpression: No acute osseous abnormality.AFC: 13304IZ: 460End of report. [facility] RIBS 3 VW [id number] 02:41:50 Impression: No acute intrathoracic disease. No rib fracture. AFC: [id number] 460End of Report Exam: XR RIBS 3 VW RIGHT, 04/15/2021 8:45 PM. Ordering Physician: NETTA CADENA. History: Right rib pain after falling. Technique: AP view of the chest,and 3 views of the right ribs. Comparison: None. Findings: Mild cardiomegaly. COPD. No airspace consolidation, pleural effusion, orpneumothorax. Subcentimeter chronic calcified granuloma in the right lungbase. Minimal chronic scarring in both lung bases. Diffuse osteopenia. Left shoulder arthroplasty.Partially visualizedanterior spinal fusion hardware in the cervical spine. Mild S-shaped curvature of the thoracolumbar spine. Severe levoconvexcurvature of the lumbar spine. No acute osseous abnormality. Chronic fracture deformity of the proximalright humerus. [facility], Radiant Results Inft User - 04/15/2021 9:43 PM CDT Exam: XR RIBS 3 VW RIGHT, 04/15/2021 8:45 PM.Ordering Physician: NETTA CADENA.History: Right rib pain after falling.Technique: AP view of the chest, and 3 views of the right ribs.Comparison: None.Findings: Mild cardiomegaly. COPD. No airspace consolidation, pleural effusion, orpneumothorax. Subcentimeter chronic calcified granuloma in the right lungbase. Minimal chronic scarring in both lung bases.Diffuse osteopenia. Left shoulder arthroplasty. Partially visualizedanterior spinal fusion hardware in the cervical spine. MildS-shaped curvature of the thoracolumbar spine. Severe levoconvexcurvature of the lumbar spine. No acute osseous abnormality. Chronic fracture deformity of the proximalright humerus.IMPRESSIONImpression: No acute intrathoracic disease. No rib fracture.AFC: [id number] 460End of Report [facility] CHEST 1 VW COVID 2020-09-09 04:19:48FINDINGS/IMPRESSION: No focal consolidation, pleural effusion, or pneumothorax. Unchangedreticular densities with a lower lobe predominance. Unchanged mild hilarprominence. Calcified right hilar nodes.The heart is normal in size. Changes of an ACDF are noted in the lower cervical spine. Postoperativechanges of a reverse left shoulder replacement. Unchanged deformity of theright proximal humerus. Preliminary Report Dictated by Resident: Santos Sanchez MD., have reviewed this study and agree withthe above report.PROCEDURE: CHEST XRAY one view, CLINICAL INDICATION: sob COMPARISON: 12/17/2019, 01/29/2019 [facility], Radiant Results Inft User - 09/08/2020 10:20 PM CSTPROCEDURE: CHESTXRAY one view, CLINICAL INDICATION: sob COMPARISON: 12/17/2019, 01/29/2019IMPRESSIONFINDINGS/IMPRESSION:No focal consolidation, pleural effusion, or pneumothorax. Unchangedreticular densities with a lowerlobe predominance. Unchanged mild hilarprominence. Calcified right hilar nodes.The heart is normal in size.Changes of an ACDF are noted in the lower cervical spine. Postoperativechanges of a reverse left shoulder replacement. Unchanged deformity of theright proximal humerus.Preliminary Report Dictatedby Resident: Santos Holguin MD., have reviewed this study and agree withtheabove report.[facility]manURINALYSIS2020-11-27 04:16:00 Test Item Value Reference Range Interpretation Comments APPEARANCE (test code = Clear Clear 7996074302) COLOR (test code = Yellow Yellow 7765777636) PH (test code = 4.8-8.0 8992865006) SP GRAVITY (test code = 1.003-1.030 2559559813) GLU U QUAL (test code = Normal Normal 9991734689) BLOOD (test code = Negative Negative 2042902103) KETONES (test code = Negative Negative 1735206543) PROTEIN (test code = Negative Negative 2887-8) UROBILIN (test code = Normal Normal 2467229268) BILIRUBIN (test code = Negative Negative 9615580215) NITRITE (test code = Negative Negative 3654957492) LEUK ALOK (test code = Negative Negative 9065020129) RBC/HPF (test code = <1 See_Comment [Autom ated message] 9989782719) The system [employer] generated this result transmitted ref erence range: 0 - 3 HP F. The reference range was not used to int erpret this result as normal/abnormal . WBC/HPF (test code = <1 See_Comment [Autom ated message] 4362325797) The system [employer] generated this result transmitted ref erence range: 0 - 5 HP F. The reference range was not used to int erpret this result as normal/abnormal . BACTERIA (test code = Negative Negative 8771054144) Lab Interpretation (test Normal code = 33997-1) [facility]manCOVID-19 (ID NOW RAPID TESTING)2020-09-09 03:44:00 Test Item Value Reference Range Interpretation Comments SARS-CoV-2 Rapid ID NOW Not Detected Not Detected (test code = 13384-9) [place] (test code = [place]) ID NOW COVID-19 Assay is an isothermal nucleic acid amplification test intended for the qualitative detection of nucleic acid from SARS-CoV-2 viral RNA in nasopharyngeal (ADULT SCHOOL TEACHER) specimens. It is used under Emergency Use Authorization (EUA) by FDA. The limit of detection (LOD) of the assay is 125 Genome Equivalents/mL. A positive result is indicative of the presence of SARS-CoV-2 RNA. ?Clinical correlation with patient history and other diagnostic information is necessary to determine patient infection status. A negative (Not Detected) result does not preclude SARS-CoV-2 infection. In patients with clinical symptoms and other tests that are consistent with SARS-CoV-2 infection, negative results should be treated as presumptive negative and a new specimen should be tested with alternative PCR molecular test. Invalid: Please collect a new specimen for repeat patient testing if clinically indicated. Lab Interpretation Normal (test code = 80210-6) [facility]manTROPONIN [id number] 03:39:00 Test Item Value Reference Range Interpretation Comments TROPONIN I (test <0.012 See_Comment [Automated code = 9190695211) message] The system which generated this result transmitted reference range : <=0.034 ng/mL. The reference range was not used to interpr et this result as normal/abnormal . [place] (test code = Equal or Less than [place]) 0.034 ng/ml---Normal ?Note: Cardiac troponin begins to rise 3-4 hours after the onset of ischemia. Repeat in 4-6 hours if the sample was drawn within 3-4 hours of the onset of the symptom and found normal. Between 0.035 and 0.120 ng/mL--- Borderline. Questionable myocardial injury or necrosis ? ?Note: Serial measurement may be necessary to confirm or exclude the diagnosis of myocardial injury or necrosis; Clinical correlation (symptoms, EKGs, imaging studies, and others) required; Repeat in 4-6 hours if clinically indicated. ? Equal or Higher than 0.121 ng/mL---Abnormal. Myocardial Injury or Necrosis Likely ? Biotin has been reported to cause a negative bias, interpret results relative to patient's use of biotin. ? Lab Interpretation Normal (test code = 03865-7) [facility]manN-TERMINAL [id number] 03:36:00 Test Item Value Reference Range Interpretation Comments NT-proBNP (test code 478 pg/mL See_Comment H [Autom ated = 4304634447) message] The system which generated this result transmitted reference range : <=125. The reference range was not used to interpret this result as normal/abnormal . [place] (test code = [place]) Biotin has been reported to cause a negative bias, interpret results relative to patient's use of biotin. Lab Interpretation Abnormal (test code = 03106-5) [facility] ([facility]56[facility]2020-[facility]-09 03:27:00 Test Item Value Reference Range Interpretation Comments NA (test code = 138 mmol/L 135-145 1907917205) K (test code = 3.8 mmol/L 3.5-5 8348733842) CL (test code = 106 mmol/L 98-108 0392489208) CO2 TOTAL (test code = 25 mmol/L 23-31 0350662147) AGAP (test code = 2-16 7742275119) BUN (test code = 11 mg/dL 7-23 9335554276) GLUCOSE (test code = 136 mg/dL 70-110 H 4780735499) CREATININE (test code = 0.74 mg/dL 0.5-1.04 1448731667) TOTAL BILI (test code = 0.4 mg/dL 0.1-1.7 6826154871) CALCIUM (test code = 8.9 mg/dL 8.6-10.6 3403624325) T PROTEIN (test code = 6.2 g/dL 6.3-8.2 L 4478627245) ALBUMIN (test code = 3.7 g/dL 3.5-5 3982937887) ALK PHOS (test code = 66 U/L 34-122 1483777930) ALTv (test code = 9 U/L 5-35 1742-6) AST(SGOT) (test code = 18 U/L 13-40 5166013838) eGFR Calculation mL/min/1.73m2 (Non-) (test code = 4649438932) eGFR Calculation mL/min/1.73m2 () (test code = 3085742491) [place] (test code = [place]) Association of Glomerular Filtration Rate (GFR) and Staging of Kidney Disease* + --+ --+ ------+| GFR (mL/min/1.73 m2) ?| With Kidney Damage ?| ?Without Kidney Damage+ --------+ --------+ +| ?>90 ?| ?Stage one ?| ? Normal ?+ ---+ ---+ -------+| ?60-89 ?| ?Stage two ?| ? Decreased GFR ? + --+ --+ ------+| ?30-59 ?| ?Stage three ?| ? Stage three ? + --+ --+ ------+| ?15-29 ?| ?Stage four ? | ? Stage four ?+ ---+ ---+ -------+| ?<15 (or dialysis) ? ?| ?Stage five ? | ? Stage five ?+ ---+ ---+ -------+ *Each stage assumes the associated GFR level has been in effect for at least three months. ?Stages 1 to 5, with or without kidney disease, indicate chronic kidney disease. Notes: Determination of stages one and two (with eGFR >59mL/min/1.73 m2) requires estimation of kidney damage for at least three months as defined by structural or functional abnormalities of the kidney, manifested by either:Pathological abnormalities or Markers of kidney damage (including abnormalities in the composition of the blood or urine or abnormalities in imaging tests). Lab Interpretation Abnormal (test code = 64493-2) [facility] WITH [id number] 03:12:00 Test Item Value Reference Range Interpretation Comments WBC (test code = See_Comment [Automated message] 6690-2) The system [employer] generated this result transmitted ref erence range: 4.30 - 1 1.10 10*3/?L. The re ference range was not u sed to interpret this result as normal/abnor mal. RBC (test code = See_Comment [Automated message] 789-8) The system [employer] generated this result transmitted ref erence range: 3.93 - 5 .25 10*6/?L. The re ference range was not u sed to interpret this result as normal/abnor mal. HGB (test code = 11.6 g/dL 11.6-15 718-7) HCT (test code = 35.7 % 35.7-45.2 4544-3) MCV (test code = 86.2 fL 80.6-95.5 787-2) MCH (test code = 28.0 pg 25.9-32.8 785-6) MCHC (test code = 32.5 g/dL 31.6-35.1 786-4) RDW-SD (test code 47.8 fL 39-49.9 = 59016-7) RDW-CV (test code 15.2 % 12-15.5 = 788-0) PLT (test code = See_Comment [Automated message] 777-3) The system whic h generated this result transmitted ref erence range: 166 - 35 8 10*3/?L. The re ference range was not u sed to interpret this result as normal/abnor mal. MPV (test code = 9.9 fL 9.5-12.9 98250-2) NRBC/100 WBC (test See_Comment [Automat ed message] code = 2178217331) The syste m which generated this result transmitted ref erence range: 0.0 - 10 .0 /100 WBCs. The refer ence range was not u sed to interpret this result as normal/abnor mal. NRBC x10^3 (test <0.01 See_Comment [Automated message] code = 0857111696) The syste m which generated this result transmitted ref erence range: 10*3/?L. The reference range was not used to interpr et this result as normal/abnormal . GRAN MAT (NEUT) % 54.5 % (test code = 770-8) IMM GRAN % (test 0.20 % code = 2192669533) LYMPH % (test code 33.8 % = 736-9) MONO % (test code 6.5 % = 5905-5) EOS % (test code = 4.2 % 713-8) BASO % (test code 0.8 % = 706-2) GRAN MAT 2.84 10*3/uL 1.88-7.09 x10^3(ANC) (test code = 7391387717) IMM GRAN x10^3 <0.03 0-0.06 (test code = 1094965155) LYMPH x10^3 (test 1.76 10*3/uL 1.32-3.29 code = 731-0) MONO x10^3 (test 0.34 10*3/uL 0.33-0.92 code = 742-7) EOS x10^3 (test 0.22 10*3/uL 0.03-0.39 code = 711-2) BASO x10^3 (test 0.04 10*3/uL 0.01-0.07 code = 704-7) [facility] WITH [id number] 15:00:00 Test Item Value Reference Range Interpretation Comments WBC (test code = See_Comment L [Automated 6690-2) message] The sy stem which generated this result transmitted reference range : 4.30 - 11.10 10*3/?L. The reference range was not used to interpret this result as normal/abnormal . RBC (test code = See_Comment [Automated 789-8) message] The sy stem which generated this result transmitted reference range : 3.93 - 5.25 10*6/?L. The reference range was not used to interpret this result as normal/abnormal . HGB (test code = 12.8 g/dL 11.6-15 718-7) HCT (test code = 38.2 % 35.7-45.2 4544-3) MCV (test code = 91.6 fL 80.6-95.5 787-2) MCH (test code = 30.7 pg 25.9-32.8 785-6) MCHC (test code = 33.5 g/dL 31.6-35.1 786-4) RDW-SD (test code = 48.6 fL 39-49.9 19282-8) RDW-CV (test code = 14.4 % 12-15.5 788-0) PLT (test code = See_Comment L [Automated 777-3) message] The sy stem which generated this result transmitted reference range : 166 - 358 10*3/ ?L. The reference r xiomara was not used to interpret this result as normal/abnormal . MPV (test code = 9.5 fL 9.5-12.9 11375-1) NRBC/100 WBC (test See_Comment [Automat ed code = 6027662333) message] The system which generated this result transmitted reference range : 0.0 - 10.0 /100 WBCs. The refer ence range was not u sed to interpret th is result as normal/abnormal . NRBC x10^3 (test code <0.01 See_Comment [Auto mated = [id number]) message] The s ystem which generated this result transmitted reference range : 10*3/?L. The reference range was not used to interpret this result as normal/abnormal . GRAN MAT (NEUT) % 39.4 % (test code = 770-8) IMM GRAN % (test code 0.30 % = 9521706112) LYMPH % (test code = 48.7 % 736-9) MONO % (test code = 7.2 % 5905-5) EOS % (test code = 3.6 % 713-8) BASO % (test code = 0.8 % 706-2) GRAN MAT x10^3(ANC) 1.54 10*3/uL 1.88-7.09 L (test code = 1166051842) IMM GRAN x10^3 (test <0.03 0-0.06 code = 3341916788) LYMPH x10^3 (test code 1.90 10*3/uL 1.32-3.29 = 731-0) MONO x10^3 (test code 0.28 10*3/uL 0.33-0.92 L = 742-7) EOS x10^3 (test code = 0.14 10*3/uL 0.03-0.39 711-2) BASO x10^3 (test code 0.03 10*3/uL 0.01-0.07 = 704-7) Lab Interpretation Abnormal (test code = 04699-4) [facility] [id number] 11:13:00 Test Item Value Reference Range Interpretation Comments TROPONIN I (test 0.002 ng/mL See_Comment [Automated code = 9672030212) message] The system which generated this result transmitted reference range : <=0.034. The reference range was not used to interpret this result as normal/abnormal . [place] (test code = Equal or Less than [place]) 0.034 ng/ml---Normal ?Note: Cardiac troponin begins to rise 3-4 hours after the onset of ischemia. Repeat in 4-6 hours if the sample was drawn within 3-4 hours of the onset of the symptom and found normal. Between 0.035 and 0.120 ng/mL--- Borderline. Questionable myocardial injury or necrosis ? ?Note: Serial measurement may be necessary to confirm or exclude the diagnosis of myocardial injury or necrosis; Clinical correlation (symptoms, EKGs, imaging studies, and others) required; Repeat in 4-6 hours if clinically indicated. ? Equal or Higher than 0.121 ng/mL---Abnormal. Myocardial Injury or Necrosis Likely ? Biotin has been reported to cause a negative bias, interpret results relative to patient's use of biotin. ? Lab Interpretation Normal (test code = 12186-7) [facility] (NA, K, CL, CO2, GLUCOSE, BUN, CREATININE, CA)2019-12-18 11:01:00 Test Item Value Reference Range Interpretation Comments NA (test code = 137 mmol/L 135-145 0756492226) K (test code = 4.3 mmol/L 3.5-5 7964828541) CL (test code = 105 mmol/L 98-108 9210608666) CO2 TOTAL (test code = 29 mmol/L 23-31 5364093507) AGAP (test code = 2-16 4544322672) BUN (test code = 12 mg/dL 7-23 8499202920) GLUCOSE (test code = 85 mg/dL 70-110 1375653622) CREATININE (test code 0.94 mg/dL 0.5-1.04 = 9667571044) CALCIUM (test code = 8.9 mg/dL 8.6-10.6 0685897244) eGFR Calculation mL/min/1.73m2 (Non-) (test code = 1391531135) eGFR Calculation mL/min/1.73m2 () (test code = 4501290506) [place] (test code = [place]) Association of Glomerular Filtration Rate (GFR) and Staging of Kidney Disease* + -+ + ---+| GFR (mL/min/1.73 m2) ?| With Kidney Damage ?| ?Without Kidney Damage+ -------+ ------+ ---------+| ?>90 ?| ?Stage one ?| ? Normal ?+ --+ -+ ----+| ?60-89 ?| ?Stage two ?| ? Decreased GFR ? + -+ + ---+| ?30-59 ?| ?Stage three ?| ? Stage three ? + -+ + ---+| ?15-29 ?| ?Stage four ? | ? Stage four ?+ --+ -+ ----+| ?<15 (or dialysis) ? ?| ?Stage five ? | ? Stage five ?+ --+ -+ ----+ *Each stage assumes the associated GFR level has been in effect for at least three months. ?Stages 1 to 5, with or without kidney disease, indicate chronic kidney disease. Notes: Determination of stages one and two (with eGFR >59mL/min/1.73 m2) requires estimation of kidney damage for at least three months as defined by structural or functional abnormalities of the kidney, manifested by either:Pathological abnormalities or Markers of kidney damage (including abnormalities in the composition of the blood or urine or abnormalities in imaging tests). [facility] [id number] 05:54:00 Test Item Value Reference Range Interpretation Comments TROPONIN I (test 0.003 ng/mL See_Comment [Automated code = 4625409002) message] The system which generated this result transmitted reference range : <=0.034. The reference range was not used to interpret this result as normal/abnormal . [place] (test code = Equal or Less than [place]) 0.034 ng/ml---Normal ?Note: Cardiac troponin begins to rise 3-4 hours after the onset of ischemia. Repeat in 4-6 hours if the sample was drawn within 3-4 hours of the onset of the symptom and found normal. Between 0.035 and 0.120 ng/mL--- Borderline. Questionable myocardial injury or necrosis ? ?Note: Serial measurement may be necessary to confirm or exclude the diagnosis of myocardial injury or necrosis; Clinical correlation (symptoms, EKGs, imaging studies, and others) required; Repeat in 4-6 hours if clinically indicated. ? Equal or Higher than 0.121 ng/mL---Abnormal. Myocardial Injury or Necrosis Likely ? Biotin has been reported to cause a negative bias, interpret results relative to patient's use of biotin. ? Lab Interpretation Normal (test code = 67887-8) [facility] [id number] 01:25:00 Test Item Value Reference Range Interpretation Comments MAGNESIUM (test code = 7225045440) 2.0 mg/dL 1.7-2.4 Lab Interpretation (test code = Normal 08329-6) [facility] [id number] 22:42:00 Test Item Value Reference Range Interpretation Comments TROPONIN I (test 0.003 ng/mL See_Comment [Automated code = 8933450738) message] The system which generated this result transmitted reference range : <=0.034. The reference range was not used to interpret this result as normal/abnormal . [place] (test code = Equal or Less than [place]) 0.034 ng/ml---Normal ?Note: Cardiac troponin begins to rise 3-4 hours after the onset of ischemia. Repeat in 4-6 hours if the sample was drawn within 3-4 hours of the onset of the symptom and found normal. Between 0.035 and 0.120 ng/mL--- Borderline. Questionable myocardial injury or necrosis ? ?Note: Serial measurement may be necessary to confirm or exclude the diagnosis of myocardial injury or necrosis; Clinical correlation (symptoms, EKGs, imaging studies, and others) required; Repeat in 4-6 hours if clinically indicated. ? Equal or Higher than 0.121 ng/mL---Abnormal. Myocardial Injury or Necrosis Likely ? Biotin has been reported to cause a negative bias, interpret results relative to patient's use of biotin. ? Lab Interpretation Normal (test code = 09988-8) [facility] / [id number] 22:32:00 Test Item Value Reference Range Interpretation Comments PROTIME PATIENT (test See_Comment [Auto mated message] code = 5964-2) The system [employer] ich generated this result transmitted ref erence range: 12.0 - 1 4.7 Seconds. The re ference range was not u sed to interpret this result as normal/abnor mal. INR (test code = 6301-6) Nor mal INR <1.1; Warfarin Therap eutic range 2.0 to 3. 0 or 2.5 to 3.5, dep ending upon the indica tions. Lab Interpretation (test Normal code = 18710-1) [facility] METABOLIC PANEL (56715)2019-12-17 22:32:00 Test Item Value Reference Range Interpretation Comments NA (test code = 134 mmol/L 135-145 L 3389938133) K (test code = 4.4 mmol/L 3.5-5 3812843671) CL (test code = 104 mmol/L 98-108 7834766111) CO2 TOTAL (test code = 24 mmol/L 23-31 1662583843) AGAP (test code = 2-16 0476561250) BUN (test code = 12 mg/dL 7-23 6841024038) GLUCOSE (test code = 81 mg/dL 70-110 6255797124) CREATININE (test code = 0.65 mg/dL 0.5-1.04 9902636641) TOTAL BILI (test code = 0.3 mg/dL 0.1-1.4 5619026156) CALCIUM (test code = 8.9 mg/dL 8.6-10.6 9625400439) T PROTEIN (test code = 6.5 g/dL 6.3-8.2 0822661891) ALBUMIN (test code = 4.0 g/dL 3.5-5 3001167393) ALK PHOS (test code = 58 U/L 34-122 6916489268) ALTv (test code = 8 U/L 5-35 1742-6) AST(SGOT) (test code = 19 U/L 13-40 8273656861) eGFR Calculation mL/min/1.73m2 (Non-) (test code = 2425876653) eGFR Calculation mL/min/1.73m2 () (test code = 7559689656) [place] (test code = [place]) Association of Glomerular Filtration Rate (GFR) and Staging of Kidney Disease* + --+ --+ ------+| GFR (mL/min/1.73 m2) ?| With Kidney Damage ?| ?Without Kidney Damage+ --------+ --------+ +| ?>90 ?| ?Stage one ?| ? Normal ?+ ---+ ---+ -------+| ?60-89 ?| ?Stage two ?| ? Decreased GFR ? + --+ --+ ------+| ?30-59 ?| ?Stage three ?| ? Stage three ? + --+ --+ ------+| ?15-29 ?| ?Stage four ? | ? Stage four ?+ ---+ ---+ -------+| ?<15 (or dialysis) ? ?| ?Stage five ? | ? Stage five ?+ ---+ ---+ -------+ *Each stage assumes the associated GFR level has been in effect for at least three months. ?Stages 1 to 5, with or without kidney disease, indicate chronic kidney disease. Notes: Determination of stages one and two (with eGFR >59mL/min/1.73 m2) requires estimation of kidney damage for at least three months as defined by structural or functional abnormalities of the kidney, manifested by either:Pathological abnormalities or Markers of kidney damage (including abnormalities in the composition of the blood or urine or abnormalities in imaging tests). Lab Interpretation Abnormal (test code = 09891-3) [facility], [id number] 22:32:00 Test Item Value Reference Range Interpretation Comments LIPASE (test code = 4158500884) 111 U/L 0-220 Lab Interpretation (test code = Normal 80353-1) [facility]man[facility]PTT2020-03-05 22:31:00 Test Item Value Reference Range Interpretation Comments APTT Patient (test See_Comment [Automat ed code = 3173-2) message] The system which generated this result transmitted reference range : 23 - 38 Seconds . The reference range was not used to interpr et this result as normal/abnormal . [place] (test code = [place]) [facility] patient population mean normal value for aPTT is 30 seconds. Lab Interpretation Normal (test code = 05878-8) [facility]man[facility] WITH [id number] 22:24:00 Test Item Value Reference Range Interpretation Comments WBC (test code = See_Comment [Automated message] 6690-2) The system [employer] generated this result transmitted ref erence range: 4.30 - 1 1.10 10*3/?L. The re ference range was not u sed to interpret this result as normal/abnor mal. RBC (test code = See_Comment [Automated message] 789-8) The system [employer] generated this result transmitted ref erence range: 3.93 - 5 .25 10*6/?L. The re ference range was not u sed to interpret this result as normal/abnor mal. HGB (test code = 13.5 g/dL 11.6-15 718-7) HCT (test code = 41.0 % 35.7-45.2 4544-3) MCV (test code = 91.7 fL 80.6-95.5 787-2) MCH (test code = 30.2 pg 25.9-32.8 785-6) MCHC (test code = 32.9 g/dL 31.6-35.1 786-4) RDW-SD (test code 48.0 fL 39-49.9 = 81132-5) RDW-CV (test code 14.1 % 12-15.5 = 788-0) PLT (test code = See_Comment [Automated message] 777-3) The system [employer] generated this result transmitted ref erence range: 166 - 35 8 10*3/?L. The re ference range was not u sed to interpret this result as normal/abnor mal. MPV (test code = 9.8 fL 9.5-12.9 22608-0) NRBC/100 WBC (test See_Comment [Automat ed message] code = 0569589460) The syste m which generated this result transmitted ref erence range: 0.0 - 10 .0 /100 WBCs. The refer ence range was not u sed to interpret this result as normal/abnor mal. NRBC x10^3 (test <0.01 See_Comment [Automated message] code = 2650726659) The syste m which generated this result transmitted ref erence range: 10*3/?L. The reference range was not used to interpr et this result as normal/abnormal . GRAN MAT (NEUT) % 50.7 % (test code = 770-8) IMM GRAN % (test 0.20 % code = 3070853933) LYMPH % (test code 37.9 % = 736-9) MONO % (test code 6.8 % = 5905-5) EOS % (test code = 3.4 % 713-8) BASO % (test code 1.0 % = 706-2) GRAN MAT 2.54 10*3/uL 1.88-7.09 x10^3(ANC) (test code = 6453946054) IMM GRAN x10^3 <0.03 0-0.06 (test code = 1473230895) LYMPH x10^3 (test 1.90 10*3/uL 1.32-3.29 code = 731-0) MONO x10^3 (test 0.34 10*3/uL 0.33-0.92 code = 742-7) EOS x10^3 (test 0.17 10*3/uL 0.03-0.39 code = 711-2) BASO x10^3 (test 0.05 10*3/uL 0.01-0.07 code = 704-7) [facility] 2 [id number] 22:07:58HISTORY: ?Chest pain. TECHNIQUE: PA and lateral views of the chest are obtained. Comparison ismade with portable study dated 01/29/2019. FINDINGS: No acute pneumonia detected. No pneumothorax or pleuraleffusionor pulmonary congestion. Cardiothoracic ratio of approximately 12.6/26.2 cmis consistent with normal cardiac size. Calcified granuloma in the rightupper lung and calcification in the right perihilar lymph nodes noted,likely secondary to remote granulomatous infection. Mild generalizedobstructive lung disease suspected. Artificial left glenohumeral joint replacement, lower cervical ACDFsurgery, deformed proximal shaft of the right humerus and degenerativearthritis of right glenohumeral joint noted. Thoracolumbar kyphoscoliosisand lower thoracic and/upper lumbar degenerative spondylosis noted. CONCLUSIONS: No signs of acute cardiopulmonary disease.[facility], Radiant Results Inft User - 12/17/20194:09 PM CSTHISTORY: Chest pain.TECHNIQUE: PA and lateral views of the chest are obtained. Comparisonismade with portable study dated 01/29/2019.FINDINGS: No acute pneumonia detected. No pneumothorax orpleural effusionor pulmonary congestion. Cardiothoracic ratio of approximately 12.6/26.2 cmis consistent with normal cardiac size. Calcified granuloma in the rightupper lung and calcification in the right perihilar lymph nodes noted,likely secondary to remote granulomatous infection. Mild generalizedobstructive lung disease suspected.Artificial left glenohumeral joint replacement, lower cervical ACDFsurgery, deformed proximal shaft of the right humerus and degenerativearthritis of right glenohumeraljoint noted. Thoracolumbar kyphoscoliosisand lower thoracic and/upper lumbar degenerative spondylosis noted.CONCLUSIONS: No signs of acute cardiopulmonary disease. [facility] N[facility]K [id number] 13:47:00 Name: MARYSE MOURA [facility] : 1950 Age/S: 68 / F [address] Unit #: [id number] Loc: [place] [address] Phys: Todd Ruffin III, MD Acct: [id number] Dis Date: Status: REG CLI PHONE #: [phone] Exam Date: 09/09/2019 1257 FAX #: Reason: MALIGNANT NEOPLASM EXAMS: CPT: [id number] CT NECK W/CONTRAST [address] CT neck with contrast. Location: B2 Clinical indication: 68-ye ar-old with malignant thyroid neoplasm Comparison: None Technique: [...] Rutledge, RT(R)(CT)(MRI) CTDI: DLP: Trnscb Date/Time: 09/09/2019 (1347) tLUIS [email or web address].[email or web address] Orig Print D/T: S: 09/09/2019 (2419) PAGE 1 Signed [id number] 12:06:00 Test Item Value Reference Range Interpretation Comments ISTAT-GLUCOSE (test code = GLUP) 95 mg/dL 70-105 N [id number] 12:06:00 Test Item Value Reference Range Interpretation Comments ISTAT-BUN (test code = BUNP) mg/dL 8-26 BEDSIDE [id number] 12:06:00 Test Item Value Reference Range Interpretation Comments BEDSIDE CREATININE (test code = mg/dL 0.6-1.3 CREATBED) [id number] 12:06:00 Test Item Value Reference Range Interpretation Comments ISTAT-GLUCOSE (test code = GLUP) 95 mg/dL 70-105 N [id number] 12:06:00 Test Item Value Reference Range Interpretation Comments ISTAT-BUN (test code = BUNP) 6 mg/dL 8-26 L BEDSIDE [id number] 12:06:00 Test Item Value Reference Range Interpretation Comments BEDSIDE CREATININE (test code = mg/dL 0.6-1.3 CREATBED) [id number] 12:06:00 Test Item Value Reference Range Interpretation Comments ISTAT-GLUCOSE (test code = GLUP) 95 mg/dL 70-105 N [id number] 12:06:00 Test Item Value Reference Range Interpretation Comments ISTAT-BUN (test code = BUNP) 6 mg/dL 8-26 L BEDSIDE [id number] 12:06:00 Test Item Value Reference Range Interpretation Comments BEDSIDE CREATININE (test code = 0.6 mg/dL 0.6-1.3 N CREATBED)
[2022-12-06 13:47] LABS: Absolute Lymphocytes (CBC) 1.2 K/uL (0.7-4.9); Lymphocytes % 22.4 % (15.3-44.8); MCV 85.7 fL (80-100); MPV 7.1 fL (7.6-11.3); RBC Red Blood Cell Count 4.55 M/uL (3.86-4.86)
--- NOTE | 2022-12-06 14:17 | RAD REPORT ---
EXAM DESCRIPTION: RAD - Chest Single View - 12/06/2022 2:02 pm CLINICAL HISTORY: generalized weakness COMPARISON: Chest Pa And Lat (2 Views) dated 02/26/2022; Chest Pa And Lat (2 Views) dated 08/09/2020; Chest Single View dated 07/26/2020; Chest Pa And Lat (2 Views) dated 03/18/2019 FINDINGS: Lines: None. Lungs: No evidence of edema or pneumonia. Pleural: No significant pleural effusions or pneumothorax. Cardiac: The heart size is within normal limits. Mediastinum: Within normal limits. Bones: No acute fractures. Left shoulder arthroplasty. ACDF in the cervical spine. Deformity at the r ight proximal humerus which is chronic. Other: None IMPRESSION: No acute cardiopulmonary disease.
[2022-12-06 14:50] LABS: Potassium 3.7 mmol/L (3.5-5.1); Troponin High Sensitivity 5.2 pg/mL (<58.9)
[2022-12-06] MEDS ORDERED: Ringers Lactate 1,000 ML IV ONE (15:42)
[2022-12-06 16:28] LABS: Urine Blood Negative (Negative); Urine Glucose Negative (Negative); Urine Protein Negative (Negative)
[2022-12-06 16:40] LABS: Specific Gravity 1.021 (1.005-1.030); Urine Bacteria <20 /HPF (<20); Urine Bilirubin NEGATIVE (Negative); Urine Blood Negative (Negative); Urine Clarity Clear (Clear); Urine Color Yellow (Yellow); Urine Crystals Unidentified Few /HPF (None Seen); Urine Glucose NEGATIVE (Negative); Urine Mucus Slight /HPF (None Seen); Urine Protein NEGATIVE (Negative); Urine RBC <5 /HPF (None Seen); Urine Urobilinogen 1+ (Normal)
--- NOTE | 2022-12-06 17:14 | EDPHYS ---
Physician Documentation [facility] Name: Lidya Moura Age: 72 yrs Sex: Female : 1950 Arrival Date: 12/06/2022 Time: 12:47 Bed 18 Private MD: Hermes Ortega T ED Physician Eric Salvador HPI: 12/06 13:49 This 72 yrs old Female presents to ER via Wheelchair with complaints of General ms3 Weakness. 13:49 72-year-old female with past medical history of back problems, anemia, hypertension, ms3 thyroid cancer presents for feeling sick for 4 days. Patient describes her symptoms as being generalized weak. Patient noted it was difficult to walk. Patient endorses nausea and vomiting. Patient states she feels like she could possibly be developing diarrhea. Patient was seen on November 26 in the [place] emergency department and was given 2 bags of IV fluids as she was found to be dehydrated. Patient states she felt better after this time; however, her symptoms have returned 4 days ago. Patient took her blood pressure this morning and noted to be 177/107 with a heart rate of 110. Patient denies pain at this time.. Historical: - Allergies: 12:58 Levofloxacin; ss 12:58 Nembutal Sodium; ss - PMHx: 12:58 Back pain; Hypertension; THYROID CANCER; ss - PSHx: 12:58 Umbilical hernia; Hiatal Hernia; Back sx; ss - Immunization history:: Client reports receiving the 2nd dose of the Covid vaccine. - Social history:: Smoking status: Patient/guardian denies using tobacco, but has a distant history of tobacco abuse. ROS: 13:49 Neck: Negative for injury, pain, and swelling, Cardiovascular: Negative for chest pain, ms3 and palpitations. Respiratory: Negative for shortness of breath, cough, wheezing, and pleuritic chest pain, Abdomen/GI: Negative for abdominal pain, nausea, vomiting, diarrhea, and constipation. 13:49 : Negative for injury, bleeding, discharge, and swelling. 13:49 Constitutional: Positive for fatigue. 13:49 MS/extremity: Positive for Generalized weakness. 13:49 All other systems are negative. Exam: 13:49 Constitutional: This is a well developed, well nourished patient who is awake, alert, ms3 and in no acute distress. Head/Face: Normocephalic, atraumatic. Neck: Trachea midline, no cervical lymphadenopathy. Supple, full range of motion without nuchal rigidity, or vertebral point tenderness. No Meningismus. Chest/axilla: Normal chest wall appearance and motion. Nontender with no deformity. Cardiovascular: Regular rate and rhythm with a normal S1 and S2. No gallops, murmurs, or rubs. Normal PMI, no JVD. No pulse deficits. Respiratory: Lungs have equal breath sounds bilaterally, clear to auscultation and percussion. No rales, rhonchi or wheezes noted. No increased work of breathing, no retractions or nasal flaring. Abdomen/GI: Soft, non-tender, with normal bowel sounds. No distension or tympany. No guarding or rebound. No evidence of tenderness throughout. Skin: Warm, dry with normal turgor. Normal color with no rashes, no lesions, and no evidence of cellulitis. MS/ Extremity: Pulses equal, no cyanosis. Neurovascular intact. Full, normal range of motion. 15:43 ECG was reviewed by the Attending Physician. ms3 Vital Signs: 12:56 Pulse 92; Resp 16; Temp 97.5(TE); Pulse Ox 98% on R/A; Weight 72.57 kg; Height 5 ft. 3 ss in. (160.02 cm); Pain 0/10; 12:59 BP 116 / 80; ss 14:26 Pulse 65; Resp 18; Pulse Ox 97% ; ap3 17:01 BP 155 / 89; Pulse 70; Resp 18; Pulse Ox 100% ; ap3 12:56 Body Mass Index 28.34 (72.57 kg, 160.02 cm) ss MDM: 12:56 Patient medically screened. ms3 13:49 Differential Diagnosis Acute coronary syndrome versus electrolyte abnormality versus ms3 pneumonia versus UTI versus dehydration versus viral illness. 18:37 Data reviewed: vital signs, nurses notes, lab test result(s), radiologic studies, plain ms3 films, and as a result, I will discharge patient. Independent interpretation of the following test(s) in the Emergency Department X-Ray: My interpretation is CXR image reviewed by me: Negative. Counseling: I had a detailed discussion with the patient and/or guardian regarding: the historical points, exam findings, and any diagnostic results supporting the discharge/admit diagnosis, lab results, radiology results, the need for outpatient follow up, to return to the emergency department if symptoms worsen or persist or if there are any questions or concerns that arise at home. ED course: Discussed labs, imaging with patient. Patient states she has an appointment with her primary care physician tomorrow. All questions were answered. Return precautions discussed include fevers, chest pain, shortness of breath, worsening symptoms, or any other concerns. On reevaluation patient states she is improved, alert and oriented x4, no apparent distress, nontoxic, ambulatory in the emergency department.. 12/06 12:58 Order name: Basic Metabolic Panel 12/06 12:58 Order name: CBC with Diff 12/06 12:58 Order name: Magnesium 12/06 12:58 Order name: Troponin HS 12/06 12:58 Order name: Urinalysis 12/06 13:53 Order name: CBC with Automated Diff; Complete Time: 14:16 ED12/06 12:58 Order name: XRAY Chest (1 view) 12/06 14:17 Order name: RAD; Complete Time: 15:25 ED12/06 14:50 Order name: Basic Metabolic Panel; Complete Time: 15:25 ED12/06 14:50 Order name: Troponin High Sensitivity; Complete Time: 15:25 ED12/06 14:50 Order name: Magnesium; Complete Time: 15:25 ED12/06 16:28 Order name: Urine Dipstick-Ancillary; Complete Time: 17:08 12/06 16:41 Order name: Urinalysis; Complete Time: 17:08 12/06 12:58 Order name: EKG; Complete Time: 12:58 12/06 12:58 Order name: Cardiac monitoring; Complete Time: 15:03 12/06 12:58 Order name: EKG - Nurse/Tech; Complete Time: 15:03 12/06 12:58 Order name: IV Saline Lock; Complete Time: 13:47 12/06 12:58 Order name: Labs collected and sent; Complete Time: 13:47 12/06 12:58 Order name: O2 Per Protocol; Complete Time: 13:47 12/06 12:58 Order name: O2 Sat Monitoring; Complete Time: 13:47 12/06 12:58 Order name: Urine Dipstick-Ancillary (obtain specimen); Complete Time: 16:26 ms3 12/06 13:52 Order name: Labs - recollect needed: recollect green top please; Complete Time: 14:12 em1 EC:43 Rate is 63 beats/min. Rhythm is regular. QRS [place]abel is Normal. VT interval is normal. QRS ms3 interval is normal. Clinical impression: Normal ECG. Interpreted by me. Reviewed by me. Administered Medications: 15:48 Drug: Lactated Ringers Solution 1000 ml Route: IV; Rate: 1000 bolus; Site: right ap3 antecubital; 17:35 Follow up: IV Status: Completed infusion ap3 Disposition Summary: 12/06/22 17:14 Discharge Ordered Location: Home ms3 Condition: Stable ms3 Diagnosis - Muscle weakness (generalized) ms3 - Other fatigue ms3 Followup: ms3 - With: - When: 2 - 3 days - Reason: Recheck today's complaints Discharge Instructions: - Discharge Summary Sheet ms3 - Weakness ms3 - Fatigue ms3 Forms: - Medication Reconciliation Form ms3 - Thank You Letter ms3 - Antibiotic Education ms3 - Prescription Opioid Use ms3 Signatures: Dispatcher [employer] Hiren Stacy em1 Deborah Sanchez RN RN ss Ashley Delgado RN RN ap3 Eric Salvador DO DO ms3 Corrections: (The following items were deleted from the chart) 13:52 13:49 Differential Diagnosis Electrolyte abnormality versus pneumonia versus UTI versus ms3 dehydration versus viral illness. ms3
--- NOTE | 2022-12-06 17:14 | ER ---
Nurse's Notes [facility] Name: Lidya Moura Age: 72 yrs Sex: Female : 1950 Arrival Date: 12/06/2022 Time: 12:47 Bed 18 Private MD: Hermes Ortega T Diagnosis: Muscle weakness (generalized);Other fatigue Presentation: 12/06 12:56 Chief complaint: Patient states: Generalized weakness that began 4 days ago. Pt states, ss "this is the 3rd bought of this I've had in a month.". Coronavirus screen: Client denies travel out of the [place] in the last 14 days. Ebola Screen: Patient denies exposure to infectious person. Patient denies travel to an Ebola-affected area in the 21 days before illness onset. Initial Sepsis Screen: Does the patient meet any 2 criteria? No. Patient's initial sepsis screen is negative. Does the patient have a suspected source of infection? No. Patient's initial sepsis screen is negative. Risk Assessment: Do you want to hurt yourself or someone else? Patient reports no desire to harm self or others. Onset of symptoms was December 02, 2022. 12:56 Method Of Arrival: Wheelchair ss 12:56 Acuity: DEVAN 3 ss Triage Assessment: 13:47 General: Appears in no apparent distress. Behavior is calm, cooperative, appropriate ap3 for age. Pain: Complains of pain in anterior aspect of left shoulder Pain began from shoulder sx 6 weeks ago. Neuro: Level of Consciousness is awake, alert, obeys commands, Oriented to person, place, time, situation, Reports numbness. Cardiovascular: Patient's skin is warm and dry. Respiratory: Airway is patent Respiratory effort is even, unlabored, Respiratory pattern is regular, symmetrical. Historical: - Allergies: 12:58 Levofloxacin; ss 12:58 Nembutal Sodium; ss - PMHx: 12:58 Back pain; Hypertension; THYROID CANCER; ss - PSHx: 12:58 Umbilical hernia; Hiatal Hernia; Back sx; ss - Immunization history:: Client reports receiving the 2nd dose of the Covid vaccine. - Social history:: Smoking status: Patient/guardian denies using tobacco, but has a distant history of tobacco abuse. Screenin:47 Abuse screen: Denies threats or abuse. Nutritional screening: No deficits noted. ap3 Tuberculosis screening: No symptoms or risk factors identified. 17:34 [facility] ED Fall Risk Assessment (Adult) History of falling in the last 3 months, ap3 including since admission Yes- physiologic fall (2 pts) Confusion or Disorientation No (0 pts) Intoxicated or Sedated No (0 pts) Impaired Gait No (0 pts) Mobility Assist Device Used No (0 pt) Altered Elimination No (0 pt). Assessment: 14:26 Reassessment: Patient and/or family updated on plan of care and expected duration. Pain ap3 level reassessed. Patient is alert, oriented x 3, equal unlabored respirations, skin warm/dry/pink. 17:00 Reassessment: Patient and/or family updated on plan of care and expected duration. Pain ap3 level reassessed. Patient is alert, oriented x 3, equal unlabored respirations, skin warm/dry/pink. Vital Signs: 12:56 Pulse 92; Resp 16; Temp 97.5(TE); Pulse Ox 98% on R/A; Weight 72.57 kg; Height 5 ft. 3 ss in. (160.02 cm); Pain 0/10; 12:59 BP 116 / 80; ss 14:26 Pulse 65; Resp 18; Pulse Ox 97% ; ap3 17:01 BP 155 / 89; Pulse 70; Resp 18; Pulse Ox 100% ; ap3 12:56 Body Mass Index 28.34 (72.57 kg, 160.02 cm) ss ED Course: 12:47 Patient arrived in ED. am2 12:47 Hermes Ortega MD is Private Physician. am2 12:47 Eric Salvador DO is Attending Physician. ms3 12:58 Triage completed. ss 12:58 Arm band placed on right wrist. ss 13:17 Ashley Delgado, DEBBIE is Primary Nurse. ap3 13:18 Radiology exam delayed due to PT NOT IN ROOM AT THIS TIME. 2 13:47 Inserted saline lock: 20 gauge in right antecubital area, using aseptic technique. ap3 Blood collected. 13:48 Patient has correct armband on for positive identification. Bed in low position. Call ap3 light in reach. Side rails up X2. Adult w/ patient. alarm security or surveillance monitor on. Pulse ox on. NIBP on. Door closed. Noise minimized. 14:23 No provider procedures requiring assistance completed. ap3 14:26 Pt visited by daughter. ap3 14:28 Primary Nurse role handed off by Ashley Delgado, DEBBIE ap3 14:28 Ashley Delgado, DEBBIE is Primary Nurse. ap3 17:13 Hermes Ortega MD is Referral Physician. ms3 17:34 IV discontinued, intact, bleeding controlled, No redness/swelling at site. Pressure ap3 dressing applied. Administered Medications: 15:48 Drug: Lactated Ringers Solution 1000 ml Route: IV; Rate: 1000 bolus; Site: right ap3 antecubital; 17:35 Follow up: IV Status: Completed infusion ap3 Medication: 14:23 VIS not applicable for this client. ap3 Outcome: 17:14 Discharge ordered by . ms3 17:34 Discharged to home via wheelchair, with family. ap3 17:34 Condition: good 17:34 Discharge instructions given to patient, Instructed on discharge instructions, follow up and referral plans. Demonstrated understanding of instructions, follow-up care. 17:41 Patient left the ED. ap3 Signatures: Deborah Sanchez RN RN Ashley Ortez am2 Ashley Delgado RN RN ap3 Eric Salvador DO DO ms3 Kasia Montgomery md2
[2022-12-06 18:04] VITALS: TEMP 97.5
[2022-12-06 18:07] VITALS: BP 155/89; O2SAT 100
--- NOTE | 2022-12-07 13:21 | EKG ---
Test Date: 2022-12-06 Test Time: 14:54:44 [employer]uing O[employer] Tender: DRASHAN MEASUREMENT RESULTS: Intervals: Rate: 63 [place]: 166 QRSD: 78 QT: 412 QTc: 421 [place]: P: 66 [place]: 166 QRS: 41 T: 67 INTERPRETIVE STATEMENTS: Normal sinus rhythm Normal ECG Compared to ECG 07/26/2020 17:27:03 Sinus arrhythmia no longer present Electronically Signed On 12-07-22 13:18:34 RECYCLE COORDINATOR by Sai Lebron
== END 2022-12-06 17:41 | disposition home or self-care (01) ==
LOC: ER 12:43
DX: M62.81 Muscle weakness (generalized) (principal); R53.83 Other fatigue; I10 Essential (primary) hypertension; Z88.1 Allergy status to other antibiotic agents; Z88.8 Allergy status to other drugs, medicaments and biological substances
CPT/HCPCS: 96361; 93005; 85025; 81001; 80048; 36415; 83735; 81003; 84484; 71045; 96360; 99284; J7120

== ENCOUNTER 2023-05-16 15:39 | Emergency (ER) | payer OTHER, MEDICARE ==
--- OUTSIDE RECORDS SUMMARY | 2023-05-16 15:51 | XMS REPORT | Continuity of Care Document ---
:1950 Author Organization [facility] t Address [address] [facility]. [address] [place] [address] Care Team Providers Name Role Phone Hermes Ortega MD Primary Care Physician [phone] JOHNNY ARMENTA Attending Clinician Unavailable Bobo Attending Clinician Unavailable Darrell Elmore Attending Clinician Unavailable Collins Huerta Attending Clinician Unavailable JOHNNY RIVERS Attending Clinician Unavailable JOHNNY RIVERS Attending Clinician Unavailable Stanley Katz Attending Clinician Unavailable KAY_Karin_Galilea_CAROLINA Attending Clinician Unavailable Claudia RUBIN, Nik Kevin Attending Clinician Mario LEWIS, Emilee Attending Clinician Unavailable Bradley Roth MD Attending Clinician Nabor Dias NP, Rosalia Attending Clinician Maurice Morley MA Attending Clinician Unavailable Anoop RUBIN, Ines Smith Attending Clinician VLAD MARKHAM Attending Clinician Unavailable Ruben Browne Attending Clinician Unavailable Vlad Markham PA-C Attending Clinician Johnny Armenta MD Attending Clinician Pob, [facility] Lab Main Attending Clinician Unavailable Doctor Unassigned, Calion Attending Clinician Unavailable Netta Cadena NP Attending Clinician Neftali Cain DO Attending Clinician Lab, [facility] Pob I Attending Clinician Unavailable Eulogio RICARDO, Janak Attending Clinician JANAK LANTIGUA Attending Clinician Unavailable Es Almeida Attending Clinician Adrianna Montalvo MD K.H. Attending Clinician ADRIANNA MONTALVO K.H. Attending Clinician Unavailable Mart Rinaldi RN Attending Clinician Unavailable KIERRA DEY Attending Clinician Unavailable Rome Flores Attending Clinician Tiburcio RUBIN, Kierra Attending Clinician Shin Attending Clinician Unavailable JOHNNY ARMENTA Admitting Clinician Unavailable Bobo Admitting Clinician Unavailable Darrell Elmore Admitting Clinician Unavailable JOHNNY RIVERS Admitting Clinician Unavailable Stanley Katz Admitting Clinician Unavailable Ruben Browne Admitting Clinician Unavailable Patrick_Galilea_CAROLINA Admitting Clinician Unavailable NIK PEREZ Admitting Clinician Unavailable INES DAVALOS Admitting Clinician Unavailable Johnny Armenta MD Admitting Clinician KIERRA DEY Admitting Clinician Unavailable Kierra Dey MD Admitting Clinician Shin Admitting Clinician Unavailable Payers Payer Name Policy Type Policy Number Effective Date Expiration Date S ource MEDICARE PART A \\T\\ [id number] 1991 B 00:00:00 [facility] [id number] 2018 MEDICARE SUPPLEMENT 00:00:00 [place]: [id number] 1991 [employer] 00:00:00 [employer] [id number] 2021 OPTIONS (MEDICARE 00:00:00 SUPPLEMENT) CGS (MEDICARE DME [id number] 1991 REGION C) 00:00:00 Problems Condition Condition [...] of History of Problem Active 2021-10 A aurylea malignant Malignant 0-23 Orth ope neoplasm Neoplasm 00:00: dic of thyroid of Thyroid 00 Sp orts Medicin e Pain of Pain of Problem Active 2021-10 Brenda left knee Left Knee 0-05 Orth ope joint Joint 00:00: dic 00 Sports Medicin e Hyperparat Hyperparat Problem Active A aurylejones hyroidism hyroidism 9-28 Orth ope 00:00: dic 00 Sports Medicin e Gastroesop Gastroesop Problem Active A aurylejones hageal hageal 9-28 Orthope reflux Reflux 00:00: [...] Knee pain Knee Pain Problem Active 2020-10 Aza epyman 2-01 Orthope 00:00: dic 00 Sports Medicin e Secondary Secondary Problem Active 2020-10 Katelyn morley hyperparat Hyperparat 1-08 Or thope hyroidism hyroidism 00:00: dic 00 Sports Medicin e 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 00 Sports Medicin e 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 Livan [place] 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 Ankylosis 00:00: [...] Medicin e Degenerati Degenerati Problem Active Jones harman on of on of 8-30 Orthope cervical Cervical 00:00: dic interverte Interverte 00 Sp orts bral disc bral Disc Medi ann e Degenerati Degenerati Problem Active A zalea on of on of 8-30 Orthope lumbar [...] Medicin e Localized, Localized, Problem Active A ghazal primary Primary 5-19 Orthope osteoarthr Osteoarthr 00:00: [...] on on 00:00: [place] exertion) exertion) 00 [facility]k Branch Atypical Atypical Disease Active [...] e Depressive Depressive Problem Active 2016-10 A ghazal disorder Disorder 08 Orthop e 00:00: dic 00 Sports Medicin e Glaucoma Glaucoma Problem Active 2016-10 Azale a 08 Orthope 00:00: dic 00 Sports Medicin e Hypertensi Hypertensi Problem Active 2016-10 A ghazal ve ve 10-21 Orthope disorder Disorder 00:00: dic 00 Sports Medicin e Backache Backache Problem Active 2016-10 Azale a 08 Orthope 00:00: dic 00 Sports Medicin e Osteoporos Osteoporos Problem Active 2016-10 A ghazal is is 10-21 Orthope 00:00: dic 00 Sports Medicin e History of History of Problem Active 2016-10 A ghazal fracture Fracture 10-21 Orthop e 00:00: dic 00 Sports Medicin [...] ents Source Name Type Date Date Clinician butorpha DA Active SV RESPIRATORY [facility] nol DISTRESS 3-20 [place] 00:00: Orthope 00 dic Hospita l bupivaca DA Active SV RESPIRATORY [facility] ine DISTRESS 3-20 [place] 00:00: Orthope 00 dic Hospita l SEPTA DA Active MO RESPIRATORY [facility] DISTRESS 3-20 [place] 00:00: Orthope 00 dic Hospita l codeine DA Active [place] NAUSEA-SENSI 2021-10 H[facility] TIVE 2-19 Clear 00:00: Godwin 00 [facility] naloxone DA Active SV HEART 2021-10 [facility] PALPITATION, 2-19 Chely r FLUID IN 00:00: Godwin LUNGS 00 [facility] pentobar DA Active SV RESPIRATORY [facility] bital DISTRESS 07-11 [facility] 00:[facility]: [facility] [place] codeine DA Active [place] NAUSEA [facility] 07-11 [facility] 00:[facility]: [facility] [place] levoflox DA Active SV SWELLING [facility] acin 07-11 [facility] 00:[facility]: [facility]ospita [facility] [place] oseltami DA Active SV ANXIETY [facility] vir 07-11 [facility] 00:[facility]: Hospita [facility] [place] Phenobar Propensi Active Hallucinatio "I get Methodi bital ty to ns - psychotic st adverse 00:00: " Hospita reaction 00 l s to drug SEPTRA Allergy Active Brenda to 06-12 Orthope substanc 00:00: dic e 00 Sports Medicin e pentobar DA Active SV RESPIRATORY 2018-10 [facility] bital DISTRESS 11-09 [place] 00:00: Orthope 00 dic Hospita l codeine DA Active [place] NAUSEA 2018-10 [facility] 11-09 [place] 00:00: Orthope 00 dic Hospita l levoflox DA Active SV SWELLING 2018-10 [facility] acin 11-09 [place] 00:00: Orthope 00 dic Hospita l oseltami DA Active SV ANXIETY 2018-10 [facility] vir 11-09 [place] 00:00: Orthope 00 dic Hospita l pentobar DA Active SV 2018-10 [facility] bital 11-09 [place] 00:00: Orthope 00 dic Hospita l codeine DA Active [place] 2018-10 H[facility] 11-09 [place] 00:00: Orthope 00 dic Hospita l levoflox DA Active SV 2018-10 [facility] acin 11-09 [place] 00:00: Orthope 00 dic Hospita l oseltami DA Active SV 2018-10 [facility] vir 11-09 [place] 00:00: Orthope 00 dic Hospita l Oseltami Propensi Active Nausea Univer s vir ty to and/or 4-04 ity of Phosphat adverse Vomiting 00:00: [place] e reaction 00 Medical s Branch OSELTAMI DRUG Active N/V Univers VIR INGREDI 4-04 ity of PHOSPHAT 00:00: [place] E 00 Medical Branch Codeine Propensi Active GI 2016-10 Methodi ty to Intolerance 10-26 st adverse 00:00: Hospita reaction 00 l s to drug Oseltami Propensi Active GI 2016- Method i vir ty to Intolerance 10-26 st adverse 00:00: Hospita reaction 00 l s to drug pentobar DA Active SV 2016- [facility] bital - [place] 00:00: d 00 Medical [place] codeine DA Active [place] 2016- [facility] 1-13 [place] 00:00: d 00 [facility] levoflox DA Active SV 2016- [facility] acin -13 [place] 00:00: d 00 [facility] oseltami DA Active SV 2016- [facility] vir - [place] 00:00: d 00 [facility] Nembutal Propensi Active Anaphylaxis 2017- U nivers ty to 6-20 ity of adverse 00:00: [place] reaction 00 [facility] LEVOFLOX DRUG Active Swelling Univer s ACIN INGREDI 6-20 ity of 00:00: [place] 00 Medical Branch NEMBUTAL DRUG Active High Anaphylaxis Uni vers 6-20 ity of 00:00: [place] [address] [facility] Branch Levoflox Propensi Active Swelling Breathing M ethodi acin ty to 6-[address] adverse 00:00: Hospita reaction 00 l s to drug Pentobar Propensi Active Shortness Of Methodi bital ty to Breath 20 st adverse 00:00: Hospita reaction 00 l s to drug Levoflox Propensi Active Swelling Univ ers acin ty to 6-20 ity of adverse 00:00: [place] reaction [facility] Marcaine Allergy Active Brenda to 04-13 Orthope [...] (See Me thodi ine ty to Comments) 04 st adverse 00:00: Hospita reaction 00 l s to drug NO KNOWN Drug Active Univers ALLERGIE Class ity of S [facility] Narcan Allergy Active Brenda to Orthope substanc dic e Sports Medicin e Family History Family Member Diagnosis Comments Start Date Stop Date Source Natural father Hypertension [facility] Social History Social Habit Start Date Stop Date Quantity Comments Source Gender identity [facility] Sexual orientation [facility] History of tobacco Cigarette Smoker [facility] use [facility] History of Social 2022-12-19 2022-12-19 [facility] Hospital Exposure to 2022-11-09 2022-11-19 Yes University of SARS-CoV-2 (event) 00:00:00 13:19:00 [facility] Alcohol intake 2022-02-05 2022-02-05 [facility] 00:00:00 00:00:00 non-drinker Hospital (finding) Cigarettes smoked 2022-01-25 2022-01-25 [facility] current (pack per 00:00:00 00:00:00 Hospita l day) - Reported Cigarette 2022-01-25 2022-01-25 [facility] pack-years 00:00:00 00:00:00 Hospital Tobacco use and 2022-01-25 2022-01-25 Smokeless [facility] exposure 00:00:00 00:00:00 tobacco non-user Hospital Sex Assigned At [birth year] [facility] 00:00:00 00:00:00 Hospital Smoking Status Start Date Stop Date Source Former Smoker Brenda [facility]oped[facility] Unknown if ever smoked Universit y [facility] Smokes tobacco daily 2022-01-25 00:00:00 [facility] Medications Ordered Filled Start Stop Current Ordering [...] dose, On Sat11/19/22 at 1415, ALAN sertraline 2-0 Yes 150mg QD Take 150 Me thodi (ZOLOFT) 4-[address] 100 MG 13:48: mouth Hospita tablet 01 daily. l sertraline 2022-0 Yes 150mg QD Take 150 Me thodi (ZOLOFT) 4-[address] 100 MG 13:48: mouth Hospita tablet 01 daily. l sertraline 2022-0 Yes 150mg QD Take 150 Me thodi (ZOLOFT) 4-[address] 100 MG 13:48: mouth Hospita tablet 01 daily. l sertraline 2022-0 Yes 150mg QD Take 150 Me thodi (ZOLOFT) 4-[address] 100 MG 13:48: mouth Hospita tablet 01 daily. l sertraline 2022-0 Yes 150mg QD Take 150 Me thodi (ZOLOFT) 4-[address] 100 MG 13:48: mouth Hospita tablet 01 daily. l sertraline 2022-0 Yes 150mg QD Take 150 Me thodi (ZOLOFT) 4-[address] 100 MG 13:48: mouth Hospita tablet 01 daily. l sertraline 2022-0 Yes 150mg QD Take 150 Me thodi (ZOLOFT) 4-[address] 100 MG 13:48: mouth Hospita tablet 01 daily. l sertraline 2022-0 Yes 150mg QD Take 150 Me thodi (ZOLOFT) 4-[address] 100 MG 13:48: mouth Hospita tablet 01 daily. l sertraline 2022-0 Yes 150mg QD Take 150 Me thodi (ZOLOFT) 4-[address] 100 MG 13:48: mouth Hospita tablet 01 daily. l sertraline 2022-0 Yes 150mg QD Take 150 Me thodi (ZOLOFT) 4-[address] 100 MG 13:48: mouth Hospita tablet 01 daily. l liothyronin 2022-0 Yes 10ug QD Take 10 Met hodi e (CYTOMEL) 4-[address] 5 MCG 13:48: mouth Hospita tablet 55 daily. l sucralfate 2022-0 Yes 1g QD Take 1 g Met [...] mouth Hospita tablet 55 daily. l sucralfate 2022-0 Yes 1g QD Take 1 g Met hodi (CARAFATE) 4-[address] 1 gram 13:48: every Hospita tablet 55 evening. l albuterol 2022-0 Yes 2{puff} Q6H Inhale 2 M ethodi (PROAIR 4-[address] HFA) 90 13:48: every 6 Hospita mcg/actuati 55 (six) l on inhaler hours as needed for wheezing. liothyronin 2022-0 Yes 10ug QD Take 10 Met hodi e (CYTOMEL) 4-[address] 5 MCG 13:48: mouth Hospita tablet 55 daily. l sucralfate 202-0 Yes 1g QD Take 1 g Met hodi (CARAFATE) 4-[address] 1 gram 13:48: every Hospita tablet 55 evening. l albuterol 2022-0 Yes 2{puff} Q6H Inhale 2 M ethodi (PROAIR 4-[address] HFA) 90 13:48: every 6 Hospita mcg/actuati 55 (six) l on inhaler hours as needed for wheezing. liothyronin 2022-0 Yes 10ug QD Take 10 Met hodi [...] marry 00 (eight) l hours. lisinopriL 2022-0 2021- No QD Take by Met cody (PRINIVIL) 2-[address] 20 mg 16:14: 00:00 daily. Hospita tablet 33 :00 l lisinopriL 2022-0 2- No QD Take by Met cody (PRINIVIL) 2-28 11-[address] 20 mg 16:14: 00:00 daily. Hospita tablet 33 :00 l lisinopriL 2021-2021- No QD Take by Met hodi (PRINIVIL) 2-15 02-[address] 20 mg 16:14: 00:00 daily. Hospita tablet 33 :00 l lisinopriL 2021-2021- No QD Take by Met hodi (PRINIVIL) 2-15 02-[address] 20 mg 16:14: 00:00 daily. Hospita tablet 33 :00 l DULoxetine 2021-2021- No 60mg QD Take 60 mg Methodi (CYMBALTA) 2-15 02-[address] 60 MG 16:14: 00:00 daily. Hospita capsule 29 :00 l DULoxetine 2021- No 60mg QD Take 60 mg Methodi (CYMBALTA) 2-15 -[address] 60 MG 16:14: 00:00 [...] TABLET BY MOUTH IN THE MORNING amLODIPine 2021-2021- No amlodipine Methodi (NORVASC) 5 2-15 02-15 [...] MORNING predniSONE 2020-10- No Method i (DELTASONE) 12-10 [...] mcg 00 l (50,000 unit) capsule cholecalcif 2020-1 Yes Method i rosy, 1-12 st vitamin D3, 00:00: Hospit a 1,250 mcg 00 l (50,000 unit) capsule cholecalcif 2020-1 Yes Method i rosy, 1-12 st vitamin D3, 00:00: Hospit a 1,250 mcg 00 l (50,000 unit) capsule cholecalcif 2020-1 Yes Method i rosy, 1-12 st vitamin D3, 00:00: Hospit a 1,250 mcg 00 l (50,000 unit) capsule cholecalcif 2020-1 Yes Method i rosy, 1-12 st vitamin D3, 00:00: Hospit a 1,250 mcg 00 l (50,000 unit) capsule cholecalcif 2020-1 Yes Method i rosy, 1-12 st vitamin D3, 00:00: Hospit a 1,250 mcg 00 l (50,000 unit) capsule cholecalcif 2020-1 Yes Method i rosy, 1-12 st vitamin D3, 00:00: Hospit a 1,250 mcg 00 l (50,000 unit) capsule cholecalcif 2020-1 Yes Method i rosy, 1-12 st vitamin D3, 00:00: Hospit a 1,250 mcg 00 l (50,000 unit) capsule cholecalcif 2020-10 Yes Method i rosy, -12 vitamin D3, 00:00: Hospit a 1,250 mcg 00 l (50,000 unit) capsule cholecalcif 2020-10 Yes Method i rosy, -12 vitamin D3, 00:00: Hospit a 1,250 mcg [...] by mouth ity of capsule 20:27: daily. [place] [address] Medical Branch carvedilol Yes 12.5mg Take 12.5 Univers 12.5 mg 7-14 mg by ity of tablet 20:27: mouth 2 [place] [address] (two) Medical times Branch daily with meals. amLODIPine Yes 5mg Take 5 mg Un rex 5 mg tablet 7-14 by mouth ity of 20:27: daily. [place] [address] Medical Branch methadone 5 Yes 10mg Take 10 mg Univers mg tablet 7-14 by mouth ity of 20:27: every 6 [place] [address] (six) Medical hours as Branch needed. baclofen 10 Yes 10mg Take 10 mg Univers mg tablet 7-14 by mouth 3 ity of 20:27: (three) [place] [address] times Medical daily. Branch tiZANidine Yes 4mg [...] by mouth ity of capsule 20:27: daily. [place] [address] Medical Branch carvedilol Yes 12.5mg Take 12.5 Univers 12.5 mg 7-14 mg by ity of tablet 20:27: mouth 2 (two) Medical times Branch daily with meals. amLODIPine Yes 5mg Take 5 mg Un rex 5 mg tablet 7-14 by mouth ity of 20:27: daily. [place] [address] Medical Branch methadone 5 Yes 10mg Take 10 mg Univers mg tablet 7-14 by mouth ity of 20:27: every 6 [place] [address] (six) Medical hours as Branch needed. baclofen [...] by mouth ity of capsule 20:27: daily. [place] [address] Medical Branch carvedilol Yes 12.5mg Take 12.5 Univers 12.5 mg 7-14 mg by ity of tablet 20:27: mouth 2 28 (two) Medical times Branch daily with meals. amLODIPine Yes 5mg Take 5 mg Un rex 5 mg tablet 7-14 by mouth ity of 20:27: daily. [place] 28 Medical Branch methadone 5 Yes 10mg Take 10 mg Univers mg tablet 7-14 by mouth ity of 20:27: every 6 [place] (six) Medical hours as Branch needed. baclofen [...] mouth [place] tablet 28 daily. Medical Branch DUOVISC Yes PRN, Univers (DUOVISC 04-26 Starting ity of VISCO 18:31: Wed [place] ELASTIC) 3 00 04/26/21 at Med ical %-4 %(0.5 1331, Branch mL) 1 % Until (0.55 mL) Discontinu intraocular ed, injection Routine, Intra-op DUOVISC 2020- No PRN, Univers (DUOVISC 04-2614 Starting ity of VISCO 18:31: 22:27 Wed [place] ELASTIC) 3 00 :28 04/26/21 at Med ical %-4 %(0.5 1331, Branch mL) 1 % Until Wed (0.55 mL) 04/26/21 at intraocular 1727, injection Routine, Intra-op carbachoL Yes PRN, Univers (MIOSTAT) 04-26 Starting ity of 0.01 % 18:29: Wed [place] intraocular 00 04/26/21 at Me dical injection 1329, Branch Until Discontinu ed, Routine, Intra-op ceFAZolin Yes PRN, Univers (ANCEF) 04-26 Starting ity of injection 18:29: Wed [place] 00 04/26/[address] [facility] 1329, Branch Until Discontinu ed, ALAN, Intra-op neomycin-po 0 Yes PRN, Univer s lymyxin-dex 04-26 Starting ity of amethasone 18:29: Wed [place] (MAXITROL) 00 04/26/21 at [facility] ica 3.[facility]9, Branch mg/g-10,000 Until unit/g-0.1 Discontinu % ed, ophthalmic Routine, ointment Intra-op carbachoL 2020- No PRN, Univers (MIOSTAT) 04-26 Starting ity o f 0.01 % 18:29: 22:27 Wed [place] intraocular 00 :28 04/26/21 at Id dical injection 1329, Branch Until 04/26/21 at 1727, Routine, Intra-op ceFAZolin 2020- No PRN, Univers (ANCEF) 04-26 Starting ity of injection 18:29: 22:27 [facility] [place] 00 :28 04/26/[address] [facility] 1329, Branch Until Sat04/26/21 at 1727, ALAN, Intra-op neomycin-po 2020- No [facility]N, [facility] lymyxin-dex 04-26 Starting ity of amethasone 18:29: 22:27 [facility] (MAXITROL) 00 :28 04/26/21 at [facility] ica 3. 1329, Branch mg/g-10,000 Until Wed unit/g-0.1 04/26/21 at % 1727, ophthalmic Routine, ointment Intra-op dexamethaso Yes PRN, Univer s ne 04-26 Starting ity of (DECADRON 18:28: Wed [place] PHOSPHATE) 00 04/26/21 at [facility] ical injection 1328, Branch Until Discontinu ed, Routine, Intra-op dexamethaso 2020- No PRN, Unive rs ne 04-26 Starting ity of (DECADRON 18:28: 22:27 [facility] PHOSPHATE) 00 :28 04/26/21 at [facility] ical injection 1328, Branch Until Sat04/26/21 at 1727, Routine, Intra-op balanced Yes PRN, Univers salt irrig 04-26 Starting ity o f soln comb1 18:17: Sat [place] (BSS PLUS) 00 04/26/21 at [facility] ical ophthalmic 1317, Branch solution Until 500 mL bag Discontinu ed, Routine, Intra-op EPINEPHrine Yes PRN, Univer s 1:1,000 (1 7 Starting ity o f mg/mL) 18:17: Sat [place] (ADRENALIN) 00 04/26/21 at Id dical injection 1317, Branch Until Discontinu ed, Routine, Intra-op sodium Yes PRN, Univers chloride 04-26 Starting ity of (NS) 18:17: Sat [place] injection 00 04/26/21 at [facility] 1317, Branch Until Discontinu ed, Routine, Intra-op balanced 2020- No PRN, Univers salt irrig 04-26 Starting ity of soln comb1 18:17: 22:27 Sat [place] (BSS PLUS) 00 :28 04/26/21 at [facility] ical ophthalmic 1317, Branch solution Until Sat 500 mL bag 04/26/21 at 1727, Routine, Intra-op EPINEPHrine 2020- No PRN, Unive rs 1:1,000 (1 04-26 Starting ity of mg/mL) 18:17: 22:27 Sat [place] (ADRENALIN) 00 :28 04/26/21 at Id dical injection 1317, Branch Until Sat04/26/21 at 1727, Routine, Intra-op sodium 2020- No PRN, Univers chloride 04-26 Starting ity of (NS) 18:17: 22:27 Wed [place] injection 00 :28 04/26/21 at [facility] 1317, Branch Until Sat04/26/21 at 1727, Routine, Intra-op water for Yes PRN, Univers irrigation 04-26 Starting ity o f irrigation 18:13: Sat [place] solution 00 04/26/21 at Medic al 1313, Branch Until Discontinu ed, Routine, Intra-op water for 2020- No PRN, Univers irrigation 04-26 Starting ity of irrigation 18:13: 22:27 [facility] solution 00 :28 04/26/21 at Medic al 1313, Branch Until Sat04/26/21 at 1727, Routine, Intra-op eye block Yes PRN, Univers syringe 04-26 Starting ity o f mL 18:10: Sat [place] 00 04/26/[address] [facility] 1310, Branch Until Discontinu ed, Intra-op Hyaluronida Yes PRN, Univer s se, Human 04-26 Starting ity of Recomb. 18:10: Sat [place] (HYLENEX) 00 04/26/21 at [facility] ck injection 1310, Branch Until Discontinu ed, Routine, Intra-op eye block 2020- No PRN, Univers syringe 11 04-26 Starting ity of mL 18:10: 22:27 [facility] 00 :28 04/26/21 at Medical 1310, Branch Until Sat04/26/21 at 1727, Intra-op Hyaluronida 2020- No PRN, Unive rs se, Human 04-26 Starting ity o f Recomb. 18:10: 22:27 [facility] (HYLENEX) 00 :28 04/26/21 at [facility] injection 1310, Branch Until Sat04/26/21 at 1727, Routine, Intra-op mydriatic 2020- No .5mL 0.5 mL, Univ ers #5 04-26 Right Eye, ity of ophthalmic 17:00: 17:15 ONCE, 1 Gabe as solution 00 :00 dose, [facility] Medica l 0.5 mL 04/26/21 at [place] syringe 1200, Routine, DSU Pre-op lactated 2020- No 1000mL at 42 Unive rs ringers IV 04-26 mL/hr, ity of infusion 17:00: 17:15 1,000 mL, Gabe as 1,000 mL 00 :00 IV Medical Infusion, [place] ONCE, 1 dose, 04/26/21 at 1200, Routine, DSU Pre-op mydriatic 2020- No .5mL 0.5 mL, Univ ers #5 04-26 Right Eye, ity of ophthalmic 17:00: 17:15 ONCE, 1 [place]abe as solution 00 :00 dose, [facility] Medica l 0.5 mL 04/26/21 at Branch syringe 1200, Routine, DSU Pre-op lactated 2020- No 1000mL at 42 Unive rs ringers IV 7-14 07-14 mL/hr, ity of infusion 17:00: 17:15 1,000 mL, Gabe as 1,000 mL 00 :00 IV Medical Infusion, Branch ONCE, 1 dose, 04/26/21 at 1200, Routine, DSU Pre-op DULoxetine Yes 60mg Take 60 mg U nivers 60 mg 7-14 by mouth ity of capsule 15:27: daily. [address] carvedilol Yes 12.5mg Take 12.5 Univers 12.5 mg 7-14 mg by ity of tablet 15:27: mouth 2 [place] [address] (two) Medical times [place] daily with meals. amLODIPine Yes 5mg Take 5 mg Un rex 5 mg tablet 7-14 by mouth ity of 15:27: daily. [address] Branch methadone 5 0 Yes 10mg Take 10 mg Univers mg tablet 7-14 by mouth ity of 15:27: every 6 [place] [address] (six) Medical hours as Branch needed. baclofen 10 Yes 10mg Take 10 mg Univers mg tablet 7-14 by mouth 3 ity of 15:27: (three) [place] 28 times Medical daily. Branch tiZANidine Yes 4mg Take 4 mg Un rex (ZANAFLEX) 7-14 by mouth 3 ity of 4 mg 15:27: (three) [place] capsule 28 times Medical daily. Branch liothyronin Yes 10ug Take 10 Uni vers e (CYTOMEL) 7-14 mcg by ity of 5 mcg 15:27: mouth [place] tablet [address] [facility] Branch SERTraline Yes 100mg Take 100 Un rex (ZOLOFT) 7-14 mg by ity of 100 mg 15:27: mouth [place] tablet 28 daily. Medical Branch HYDROcodone 2020- No 1{tbl} 1 tablet, Univers -acetaminop 04-16 07-04 Oral, ity of hen (NORCO) 04:45: 03:40 ONCE, 1 [place] 10-325 mg 00 :00 dose, Sat Medic al tablet 1 04/15/21 at Branch tablet 2345, Routine NaCl 0.9% 2019-10 2020- No 500mL at 999 Univ ers (NS) bolus 1-27 11-27 mL/hr, 500 it y of infusion 03:00: 05:13 mL, IV [place] 500 mL 00 :00 Infusion, Medical ONCE, 1 Branch dose, Melly 09/08/20 at 2100, ALAN CLOTRIMAZOL 2020-0 Yes [id number] APPLY U nivers E-BETAMETHA 3-31 CREAM ity of SONE cream 00:00: [place]ICALLY [place] 00 TO AREA Medical TWICE Branch DAILY CLOTRIMAZOL 2020-0 Yes [id number] APPLY U nivers E-BETAMETHA 3-31 CREAM ity of SONE cream 00:00: [place]ALLY [place] 00 TO AREA Medical TWICE Branch DAILY CLOTRIMAZOL 2020-0 Yes [id number] APPLY U nivers E-BETAMETHA 3-31 CREAM ity of SONE cream 00:00: [place]ALLY [place] 00 TO AREA Medical TWICE Branch DAILY CLOTRIMAZOL 2020-0 Yes [id number] APPLY U nivers E-BETAMETHA 3-31 CREAM ity of SONE cream 00:00: [place]ALLY [place] 00 TO AREA Medical TWICE Branch DAILY CLOTRIMAZOL 2020-0 Yes [id number] APPLY U nivers E-BETAMETHA 3-31 CREAM ity of SONE cream 00:00: [place]ALLY [place] 00 TO AREA Medical TWICE Branch DAILY CLOTRIMAZOL 2020-0 Yes [id number] APPLY U nivers E-BETAMETHA 3-31 CREAM ity of SONE cream 00:00: [place]ALLY [place] 00 TO AREA Medical TWICE Branch DAILY CLOTRIMAZOL 2020-0 Yes [id number] APPLY U nivers E-BETAMETHA 3-31 CREAM ity of SONE cream 00:00: [place]ALLY [place] 00 TO AREA Medical TWICE Branch DAILY CLOTRIMAZOL 2020-0 Yes [id number] APPLY U nivers E-BETAMETHA 3-31 CREAM ity of SONE cream 00:00: TOPICALLY [place] 00 TO AREA Medical TWICE Branch DAILY CLOTRIMAZOL 2020-0 Yes [id number] APPLY [facility] E-BETAMETHA 3-31 CREAM ity of SONE cream 00:00: [place]ICALLY [place] 00 TO AREA Medical TWICE Branch DAILY CLOTRIMAZOL 2020 Yes [id number] APPLY [facility] E-BETAMETHA 3-31 CREAM ity of SONE cream 00:00: [place]ICALLY [place] 00 TO AREA Medical TWICE Branch DAILY CLOTRIMAZOL 20200 Yes [id number] APPLY [facility] E-BETAMETHA 3-31 CREAM ity of SONE cream 00:00: [place]ALLY [place] 00 TO AREA Medical TWICE Branch DAILY clotrimazol 2021- No APPLY Meth [facility] e-betametha 3-31 04-14 CREAM [facility] 00:00: 00:00 TOPICALLY [facility] (LOTRISONE) 00 :00 TO AREA l 1-0.05 % TWICE cream DAILY clotrimazol 2021- No APPLY Meth alva e-betametha 3-31 04-14 CREAM [facility] 00:00: 00:00 TOPICALLY [facility] (LOTRISONE) 00 :00 TO AREA l 1-0.05 % TWICE cream DAILY clotrimazol 2021- No APPLY Meth alva e-betametha 3-31 04-14 CREAM [facility] 00:00: 00:00 TOPICALLY [facility] (LOTRISONE) 00 :00 TO AREA l 1-0.05 % TWICE cream DAILY clotrimazol 2021- No APPLY Meth alva e-betametha 3-31 04-14 CREAM [facility] 00:00: 00:00 TOPICALLY [facility] (LOTRISONE) 00 :00 TO AREA l 1-0.05 % TWICE cream DAILY clotrimazol 2021- No APPLY Meth alva e-betametha 3-31 04-14 CREAM [facility] 00:00: 00:00 TOPICALLY [facility] (LOTRISONE) 00 :00 TO AREA l 1-0.05 % TWICE cream DAILY clotrimazol 2021- No APPLY Meth [facility] e-betametha 3-31 04-14 CREAM [facility] 00:00: 00:00 TOPICALLY [facility] (LOTRISONE) 00 :00 TO AREA l 1-0.05 % TWICE cream DAILY clotrimazol 2021- No APPLY Meth alva e-betametha 01-11-[address] [facility] 00:00: 00:00 TOPICALLY [facility] (LOTRISONE) 00 :00 TO AREA l 1-0.05 % TWICE cream DAILY clotrimazol 2021- No APPLY Meth alva e-betametha 01-11-[address] [facility] 00:00: 00:00 TOPICALLY [facility] (LOTRISONE) 00 :00 TO AREA l 1-0.05 % TWICE cream DAILY clotrimazol 2021- No APPLY Meth alva e-betametha 01-11-[address] [facility] 00:00: 00:00 TOPICALLY [facility] (LOTRISONE) 00 :00 TO AREA l 1-0.05 % TWICE cream DAILY DULoxetine 2019-0 Yes 60mg Take 60 mg [facility] 60 mg 3-07 by mouth ity of capsule 00:07: daily. [place] [address] Medical Branch carvedilol 2019-0 Yes 12.5mg Take 12.5 [facility] 12.5 mg 3-07 mg by ity of tablet 00:07: mouth 2 [place] [address] (two) Medical times Branch daily with meals. amLODIPine 2019-0 Yes 5mg Take 5 mg [facility] 5 mg tablet 3-07 by mouth ity of 00:07: daily. [address] Branch methadone 5 2019-0 Yes 10mg Take 10 mg [facility] mg tablet 3-07 by mouth ity of 00:07: every 6 [place] [address] (six) Medical hours as Branch needed. baclofen 10 2019-0 Yes 10mg Take 10 mg [facility] mg tablet 3-07 by mouth 3 ity of 00:07: (three) [place] 11 times Medical daily. Branch tiZANidine 2019-0 Yes 4mg Take 4 mg [facility] (ZANAFLEX) 3-07 by mouth 3 ity of 4 mg 00:07: (three) [place] capsule 11 times Medical daily. Branch liothyronin 2019-0 Yes 10ug Take 10 Uni vers e (CYTOMEL) 3-07 mcg by ity of 5 mcg 00:07: mouth [place] tablet 11 daily. Medical Branch SERTraline 2019-0 Yes 100mg Take 100 [facility] (ZOLOFT) 3-07 mg by ity of 100 mg 00:07: mouth [place] tablet 11 daily. Medical Branch DULoxetine 2020-0 Yes 60mg Take 60 mg [facility] 60 mg 3-07 by mouth ity of capsule 00:07: daily. [place] [address] Medical Branch carvedilol 2020-0 Yes 12.5mg Take 12.5 [facility] 12.5 mg 3-07 mg by ity of tablet 00:07: mouth 2 [place] [address] (two) Medical times [place] daily with meals. amLODIPine 2020-0 Yes 5mg Take 5 mg [facility] 5 mg tablet 3-07 by mouth ity of 00:07: daily. [place] [address] Medical Branch methadone 5 2020-0 Yes 10mg Take 10 mg [facility] mg tablet 3-07 by mouth ity of 00:07: every 6 [place] [address] (six) Medical hours as Branch needed. baclofen 10 2020-0 Yes 10mg Take 10 mg [facility] mg tablet 3-07 by mouth 3 ity of 00:07: (three) [place] [address] times Medical daily. Branch tiZANidine 2020-0 Yes 4mg Take 4 mg [facility] (ZANAFLEX) 3-07 by mouth 3 ity of 4 mg 00:07: (three) [place] capsule 11 times Medical daily. Branch liothyronin [...] by mouth ity of capsule 00:07: daily. [place] [address] Medical Branch carvedilol 2020-0 Yes 12.5mg Take 12.5 [facility] 12.5 mg 3-07 mg by ity of tablet 00:07: mouth 2 [place] [address] (two) Medical times [place] daily with meals. amLODIPine 2020-0 Yes 5mg Take 5 mg [facility] 5 mg tablet 3-07 by mouth ity of 00:07: daily. [place] [address] Medical Branch methadone 5 2020-0 Yes 10mg Take 10 mg [facility] mg tablet 3-07 by mouth ity of 00:07: every 6 [place] [address] (six) Medical hours as Branch needed. baclofen 10 2020-0 Yes 10mg Take 10 mg [facility] mg tablet 3-07 by mouth 3 ity of 00:07: (three) [place] 11 times Medical daily. Branch tiZANidine 2020-0 [...] by mouth ity of capsule 00:07: daily. [place] [address] Medical Branch carvedilol 2020-0 Yes 12.5mg Take 12.5 [facility] 12.5 mg 3-07 mg by ity of tablet 00:07: mouth 2 [place] [address] (two) Medical times Branch daily with meals. amLODIPine 2020-0 Yes 5mg Take 5 mg [facility] 5 mg tablet 3-07 by mouth ity of 00:07: daily. [place] [address] Medical Branch methadone 5 2020-0 Yes 10mg Take 10 mg [facility] mg tablet 3-07 by mouth ity of 00:07: every 6 [place] [address] (six) Medical hours as Branch needed. baclofen 10 2020-0 Yes 10mg Take 10 mg [facility] mg tablet 3-07 by mouth 3 ity of 00:07: (three) [place] 11 times Medical daily. Branch tiZANidine 2020-0 [...] by mouth ity of capsule 00:07: daily. [place] [address] Medical Branch carvedilol 2020-0 Yes 12.5mg Take 12.5 [facility] 12.5 mg 3-07 mg by ity of tablet 00:07: mouth 2 [place] [address] (two) Medical times [place] daily with meals. amLODIPine 2020-0 Yes 5mg Take 5 mg [facility] 5 mg tablet 3-07 by mouth ity of 00:07: daily. [place] [address] Medical Branch methadone 5 2020-0 Yes 10mg Take 10 mg [facility] mg tablet 3-07 by mouth ity of 00:07: every 6 [place] [address] (six) Medical hours as Branch needed. baclofen 10 2020-0 Yes 10mg Take 10 mg [facility] mg tablet 3-07 by mouth 3 ity of 00:07: (three) [place] [address] times Medical daily. Branch tiZANidine 2020-0 Yes 4mg Take 4 mg [facility] (ZANAFLEX) 3-07 by mouth 3 ity of 4 mg 00:07: (three) [place] [address] times Medical daily. Branch liothyronin 2020-0 Yes [...] by mouth ity of capsule 00:07: daily. [address] Branch carvedilol 2020-0 Yes 12.5mg Take 12.5 [facility] 12.5 mg 3-07 mg by ity of tablet 00:07: mouth 2 [place] [address] (two) Medical times [place] daily with meals. amLODIPine 2020-0 Yes 5mg Take 5 mg [facility] 5 mg tablet 3-07 by mouth ity of 00:07: daily. [place] [address] Medical Branch methadone 5 2020-0 Yes 10mg Take 10 mg [facility] mg tablet 3-07 by mouth ity of 00:07: every 6 [place] [address] (six) Medical hours as Branch needed. baclofen 10 2020-0 Yes 10mg Take 10 mg [facility] mg tablet 3-07 by mouth 3 ity of 00:07: (three) [place] [address] times Medical daily. Branch tiZANidine 2020-0 Yes [...] by mouth ity of capsule 00:07: daily. [place] [address] Medical Branch carvedilol 2020-0 Yes 12.5mg Take 12.5 [facility] 12.5 mg 3-07 mg by ity of tablet 00:07: mouth 2 [place] [address] (two) Medical times Branch daily with meals. amLODIPine 2020-0 Yes 5mg Take 5 mg [facility] 5 mg tablet 3-07 by mouth ity of 00:07: daily. [place] [address] Medical Branch methadone 5 2020-0 Yes 10mg Take 10 mg [facility] mg tablet 3-07 by mouth ity of 00:07: every 6 [place] [address] (six) Medical hours as Branch needed. baclofen 10 2020-0 Yes 10mg Take 10 mg [facility] mg tablet 3-07 by mouth 3 ity of 00:07: (three) [place] 11 times Medical daily. Branch tiZANidine 2020-0 [...] by mouth ity of capsule 00:07: daily. [place] [address] Medical Branch carvedilol 2020-0 Yes 12.5mg Take 12.5 [facility] 12.5 mg 3-07 mg by ity of tablet 00:07: mouth 2 [place] [address] (two) Medical times Branch daily with meals. amLODIPine 2020-0 Yes 5mg Take 5 mg [facility] 5 mg tablet 3-07 by mouth ity of 00:07: daily. [place] [address] Medical Branch methadone 5 2020-0 Yes 10mg Take 10 mg [facility] mg tablet 3-07 by mouth ity of 00:07: every 6 [place] [address] (six) Medical hours as Branch needed. baclofen 10 2020-0 Yes 10mg Take 10 mg [facility] mg tablet 3-07 by mouth 3 ity of 00:07: (three) [place] 11 times Medical daily. Branch tiZANidine 2020-0 [...] by mouth ity of capsule 00:07: daily. [place] [address] Medical Branch carvedilol 2020-0 Yes 12.5mg Take 12.5 [facility] 12.5 mg 3-07 mg by ity of tablet 00:07: mouth 2 [place] [address] (two) Medical times [place] daily with meals. amLODIPine 2020-0 Yes 5mg Take 5 mg [facility] 5 mg tablet 3-07 by mouth ity of 00:07: daily. [place] [address] Medical Branch methadone 5 2020-0 Yes 10mg Take 10 mg [facility] mg tablet 3-07 by mouth ity of 00:07: every 6 [place] [address] (six) Medical hours as Branch needed. baclofen 10 2020-0 Yes 10mg Take 10 mg [facility] mg tablet 3-07 by mouth 3 ity of 00:07: (three) [place] 11 times Medical daily. Branch tiZANidine 2020-0 [...] by mouth ity of capsule 00:07: daily. [address] Branch carvedilol 2020-0 Yes 12.5mg Take 12.5 [facility] 12.5 mg 3-07 mg by ity of tablet 00:07: mouth 2 [place] [address] (two) Medical times Branch daily with meals. amLODIPine 2020-0 Yes 5mg Take 5 mg [facility] 5 mg tablet 3-07 by mouth ity of 00:07: daily. [address] Branch methadone 5 2020-0 Yes 10mg Take 10 mg [facility] mg tablet 3-07 by mouth ity of 00:07: every 6 [place] [address] (six) Medical hours as Branch needed. baclofen [...] dose Medical on Sat Branch 12/18/19 at 0900, Until Discontinu ed, Routine carvediloL 2020-0 Yes 12.5mg 12.5 mg, U nivers (COREG) 3-06 Oral, BID ity of tablet 12.5 14:00: [place]ALS[place] 00 First dose Medical on Sat [place] 12/18/19 at 0800, Until Discontinu ed, Routine levothyroxi 2020-0 Yes 150ug 150 mcg, U nivers ne 3-06 Oral, ity of (SYNTHROID) 12:00: QAM-0600, [place] tablet 150 00 First dose Med ical mcg on Sat [place] 12/18/19 at 0600, Until Discontinu ed, Routine nicotine 2020-0 Yes 1{patch 1 Patch, [facility] (NICODERM) 12-17 } Topical, ity o f 21 mg/24 hr 06:30: Administer [place] patch 1 00 over 24 Medical Patch Hours, Branch Q24H, First dose on Sat12/18/19 at 0030, Until Discontinu ed, Routine baclofen 2020-0 Yes 10mg 10 mg, Univers (LIORESAL) 3-06 Oral, TID, ity of tablet 10 05:30: First dose [place] mg 00 on [facility] 12/17/19 at Branch 2330, Until Discontinu ed, Routine methadone 2020-0 Yes 10mg 10 mg, Univer s (DOLOPHINE 3-06 Oral, QPM, ity of HCL) tablet 03:00: First dose [place] 10 mg 00 on [facility] 12/17/19 at Branch 2100, Until Discontinu ed, Routine nitroglycer 2020-0 Yes .4mg 0.4 mg, Uni vers in 12-17 Sublingual ity of (NITROSTAT) 01:45: , Q5MIN [place] sublingual 02 PRN, Medical tablet 0.4 Starting Branc h mg [facility] 12/17/19 at 1945, Until Discontinu ed, AALN, Chest pain ondansetron 2020-0 Yes 4mg 4 mg, Slow Univers (ZOFRAN 3-06 IV Push, ity of (PF)) 00:41: Q6HPRN, [place] injection 4 33 Starting Medi ck mg [facility] 12/17/19 Branch at 1841, Until Discontinu ed, Routine, Nausea and Vomiting (N/V) acetaminoph 2020-0 Yes 650mg 650 mg, [facility] en 3-06 Oral, ity of (TYLENOL) 00:41: Q6HPRN, [place] tablet 650 22 Starting Medic al mg [place] 12/17/19 Branch at 1841, Until Discontinu ed, Routine, Pain (scale 1-3) nitroglycer 2020- No .4mg 0.4 mg, [facility] in 3-05 03-05 Sublingual ity of (NITROSTAT) 22:30: 22:33 , ONCE, 1 [place] sublingual 00 :00 dose, [place] Medi ck tablet 0.4 12/17/19 at Bran ch mg 1645, ALAN CLOTRIMAZOL 2019-0 Yes [id number] APPLY U nivers E-BETAMETHA 2-19 CREAM ity of SONE cream 00:00: [place] 00 TO AREA Medical TWICE Branch DAILY CLOTRIMAZOL 2019-0 Yes [id number] APPLY U nivers E-BETAMETHA 2-19 CREAM ity of SONE cream 00:00: [place] 00 TO AREA Medical TWICE Branch DAILY CLOTRIMAZOL 2020-0 Yes [id number] APPLY U nivers E-BETAMETHA 2-19 CREAM ity of SONE cream 00:00: [place] 00 TO AREA Medical TWICE Branch DAILY CLOTRIMAZOL 2020-0 Yes [id number] APPLY U nivers E-BETAMETHA 2-19 CREAM ity of SONE cream 00:00: [place]ICALLY [place] 00 TO AREA Medical TWICE Branch DAILY CLOTRIMAZOL 2020-0 Yes [id number] APPLY U nivers E-BETAMETHA 2-19 CREAM ity of SONE cream 00:00: [place]ICALLY [place] 00 TO AREA Medical TWICE Branch DAILY DULoxetine 2018-10 Yes 60mg Take 60 mg U nivers 60 mg 2-12 by mouth ity of capsule 20:29: daily. [address] carvedilol 2018-10 Yes 12.5mg Take 12.5 [facility] 12.5 mg 2-12 mg by ity of tablet 20:29: mouth 2 [place] [address] (two) Medical times Branch daily with meals. amLODIPine 2018-10 Yes 5mg Take 5 mg [facility] 5 mg tablet 2-12 by mouth ity of 20:29: daily. [address] Branch methadone 5 2018-10 Yes 5mg Take 5 mg U nivers mg tablet 2-12 by mouth ity of 20:29: every 6 [place] 46 (six) Medical hours as Branch needed. baclofen 10 2018-10 Yes 10mg Take 10 mg [facility] mg tablet 2-12 by mouth 3 ity of 20:29: (three) [place] 46 times Medical daily. Branch tiZANidine 2018-10 Yes 4mg Take 4 mg [facility] (ZANAFLEX) 2-12 by mouth 3 ity of 4 mg 20:29: (three) [place] capsule 46 times Medical daily. Branch DULoxetine 2018-10 Yes 60mg Take 60 mg U nivers 60 mg 2-12 by mouth ity of capsule 20:29: daily. [address] Branch carvedilol 2018-10 Yes 12.5mg Take 12.5 [facility] 12.5 mg 2-12 mg by ity of tablet 20:29: mouth 2 [place] [address] (two) Medical times Branch daily with meals. amLODIPine 2018-10 Yes 5mg Take 5 mg [facility] 5 mg tablet 2-12 by mouth ity of 20:29: daily. [address] Branch methadone 5 2018-10 Yes 5mg Take 5 mg U nivers mg tablet 2-12 by mouth ity of 20:29: every 6 [place] [address] (six) Medical hours as Branch needed. baclofen 10 2018-10 Yes 10mg Take 10 mg [facility] mg tablet 2-12 by mouth 3 ity of 20:29: (three) [place] 46 times Medical daily. Branch tiZANidine 2018-10 Yes 4mg Take 4 mg [facility] (ZANAFLEX) 2-12 by mouth 3 ity of 4 mg 20:29: (three) [place] capsule 46 times Medical daily. Branch clotrimazol 2018-10 2020- No [id number] [facility] 2 it y of sone cream 00:00: 20:10 (two) [place] 00 :03 times Medical daily. Branch methadone 2018-10 Yes 20mg Q.[id number] Take 20 mg [facility] (DOLOPHINE) 1-[id number] mouth [address] 10 MG 00:00: 3D (three) [facility]osp[facility] tablet 00 times a l day as needed, methadone 2018-10 Yes 20mg Q.[id number] Take 20 mg [facility] (DOLOPHINE) 1-[id number] mouth [address] 10 MG 00:00: 3D (three) [facility]osp[facility] tablet 00 times a l day as needed, methadone 2018-10 Yes 20mg Q.[id number] Take 20 mg [facility] (DOLOPHINE) 1-[id number] mouth [facility] [address] 10 MG 00:00: 3D (three) [facility]ospita tablet 00 times a l day as needed, methadone 2018-10 Yes 20mg Q.[id number] Take 20 mg [facility] (DOLOPHINE) 1-[id number] mouth [facility] [address] 10 MG 00:00: 3D (three) [facility]osp[facility] tablet 00 times a l day as needed, methadone 2018-10 Yes 20mg Q.[id number] Take 20 mg [facility] (DOLOPHINE) 1-[id number] mouth [address] 10 MG 00:00: 3D (three) [facility]osp[facility] tablet 00 times a l day as needed, methadone 2018-10 Yes 20mg Q.[id number] Take 20 mg [facility] (DOLOPHINE) 1-[id number] mouth [address] 10 MG 00:00: 3D (three) Hospita tablet 00 times a l day as needed, methadone 2018-10 Yes 20mg Q.[id number] Take 20 mg [facility] (DOLOPHINE) 1-[id number] mouth [address] 10 MG 00:00: 3D (three) Hospita tablet 00 times a l day as needed, methadone 2018-10 Yes 20mg Q.[id number] Take 20 mg [facility] (DOLOPHINE) 1-[id number] mouth [address] 10 MG 00:00: 3D (three) Hospita tablet 00 times a l day as needed, methadone 2018-10 Yes 20mg Q.[id number] Take 20 mg [facility] (DOLOPHINE) 1-[id number] mouth [facility] [address] 10 MG 00:00: 3D (three) Hospita tablet 00 times a l day as needed, methadone 2018-10 Yes 20mg Q.[id number] Take 20 mg [facility] (DOLOPHINE) 1-[id number] mouth [address] 10 MG 00:00: 3D (three) Hospita tablet 00 times a l day as needed, baclofen 2018-10 Yes 10mg Q.[id number] Take 10 mg [facility] (LIORESAL) 1-[id number] by mouth [facility] [address] 10 MG 00:00: 3D (three) Hospita tablet 00 times a l day as needed. baclofen 2018-10 Yes 10mg Q.[id number] Take 10 mg [facility] (LIORESAL) 1-04 [id number] mouth [facility] [address] 10 MG 00:00: 3D (three) Hospita tablet 00 times a l day as needed. baclofen 2018-10 Yes 10mg Q.[id number] Take 10 mg [facility] (LIORESAL) 1-[id number] mouth [address] 10 MG 00:00: 3D (three) Hospita tablet 00 times a l day as needed. baclofen 2018-10 Yes 10mg Q.[id number] Take 10 mg [facility] (LIORESAL) 1-04 [id number] [address] mouth [facility] [address] 10 MG 00:00: 3D (three) Hospita tablet 00 times a l day as needed. baclofen 2018-10 Yes 10mg Q.[id number] Take 10 mg [facility] (LIORESAL) 1-[id number] mouth [facility] [address] 10 MG 00:00: 3D (three) Hospita tablet 00 times a l day as needed. baclofen 2018-10 Yes 10mg Q.[id number] Take 10 mg [facility] (LIORESAL) 1-04 [id number] by mouth [facility] [address] 10 MG 00:00: 3D (three) Hospita tablet 00 times a l day as needed. baclofen 2018-10 Yes 10mg Q.[id number] Take 10 mg [facility] (LIORESAL) 1-04 [id number] mouth [facility] [address] 10 MG 00:00: 3D (three) Hospita tablet 00 times a l day as needed. baclofen 2018-10 Yes 10mg Q.[id number] Take 10 mg [facility] (LIORESAL) 1-[id number] mouth [facility] [address] 10 MG 00:00: 3D (three) Hospita tablet 00 times a l day as needed. baclofen 2018-10 Yes 10mg Q.[id number] Take 10 mg [facility] (LIORESAL) 1-04 [id number] mouth [facility] [address] 10 MG 00:00: 3D (three) Hospita tablet 00 times a l day as needed. baclofen 2018-10 Yes 10mg Q.[id number] Take 10 mg [facility] (LIORESAL) 1-[id number] mouth [address] 10 MG 00:00: 3D (three) Hospita tablet 00 times a l day as needed. omeprazole 2018- Yes 40mg Q.5D Take 40 mg M [facility] (PriLOSEC) 0-[address] 40 MG 00:00: (two) Hospita capsule 00 times a l day. omeprazole 2018- Yes 40mg Q.5D Take 40 mg M ethodi (PriLOSEC) 0-[address] 40 MG 00:00: (two) Hospita capsule 00 times a l day. omeprazole 2018- Yes 40mg Q.5D Take 40 mg M [facility]i (PriLOSEC) 0-[address] 40 MG 00:00: (two) Hospita capsule 00 times a l day. omeprazole 2018- Yes 40mg Q.5D Take 40 mg M ethodi (PriLOSEC) 0-[address] 40 MG 00:00: (two) [facility]ospita capsule 00 times a l day. omeprazole 2018- Yes 40mg Q.5D Take 40 mg M ethodi (PriLOSEC) 0-[address] 40 MG 00:00: (two) Hospita capsule 00 times a l day. omeprazole 2018- Yes 40mg Q.5D Take 40 mg M ethodi (PriLOSEC) 0-[address] 40 MG 00:00: (two) [facility]ospita capsule 00 times a l day. omeprazole 2018- Yes 40mg Q.5D Take 40 mg M ethodi (PriLOSEC) 0-[address] 40 MG 00:00: (two) [facility]ospita capsule 00 times a l day. omeprazole 2018- Yes 40mg Q.5D Take 40 mg M ethodi (PriLOSEC) 0-[address] 40 MG 00:00: (two) Hospita capsule 00 times a l day. omeprazole 2018- Yes 40mg Q.5D Take 40 mg M ethodi (PriLOSEC) 0-[address] 40 MG 00:00: (two) [facility]ospita capsule 00 times a l day. omeprazole 2018- Yes 40mg Q.5D Take 40 mg M [facility] (PriLOSEC) 0-[address] 40 MG 00:00: (two) [facility]ospita capsule 00 times a l day. alendronate 2018-0 2021- No 70mg Take 70 mg [facility] (FOSAMAX) 06-[address] 70 MG 00:00: 00:00 [facility]ospita tablet 00 :00 l alendronate 2018-0 2021- No 70mg Take 70 mg [facility] (FOSAMAX) 06-[address] 70 MG 00:00: 00:00 [facility]ospita tablet 00 :00 l alendronate 2018-0 2021- No 70mg Take 70 mg [facility] (FOSAMAX) 06-[address] 70 MG 00:00: 00:00 [facility]ospita tablet 00 :00 l alendronate 2018-0 2021- No 70mg Take 70 mg [facility] (FOSAMAX) 06-[address] 70 MG 00:00: 00:00 [facility]ospita tablet 00 :00 l benzonatate 2018-0 Yes [id number] 100mg Take 1 [facility] 100 mg 4-18 capsule by ity of capsule 00:00: mouth [place] ([facility]) Medical times Branch daily as needed for Cough. benzonatate 2018-0 Yes [id number] 100mg Take 1 [facility] 100 mg 4-18 capsule by ity of capsule 00:00: mouth [place] (three) Medical times Branch daily as needed for Cough. benzonatate 2018-0 Yes [id number] 100mg Take 1 [facility] 100 mg 4-18 capsule by ity of capsule 00:00: mouth [place] (three) Medical times Branch daily as needed for Cough. benzonatate 2018-0 Yes [id number] 100mg Take 1 [facility] 100 mg 4-18 capsule by ity of capsule 00:00: mouth [place] (three) Medical times Branch daily as needed for Cough. benzonatate 2018-0 Yes [id number] 100mg Take 1 [facility] 100 mg 4-18 capsule by ity of capsule 00:00: mouth 3 [place] (three) Medical times Branch daily as needed for Cough. benzonatate 2019-0 Yes [id number] 100mg Take 1 [facility] 100 mg 4-18 capsule by ity of capsule 00:00: mouth 3 [place] (three) Medical times Branch daily as needed for Cough. benzonatate 2018-0 Yes [id number] 100mg Take 1 [facility] 100 mg 4-18 capsule by ity of capsule 00:00: mouth 3 [place] 00 (three) Medical times Branch daily as needed for Cough. benzonatate 2018-0 Yes [id number] 100mg Take 1 [facility] 100 mg 4-18 capsule by ity of capsule 00:00: mouth (three) Medical times Branch daily as needed for Cough. benzonatate 2018-0 Yes [id number] 100mg Take 1 [facility] 100 mg 4-18 capsule by ity of capsule 00:00: mouth (three) Medical times Branch daily as needed for Cough. benzonatate 2018-0 Yes [id number] 100mg Take 1 [facility] 100 mg 4-18 capsule by ity of capsule 00:00: mouth (three) Medical times Branch daily as needed for Cough. benzonatate 2018-0 Yes [id number] 100mg Take 1 [facility] 100 mg 4-18 capsule by ity of capsule 00:00: mouth (three) Medical times Branch daily as needed for Cough. benzonatate 2018-0 Yes [id number] 100mg Take 1 [facility] 100 mg 4-18 capsule by ity of capsule 00:00: mouth () Medical times Branch daily as needed for Cough. benzonatate 0 Yes [id number] 100mg Take 1 [facility] 100 mg 4-18 capsule by ity of capsule 00:00: mouth (three) Medical times Branch daily as needed for Cough. benzonatate 2018-0 Yes [id number] 100mg Take 1 [facility] 100 mg 4-18 capsule by ity of capsule 00:00: mouth (three) Medical times Branch daily as needed for Cough. benzonatate 2018-0 Yes [id number] 100mg Take 1 [facility] 100 mg 4-18 capsule by ity of capsule 00:00: mouth (three) Medical times Branch daily as needed for Cough. benzonatate 2018-0 Yes [id number] 100mg Take 1 [facility] 100 mg 4-18 capsule by ity of capsule 00:00: mouth (three) Medical times Branch daily as needed for Cough. acetaminoph 2018-0 Yes [id number] 1-2 [facility] en-codeine 4-04 [id number] tablets by i ty of 300-30 mg 00:00: mouth [place] tablet 00 every 6 Medical hours as Branch needed for pain ibuprofen 2018-0 Yes [id number] 400mg Take 1 [facility] 400 mg 4-04 [id number] tablet by ity of tablet 00:00: mouth [place] 00 every 6 Medical (six) Branch hours. acetaminoph 2018- Yes [id number] 1-2 [facility] en-codeine 4-04 [id number] tablets by i ty of 300-30 mg 00:00: mouth [place] tablet 00 every 6 Medical hours as Branch needed for pain ibuprofen 2019- Yes [id number] 400mg Take 1 [facility] 400 mg 4-04 [id number] tablet by ity of tablet 00:00: mouth [place] 00 every 6 Medical (six) Branch hours. acetaminoph Yes [id number] 1-2 [facility] en-codeine 4-04 [id number] tablets by i ty of 300-30 mg 00:00: mouth [place] tablet 00 every 6 Medical hours as Branch needed for pain ibuprofen 2018- Yes [id number] 400mg Take 1 [facility] 400 mg 4-04 [id number] tablet by ity of tablet 00:00: mouth [place] 00 every 6 Medical (six) Branch hours. acetaminoph Yes [id number] 1-2 [facility] en-codeine 4-04 [id number] tablets by i ty of 300-30 mg 00:00: mouth [place] tablet 00 every 6 Medical hours as Branch needed for pain ibuprofen 2019-0 Yes [id number] 400mg Take 1 [facility] 400 mg 4-04 [id number] tablet by ity of tablet 00:00: mouth [place] 00 every 6 Medical (six) Branch hours. acetaminoph 2018- Yes [id number] 1-2 [facility] en-codeine 4-04 [id number] tablets by i ty of 300-30 mg 00:00: mouth [place] tablet 00 every 6 Medical hours as Branch needed for pain ibuprofen 2019-0 Yes [id number] 400mg Take 1 [facility] 400 mg 4-04 [id number] tablet by ity of tablet 00:00: mouth [place] 00 every 6 Medical (six) Branch hours. acetaminoph 2018- Yes [id number] 1-2 [facility] en-codeine 4-04 [id number] tablets by i ty of 300-30 mg 00:00: mouth [place] tablet 00 every 6 Medical hours as Branch needed for pain ibuprofen 2019-0 Yes [id number] 400mg Take 1 [facility] 400 mg 4-04 [id number] tablet by ity of tablet 00:00: mouth [place] 00 every 6 Medical (six) Branch hours. acetaminoph 2018- Yes [id number] 1-2 [facility] en-codeine 4-04 [id number] tablets by i ty of 300-30 mg 00:00: mouth [place] tablet 00 every 6 Medical hours as Branch needed for pain ibuprofen 2019-0 Yes [id number] 400mg Take 1 Univers 400 mg 4-04 [id number] tablet by ity of tablet 00:00: mouth [place] 00 every 6 Medical (six) Branch hours. acetaminoph 2019-0 Yes [id number] 1-2 [facility] en-codeine 4-04 [id number] tablets by i ty of 300-30 mg 00:00: mouth [place] tablet 00 every 6 Medical hours as Branch needed for pain ibuprofen 2019-0 Yes [id number] 400mg Take 1 [facility] 400 mg 4-04 [id number] tablet by ity of tablet 00:00: mouth [place] 00 every 6 Medical (six) Branch hours. acetaminoph 2019-0 Yes [id number] 1-2 [facility] en-codeine 4-04 [id number] tablets by i ty of 300-30 mg 00:00: mouth [place] tablet 00 every 6 Medical hours as Branch needed for pain ibuprofen 2019-0 Yes [id number] 400mg Take 1 [facility] 400 mg 4-04 [id number] tablet by ity of tablet 00:00: mouth [place] 00 every 6 Medical (six) Branch hours. acetaminoph 2018-0 Yes [id number] 1-2 [facility] en-codeine 4-04 [id number] tablets by i ty of 300-30 mg 00:00: mouth [place] tablet 00 every 6 Medical hours as Branch needed for pain ibuprofen 2019-0 Yes [id number] 400mg Take 1 [facility] 400 mg 4-04 [id number] tablet by it[facility] of tablet 00:00: mouth [place] 00 every 6 Medical (six) Branch hours. acetaminoph 2019-0 Yes [id number] 1-2 [facility] en-codeine 4-04 [id number] tablets by i ty of 300-30 mg 00:00: mouth [place] tablet 00 every 6 Medical hours as Branch needed for pain ibuprofen 2019-0 Yes [id number] 400mg Take 1 [facility] 400 mg 4-04 [id number] tablet by ity of tablet 00:00: mouth [place] 00 every 6 Medical (six) Branch hours. acetaminoph 2019-0 Yes [id number] 1-2 [facility] en-codeine 4-04 [id number] tablets by i ty of 300-30 mg 00:00: mouth [place] tablet 00 every 6 Medical hours as Branch needed for pain ibuprofen 2019- Yes [id number] 400mg Take 1 [facility] 400 mg 4-04 [id number] tablet by ity of tablet 00:00: mouth [place] 00 every 6 Medical (six) Branch hours. acetaminoph 2019-0 Yes [id number] 1-2 [facility] en-codeine 4-04 [id number] tablets by i ty of 300-30 mg 00:00: mouth [place] tablet 00 every 6 Medical hours as Branch needed for pain acetaminoph 2018- Yes [id number] 1-2 [facility] en-codeine 4-04 [id number] tablets by i ty of 300-30 mg 00:00: mouth [place] tablet 00 every 6 Medical hours as Branch needed for pain ibuprofen 2018- Yes [id number] 400mg Take 1 [facility] 400 mg 4-04 [id number] tablet by ity of tablet 00:00: mouth [place] 00 every 6 Medical (six) Branch hours. ibuprofen 2018- Yes [id number] 400mg Take 1 [facility] 400 mg 4-04 [id number] tablet by it[facility] of tablet 00:00: mouth [place] 00 every 6 Medical (six) Branch hours. acetaminoph 2018- Yes [id number] 1-2 [facility] en-codeine 4-04 [id number] tablets by i ty of 300-30 mg 00:00: mouth [place] tablet 00 every 6 Medical hours as Branch needed for pain ibuprofen 2019-0 Yes [id number] 400mg Take 1 [facility] 400 mg 4-04 [id number] tablet by ity of tablet 00:00: mouth [place] 00 every 6 Medical (six) Branch hours. acetaminoph 2018- Yes [id number] 1-2 [facility] en-codeine 4-04 [id number] tablets by i ty of 300-30 mg 00:00: mouth [place] tablet 00 every 6 Medical hours as Branch needed for pain ibuprofen 2018- Yes [id number] 400mg Take 1 [facility] 400 mg 4-04 [id number] tablet by ity of tablet 00:00: mouth [...] dic 00 Sports Medicin e levothyroxi Yes 150ug Take 1 [facility] vers ne 150 mcg 6-27 tablet by ity of tablet 00:00: mouth [place] 00 every Medical morning. Branch ergocalcife 2016- Yes [id number] Take 1 Un rex rol, 6-27 capsule by ity of vitamin d2, 00:00: mouth [place] (VITAMIN 00 weekly. Medical D2) 50,000 Branch unit capsule levothyroxi 2016-0 Yes 150ug Take 1 [facility] vers ne 150 mcg 6-27 tablet by ity of tablet 00:00: mouth [place] 00 every Medical morning. Branch ergocalcife 2016-0 Yes [id number] Take 1 [facility] rex rol, 6-27 capsule by ity of vitamin d2, 00:00: mouth [place] (VITAMIN 00 weekly. Medical D2) 50,000 Branch unit capsule levothyroxi 2016-0 Yes 150ug Take 1 [facility] vers ne 150 mcg 6-27 tablet by ity of tablet 00:00: mouth [place] 00 every Medical morning. Branch ergocalcife 2017-0 Yes [id number] Take 1 Un rex rol, 6-27 capsule by ity of vitamin d2, 00:00: mouth [place] (VITAMIN 00 weekly. Medical D2) 50,000 Branch unit capsule levothyroxi 2016-0 Yes 150ug Take 1 [facility] vers ne 150 mcg 6-27 tablet by ity of tablet 00:00: mouth [place] 00 every Medical morning. Branch ergocalcife 2017-0 Yes [id number] Take 1 Un rex rol, 6-27 capsule by ity of vitamin d2, 00:00: mouth [place] (VITAMIN 00 weekly. Medical D2) 50,000 Branch unit capsule levothyroxi 2017-0 Yes 150ug Take 1 [facility] vers ne 150 mcg 6-27 tablet by ity of tablet 00:00: mouth [place] 00 every Medical morning. Branch ergocalcife 2017-0 Yes [id number] Take 1 Un rex rol, 6-27 capsule by ity of vitamin d2, 00:00: mouth [place] (VITAMIN 00 weekly. Medical D2) 50,000 Branch unit capsule levothyroxi 2017-0 Yes 150ug Take 1 [facility] vers ne 150 mcg 6-27 tablet by ity of tablet 00:00: mouth [place] 00 every Medical morning. Branch ergocalcife 2017-0 Yes [id number] Take 1 Un rex rol, 6-27 capsule by ity of vitamin d2, 00:00: mouth [place] (VITAMIN 00 weekly. Medical D2) 50,000 Branch unit capsule levothyroxi 2017-0 Yes 150ug Take 1 [facility] vers ne 150 mcg 6-27 tablet by ity of tablet 00:00: mouth [place] 00 every Medical morning. Branch ergocalcife 2017-0 Yes [id number] Take 1 Un rex rol, 6-27 capsule by ity of vitamin d2, 00:00: mouth [place] (VITAMIN 00 weekly. Medical D2) 50,000 Branch unit capsule levothyroxi 2017-0 Yes 150ug Take 1 [facility] vers ne 150 mcg 6-27 tablet by ity of tablet 00:00: mouth [place] 00 every Medical morning. Branch ergocalcife 2017-0 Yes [id number] Take 1 Un rex rol, 6-27 capsule by ity of vitamin d2, 00:00: mouth [place] (VITAMIN 00 weekly. Medical D2) 50,000 Branch unit capsule levothyroxi 2017-0 Yes 150ug Take 1 [facility] vers ne 150 mcg 6-27 tablet by ity of tablet 00:00: mouth [place] 00 every Medical morning. Branch ergocalcife 2017-0 Yes [id number] Take 1 [facility] rex rol, 6-27 capsule by ity of vitamin d2, 00:00: mouth [place] (VITAMIN 00 weekly. Medical D2) 50,000 Branch unit capsule levothyroxi 2017-0 Yes 150ug Take 1 [facility] vers ne 150 mcg 6-27 tablet by ity of tablet 00:00: mouth [place] 00 every Medical morning. Branch ergocalcife 2017-0 Yes [id number] Take 1 Un rex rol, 6-27 capsule by ity of vitamin d2, 00:00: mouth [place] (VITAMIN 00 weekly. Medical D2) 50,000 Branch unit capsule levothyroxi 2017-0 Yes 150ug Take 1 [facility] vers ne 150 mcg 6-27 tablet by ity of tablet 00:00: mouth [place] 00 every Medical morning. Branch ergocalcife 2017-0 Yes [id number] Take 1 [facility] rex rol, 6-27 capsule by ity of vitamin d2, 00:00: mouth [place] (VITAMIN 00 weekly. Medical D2) 50,000 Branch unit capsule levothyroxi 2017-0 Yes 150ug Take 1 [facility] vers ne 150 mcg 6-27 tablet by ity of tablet 00:00: mouth [place] 00 every Medical morning. Branch ergocalcife 2017-0 Yes [id number] Take 1 [facility] rex rol, 6-27 capsule by ity of vitamin d2, 00:00: mouth [place] (VITAMIN 00 weekly. Medical D2) 50,000 Branch unit capsule levothyroxi 2017-0 Yes 150ug Take 1 [facility] vers ne 150 mcg 6-27 tablet by ity of tablet 00:00: mouth [place] 00 every Medical morning. Branch ergocalcife 2017-0 Yes [id number] Take 1 Un rex rol, 6-27 capsule by ity of vitamin d2, 00:00: mouth [place] (VITAMIN 00 weekly. Medical D2) 50,000 Branch unit capsule levothyroxi 2017-0 Yes 150ug Take 1 [facility] vers ne 150 mcg 6-27 tablet by ity of tablet 00:00: mouth [place] 00 every Medical morning. Branch ergocalcife 2017-0 Yes [id number] Take 1 Un rex rol, 6-27 capsule by ity of vitamin d2, 00:00: mouth [place] (VITAMIN 00 weekly. Medical D2) 50,000 Branch unit capsule levothyroxi 2017-0 Yes 150ug Take 1 [facility] vers ne 150 mcg 6-27 tablet by ity of tablet 00:00: mouth [place] 00 every Medical morning. Branch ergocalcife 2017-0 Yes [id number] Take 1 Un rex rol, 6-27 capsule by ity of vitamin d2, 00:00: mouth [place] (VITAMIN 00 weekly. Medical D2) 50,000 Branch unit capsule levothyroxi 2017-0 Yes 150ug Take 1 [facility] vers ne 150 mcg 6-27 tablet by ity of tablet 00:00: mouth [place] 00 every Medical morning. Branch ergocalcife 2017-0 Yes [id number] Take 1 Un rex rol, 6-27 capsule by ity of vitamin d2, 00:00: mouth [place] (VITAMIN 00 weekly. Medical D2) 50,000 Branch unit capsule levothyroxi Yes levothyrox [facility] (SYNTHROID) 00:[facility]: [facility]cg 00 TAKE 1 l tablet TABLET BY MOUTH ONCE DAILY IN THE MORNING levothyroxi Yes levothyrox [facility] (SYNTHROID) 00:00: [facility] 150 mcg 00 TAKE 1 l tablet TABLET BY MOUTH ONCE DAILY IN THE MORNING levothyroxi Yes levothyrox [facility] (SYNTHROID) 00:00: [facility] tablet [facility] 150 mcg 00 TAKE 1 l tablet TABLET BY MOUTH ONCE DAILY IN THE MORNING levothyroxi Yes levothyrox [facility] (SYNTHROID) 00:00: [facility] tablet [facility] 150 mcg 00 TAKE 1 l tablet TABLET BY MOUTH ONCE DAILY IN THE MORNING levothyroxi Yes levothyrox [facility] (SYNTHROID) 00:00: [facility] tablet [facility] 150 mcg 00 TAKE 1 l tablet TABLET BY MOUTH ONCE DAILY IN THE MORNING levothyroxi Yes levothyrox [facility] (SYNTHROID) 00:00: [facility] tablet [facility] 150 mcg 00 TAKE 1 l tablet TABLET BY MOUTH ONCE DAILY IN THE MORNING levothyroxi Yes levothyrox [facility] (SYNTHROID) 00:00: [facility]cg tablet [facility] 150 mcg 00 TAKE 1 l tablet TABLET BY MOUTH ONCE DAILY IN THE MORNING levothyroxi Yes levothyrox [facility] (SYNTHROID) 00:00: [facility]cg tablet [facility] 150 mcg 00 TAKE 1 l tablet TABLET BY MOUTH ONCE DAILY IN THE MORNING levothyroxi Yes levothyrox [facility] (SYNTHROID) 00:00: [facility]cg tablet [facility] 150 mcg 00 TAKE 1 l tablet TABLET BY MOUTH ONCE DAILY IN THE MORNING levothyroxi Yes levothyrox [facility] (SYNTHROID) 00:00: [facility]cg tablet [facility] 150 mcg 00 TAKE 1 l tablet TABLET BY MOUTH ONCE DAILY IN THE MORNING ergocalcife 2- No 1{capsu Q7D Take 1 [facility] 6-27 02-15 le} capsule by st (VITAMIN 00:00: 00:00 [facility] D2) 50,000 00 :00 a week. l unit capsule ergocalcife 2021- No 1{capsu Q7D Take 1 [facility] 04-09 le} capsule by st (VITAMIN 00:00: 00:00 mouth [facility] D2) 50,000 00 :00 a week. l unit capsule ergocalcife 2021- No 1{capsu Q7D Take 1 [facility] 04-09 le} capsule by st (VITAMIN 00:00: 00:00 mouth [facility] D2) 50,000 00 :00 a week. l unit capsule ergocalcife 2021- No 1{capsu Q7D Take 1 [facility] 04-09 le} capsule by st (VITAMIN 00:00: 00:00 mouth [facility] D2) 50,000 00 :00 a week. l unit capsule ursodiol ursodiol No ursodiol Aza peyman 500 [...] Sports MOUTH AT MOUTH AT TABLET BY Id dicin BEDTIME BEDTIME MOUTH AT e BEDTIME [...] IN THE MORNING tizanidine tizanidine No tizanidine Brenad 4 mg tablet 4 mg tablet 4 [...] Sports MOUTH AT MOUTH AT TABLET BY Id dicin BEDTIME BEDTIME MOUTH AT e BEDTIME [...] HOURS NEEDED docusate docusate No docusate Aza peyman sodium 100 sodium 100 sodium 100 [facility] [...] tablet mg tablet dic Sports Medicin e cephalexin cephalexin No cephalexin Brenda 500 mg 500 mg 500 mg [facility] capsule capsule capsule dic TAKE 1 TAKE 1 TAKE 1 Sports CAPSULE BY CAPSULE BY CAPSULE BY Medicin MOUTH EVERY MOUTH EVERY MOUTH e 8 HOURS 8 HOURS EVERY 8 HOURS cholecalcif cholecalcif No cholecalci Brenda rosy rosy [...] HOURS NEEDED docusate docusate No docusate Aza peyman sodium 100 sodium 100 sodium 100 [facility] [...] tablet tablet tablet dic Sports Medic[facility] e levothyroxi levothyroxi No levothyrox Brenda ne 175 mcg ne 175 mcg ine 175 [facility] tablet TAKE tablet TAKE mcg tablet dic 1 TABLET BY 1 TABLET BY TAKE 1 Sports MOUTH ONCE MOUTH ONCE TABLET BY Medicin DAILY DAILY MOUTH ONCE e DAILY liothyronin liothyronin No liothyroni Brenda e [...] CAPSULE BY CAPSULE BY CAPSULE BY MOUTH ONCE MOUTH ONCE MOUTH ONCE DAILY DAILY DAILY ondansetron ondansetron No ondansetro Brenda 4 mg 4 mg n 4 mg [facility] disintegrat disintegrat disintegra dic ing tablet ing tablet ting Spo rts DISSOLVE 1 DISSOLVE 1 tablet M edicin TABLET IN TABLET IN DISSOLVE 1 e MOUTH EVERY MOUTH EVERY TABLET IN 8 HOURS 8 HOURS MOUTH NEEDED FOR NEEDED FOR EVERY 8 NAUSEA AND NAUSEA AND HOURS VOMITING VOMITING NEEDED FOR NAUSEA AND VOMITING ondansetron ondansetron No ondansetro Brenda HCl 4 mg HCl 4 mg n HCl 4 mg [facility] tablet TAKE tablet TAKE tablet dic 1 TABLET BY 1 TABLET BY TAKE 1 Sports MOUTH EVERY MOUTH EVERY TABLET BY Medicin 8 HOURS 8 HOURS MOUTH e NEEDED NEEDED EVERY 8 HOURS NEEDED prednisone prednisone No prednisone Brenda 20 mg 20 mg 20 mg [facility] tablet TAKE tablet TAKE tablet dic 2 TABLETS 2 TABLETS TAKE 2 Spo rts BY MOUTH BY MOUTH TABLETS BY M edicin ONCE DAILY ONCE DAILY MOUTH ONCE e FOR 7 DAYS FOR 7 DAYS DAILY FOR 7 DAYS sertraline sertraline No sertraline Brenda 100 mg [...] tablet mg tablet dic Sports Medicin e cephalexin cephalexin No cephalexin Brenda 500 mg 500 mg 500 mg [facility] capsule capsule capsule dic TAKE 1 TAKE 1 TAKE 1 Sports CAPSULE BY CAPSULE BY CAPSULE BY Medicin MOUTH EVERY MOUTH EVERY MOUTH e 8 HOURS 8 HOURS EVERY 8 HOURS cholecalcif cholecalcif No cholecalci Brenda rosy rosy [...] LARLY ONCE A WEEK diclofenac diclofenac No 1 Q1D diclofenac Brenda ER 100 mg ER 100 [...] NEEDED NEEDED HOURS NEEDED doxycycline doxycycline No 1capsul BID doxycyclin Brenda hyclate 100 hyclate 100 e(s) e hyclate [facility] mg capsule mg capsule [...] tablet tablet tablet dic Sports Medicin e hydrocodone hydrocodone No 1 Q6H hydrocodon Brenda 5 5 e 5 [facility] mg-acetamin mg-acetamin mg-acetami dic ophen 325 ophen 325 nophen 325 Sports mg tablet mg tablet mg tablet Medicin Take 1 Take 1 Take 1 e tablet tablet tablet every 6 every 6 every 6 hours by hours by hours by oral route. oral route. oral route. levothyroxi levothyroxi No levothyrox [facility] ne 175 mcg ne 175 mcg ine 175 [facility] tablet TAKE tablet TAKE mcg tablet dic 1 TABLET BY 1 TABLET BY TAKE 1 Sports MOUTH ONCE MOUTH ONCE TABLET BY Medicin DAILY DAILY MOUTH ONCE e DAILY liothyronin liothyronin No liothyroni Brenda e 5 mcg e 5 mcg ne 5 mcg [facility] pe tablet TAKE tablet TAKE tablet dic 2 TABLETS 2 TABLETS TAKE 2 Spo rts BY MOUTH BY MOUTH TABLETS BY Jonna olivarezicin ONCE DAILY ONCE DAILY MOUTH ONCE e DAILY Abilify 30 Abilify 30 No Abilify 30 Brenda mg tablet mg tablet mg tablet [facility] once a day once a day once a day dic Sports Medicin e methadone methadone No methadone Brenda 10 mg [...] CAPSULE BY CAPSULE BY CAPSULE BY MOUTH ONCE MOUTH ONCE MOUTH ONCE DAILY DAILY DAILY ondansetron ondansetron No 1 BID ondansetro Brenda 4 mg 4 mg n [...] Medicin 8 HOURS 8 HOURS MOUTH e NEEDED NEEDED EVERY 8 HOURS NEEDED prednisone prednisone No prednisone Brenda 20 mg 20 mg 20 mg [facility] tablet TAKE tablet TAKE tablet dic 2 TABLETS 2 TABLETS TAKE 2 Spo rts BY MOUTH BY MOUTH TABLETS BY Jonna edicin ONCE DAILY ONCE DAILY MOUTH ONCE e FOR 7 DAYS FOR 7 DAYS DAILY FOR 7 DAYS sertraline sertraline No sertraline Brenda 100 mg [...] dicin BEDTIME BEDTIME MOUTH AT e BEDTIME aripiprazol aripiprazol No aripiprazo Brenda e 10 [...] tablet mg tablet dic Sports Medicin e cephalexin cephalexin No cephalexin Brenda 500 mg 500 mg 500 mg [facility] capsule capsule capsule dic TAKE 1 TAKE 1 TAKE 1 Sports CAPSULE BY CAPSULE BY CAPSULE BY Medicin MOUTH EVERY MOUTH EVERY MOUTH e 8 HOURS 8 HOURS EVERY 8 HOURS cholecalcif cholecalcif No cholecalci Brenda rosy rosy [...] 24 release 24 release 24 Medicin hr TAKE 1 hr TAKE 1 hr TAKE 1 e TABLET BY TABLET BY TABLET BY MOUTH ONCE MOUTH ONCE MOUTH ONCE DAILY DAILY DAILY dicyclomine dicyclomine No dicyclomin Brenda 10 mg 10 mg e 10 mg [facility] capsule capsule capsule dic TAKE 1 TAKE 1 TAKE 1 Sports CAPSULE BY CAPSULE BY CAPSULE BY Medicin MOUTH EVERY MOUTH EVERY MOUTH e 8 HOURS 8 HOURS EVERY 8 NEEDED NEEDED HOURS NEEDED BinaxNOW BinaxNOW No BinaxNOW Aza peyman COVID-19 Ag COVID-19 Ag COVID-19 [facility] Self Test Self Test Ag Self di c kit Use as kit Use as Test kit Sports Directed on Directed on Use as Medicin the Package the Package Directed e on the Package doxycycline doxycycline No doxycyclin Brenda hyclate 100 [...] tablet tablet tablet dic Sports Medicin e hydrocodone hydrocodone No 1 Q6H hydrocodon Brenda 5 5 e 5 [facility] mg-acetamin mg-acetamin mg-acetami dic ophen 325 ophen 325 nophen 325 Sports mg tablet mg tablet mg tablet Medicin Take 1 Take 1 Take 1 e tablet tablet tablet every 6 every 6 every 6 hours by hours by hours by oral route. oral route. oral route. levothyroxi levothyroxi No levothyrox [facility] ne 175 mcg ne 175 mcg ine 175 [facility] tablet TAKE tablet TAKE mcg tablet dic 1 TABLET BY 1 TABLET BY TAKE 1 Sports MOUTH ONCE MOUTH ONCE TABLET BY Medicin DAILY DAILY MOUTH ONCE e DAILY liothyronin liothyronin No liothyroni Brenda e [...] EVERY 8 HOURS omeprazole omeprazole No omeprazole Brenad 40 mg 40 mg 40 mg [facility] capsule,del capsule,del capsule,de dic ayed ayed layed Sports release release release Medici n TAKE 1 TAKE 1 TAKE 1 e CAPSULE BY CAPSULE BY CAPSULE BY MOUTH ONCE MOUTH ONCE MOUTH ONCE DAILY DAILY DAILY ondansetron ondansetron No ondansetro Brenda 4 [...] Medicin 8 HOURS 8 HOURS MOUTH e NEEDED NEEDED EVERY 8 HOURS NEEDED prednisone prednisone No prednisone Brenda 20 mg 20 mg 20 mg [facility] tablet TAKE tablet TAKE tablet dic 2 TABLETS 2 TABLETS TAKE 2 Spo rts BY MOUTH BY MOUTH TABLETS BY Jonna jenkins ONCE DAILY ONCE DAILY MOUTH ONCE e FOR 7 DAYS FOR 7 DAYS DAILY FOR 7 DAYS sertraline sertraline No sertraline Brenda 100 mg [...] Medicin DAILY DAILY MOUTH ONCE e DAILY carvedilol carvedilol No carvedilol Brenda 12.5 mg 12.5 mg 12.5 mg [facility] e tablet TAKE tablet TAKE tablet dic 1 TABLET BY 1 TABLET BY TAKE 1 Sports MOUTH TWICE MOUTH TWICE TABLET BY Medicin DAILY DAILY MOUTH e TWICE DAILY aripiprazol aripiprazol No aripiprazo Brenda e 10 mg e 10 mg le 10 mg [facility] pe tablet TAKE tablet TAKE tablet dic 1 TABLET BY 1 TABLET BY TAKE 1 Sports MOUTH AT MOUTH AT TABLET BY Id dicin BEDTIME BEDTIME MOUTH AT e BEDTIME cefuroxime cefuroxime No cefuroxime Brenda axetil 500 axetil 500 axetil 500 [facility] mg tablet mg tablet mg tablet dic TAKE 1 TAKE 1 TAKE 1 Sports TABLET BY TABLET BY TABLET BY Medicin MOUTH TWICE MOUTH TWICE MOUTH e DAILY DAILY TWICE DAILY carvedilol carvedilol No carvedilol Brenda 12.5 mg [...] 24 release 24 release 24 Medicin hr TAKE 1 hr TAKE 1 hr TAKE 1 e TABLET BY TABLET BY TABLET BY MOUTH ONCE MOUTH ONCE MOUTH ONCE DAILY DAILY DAILY dicyclomine dicyclomine No dicyclomin Brenda 10 mg [...] tablet tablet tablet dic Sports Medicin e cholecalcif cholecalcif [...] MONTH CAPSULE A DAY FOR A MONTH hydrocodone hydrocodone No 1 Q6H hydrocodon Brenda 5 5 e 5 [facility] mg-acetamin mg-acetamin mg-acetami dic ophen 325 ophen 325 nophen 325 Sports mg tablet mg tablet mg tablet Medicin Take 1 Take 1 Take 1 e tablet tablet tablet every 6 every 6 every 6 hours by hours by hours by oral route. oral route. oral route. levothyroxi levothyroxi No levothyrox Brenda ne 175 mcg ne 175 mcg ine 175 [facility] tablet TAKE tablet TAKE mcg tablet dic 1 TABLET BY 1 TABLET BY TAKE 1 Sports MOUTH ONCE MOUTH ONCE TABLET BY Medicin DAILY DAILY MOUTH ONCE e DAILY liothyronin liothyronin No liothyroni Brenda e [...] CAPSULE BY CAPSULE BY CAPSULE BY MOUTH ONCE MOUTH ONCE MOUTH ONCE DAILY DAILY DAILY ondansetron ondansetron No ondansetro Brenda 4 [...] Medicin 8 HOURS 8 HOURS MOUTH e NEEDED NEEDED EVERY 8 HOURS NEEDED prednisone prednisone No prednisone Brenda 20 mg 20 mg 20 mg [facility] tablet TAKE tablet TAKE tablet dic 2 TABLETS 2 TABLETS TAKE 2 Spo rts BY MOUTH BY MOUTH TABLETS BY Jonna jenkins ONCE DAILY ONCE DAILY MOUTH ONCE e FOR 7 DAYS FOR 7 DAYS DAILY FOR 7 DAYS sertraline sertraline No sertraline Brenda 100 mg [...] Medicin DAILY DAILY MOUTH ONCE e DAILY Euthyrox Euthyrox No Euthyrox Aza peyman 150 [...] Sports MOUTH AT MOUTH AT TABLET BY Id dicin BEDTIME BEDTIME MOUTH AT e BEDTIME [...] Sports MOUTH AT MOUTH AT TABLET BY Id dicin BEDTIME BEDTIME MOUTH AT e BEDTIME [...] Completed Unive rsity of PFIZER VACCINE 00:00:00 [facility] SARS-COV-2 COVID-19 2021-01-16 Completed Unive rsity of PFIZER VACCINE 00:00:00 [facility] SARS-COV-2 COVID-19 2021-01-16 Completed Unive rsity of PFIZER VACCINE 00:00:00 [facility] SARS-COV-2 COVID-19 2021-01-16 Completed Unive rsity of PFIZER VACCINE 00:00:00 [facility] SARS-COV-2 COVID-19 2020-12-26 Completed Unive rsity of PFIZER VACCINE 00:00:00 [facility] SARS-COV-2 COVID-19 2020-12-26 Completed Unive rsity of PFIZER VACCINE 00:00:00 [facility] SARS-COV-2 COVID-19 2020-12-26 Completed Unive rsity of PFIZER VACCINE 00:00:00 [facility] SARS-COV-2 COVID-19 2020-12-26 Completed Unive rsity of PFIZER VACCINE 00:00:00 [facility] Influenza Virus 2019-07-14 Completed Universit y of Vaccine 00:00:00 [facility] Influenza Virus 2019-07-14 Completed Universit y of Vaccine 00:00:00 [facility] Influenza Virus 2019-07-14 Completed Universit y of Vaccine 00:00:00 [facility] Influenza Virus 2019-07-14 Completed Universit y of Vaccine 00:00:00 [facility] Influenza Virus 2019-07-14 Completed Universit y of Vaccine 00:00:00 [facility] Influenza Virus 2019-07-14 Completed Universit y of Vaccine 00:00:00 [facility] Influenza Virus 2019-07-14 Completed Universit y of Vaccine 00:00:00 [facility] Influenza Virus 2019-07-14 Completed Universit y of Vaccine 00:00:00 [facility] Influenza Virus 2019-07-14 Completed Universit y of Vaccine 00:00:00 [facility] Influenza Virus 2019-07-14 Completed Universit y of Vaccine 00:00:00 [facility] Influenza Virus 2019-07-14 Completed Universit y of Vaccine 00:00:00 [facility] Influenza Virus 2019-07-14 Completed Universit y of Vaccine 00:00:00 [facility] Influenza Virus 2019-07-14 Completed Universit y of Vaccine 00:00:00 [facility] Influenza Virus 2019-07-14 Completed Universit y of Vaccine 00:00:00 [facility] Vital Signs Vital Name Observation Time Observation Value Comments Source Height 2023-02-01 63 [in_i] [facility]da 00:00:00 [facility] BMI (Body Mass 2023-02-01 28.5 kg/m2 Brenda Index) 00:00:00 [facility] Body Weight 2023-02-01 161 [lb_av] Brenda 00:00:00 [facility] Height 2022-12-28 63 [in_i] Brenda 00:00:00 [facility] Systolic blood 2022-11-19 108 mm[Hg] [facility] pressure 23:00:00 [facility] Diastolic blood 2022-11-19 79 mm[Hg] University o f pressure 23:00:00 [facility] Heart rate 2022-11-19 72 /min [facility] 23:00:00 [facility] Respiratory rate 2022-11-19 18 /min [facility] 23:00:00 [facility] Oxygen saturation 2022-11-19 96 /min [facility] in Arterial blood 23:00:00 [facility] by Pulse oximetry [place] Body temperature 2022-11-19 35.61 Svitlana [facility] 19:17:00 [facility] Body weight 2022-11-19 74.844 kg [facility] 19:00:00 [facility] BMI 2022-11-19 29.23 kg/m2 University 19:00:00 [facility] Height 2022-11-07 63 [in_i] Brenda 00:00:00 [facility] [...] 2021-04-26 146 mm[Hg] [facility] pressure 18:55:00 [facility] Diastolic blood 2021-04-26 75 mm[Hg] University o pressure 18:55:00 [facility] Heart rate 2021-04-26 52 /min [facility] 18:55:00 [facility] Respiratory rate 2021-04-26 16 /min [facility] 18:55:00 [facility] Oxygen saturation 2021-04-26 99 /min University of in Arterial blood 18:55:00 [facility] ck by Pulse oximetry Branch Body temperature 2021-04-26 35.94 Svitlana University of 18:35:00 [facility] Body height 2021-04-25 160 cm University [facility] 18:45:00 [facility] Body weight 2021-04-25 74.844 kg University of 18:45:00 [facility] BMI 2021-04-25 29.23 kg/m2 University of 18:45:00 [facility] Systolic blood 2021-04-26 134 mm[Hg] University of pressure 16:55:00 [facility] Diastolic blood 2021-04-26 69 mm[Hg] University o f pressure 16:55:00 [facility] Heart rate 2021-04-26 53 /min University of 16:55:00 [facility] Body temperature 2021-04-26 36.72 Svitlana University of 16:55:00 [facility] Respiratory rate 2021-04-26 16 /min University of 16:55:00 [facility] Oxygen saturation 2021-04-26 99 /min University of in Arterial blood 16:55:00 [facility] by Pulse oximetry Branch Body height 2021-04-25 160 cm University of 18:45:00 [facility] Body weight 2021-04-25 74.844 kg University of 18:45:00 [facility] BMI 2021-04-25 29.23 kg/m2 University of 18:45:00 [facility] Systolic blood 2021-04-26 134 mm[Hg] [facility] of pressure 16:55:00 [facility] Diastolic blood 2021-04-26 69 mm[Hg] University o f pressure 16:55:00 [facility] Heart rate 2021-04-26 53 /min University of 16:55:00 [facility] Body temperature 2021-04-26 36.72 Svitlana University of 16:55:00 [facility] Respiratory rate 2021-04-26 16 /min University of 16:55:00 [facility] Oxygen saturation 2021-04-26 99 /min University of in Arterial blood 16:55:00 [facility] by Pulse oximetry Branch Body height 2021-04-25 160 cm University of 18:45:00 [facility] Body weight 2021-04-25 74.844 kg University of 18:45:00 [facility] BMI 2021-04-25 29.23 kg/m2 University of 18:45:00 [facility] Systolic blood 2021-04-16 154 mm[Hg] University of pressure 03:43:15 [facility] Diastolic blood 2021-04-16 83 mm[Hg] University o f pressure 03:43:15 [facility] Heart rate 2021-04-16 65 /min University of 03:43:15 [facility] Respiratory rate 2021-04-16 18 /min University of 03:43:15 [facility] Oxygen saturation 2021-04-16 99 /min University of in Arterial blood 03:43:15 [facility] ck by Pulse oximetry Branch Body temperature 2021-04-16 37.28 Svitlana [place] [facility] 01:36:00 [facility] Body height 2021-04-16 154.9 cm University of 01:36:00 [facility] Body weight 2021-04-16 74.844 kg University of 01:36:00 [facility] BMI 2021-04-16 31.18 kg/m2 University of 01:36:00 [facility] Systolic blood 2020-09-09 127 mm[Hg] University of pressure 05:14:00 [facility] Diastolic blood 2020-09-09 75 mm[Hg] University o f pressure 05:14:00 [facility] Heart rate 2020-09-09 65 /min University of 05:14:00 [facility] Respiratory rate 2020-09-09 18 /min University of 05:14:00 [facility] Oxygen saturation 2020-09-09 96 /min University of in Arterial blood 05:14:00 [facility] ck by Pulse oximetry Branch Body temperature 2020-09-09 36.44 Svitlana University of 02:36:00 [facility] Body height 2020-09-09 157.5 cm University of 02:36:00 [facility] Body weight 2020-09-09 77.111 kg University of 02:36:00 [facility] BMI 2020-09-09 31.09 kg/m2 University of 02:36:00 [facility] Systolic blood 2019-12-18 118 mm[Hg] University of pressure 17:00:00 [facility] Diastolic blood 2019-12-18 72 mm[Hg] University o f pressure 17:00:00 [facility] Heart rate 2019-12-18 61 /min University of 17:00:00 [facility] Body temperature 2019-12-18 36.67 Svitlana [facility] 17:00:00 [facility] Respiratory rate 2019-12-18 17 /min [facility] 17:00:00 [facility] Oxygen saturation 2019-12-18 97 /min [facility] in Arterial blood 17:00:00 [facility] by Pulse oximetry [place] Body height 2019-12-18 154.9 cm [facility] 02:02:00 [facility] Body weight 2019-12-18 71.215 kg Bedscale upon [facility] 02:02:00 admission to [facility]. Branch BMI 2019-12-18 29.66 kg/m2 [facility] 02:02:00 [facility] Systolic blood 2022-02-03 151 mm[Hg] [facility] pressure 13:47:00 Hospital Diastolic blood 2022-02-03 84 mm[Hg] [facility] pressure 13:47:00 [facility] Heart rate 2022-02-03 63 /min [facility] 12:53:53 Hospital Oxygen saturation 2022-02-03 95 /min [facility] in Arterial blood 12:53:53 Hospital by Pulse oximetry Body temperature 2022-02-03 36.39 Svitlana [facility] 12:53:07 Hospital Respiratory rate 2022-02-03 18 /min [facility] 12:53:07 Hospital Body height 2022-02-01 157.5 cm [facility] 12:46:00 Hospital Body weight 2022-02-01 68.04 kg [facility] 12:46:00 [facility] BMI 2022-02-01 27.44 kg/m2 [facility] 12:46:00 Hospital Procedures Procedure Date / Time Performing Source Performed Clinician XR, shoulder, 2 or more view 2023-02-01 [facility] 00:00:00 Sports Medicine XR, shoulder, 2 or more view 2022-12-28 [facility] 00:00:[address], shoulder, w/o contrast 2022-12-18 [facility] 00:00:00 Sports Medicine EKG-12 LEAD 2022-11-19 [facility] 23:06:33 Medical Branch URINALYSIS 2022-11-19 [facility] 22:11:00 [facility] CT HEAD WO CONTRAST 2022-11-19 [facility] 21:40:47 Medical Branch XR CHEST 1 VW 2022-11-19 [facility], [facility] 19:41:20 [facility] RAPID INFLUENZA A/B 2022-11-19 [facility], [facility] 19:35:00 [facility] BLOOD CULTURE SCREEN 2022-11-19 [facility], [facility] 19:31:00 Medical Branch PHOSPHORUS 2022-11-19 [facility], [facility] 19:31:00 [facility] CREATINE KINASE 2022-11-19 [facility], [facility] 19:31:00 Medical Branch LIPASE 2022-11-19 [facility], [facility] 19:31:00 [facility] MAGNESIUM 2022-11-19 [facility], [facility] 19:31:00 [facility] TROPONIN I 2022-11-19 [facility], [facility] 19:31:00 [facility] FREE T4 2022-11-19 [facility], [facility] 19:31:00 [facility] THYROID STIMULATING HORMONE 2022-11-19 [facility], [facility] 19:31:00 Medical Branch COMP. METABOLIC PANEL (19400) 2022-11-19 [facility] 19:31:00 Medical Branch CBC WITH DIFF 2022-11-19 [facility] 19:31:00 [facility] N-TERMINAL PRO-BNP 2022-11-19 [facility], [facility] 19:31:00 [facility] LACTIC ACID WHOLE BLOOD 2022-11-19 [facility] 19:31:00 [facility] RAPID RSV 2022-11-19 [facility], [facility] 19:31:00 Medical Branch COVID-19 (ID NOW RAPID 2022-11-19 [facility] TESTING) 19:31:00 Medical Branch CONSENT/REFUSAL FOR DIAGNOSIS 2022-11-19 Doctor Unassigned, [facility] AND TREATMENT 18:56:33 [facility] XR, shoulder, 2 or more [...] 00:00:00 Sports Medicine ZZCOVID-19 ANTI-SPIKE IGG 2022-02-03 [facility] ANTIBODY TITER 11:16:00 Db BASIC METABOLIC PANEL 2022-02-03 [facility] 11:16:00 [facility] CBC WITH PLATELET AND 2022-02-03 [facility] DIFFERENTIAL 11:16:00 [facility] MAGNESIUM LEVEL 2022[facility]02-[facility] 11:16:00 [facility] PHOSPHORUS LEVEL 2022-02-03 Sp, [facility] Hospi quang 11:16:00 [facility] ZZCOVID-19 SEROLOGY PATIENT 2022-02-03 [facility] SURVEILLANCE 11:16:00 Db ESTIMATED GFR 2022-02-03 Nik Perez [facility] pital 11:16:00 DURABLE MEDICAL EQUIPMENT 2022-02-02 Nik Perez [facility] 17:07:33 BASIC METABOLIC PANEL 2022-02-02 [facility] 09:52:00 [facility] CBC WITH PLATELET AND 2022-02-02 [facility] DIFFERENTIAL 09:52:00 [facility] MAGNESIUM LEVEL [facility]22[facility]02-02 [facility] PHOSPHORUS LEVEL 2022-02-02 [facility] 09:52[facility]00 [facility] ESTIMATED GFR 2022-02-02 Nik Perez [facility] 09:52:00 ECG 12-LEAD 2022-02-02 [facility] 01[facility]29 Kimberly Ashby CBC WITH PLATELET AND 2022-02-01 [facility] DIFFERENTIAL 17:22:00 [facility] BASIC METABOLIC PANEL 2022-02-01 Sp [facility] 17:22:00 [facility] MAGNESIUM LEVEL 2022-02-01 [facility] 17:22[facility]00 [facility] PHOSPHORUS LEVEL 2022-02-01 [facility] 17:22:00 [facility] ESTIMATED GFR 2022-02-01 Nik Perez [facility] pital 17:22:00 MS AN ELECTIVE ENDOTRACHEAL 2022-02-01 Bradley Roth [facility] AIRWAY 14:45:00 REPAIR, HIATAL HERNIA, 2022-02-01 Nik Perez [facility] LAPAROSCOPIC 14:37:00 ABO AND RH CONFIRMATION BY 2022-02-01 Nik Perez [facility] PROTOCOL 13:30:00 COVID-19 QUALITATIVE RT-PCR 2022-01-29 Nik Perez [facility] 22:05:00 HEMOGLOBIN A1C 2022-01-29 [facility] 22:00:00 HEPATIC FUNCTION PANEL 2022-01-29 Rosalia Webber [facility] 22:00:00 CBC WITH PLATELET AND 2022-01-29 Nik Perez [facility] DIFFERENTIAL 22:00:00 BASIC METABOLIC PANEL 2022-01-29 Nik Perez [facility] 22:00:00 PARTIAL THROMBOPLASTIN TIME 2022-01-29 Nik Perez [facility] (PTT) 22:00:00 PROTHROMBIN TIME WITH INR 2022-01-29 Nik Perez [facility] 22:00:00 ESTIMATED GFR 2022-01-29 Nik Perez [facility] 22:00:00 TYPE AND SCREEN 2022-01-29 Nik Perez [facility] 22:00:00 ESOPHAGEAL MANOMETRY WITH 2021-10-31 Ines Davalos [facility] IMPEDANCE PROBE 18:00:00 Ayshe MRI ABD/PELVIC EXTERNAL STUDY 2021-09-15 Nik Perez [facility] 16:51:00 FL EXTERNAL STUDY EXAM 2021-09-11 Nik Perez [facility] 16:57:00 PHACOEMULSIFICATION OF 2021-04-26 Johnny Armenta [facility] CATARACT WITH INTRAOCULAR 17:59:00 Medica l [place] LENS IMPLANT ASSIGNMENT OF BENEFITS 2021-04-19 Doctor Unassigned, [facility] 21:17:41 [facility] XR CERVICAL SPINE 3 VW 2021-04-16 Netta Cadena [facility] 02:03:58 Medical Branch XR RIBS 3 VW RIGHT 2021-04-16 Crescencio [facility] [place] 02:03:36 Medical Branch XR SCAPULA RIGHT 2021-04-16 [facility] 02:03:[address] HEAD WO CONTRAST 2021-04-16 Crescencio [facility] 02:02:21 Medical Branch CONSENT/REFUSAL FOR DIAGNOSIS 2021-04-16 Doctor Unassigned, [facility] AND TREATMENT 01:27:29 [facility] NOTICE OF PRIVACY PRACTICES 2021-04-16 Doctor Unassigned, [facility] 01:27:01 [facility] URINALYSIS 2020-09-09 Es Daugherty [facility] 03:44:00 Medical Branch XR CHEST 1 VW COVID 2020-09-09 Es Daugherty [facility] 03:27:38 Medical Branch TROPONIN I 2020-09-09 Es Daugherty [facility] 02:59:00 Medical Branch COMP. METABOLIC PANEL (08907) 2020-09-09 Es Daugherty [facility] 02:59:00 Medical Branch CBC WITH DIFF 2020-09-09 Es Daugherty [facility] 02:59:00 Medical Branch N-TERMINAL PRO-BNP 2020-09-09 Es Daugherty [facility] 02:59:00 Medical Branch COVID-19 (ID NOW RAPID 2020-09-09 Es Daugherty [facility] TESTING) 02:59:00 Medical Branch CONSENT/REFUSAL FOR DIAGNOSIS 2020-09-09 Doctor Unassigned, [facility] AND TREATMENT 02:34:19 [facility] ECHO ROUTINE W/DOPPLER COLOR 2019-12-18 Kay[facility] 14[facility]22:36 Medical Branch TROPONIN I 2019-12-18 [facility] xa 10:21:00 Medical Branch BASIC METABOLIC PANEL (NA, K, 2019-12-18 Meredith Finney a [facility] CL, CO2, GLUCOSE, BUN, 10:21:00 Medical B ran CREATININE, CA) CBC WITH DIFFERENTIAL 2019-12-18 [facility] 10:21:00 Medical Branch TROPONIN I 2019-12-18 Tiburcio [facility] xa 04:34:00 Medical Branch XR CHEST 2 VW 2019-12-17 Rome Dumont [facility] 21:57:43 Medical Branch LIPASE 2019-12-17 Rome Dumont [facility] 21:37:00 Medical Branch MAGNESIUM 2019-12-17 Kayla [facility] 21:37:00 Medical Branch TROPONIN I 2019-12-17 Rome Dumont [facility] 21:37:00 Medical Branch COMP. METABOLIC PANEL (57030) 2019-12-17 Rome Dumont [facility] 21:37:00 Medical Branch CBC WITH DIFFERENTIAL 2019-12-17 Rome uDmont [facility] 21:37:00 Medical Branch PROTHROMBIN TIME / INR 2019-12-17 Rome Dumont [facility] 21:37:00 Medical Branch ACTIVATED PARTIAL THRMPLAS 2019-12-17 Rome Dumont [facility] 21:37:00 Medical Branch EKG-12 LEAD 2019-12-17 Rome Dumont [facility] 21:30:59 Medical Branch EKG-12 LEAD 2019-12-17 Vic Monet [facility] 21:16:18 Medical Branch NOTICE OF PRIVACY PRACTICES 2019-12-17 Doctor Unassigned, [facility] 21:11:07 [facility] CONSENT/REFUSAL FOR DIAGNOSIS 2019-12-17 Doctor Unassigned, [facility] AND TREATMENT 21:08:57 [facility] Appendectomy [facility] Arm [facility] Back Surgery Brenda [...] Date Details Comments Source Future Scheduled Test 2023-03-29 [facility] 02:28:01 malignant neoplasm of colon (procedure) [code = 345038532] Future Scheduled Test 2023-03-29 [facility] 02:28:01 malignant neoplasm of colon (procedure) [code = 887782280] Future Scheduled Test 2023-03-29 [facility] 02:28:01 malignant neoplasm of colon (procedure) [code = 142832204] Future Scheduled Test 2023-03-29 65+ PNEUMOCOCCAL Me [facility] 02:28:01 VACCINE (1 - PCV) [code = 65+ PNEUMOCOCCAL VACCINE (1 - PCV)] Future Scheduled Test 2023-03-29 Hepatitis C screening [facility] 02:28:01 (procedure) [code = [id number]] Future Scheduled Test 2023-03-29 [facility] 02:28:01 SCREENING [code = BREAST CANCER SCREENING] Future Scheduled Test 2023-03-29 [facility] 02:28:01 malignant neoplasm of colon (procedure) [code = 489286748] Future Scheduled Test 2023-03-29 [facility] 02:28:01 malignant neoplasm of colon (procedure) [code = 261095894] Future Scheduled Test 2023-03-29 SHINGLES VACCINES (1 [facility] 02:28:01 of 2) [code = SHINGLES VACCINES (1 of 2)] Future Scheduled Test 2023-03-29 COVID-19 VACCINE (4 - [facility] 02:28:01 Pfizer series) [code = COVID-19 VACCINE (4 - Pfizer series)] Future Scheduled Test 2023-03-[address] [facility] 02:28:01 [code = INFLUENZA VACCINE] Diagnostic Test 2023-02-01 hematocrit, blood [facility] Pending 00:00:00 [code = hematocrit, Sports M edicine blood] Diagnostic Test 2023-02-01 hemoglobin (Hb), [facility] Pending 00:00:00 blood [code = Sports Medicin e hemoglobin (Hb), blood] Future Scheduled Test 2022-12-18 65+ PNEUMOCOCCAL [facility] 14:16:45 VACCINE (1 - PCV) [code = 65+ PNEUMOCOCCAL VACCINE (1 - PCV)] Future Scheduled Test 2022-12-18 Hepatitis C screening [facility] 14:16:45 (procedure) [code = 848363819] Future Scheduled Test 2022-12-18 BREAST CANCER [facility] 14:16:45 SCREENING [code = BREAST CANCER SCREENING] Future Scheduled Test 2022-12-18 COLONOSCOPY SCREENING [facility] 14:16:45 [code = COLONOSCOPY SCREENING] Future Scheduled Test 2022-12-18 SHINGLES VACCINES (1 [facility] 14:16:45 of 2) [code = SHINGLES VACCINES (1 of 2)] Future Scheduled Test 2022-12-18 COVID-19 VACCINE ([address] [place] [address] 14:16:45 Booster for Pfizer series) [code = COVID-19 VACCINE (4 - Booster for Pfizer series)] Future Scheduled Test 2022-12-[address] [facility] 14:16:45 [code = INFLUENZA VACCINE] Future Scheduled Test 2022-12-18 65+ PNEUMOCOCCAL [facility] 14:16:45 VACCINE (1 - PCV) [code = 65+ PNEUMOCOCCAL VACCINE (1 - PCV)] Future Scheduled Test 2022-12-18 Hepatitis C screening [facility] 14:16:45 (procedure) [code = [id number]] Future Scheduled Test 2022-12-18 BREAST CANCER [facility] 14:16:45 SCREENING [code = BREAST CANCER SCREENING] Future Scheduled Test 2022-12-18 COLONOSCOPY SCREENING [facility] 14:16:45 [code = COLONOSCOPY SCREENING] Future Scheduled Test 2022-12-18 SHINGLES VACCINES (1 [facility] 14:16:45 of 2) [code = SHINGLES VACCINES (1 of 2)] Future Scheduled Test 2022-12-18 COVID-19 VACCINE ([address] [place] [address] 14:16:45 Booster for Pfizer series) [code = COVID-19 VACCINE (4 - Booster for Pfizer series)] Future Scheduled Test 2022-12-[address] [facility] 14:16:45 [code = INFLUENZA VACCINE] Future Scheduled Test 2022-12-18 65+ PNEUMOCOCCAL [facility] 14:16:45 VACCINE (1 - PCV) [code = 65+ PNEUMOCOCCAL VACCINE (1 - PCV)] Future Scheduled Test 2022-12-18 Hepatitis C screening [facility] 14:16:45 (procedure) [code = 321981685] Future Scheduled Test 2022-12-18 BREAST CANCER [facility] 14:16:45 SCREENING [code = BREAST CANCER SCREENING] Future Scheduled Test 2022-12-18 COLONOSCOPY SCREENING [facility] 14:16:45 [code = COLONOSCOPY SCREENING] Future Scheduled Test 2022-12-18 SHINGLES VACCINES (1 [facility] 14:16:45 of 2) [code = SHINGLES VACCINES (1 of 2)] Future Scheduled Test 2022-12-18 COVID-19 VACCINE (4 [facility] 14:16:45 Booster for Pfizer series) [code = COVID-19 VACCINE (4 - Booster for Pfizer series)] Future Scheduled Test 2022-12-[address] [facility] 14:16:45 [code = INFLUENZA VACCINE] Future Scheduled Test 2022-11-02 65+ PNEUMOCOCCAL [facility] 16:11:57 VACCINE (1 - PCV) [code = 65+ PNEUMOCOCCAL VACCINE (1 - PCV)] Future Scheduled Test 2022-11-02 Hepatitis C screening [facility] 16:11:57 (procedure) [code = [id number]] Future Scheduled Test 2022-11-02 BREAST CANCER [facility] 16:11:57 SCREENING [code = BREAST CANCER SCREENING] Future Scheduled Test 2022-11-02 COLONOSCOPY SCREENING [facility] 16:11:57 [code = COLONOSCOPY SCREENING] Future Scheduled Test 2022-11-02 SHINGLES VACCINES (1 [facility] 16:11:57 of 2) [code = SHINGLES VACCINES (1 of 2)] Future Scheduled Test 2022-11-02 COVID-19 VACCINE (4 [facility] 16:11:57 Booster for Pfizer series) [code = COVID-19 VACCINE (4 - Booster for Pfizer series)] Future Scheduled Test 2022-11-[address] [facility] 16:11:57 [code = INFLUENZA VACCINE] Future Scheduled Test 2022-11-02 65+ PNEUMOCOCCAL [facility] 16:11:57 VACCINE (1 - PCV) [code = 65+ PNEUMOCOCCAL VACCINE (1 - PCV)] Future Scheduled Test 2022-11-02 Hepatitis C screening [facility] 16:11:57 (procedure) [code = [id number]] Future Scheduled Test 2022-11-02 BREAST CANCER [facility] 16:11:57 SCREENING [code = BREAST CANCER SCREENING] Future Scheduled Test 2022-11-02 COLONOSCOPY SCREENING [facility] 16:11:57 [code = COLONOSCOPY SCREENING] Future Scheduled Test 2022-11-02 SHINGLES VACCINES (1 [facility] 16:11:57 of 2) [code = SHINGLES VACCINES (1 of 2)] Future Scheduled Test 2022-11-02 COVID-19 VACCINE (4 - [facility] 16:11:57 Booster for Pfizer series) [code = COVID-19 VACCINE (4 - Booster for Pfizer series)] Future Scheduled Test 2022-11-[address] [facility] 16:11:57 [code = INFLUENZA VACCINE] Future Scheduled Test 2022-10-01 65+ PNEUMOCOCCAL [facility] 10:16:43 VACCINE (1 - PCV) [code = 65+ PNEUMOCOCCAL VACCINE (1 - PCV)] Future Scheduled Test 2022-10-01 Hepatitis C screening [facility] 10:16:43 (procedure) [code = [id number]] Future Scheduled Test 2022-10-01 BREAST CANCER [facility] 10:16:43 SCREENING [code = BREAST CANCER SCREENING] Future Scheduled Test 2022-10-01 COLONOSCOPY SCREENING [facility] 10:16:43 [code = COLONOSCOPY SCREENING] Future Scheduled Test 2022-10-01 SHINGLES VACCINES (1 [facility] 10:16:43 of 2) [code = SHINGLES VACCINES (1 of 2)] Future Scheduled Test 2022-10-01 COVID-19 VACCINE (4 - [facility] 10:16:43 Booster for Pfizer series) [code = COVID-19 VACCINE (4 - Booster for Pfizer series)] Future Scheduled Test 2022-10-[address] [facility] 10:16:43 [code = INFLUENZA VACCINE] Future Scheduled Test 2022-07-11 HEPATITIS B VACCINES [facility] 12:14:51 (1 of 3 - 3-dose series) [code = HEPATITIS B VACCINES (1 of 3 - 3-dose series)] Future Scheduled Test 2022-07-11 65+ PNEUMOCOCCAL [facility] 12:14:51 VACCINE (1 - PCV) [code = 65+ PNEUMOCOCCAL VACCINE (1 - PCV)] Future Scheduled Test 2022-07-11 Hepatitis C screening [facility] 12:14:51 (procedure) [code = 888398013] Future Scheduled Test 2022-07-11 BREAST CANCER [facility] 12:14:51 SCREENING [code = BREAST CANCER SCREENING] Future Scheduled Test 2022-07-11 COLONOSCOPY SCREENING [facility] 12:14:51 [code = COLONOSCOPY SCREENING] Future Scheduled Test 2022-07-11 SHINGLES VACCINES (1 [facility] 12:14:51 of 2) [code = SHINGLES VACCINES (1 of 2)] Future Scheduled Test 2022-07-11 COVID-19 VACCINE (4 [facility] 12:14:51 Booster for Pfizer series) [code = COVID-19 VACCINE (4 - Booster for Pfizer series)] Future Scheduled Test 2022-07-[address] [facility] 12:14:51 [code = INFLUENZA VACCINE] Future Scheduled Test 2022-07-11 HEPATITIS B VACCINES [facility] 12:14:51 (1 of 3 - 3-dose series) [code = HEPATITIS B VACCINES (1 of 3 - 3-dose series)] Future Scheduled Test 2022-07-11 65+ PNEUMOCOCCAL [facility] 12:14:51 VACCINE (1 - PCV) [code = 65+ PNEUMOCOCCAL VACCINE (1 - PCV)] Future Scheduled Test 2022-07-11 Hepatitis C screening [facility] 12:14:51 (procedure) [code = 626099628] Future Scheduled Test 2022-07-11 BREAST CANCER [facility] 12:14:51 SCREENING [code = BREAST CANCER SCREENING] Future Scheduled Test 2022-07-11 COLONOSCOPY SCREENING [facility] 12:14:51 [code = COLONOSCOPY SCREENING] Future Scheduled Test 2022-07-11 SHINGLES VACCINES (1 [facility] 12:14:51 of 2) [code = SHINGLES VACCINES (1 of 2)] Future Scheduled Test 2022-07-11 COVID-19 VACCINE ([address] [place] [address] 12:14:51 Booster for Pfizer series) [code = COVID-19 VACCINE (4 - Booster for Pfizer series)] Future Scheduled Test 2022-07-[address] [facility] 12:14:51 [code = INFLUENZA VACCINE] Future Scheduled Test 2022-06-29 HEPATITIS B VACCINES [facility] 06:56:20 (1 of 3 - 3-dose series) [code = HEPATITIS B VACCINES (1 of 3 - 3-dose series)] Future Scheduled Test 2022-06-29 65+ PNEUMOCOCCAL [facility] 06:56:20 VACCINE (1 - PCV) [code = 65+ PNEUMOCOCCAL VACCINE (1 - PCV)] Future Scheduled Test 2022-06-29 Hepatitis C screening [facility] 06:56:20 (procedure) [code = [id number]] Future Scheduled Test 2022-06-29 BREAST CANCER [facility] 06:56:20 SCREENING [code = BREAST CANCER SCREENING] Future Scheduled Test 2022-06-29 COLONOSCOPY SCREENING [facility] 06:56:20 [code = COLONOSCOPY SCREENING] Future Scheduled Test 2022-06-29 SHINGLES VACCINES (1 [facility] 06:56:20 of 2) [code = SHINGLES VACCINES (1 of 2)] Future Scheduled Test 2022-06-29 COVID-19 VACCINE (4 - [facility] 06:56:20 Booster for Pfizer series) [code = COVID-19 VACCINE (4 - Booster for Pfizer series)] Future Scheduled Test 2022-06-[address] [facility] 06:56:20 [code = INFLUENZA VACCINE] Future Scheduled Test COVID-19 VACCINE (1) [facility] [code = COVID-19 VACCINE (1)] Future Scheduled Test Hepatitis C screening [facility] (procedure) [code = [id number]] Future Scheduled Test BREAST CANCER [facility] SCREENING [code = BREAST CANCER SCREENING] Future Scheduled Test COLONOSCOPY SCREENING [facility] [code = COLONOSCOPY SCREENING] Future Scheduled Test SHINGLES VACCINES [facility] (#1) [code = SHINGLES VACCINES (#1)] Future Scheduled Test 65+ PNEUMOCOCCAL [facility] VACCINE (1 of 1 - PPSV23) [code = 65+ PNEUMOCOCCAL VACCINE (1 of 1 - PPSV23)] Future Scheduled Test INFLUENZA VACCINE [facility] [code = INFLUENZA VACCINE] Instructions Brenda Orthoped [facility] Sports Medicine Encounters Start End Encounter Admission Attending Care Care Encounter Source Date/Time Date/Time Type Type Clinicians Facility Department ID 2021-08-14 Emergency [facility] [id number] Univers 05:48:20 [facility] 2021-08-14 Outpatient Lavinia ARMENTA [facility] OPH [id number] Univers 03:42:31 JOHNNY [facility] 2021-08-12 Emergency [facility] [id number] Univers 07:55:52 [facility] 2023-02-01 2023-02-01 Darrell [place] - Ortho [id number] Brenda 00:00:00 00:00:00 Mercy Elmore MD: 74[address] FOG_Ofc dic [facility], [place] [address] , Ph. [phone] 2023-01-22 2023-01-22 Outpatient FOG_Allen_J AOSM AOSM 621 [id number] Brenda 00:00:00 00:00:00 Rebel [id number] [facility] 2023-01-22 2023-01-22 Outpatient FOG_Allen_J AOSM AOSM 621 [id number] Brenda 00:00:00 00:00:00 Rebel [id number] [facility] 2023-01-22 2023-01-22 Outpatient FOG_Allen_J AOSM AOSM 621 [id number] Brenda 00:00:00 00:00:00 Rebel [id number] [facility] 2023-01-22 2023-01-22 Outpatient FOG_Allen_J AOSM AOSM 621 [id number] Brenda 00:00:00 00:00:00 Rebel [id number] [facility] 2023-01-17 2023-01-18 Inpatient EM Nino, HCATO SURG [id number] [facility] 06:27:00 14:32:00 [facility] 2023-01-17 2023-01-17 Darrell [place] - Ortho [id number] Brenda 00:00:00 00:00:00 Mercy Elmore MD: 7401 FOG_Surgery dic [facility] e [address] , Ph. [phone] 2023-01-01 2023-01-01 Outpatient FOG_Allen_J AOSM AOSM 621 [id number] Brenda 00:00:00 00:00:00 Rebel [id number] Ortho pe dic [facility] Medic[facility] 2023-01-01 2023-01-01 Outpatient FOG_Allen_J AOSM AOSM 621 [id number] Brenda 00:00:00 00:00:00 Rebel [id number] Orth[facility] pe [facility] 2023-01-01 2023-01-01 Outpatient FOG_Allen_J AOSM AOSM 621 [id number] Brenda 00:00:00 00:00:00 Rebel [id number] Ortho pe dic Sports Medicin e 2022-12-28 2022-12-28 Outpatient ELADIA Elmore LABO [id number] [facility] 15:59:00 15:59:00 Darrell Villarreal [facility] 2022-12-28 2022-12-28 Darrell Bennett AO [place] - Ortho [id number] Brenda 00:00:00 00:00:00 Mercy Elmore MD: 7401 FOG_Ofc dic [facility] e [address] , Ph. [phone] 2022-12-18 2022-12-18 Outpatient JAY Dash [id number] [facility] 15:25:00 15:25:00 Darrell Pozo [facility] 2022-12-18 2022-12-18 Emergency EM JAY Huerta [id number] [facility] 13:10:00 14:34:00 Collins [facility] 2022-12-18 2022-12-18 Outpatient FOG_Allen_J AOSM AOSM 621 [id number] Brenda 00:00:00 00:00:00 Rebel [id number] Ortho pe dic Sports Medicin e 2022-12-18 2022-12-18 Outpatient FOG_Allen_J AOSM AOSM 621 [id number] Brenda 00:00:00 00:00:00 Rebel [id number] Ortho pe dic Sports Medicin e 2022-11-19 2022-11-19 Emergency X JOHNNY RIVERS [facility] ERT [id number] Univers 13:03:00 17:46:00 JOHNNY RIVERS itkarri [facility] 2022-11-19 2022-11-19 Emergency Cynthia [facility] 1.2.840.114 [id number] Univers 13:03:00 17:46:00 Johnny ERIKA 350.1.13.10 i ty [facility] 4.2.7.2.686 [facility] [id number] [place] [address] [address] 2022-11-14 2022-11-14 Outpatient FOG_Allen_J AOSM AOSM 621 [id number] Brenda 00:00:00 00:00:00 Rebel [id number] Orth[facility] 2022-11-14 2022-11-14 Outpatient FOG_Allen_J AOSM AOSM 621 [id number] Brenda 00:00:00 00:00:00 Rebel [id number] Ortho pe dic Sports Medicin e 2022-11-07 2022-11-07 Outpatient FOG_Allen_J AOSM AOSM 621 [id number] Brenda 00:00:00 00:00:00 Rebel [id number] Orth[facility] pe [facility] Sports Medicin e 2022-11-07 2022-11-07 Outpatient FOG_Allen_J AOSM AOSM 621 [id number] Brenda 00:00:00 00:00:00 Rebel [id number] Ortho pe dic Sports Medicin e 2022-11-07 2022-11-07 Darrell Bennett [place]OS[place] - Ortho [id number] Brenda 00:00:00 00:00:00 Mercy Elmore MD: 7401 FOG_Ofc dic [facility] Sp[place], [place] [address] , Ph. [phone] 2022-11-02 2022-11-02 Outpatient FOG_Allen_J AOSM AOSM 621 [id number] Brenda 00:00:00 00:00:00 Rebel [id number] Ortho pe dic Sports Medicin e 2022-10-24 2022-10-24 Outpatient FOG_Allen_J AOSM AOSM 621 [id number] Brenda 00:00:00 00:00:00 Rebel [id number] Ortho pe dic Sports Medicin e 2022-10-24 2022-10-24 Outpatient FOG_Allen_J AOSM AOSM 621 [id number] Brenda 00:00:00 00:00:00 Rebel [id number] Ortho pe dic Sports Medicin e 2022-10-24 2022-10-24 Outpatient FOG_Allen_J AOSM AOSM 621 [id number] Brenda 00:00:00 00:00:00 Rebel [id number] Orth[facility] pe dic Sports Medicin e 2022-10-22 2022-10-23 Inpatient EM Nino, HCATO SURG [id number] [facility] 08:46:00 13:53:00 Darrell Fraser [facility] 2022-10-22 2022-10-22 Outpatient FOG_Allen_J AOSM AOSM 621 [id number] Brenda 00:00:00 00:00:00 Rebel [id number] Ortho pe dic Sports Medicin e 2022-10-22 2022-10-22 Darrell [place] - Ortho 109 Brenda 00:00:00 00:00:00 Mercy Elmore MD: 7401 FOG_Ofc dic [facility], [place] [address] , Ph. [phone] 2022-10-05 2022-10-05 Outpatient FOG_Allen_J AOSM AOSM 621 [id number] Brenda 00:00:00 00:00:00 Rebel [id number] Ortho pe dic Sports Medicin e 2022-10-05 2022-10-05 Outpatient FOG_Allen_J AOSM AOSM 621 [id number] Brenda 00:00:00 00:00:00 Rebel [id number] Ortho pe dic Sports Medicin e 2022-10-05 2022-10-05 Darrell [place] - Ortho 223 Brenda 00:00:00 00:00:00 Mercy Elmore MD: 7401 FOG_Ofc dic [facility] Spo rts [facility] [place] [address] , Ph. [phone] 2022-10-04 2022-10-04 Outpatient FOG_Allen_J AOSM AOSM 621 [id number] Brenda 00:00:00 00:00:00 Rebel [id number] Ortho pe dic Sports Medicin e 2022-10-01 2022-10-01 Outpatient ELADIA Dash LABO [id number] [facility] 16:15:00 16:15:00 Darrell Tamayo [facility] 2022-10-01 2022-10-01 Outpatient ANDREW DashTO [facility] [id number] [facility] 08:00:00 16:00:00 Darrell [facility] [place] [facility] 2022-09-29 2022-09-29 Outpatient FOG_Allen_J AOSM AOSM 621 [id number] Brenda 00:00:00 00:00:00 Rebel [id number] Ortho pe dic Sports Medicin e 2022-09-26 2022-09-26 Outpatient FOG_Allen_J AOSM AOSM 621 [id number] Brenda 00:00:00 00:00:00 Rebel [id number] Ortho pe dic Sports Medicin e 2022-09-26 2022-09-26 Darrell Bennett [facility] [place] - Ortho Brenda 00:00:00 00:00:00 Mercy Elmore MD: 7401 FOG_Ofc dic [facility] Spo [facility] e [address] , Ph. [phone] 2022-09-14 2022-09-14 Outpatient FOG_Allen_J AOSM AOSM 621 [id number] Brenda 00:00:00 00:00:00 Rebel [id number] Ortho pe dic Sports Medicin e 2022-08-24 2022-08-24 Outpatient FOG_Allen_J AOSM AOSM 621 [id number] Brenda 00:00:00 00:00:00 Rebel [id number] Ortho pe dic Sports Medicin e 2022-08-15 2022-08-15 Outpatient FOG_Allen_J AOSM AOSM 621 [id number] Brenda 00:00:00 00:00:00 Rebel [id number] Ortho pe dic Sports Medicin e 2022-08-15 2022-08-15 Darrell Bennett [place] - Ortho 102 Brenda 00:00:00 00:00:00 Mercy Elmore MD: 7401 FOG_Ofc dic [facility] [address] , Ph. [phone] 2022-07-19 2022-07-19 Outpatient FOG_Allen_J AOSM AOSM 621 [id number] Brenda 00:00:00 00:00:00 Rebel [id number] Ortho pe dic Sports Medicin e 2022-07-18 2022-07-18 Outpatient FOG_Allen_J AOSM AOSM 621 [id number] Brenda 00:00:00 00:00:00 Rebel [id number] Ortho pe dic Sports Medicin e 2022-07-18 2022-07-18 Omar Bennett [place] - Ortho [id number] Brenda 00:00:00 00:00:00 MD Sebastián: [place] [address] FOG_Ofc dic [place] [facility] [address] , Ph. [phone] 2022-07-17 2022-07-17 Outpatient FOG_Allen_J AOSM AOSM 621 [id number] Brenda 00:00:00 00:00:00 Rebel [id number] Ortho pe dic Sports Medicin e 2022-07-11 2022-07-11 Outpatient NinoELADIA LABJessica [id number] [facility] 16:12:00 16:12:00 Darrell Glover [facility] 2022-07-11 2022-07-11 Outpatient ROSALINDA Katz JAY WESTON [id number] [facility] 12:31:00 12:31:00 Stanley [facility] 2022-07-11 2022-07-11 Outpatient ROSALINDA ElmoreJAY [id number] [facility] 12:09:00 12:09:00 Darrell Lai [facility] 2022-07-11 2022-07-11 Outpatient JAY Dash [id number] [facility] 10:59:00 10:59:00 Darrell [facility] 2022-07-11 2022-07-11 Outpatient FOG_Halamic AOSM AOSM 621 [id number] Brenda 00:00:00 00:00:00 ek_Mar_NP [id number] Orth ope dic Sports Medicin e 2022-07-11 2022-07-11 Darrell Bennett [place] - Ortho 92 Brenda 00:00:00 00:00:00 Mercy Elmore MD: 7401 FOG_Ofc dic [facility] Spo [facility], [place] [address] , Ph. [phone] 2022-07-06 2022-07-06 Outpatient FOG_Halamic AOSM AOSM 621 [id number] Brenda 00:00:00 00:00:00 ek_Mar_NP [id number] Orth ope dic Sports Medicin e 2022-06-26 2022-06-26 Outpatient FOG_Halamic AOSM AOSM 621 [id number] Brenda 00:00:00 00:00:00 ek_Mar_NP 309471 Orth ope dic Sports Medicin e 2022-03-19 2022-03-19 Telephone Claudia, 1.2.840.3 [id number] Methodi 00:00:00 00:00:[address]1.[address] 3.430.2.7 Hospit a .3.514897 l .8 2022-03-09 2022-03-09 Travel 1.2.840.1 1.2.581.290 3022 165618 Methodi 00:00:00 00:00:[address] 3.430.2.7 0.2.7.3.698 Ho spita .3.795797 084.8 l .8 2022-03-08 2022-03-08 Telephone Claudia, 1.2.840.3 [id number] Methodi 00:00:00 00:00:00 Nik Kevin 92489.1.[address] 3.430.2.7 Hospit a .3.753146 l .8 2022-02-14 2022-02-14 Telephone Claudia, 1.2.840.0 [id number] Methodi 00:00:00 00:00:[address] 3.430.2.7 Hospit a .3.860014 l .8 2022-02-13 2022-02-13 Office Perez, 1.2.840.8 [id number] 21 [id number] Methodi 15:15:00 16:10:30 Visit Nik Kevin 94304.1.[address] 3.430.2.7 Hospit a .3.829334 l .8 2022-02-13 2022-02-13 Travel 1.2.840.1 1.2.000.654 9237 510127 Methodi 00:00:00 00:00:[address] 3.430.2.7 0.2.7.3.698 Ho spita .3.130241 084.8 l .8 2022-02-12 2022-02-12 Telephone Claudia, 1.2.840.1 [id number] Methodi 00:00:00 00:00:[address] 3.430.2.7 Hospit a .3.906309 l .8 2022-02-05 2022-02-05 Patient Mario, 1.2.840.1 [id number] Methodi 00:00:00 00:00:00 Outreach Emilee 53899.1.[address] 3.430.2.7 Hospit a .3.683567 l .8 2022-02-05 2022-02-05 Travel 1.2.840.1 1.2.434.049 2761 289065 Methodi 00:00:00 00:00:[address] 3.430.2.7 0.2.7.3.698 Ho spita .3.543437 084.8 l .8 2022-02-01 2022-02-03 [facility] [place], 1.2.840.1 [id number] 21 [id number] Methodi 06:07:00 13:48:00 Encounter Nik Kevin 00859.1.[address] 3.430.2.7 Hospit a .3.237444 l .8 2022-02-01 2022-02-01 Anesthesia Bradley Roth 1.2.840.1 [id number] Methodi 09:37:00 11:55:00 Event Rosalia Webber 02714.1.[address] 3.430.2.7 Hospit a .3.985413 l .8 2022-02-01 2022-02-01 Surgery [place], 1.2.840.1 [id number] 663 [id number] Methodi 09:00:00 11:35:[address] 3.430.2.7 Hospit a .3.505409 l .8 2022-02-01 2022-02-01 Travel 1.2.840.1 1.2.274.901 1763 785145 Methodi 00:00:00 00:00:[address] 3.430.2.7 0.2.7.3.698 Ho spita .3.665440 084.8 l .8 2022-01-29 2022-01-29 Pre-Admiss [place], 1.2.840.1 [id number] Methodi 16:10:00 17:10:00 ion Nik RKassy 14873.1.[address] Testing 3.430.2.7 Hospit a .3.598900 l .8 2022-01-29 2022-01-29 Travel 1.2.840.1 1.2.228.967 0884 258234 Methodi 00:00:00 00:00:[address] 3.430.2.7 0.2.7.3.698 Ho spita .3.973911 084.8 l .8 2022-01-19 2022-01-19 Telephone Perez, 1.2.840.3 [id number] Methodi 00:00:00 00:00:[address] Nik Kevin 80046.1.[address] 3.430.2.7 Hospit a .3.937032 l .8 2022-01-10 2022-01-10 Orders Peyman, 1.2.840.4 [id number] 688 [id number] Methodi 00:00:00 00:00:00 Only Maurice 69572.1.[address] 3.430.2.7 Hospit a .3.233699 l .8 2022-01-08 2022-01-08 Telephone Perez, 1.2.840.5 [id number] Methodi 00:00:00 00:00:00 Nik Kevin 10660.1.[address] 3.430.2.7 Hospit a .3.050605 l .8 2021-11-23 2021-11-23 Office Perez, 1.2.840.5 [id number] 21 [id number] Methodi 15:00:00 16:33:21 Visit Nik Kevin 25692.1.[address] 3.430.2.7 Hospit a .3.479656 l .8 2021-11-23 2021-11-23 Travel 1.2.840.1 1.2.737.964 6460 500619 Methodi 00:00:00 00:00:[address] 3.430.2.7 0.2.7.3.698 Ho spita .3.581014 084.8 l .8 2021-11-21 2021-11-21 Travel 1.2.840.1 1.2.717.832 3095 190934 Methodi 00:00:00 00:00:[address] 3.430.2.7 0.2.7.3.698 Ho spita .3.391447 084.8 l .8 2021-11-15 2021-11-15 Telephone Perez, 1.2.840.5 [id number] Methodi 00:00:00 00:00:[address]75.1.[address] 3.430.2.7 Hospit a .3.153135 l .8 2021-10-31 2021-10-31 Surgery Ergun, 1.2.840.1 [id number] 372114 8674 Methodi 12:00:00 14:00:[address] Ayshe 3.430.2.7 Hospit a .3.899290 l .8 2021-10-31 2021-10-31 [facility], 1.2.840.1 [id number] 47428 38253 Methodi 11:46:00 13:50:00 Encounter Ines 90783.1.[address] Ayshe 3.430.2.7 Hospit a .3.853362 l .8 2021-10-27 2021-10-27 Telephone Perez, 1.2.840.9 [id number] Methodi 00:00:00 00:00:[address] 3.430.2.7 Hospit a .3.629900 l .8 2021-10-27 2021-10-27 Travel 1.2.840.1 1.2.429.797 1690 209974 Methodi 00:00:00 00:00:[address] 3.430.2.7 0.2.7.3.698 Ho spita .3.813486 084.8 l .8 2021-10-10 2021-10-10 [facility] Perez, 1.2.840.1 [id number] 21 [id number] Methodi 15:49:13 23:59:00 Encounter Nik Kevin 91097.1.[address] 3.430.2.7 Hospit a .3.880363 l .8 2021-10-10 2021-10-10 [facility], 1.2.840.5 [id number] 21 [id number] Methodi 15:15:00 16:47:46 Visit Nik Kevin 00757.1.[address] 3.430.2.7 Hospit a .3.366450 l .8 2021-10-10 2021-10-10 [facility], 1.2.840.1 [id number] 21 [id number] Methodi 15:43:19 15:48:00 Encounter Nik Kevin 08218.1.[address] 3.430.2.7 Hospit a .3.000805 l .8 2021-10-10 2021-10-10 [facility], 1.2.840.1 [id number] Methodi 15:42:15 15:42:15 Encounter Nik Kevin 20339.1.[address] 3.430.2.7 Hospit a .3.828223 l .8 2021-10-10 2021-10-10 Travel 1.2.840.1 1.2.597.622 6856 803086 Methodi 00:00:00 00:00:[address] 3.430.2.7 0.2.7.3.698 Ho spita .3.269535 084.8 l .8 2021-10-03 2021-10-03 Travel 1.2.840.1 1.2.189.600 9765 240145 Methodi 00:00:00 00:00:[address] 3.430.2.7 0.2.7.3.698 Ho spita .3.852425 084.8 l .8 2021-10-03 2021-10-03 [facility], 1.2.840.8 [id number] Methodi 00:00:00 00:00:00 Nik Kevin 72217.1.[address] 3.430.2.7 Hospit a .3.911831 l .8 2021-05-31 2021-05-31 Outpatient Lavinia MARKHAM [facility] [id number] Univers 13:00:00 13:00:00 VLAD itkarri of [facility] 2021-05-30 2021-05-30 Outpatient JAY Tatum [id number] [facility] 07:33:00 07:33:00 Ruben Philippe [facility] 2021-05-24 2021-05-24 [facility] 1.2.411.098 5576 5944 00:00:00 00:00:00 Vlad George 350.1.13.10 [place] 4.2.7.2.686 Professio [phone] [address] 2021-05-24 2021-05-24 [facility] 1.2.834.815 4997 5944 Univers 00:00:00 00:00:00 Vlad George 350.1.13.10 [place] [phone] [place] dical [address] 2021-04-26 2021-04-26 [facility] 1.2.897.946 4490 9175 Univers 11:32:00 14:10:00 Encounter Johnny George 350.1.13.10 [place] [phone] [facility] [address] [place] 2021-04-26 2021-04-26 Surgery [facility] 1.2.840.114 [id number] 31 12:45:00 13:25:00 [facility] 350.1.13.10 [place] 4.2.7.2.686 Surgical [phone] [place] [address] 2021-04-26 2021-04-26 Surgery [facility] 1.2.840.114 [id number] 131 Univers 12:45:00 13:25:00 Johnny A [facility] 350.1.13.10 [place] [phone] [facility] [address] [place] 2021-04-19 2021-04-19 [employer] Chitra, [facility] Main [facility] 1.2.8 40.114 [id number] Univers 16:19:22 16:34:22 Visit Johnny Armenta 350.1.13.1 0 [place] [phone] Id dical nal [address] [facility] 2021-04-19 2021-04-19 Outpatient R KATHI [facility] [id number] Univers 16:30:00 16:30:00 JOHNNY ity of [facility] 2021-04-19 2021-04-19 Orders Doctor SALLIE 1.2.840.114 [id number] Univers 00:00:00 00:00:00 Only Unassigned, DEMI 350.1.13.10 ity of [place] [facility] 4.2.7.2.686 Gabe as [phone] [facility] [address] 2021-04-15 2021-04-15 [facility] 1.2.065.194 [id number] Univers 20:30:00 22:55:00 Netta George 350.1.13.10 [place] [phone] [facility] [address] 2021-04-15 2021-04-15 Orders Doctor SALLIE 1.2.840.114 [id number] Univers 00:00:00 00:00:00 Only Unassigned, DEMI 350.1.13.10 ity of [place] [facility] 4.2.7.2.686 Gabe as [phone] [facility] [address] [place] 2020-12-12 2020-12-12 [facility] 1.2.840.114 [id number] Univers 00:00:00 00:00:00 Outreach Neftali PRIMARY 350.1.13.10 i ty of [facility] [place] [id number] Id dical [address] 2020-12-05 2020-12-05 Laboratory Lab, Adc Fam Pob I [facility] 1.2. 840.114 [id number] Univers 10:31:04 10:51:04 Only Aneshae, [facility] 350.1.13.10 ity of [place] 4.2.7.2.686 Gabe as Professio [phone] Id dical nal [address] [place] Office [facility] One 2020-12-05 2020-12-05 Laboratory Lab, [facility] 1..840.114 [id number] 10:31:04 10:51:04 Only Fam Pob I Health 350.1.13.10 [place] 4.2.7.2.686 Professio [phone] nal 044 Office [facility] One 2020-12-05 2020-12-05 Outpatient R EULOGIO [facility] [id number] Univers 10:40:00 10:40:00 JANAK romero [facility] 2020-09-08 2020-09-08 Emergency [facility] 1.2.810.263 [id number] Univers 20:34:00 23:19:00 Es George 350.1.13.10 i [place] [phone] [facility] [address] [place] 2020-01-16 2020-01-16 Emily [facility] 1.2.156.509 [id number] Univers 00:00:00 00:00:00 Vlad George 350.1.13.10 i [place] [phone] Id dical nal 134 [facility] 2020-01-01 2020-01-01 Telemedici [facility] 1.2.840.114 [id number] Univers 11:00:00 11:30:00 ne Visit Adrianna George 350.1.13.10 [place] [phone] Id dical nal 059 [facility] 2020-01-01 2020-01-01 [facility] [id number] Univers 11:00:00 11:00:00 ADRIANNA romero [facility] 2019-12-21 2019-12-21 Transition Melissa Rinaldi 1.2.840.114 [id number] Univers 00:00:00 00:00:00 of Care Mart Lorenzo 350.1.13.10 it[place] of [place] [phone] [facility] [address] 2019-12-17 2019-12-18 Outpatient X TIBURCIO [facility] AALIYAH [id number] Univers 15:19:36 17:56:00 ADNAN ity of [facility] 2019-12-17 2019-12-18 Emergency Rome Dumont [facility] 1.2.840.11 [id number] Univers 15:19:36 17:56:00 Tiburcio Kierra [place] 350.1.13.10 [place] [phone] [facility] [address] 2019-12-17 2019-12-17 Orders Doctor SALLIE 1.2.840.114 [id number] Univers 00:00:00 00:00:00 Only Unassigned, DEMI 350.1.13.10 ity of [place] [facility] 4.2.7.2.686 Gabe as [id number] [facility] [address] 2019-12-02 2019-12-02 Emily Markham [facility] 1.2.521.650 [id number] Univers 00:00:00 00:00:00 Vlad George 350.1.13.10 i [place].2.686 [place] [facility] [id number] Id dical [facility] 134 [facility] 2016-09-04 2016-09-04 Outpatient Raju_P MMG MMG [id number] [place] 03:16:00 03:16:00 1112 [facility] Results Test Description Test Time Test Comments Results Result [facility] e Comments - XR RIBS [facility] 2023-01-18 W/CXR 3+V LT 11:58:00 [facility] 1950 Sex: F Patient Name: MARYSE MOURA Unit No: [id number] EXAMS: CPT CODE: [id number] XR RIBS UNI W/CXR 3+[place] [address] CHEST AND LEFT-SIDED RIBS COMMENT: There is no evidence for displaced rib fracture. There is no evidence for pneumothorax or definite pleural effusion. Bibasilar atelectasis is noted with elevation of the left hemidiaphragm. This was not present on the previous days examination. A right-sided catheter is present with the tip in the superior vena cava. at 1158 Reported and signed by: Ruben Muñiz MD CC: Darrell Elmore MD; Brian Sharma DO Technologist: Lizet Lynch RT.(R) Transcribed D/ (3389) tANDRÉSR.L [facility] NAME: MARYSE MOURA [address] [facility] PHYS: Brian Oneil DO : 1950 AGE: 72 SEX: F [place] [address] LOC: Y.304 A PHONE #: [phone] EXAM DATE: 01/18/2023 STATUS: ADM IN FAX #: [phone] RAD #: D/C DT PAGE 1 Signed Report Patient Name: MARYSE MOURA Unit No: [id number] EXAMS: CPT CODE: [id number] XR RIBS UNI W/CXR 3+[place] [address] (Continued) Orig Print D/T: S: 01/18/2023 (1201) [facility] NAME: MARYSE MOURA [address] [facility] PHYS: Brian Oneil DO : 1950 AGE: 72 SEX: F [place], [place] [address] LOC: Y.304 A PHONE #: [phone] EXAM DATE: 01/18/2023 STATUS: ADM IN FAX #: [phone] RAD #: D/C DT PAGE 2 Signed Report CBC W/MANUAL DIFF 2023-01-18 08:38:00 Test Item Value Reference Range Interpretation Comme nts WHITE BLOOD CELL (test code 10.0 K/mm3 5.8-11.0 N = WBC) RED BLOOD CELL (test code = 3.19 M/mm3 4.2-5.4 L RBC) HEMOGLOBIN (test code = HGB) 9.1 g/dL 12-16 L HEMATOCRIT (test code = HCT) 28.0 % 37-47 L MEAN CELL VOLUME (test code 88 fL 80-98 N = MCV) MEAN CELL HGB (test code = 28.5 pg 27-34 N MCH) MEAN CELL HGB CONCENTRATION 32.5 g/dL 30.8-34.1 N (test code = MCHC) RED CELL DISTRIBUTION WIDTH 14.5 % 11-16 N (test code = RDW) PLT (test code = PLT) 170 K/mm3 130-400 N MEAN PLATELET VOLUME (test 10.1 fL 8.9-12.1 N code = MPV) STAIN ACCEPTABILITY (test STAIN ACCEPTABLE code = STN ACCEPTABLE) CELLS COUNTED (test code = 100 See_Comment [Automated message] The TCC) system which ge nerated this result tra nsmitted reference range : 100. The reference range was not used to interpr et this result as normal/abnormal . SEGMENTED NEUTROPHILS (test 94 % 50-65 H code = SEG) LYMPHOCYTE (test code = 2 % 20-40 LL LYMPH) NUCLEATED RED BLOOD CELL 0 % 0-0 N (test code = NRBC) BAND NEUTROPHIL (test code = 1 % 0-10 N BAND) MONOCYTE (test code = MON) 3 % 2-9 N SPECIMEN COMMENT: POD #1BASIC METABOLIC [id number] 08:15:00 Test Item Value Reference Range Interpretation Comments SODIUM (test code = 136 mmol/L 136-145 N NA) POTASSIUM (test 5.4 mmol/L 3.5-5.1 H code = K) CHLORIDE (test code 103.0 mmol/L 98-107 N = CL) CARBON DIOXIDE 28.0 mmol/L 21-32 N (test code = CO2) GLUCOSE (test code 146 mg/dL 70-110 H = GLU) BLOOD UREA NITROGEN 16 mg/dL 7-18 N (test code = BUN) GLOMERULAR 58.5 >60 The Glomerular FILTRATION RATE Filtration R [...] ag e is <18 years. CREATININE (test 1.03 mg/dL 0.55-1.30 N code = CREAT) CALCIUM (test code 8.1 mg/dL 8.2-10.1 L = CA) CBC W/AUTO [id number] 07:45:00 Test Item Value Reference Range Interpretation Comments WHITE BLOOD CELL (test 10.0 K/mm3 5.8-11.0 N code = WBC) RED BLOOD CELL (test 3.19 M/mm3 4.2-5.4 L code = RBC) HEMOGLOBIN (test code = 9.1 g/dL 12-16 L HGB) HEMATOCRIT (test code = 28.0 % 37-47 L HCT) MEAN CELL VOLUME (test 88 fL 80-98 N code = MCV) MEAN CELL HGB (test code 28.5 pg 27-34 N = MCH) MEAN CELL HGB 32.5 g/dL 30.8-34.1 N CONCENTRATION (test code = MCHC) RED CELL DISTRIBUTION 14.5 % 11-16 N WIDTH (test code = RDW) PLT (test code = PLT) 170 K/mm3 130-400 N MEAN PLATELET VOLUME 10.1 fL 8.9-12.1 N (test code = MPV) NEUTROPHIL % (test code 90.7 % 45-70 H = NT%) LYMPHOCYTE % (test code 4.6 % 20-40 L = LY%) MONOCYTE % (test code = 4.0 % 3-10 N MO%) EOSINOPHIL % (test code 0.0 % 1-5 L = EO%) BASOPHIL % (test code = 0.1 % 0.0-1.1 N BA%) NEUTROPHIL # (test code 9.07 K/mm3 2.00-7.50 H = NT#) LYMPHOCYTE # (test code 0.46 K/mm3 1.50-4.00 L = LY#) MONOCYTE # (test code = 0.40 K/mm3 0.2-0.8 N MO#) EOSINOPHIL # (test code 0.00 K/mm3 0.04-0.4 L = EO#) BASOPHIL # (test code = 0.01 K/mm3 0.02-0.10 L BA#) MANUAL DIFF REQUIRED YES MANUAL DIFF MANUAL DIFF (test code = MDIFF) REQUIRED . NUCLEATED RED BLOOD CELL 0 % 0-0 N (test code = NRBC) SPECIMEN COMMENT: POD #1- XR CHEST 1 [id number] 17:00:00 [facility] 1950 Sex: F Patient Name: MARYSE MOURA Unit No: [id number] EXAMS: CPT CODE: [id number] XR CHEST 1 V [id number] CHEST January 17, 2023 4:53 PM COMMENT: COMPARISON: No prior exams available. A right-sided central catheter is been placed with the tip in the SVC. There is no evidence for pneumothorax. AP portable left shoulder COMMENT: The patient is status post joint replacement which is articulating normally. at 1700 Reported and signed by: Ruben Muñiz MD CC: Darrell Elmore MD; Isaiah Koo MD Technologist: ISMAEL HORN.RT(R) Transcribed D/ (1700) t.ULISESR.JCL [facility] NAME: MARYSE MOURA [address] [facility] PHYS: Isaiah Bhatt MD : 1950 AGE: 72 SEX: F [place], [place] [address] LOC: Y.998 9 PHONE #: [phone] EXAM DATE: 01/17/2023 STATUS: ADM IN FAX #: [phone] RAD #: D/C DT PAGE 1 Signed Report Patient Name: MARYSE MOURA Unit No: [id number] EXAMS: CPT CODE: [id number] XR CHEST 1 V 72864 (Continued) Orig Print D/T: S: 01/17/2023 (1703) [facility] NAME: MARYSE MOURA [address] [facility] PHYS: Isaiah Bhatt MD : 1950 AGE: 72 SEX: F [place], [place] [address] LOC: Y.998 9 PHONE #: [phone] EXAM DATE: 01/17/2023 STATUS: ADM IN FAX #: [phone] RAD #: D/C DT PAGE 2 Signed Report- XR SHOULDER 1 V [id number] 17:00:00 [facility] : 1950 Sex: F Patient Name: MARYSE MOURA Unit No: [id number] EXAMS: CPT CODE: [id number] XR SHOULDER 1 [place] [address] PORTABLE CHEST January 17, 2023 4:53 PM COMMENT: COMPARISON: No prior exams available. A right-sided central catheter is been placed with the tip in the SVC. There is no evidence for pneumothorax. AP portable left shoulder COMMENT: The patient is status post joint replacement which is articulating normally. at 1700 Reported and signed by: Ruben Muñiz MD CC: Darrell Elmore MD; Brian Sharma DO Technologist: ISMAEL HORN. RT(R) Transcribed D/ (1699) tLUIS DANIEL.JCL [facility] NAME: MARYSE MOURA [address] [facility] PHYS: RORO SharmaBrian DO : 1950 AGE: 72 SEX: F [place], [place] LOC: Y.998 9 PHONE #: [phone] EXAM DATE: 01/17/2023 STATUS: ADM IN FAX #: [phone] RAD #: D/C DT PAGE 1 Signed Report Patient Name: MARYSE MOURA Unit No: [id number] EXAMS: CPT CODE: [id number] XR SHOULDER 1 [place] [address] (Continued) Orig Print D/T: S: 01/17/2023 (1702) [facility] NAME: MARYSE OMURA [address] [facility] PHYS: Brian Oneil DO : 1950 AGE: 72 SEX: F [place], [place] [address] LOC: Y.998 9 PHONE #: [phone] EXAM DATE: 01/17/2023 STATUS: ADM IN FAX #: [phone] RAD #: D/C DT PAGE 2 Signed Report [id number] 08:51:00 Test Item Value Reference Range Interpretation Comments GLUBED (test code = GLUBED) 73 mg/dL 60-125 N [id number] 08:16:00 Test Item Value Reference Range Interpretation Comments glubed (test code = glubed) 73 mg/dL 60-125 performing lab: (test code = performing lab:) [facility] [id number] 08:16:00 Test Item Value Reference Range Interpretation Comments glubed (test code = glubed) 73 mg/dL 60-125 performing lab: (test code = performing lab:) [facility] 08:16:00 Test Item Value Reference Range Interpretation Comments glubed (test code = glubed) 73 mg/dL 60-125 performing lab: (test code = performing lab:) [facility]PREHENS[facility] MET[facility]OL[facility] [id number] 12:54:00 Test Item Value Reference Range Interpretation Comments SODIUM (test code = 135 mmol/L 136-145 L NA) POTASSIUM (test 4.2 mmol/L 3.5-5.1 N code = K) CHLORIDE (test code 100.0 mmol/L 98-107 N = CL) CARBON DIOXIDE 27.4 mmol/L 21-32 N (test code = CO2) GLUCOSE (test code 103 mg/dL 70-110 N = GLU) BLOOD UREA NITROGEN 16 mg/dL 7-18 N (test code = BUN) GLOMERULAR 69.7 >60 The Glomerular FILTRATION RATE Filtration R [...] race indifferent and is the recommended for [facility] for GFRby the [facility] on for Adults.The GFR will not calculate i f the sex is unknown or if thepatient's ag e is <18 years. CREATININE (test 0.89 mg/dL 0.55-1.30 N code = CREAT) TOTAL PROTEIN (test 6.4 g/dL 6.4-8.2 N code = PROT) ALBUMIN (test code 4.0 g/dL 3.4-5.0 N = ALB) GLOBULIN (test code 2.4 g/dL 2.2-4.2 N = GLOB) ALBUMIN/GLOBULIN 1.7 0.7-2.0 N RATIO (test code = A/G) CALCIUM (test code 9.0 mg/dL 8.2-10.1 N = CA) BILIRUBIN TOTAL 0.50 mg/dL 0.2-1.00 N (test code = BILT) SGOT/AST (test code 20.0 U/L 15-37 N = AST) SGPT/ALT (test code 20.0 U/L 12-78 N = ALT) ALKALINE 117 U/L 46-116 H PHOSPHATASE TOTAL (test code = ALKP) PROTHROMBIN [id number] 12:43:00 Test Item Value Reference Range Interpretation Comments PROTHROMBIN TIME 12.5 secs 10.1-12.5 N Please note new normal PATIENT (test code = range. PTP) INTERNATIONAL NORMAL 1.08 <2.0 RECOMME NDED THERAPEUTIC RATIO (test code [...] v carrillo IS PATIENT ON ANTICOAGULANTS ? YHas Lab been notified if Patient is on Heparin Drip? NOEXCEDRINTHROMBOPLASTIN TIME [id number] 12:43:00 Test Item Value Reference Range Interpretation Comments PTT ACTIVATED (test 34.2 secs 24.9-37.0 N Please n ote new code = APTT) normal range. IS PATIENT ON ANTICOAGULANTS ? YHas Lab been notified if Patient is on Heparin Drip? NOEXCEDRINCBC W/AUTO [id number] 12:24:00 Test Item Value Reference Range Interpretation Comments WHITE BLOOD CELL (test code = WBC) 4.1 K/mm3 5.8-11.0 L RED BLOOD CELL (test code = RBC) 4.28 M/mm3 4.2-5.4 N HEMOGLOBIN (test code = HGB) 12.1 g/dL 12-16 N HEMATOCRIT (test code = HCT) 36.7 % 37-47 L MEAN CELL VOLUME (test code = MCV) 86 fL 80-98 N MEAN CELL HGB (test code = MCH) 28.3 pg 27-34 N MEAN CELL HGB CONCENTRATION (test 33.0 g/dL 30.8-34.1 N code = MCHC) RED CELL DISTRIBUTION WIDTH (test 14.1 % 11-16 N code = RDW) PLT (test code = PLT) 222 K/mm3 130-400 N MEAN PLATELET VOLUME (test code = 9.9 fL 8.9-12.1 N MPV) NEUTROPHIL % (test code = NT%) 62.3 % 45-70 N LYMPHOCYTE % (test code = LY%) 29.6 % 20-40 N MONOCYTE % (test code = MO%) 7.0 % 3-10 N EOSINOPHIL % (test code = EO%) 0.2 % 1-5 L BASOPHIL % (test code = BA%) 0.7 % 0.0-1.1 N NEUTROPHIL # (test code = NT#) 2.56 K/mm3 2.00-7.50 N LYMPHOCYTE # (test code = LY#) 1.22 K/mm3 1.50-4.00 L MONOCYTE # (test code = MO#) 0.29 K/mm3 0.2-0.8 N EOSINOPHIL # (test code = EO#) 0.01 K/mm3 0.04-0.4 L BASOPHIL # (test code = BA#) 0.03 K/mm3 0.02-0.10 N MANUAL DIFF REQUIRED (test code = NO MANUAL DIFF MDIFF) NUCLEATED RED BLOOD CELL (test 0 % 0-0 N code = NRBC) CBC W Auto Differential panel - [id number] 12:04:00 Test Item Value Reference Range Interpretation Comments white blood cell (test code = 4.1 K/mm3 5.8-11.0 L white blood cell) red blood cell (test code = red 4.28 M/mm3 4.2-5.4 blood cell) hemoglobin (test code = 12.1 g/dL 12-16 hemoglobin) hematocrit (test code = 36.7 % 37-47 L hematocrit) mean cell volume (test code = mean 86 fL 80-98 cell volume) mean cell HGB (test code = mean 28.3 pg 27-34 cell HGB) mean cell HGB concentration (test 33.0 g/dL 30.8-34.1 code = mean cell HGB concentration) red cell distribution width (test 14.1 % 11-16 code = red cell distribution width) plt (test code = plt) 222 K/mm3 130-400 mean platelet volume (test code = 9.9 fL 8.9-12.1 mean platelet volume) neutrophil % (test code = 62.3 % 45-70 neutrophil %) lymphocyte % (test code = 29.6 % 20-40 lymphocyte %) monocyte % (test code = monocyte 7.0 % 3-10 %) eosinophil % (test code = 0.2 % 1-5 L eosinophil %) basophil % (test code = basophil 0.7 % 0.0-1.1 %) neutrophil # (test code = 2.56 K/mm3 2.00-7.50 neutrophil #) lymphocyte # (test code = 1.22 K/mm3 1.50-4.00 L lymphocyte #) monocyte # (test code = monocyte 0.29 K/mm3 0.2-0.8 #) eosinophil # (test code = 0.01 K/mm3 0.04-0.4 L eosinophil #) basophil # (test code = basophil 0.03 K/mm3 0.02-0.10 #) manual diff required (test code = no manual diff manual diff required) nucleated red blood cell (test 0 % 0-0 code = nucleated red blood cell) performing lab: (test code = performing lab:) [facility] (PT)2022-12-28 12:04:00 Test Item Value Reference Range Interpretation Comments prothrombin time patient (test code 12.5 secs 10.1-12.5 = prothrombin time patient) international normal ratio (test 1.08 <2.0 code = international normal ratio) performing lab: (test code = performing lab:) [facility]ivanthromboplastin time [id number] 12:04:00 Test Item Value Reference Range Interpretation Comments PTT activated (test code = PTT 34.2 secs 24.9-37.0 activated) performing lab: (test code = performing lab:) [facility]Comprehensive metabolic 2000 panel - Serum or [id number] 12:04:00 Test Item Value Reference Range Interpretation Comments sodium (test code = sodium) 135 mmol/L 136-145 L potassium (test code = 4.2 mmol/L 3.5-5.1 potassium) chloride (test code = chloride) 100.0 mmol/L 98-107 carbon dioxide (test code = 27.4 mmol/L 21-32 carbon dioxide) glucose (test code = glucose) 103 mg/dL 70-110 blood urea nitrogen (test code = 16 mg/dL 7-18 blood urea nitrogen) glomerular filtration rate (test 69.7 >60 code = glomerular filtration rate) creatinine (test code = 0.89 mg/dL 0.55-1.30 creatinine) total protein (test code = total 6.4 g/dL 6.4-8.2 protein) albumin (test code = albumin) 4.0 g/dL 3.4-5.0 globulin (test code = globulin) 2.4 g/dL 2.2-4.2 albumin/globulin ratio (test 1.7 0.7-2.0 code = albumin/globulin ratio) calcium (test code = calcium) 9.0 mg/dL 8.2-10.1 bilirubin total (test code = 0.50 mg/dL 0.2-1.00 bilirubin total) SGOT/AST (test code = SGOT/AST) 20.0 U/L 15-37 SGPT/ALT (test code = SGPT/ALT) 20.0 U/L 12-78 alkaline phosphatase total (test 117 U/L 46-116 H code = alkaline phosphatase total) performing lab: (test code = performing lab:) [facility]ullivanMethicillin resistant Staphylococcus aureus [Presence] in Specimen by Organism specific [id number] 12:04:00 Test Item Value Reference Range Interpretation Comments MRSA surveillance screen (test code see below = MRSA surveillance screen) performing lab: (test code = performing lab:) [facility]ss[facility] PCR surveillance [id number] 12:04:00 Test Item Value Reference Range Interpretation Comments mssa PCR surveillance screen (test see below code = mssa PCR surveillance screen) performing lab: (test code = performing lab:) [facility]ullivanCB W Auto Differential panel - [id number] 12:04:00 Test Item Value Reference Range Interpretation Comments white blood cell (test code = 4.1 K/mm3 5.8-11.0 L white blood cell) red blood cell (test code = red 4.28 M/mm3 4.2-5.4 blood cell) hemoglobin (test code = 12.1 g/dL 12-16 hemoglobin) hematocrit (test code = 36.7 % 37-47 L hematocrit) mean cell volume (test code = mean 86 fL 80-98 cell volume) mean cell HGB (test code = mean 28.3 pg 27-34 cell HGB) mean cell HGB concentration (test 33.0 g/dL 30.8-34.1 code = mean cell HGB concentration) red cell distribution width (test 14.1 % 11-16 code = red cell distribution width) plt (test code = plt) 222 K/mm3 130-400 mean platelet volume (test code = 9.9 fL 8.9-12.1 mean platelet volume) neutrophil % (test code = 62.3 % 45-70 neutrophil %) lymphocyte % (test code = 29.6 % 20-40 lymphocyte %) monocyte % (test code = monocyte 7.0 % 3-10 %) eosinophil % (test code = 0.2 % 1-5 L eosinophil %) basophil % (test code = basophil 0.7 % 0.0-1.1 %) neutrophil # (test code = 2.56 K/mm3 2.00-7.50 neutrophil #) lymphocyte # (test code = 1.22 K/mm3 1.50-4.00 L lymphocyte #) monocyte # (test code = monocyte 0.29 K/mm3 0.2-0.8 #) eosinophil # (test code = 0.01 K/mm3 0.04-0.4 L eosinophil #) basophil # (test code = basophil 0.03 K/mm3 0.02-0.10 #) manual diff required (test code = no manual diff manual diff required) nucleated red blood cell (test 0 % 0-0 code = nucleated red blood cell) performing lab: (test code = performing lab:) [facility] MedicineProthrombin time (PT)2022-12-28 12:04:00 Test Item Value Reference Range Interpretation Comments prothrombin time patient (test code 12.5 secs 10.1-12.5 = prothrombin time patient) international normal ratio (test 1.08 <2.0 code = international normal ratio) performing lab: (test code = performing lab:) [place] [facility] [id number] 12:04:00 Test Item Value Reference Range Interpretation Comments PTT activated (test code = PTT 34.2 secs 24.9-37.0 activated) performing lab: (test code = performing lab:) [facility]ullivanComprehensive metabolic 2000 panel - Serum or [id number] 12:04:00 Test Item Value Reference Range Interpretation Comments sodium (test code = sodium) 135 mmol/L 136-145 L potassium (test code = 4.2 mmol/L 3.5-5.1 potassium) chloride (test code = chloride) 100.0 mmol/L 98-107 carbon dioxide (test code = 27.4 mmol/L 21-32 carbon dioxide) glucose (test code = glucose) 103 mg/dL 70-110 blood urea nitrogen (test code = 16 mg/dL 7-18 blood urea nitrogen) glomerular filtration rate (test 69.7 >60 code = glomerular filtration rate) creatinine (test code = 0.89 mg/dL 0.55-1.30 creatinine) total protein (test code = total 6.4 g/dL 6.4-8.2 protein) albumin (test code = albumin) 4.0 g/dL 3.4-5.0 globulin (test code = globulin) 2.4 g/dL 2.2-4.2 albumin/globulin ratio (test 1.7 0.7-2.0 code = albumin/globulin ratio) calcium (test code = calcium) 9.0 mg/dL 8.2-10.1 bilirubin total (test code = 0.50 mg/dL 0.2-1.00 bilirubin total) SGOT/AST (test code = SGOT/AST) 20.0 U/L 15-37 SGPT/ALT (test code = SGPT/ALT) 20.0 U/L 12-78 alkaline phosphatase total (test 117 U/L 46-116 H code = alkaline phosphatase total) performing lab: (test code = performing lab:) [facility]Methicillin resistant Staphylococcus aureus [Presence] in Specimen by Organism specific [id number] 12:04:00 Test Item Value Reference Range Interpretation Comments MRSA surveillance screen (test code see below = MRSA surveillance screen) performing lab: (test code = performing lab:) [facility] PCR surveillance [id number] 12:04:00 Test Item Value Reference Range Interpretation Comments mssa PCR surveillance screen (test see below code = mssa PCR surveillance screen) performing lab: (test code = performing lab:) [facility] W Auto Differential panel - [id number] 12:04:00 Test Item Value Reference Range Interpretation Comments white blood cell (test code = 4.1 K/mm3 5.8-11.0 L white blood cell) red blood cell (test code = red 4.28 M/mm3 4.2-5.4 blood cell) hemoglobin (test code = 12.1 g/dL 12-16 hemoglobin) hematocrit (test code = 36.7 % 37-47 L hematocrit) mean cell volume (test code = mean 86 fL 80-98 cell volume) mean cell HGB (test code = mean 28.3 pg 27-34 cell HGB) mean cell HGB concentration (test 33.0 g/dL 30.8-34.1 code = mean cell HGB concentration) red cell distribution width (test 14.1 % 11-16 code = red cell distribution width) plt (test code = plt) 222 K/mm3 130-400 mean platelet volume (test code = 9.9 fL 8.9-12.1 mean platelet volume) neutrophil % (test code = 62.3 % 45-70 neutrophil %) lymphocyte % (test code = 29.6 % 20-40 lymphocyte %) monocyte % (test code = monocyte 7.0 % 3-10 %) eosinophil % (test code = 0.2 % 1-5 L eosinophil %) basophil % (test code = basophil 0.7 % 0.0-1.1 %) neutrophil # (test code = 2.56 K/mm3 2.00-7.50 neutrophil #) lymphocyte # (test code = 1.22 K/mm3 1.50-4.00 L lymphocyte #) monocyte # (test code = monocyte 0.29 K/mm3 0.2-0.8 #) eosinophil # (test code = 0.01 K/mm3 0.04-0.4 L eosinophil #) basophil # (test code = basophil 0.03 K/mm3 0.02-0.10 #) manual diff required (test code = no manual diff manual diff required) nucleated red blood cell (test 0 % 0-0 code = nucleated red blood cell) performing lab: (test code = performing lab:) [facility]2022-12-28 12:04:00 Test Item Value Reference Range Interpretation Comments prothrombin time patient (test code 12.5 secs 10.1-12.5 = prothrombin time patient) international normal ratio (test 1.08 <2.0 code = international normal ratio) performing lab: (test code = performing lab:) [facility]romboplastin time [id number] 12:04:00 Test Item Value Reference Range Interpretation Comments PTT activated (test code = PTT 34.2 secs 24.9-37.0 activated) performing lab: (test code = performing lab:) [facility]ullivanComprehensive metabolic 2000 panel - Serum or [id number] 12:04:00 Test Item Value Reference Range Interpretation Comments sodium (test code = sodium) 135 mmol/L 136-145 L potassium (test code = 4.2 mmol/L 3.5-5.1 potassium) chloride (test code = chloride) 100.0 mmol/L 98-107 carbon dioxide (test code = 27.4 mmol/L 21-32 carbon dioxide) glucose (test code = glucose) 103 mg/dL 70-110 blood urea nitrogen (test code = 16 mg/dL 7-18 blood urea nitrogen) glomerular filtration rate (test 69.7 >60 code = glomerular filtration rate) creatinine (test code = 0.89 mg/dL 0.55-1.30 creatinine) total protein (test code = total 6.4 g/dL 6.4-8.2 protein) albumin (test code = albumin) 4.0 g/dL 3.4-5.0 globulin (test code = globulin) 2.4 g/dL 2.2-4.2 albumin/globulin ratio (test 1.7 0.7-2.0 code = albumin/globulin ratio) calcium (test code = calcium) 9.0 mg/dL 8.2-10.1 bilirubin total (test code = 0.50 mg/dL 0.2-1.00 bilirubin total) SGOT/AST (test code = SGOT/AST) 20.0 U/L 15-37 SGPT/ALT (test code = SGPT/ALT) 20.0 U/L 12-78 alkaline phosphatase total (test 117 U/L 46-116 H code = alkaline phosphatase total) performing lab: (test code = performing lab:) [place] [facility] resistant Staphylococcus aureus [Presence] in Specimen by Organism specific [id number] 12:04:00 Test Item Value Reference Range Interpretation Comments MRSA surveillance screen (test code see below = MRSA surveillance screen) performing lab: (test code = performing lab:) [facility] surveillance [id number] 12:04:00 Test Item Value Reference Range Interpretation Comments mssa PCR surveillance screen (test see below code = mssa PCR surveillance screen) performing lab: (test code = performing lab:) [facility]- XR SHOULDER 2 + V [id number] 07:14:00 [facility] 1950 Sex: F Patient Name: MARYSE MOURA Unit No: [id number] EXAMS: CPT CODE: [id number] XR SHOULDER 2 + [place] [address] Left shoulder 3 views COMMENT: The patient is status post reverse prosthesis placement. Thereis no evidence for fracture or subluxation. Electronically Signed by Ruben Muñiz MD on12/19/2022 at 0714 Reported and signed by: Ruben Muñiz MD CC: Darrell Elmore MD; Collins Rain MD Technologist: NAVEEN BOOTHE ARRT Transcribed D/ (0714) t.GORDON.L [facility] NAME: MARYSE MOURA [address] [facility] PHYS: Collins Hernandez MD : 1950 AGE: 72 SEX: F [place], [place] [address] LOC: CASSI PHONE #: [phone] EXAM DATE: 12/18/2022 STATUS: DEP ER FAX #: [phone] RAD #: D/C DT PAGE 1 Signed Report Patient Name: MARYSE MOURA Unit No: [id number] EXAMS: CPT CODE: [id number] XR SHOULDER 2 + [place] [address] (Continued) Orig Print D/T: S: 12/19/2022 (0717) [facility] NAME: MARYSE MOURA [address] PHYS: Collins Hernandez MD : 1950 AGE: 72 SEX: F [place], [place] [address] LOC: CASSI PHONE #: [phone] EXAM DATE: 12/18/2022 STATUS: [facility] ER FAX #: [phone] RAD #: D/C DT PAGE 2 Signed Report- CT UP EXTREM W/O CONT [id number] 16:27:00 [facility] 1950 Sex: F Patient Name: MARYSE MOURA Unit No: [id number] EXAMS: CPT CODE: [id number] CT UP EXTREM W/[place] [address] [place] OF THE LEFT SHOULDER WITH SAGITTAL AND CORONAL RECONSTRUCTIONS DIAGNOSIS: Comparison ismade with the previous examination of July 11, 2022. The patient is status post arthroplasty with a reverse prosthesis. On the current examination there is a fracture of the glenoid. Some callus is present but no definite healing of the fracture is seen and the fracture fragment which includes the glenoid component of the reverse prosthesis. 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 There is bone loss in the proximal humerus and loosening of the humeral component of the prosthesis. COMMENT: COMPARISON: July 11, 2022 Scans were performed with thin sections and reconstructions were obtained. CT radiation dose optimization is achieved for this examination by the use of a CT protocol in accordance with ACR practice standards and adherence to pitch filler's recommendations. Fractur es are as described. Moderate rotator cuff atrophy is seen. at 1627 Reported and signed by: Ruben Muñiz MD CC: Darrell Elmore MD Technologist: LILA KATZ. CTDI: DLP: Trnscrpt: 12/18/2022 (162) HueyJCL [facility] NAME: MARYSE MOURA [address] [facility] PHYS: Darrell Parker MD : 1950 AGE: 72 SEX: F [place] [address] LOC: Y.RAD PHONE #: [phone] EXAM DATE: 12/18/2022 STATUS: REG CLI FAX #: [phone] RAD #: D/C DT PAGE 1 Signed Report Patient Name: MARYSE MOURA Unit No: [id number] EXAMS: CPT CODE: [id number] CT [place] EXTREM W/[place] [address] (Continued) Orig Print D/T: S: 12/18/2022 (1630) [facility] NAME: MARYSE MOURA [address] [place] [address] PHYS: Darrell Parker MD : 1950 AGE: 72 SEX: F [place] [address] LOC: Y.RAD PHONE #: [phone] EXAM DATE: 12/18/2022 STATUS: REG CLI FAX #: [phone] RAD #: D/C DT PAGE 2 Signed ReportTHYROID STIMULATING [id number] 20:29:56 Test Item Value Reference Range Interpretation Comments TSH (test code = 35.80 See_Comment H [Automated message] [id number]) The system [employer] generated this result transmitted ref erence range: 0.45 - 4 .70 mIU/L. The refe rence range was not u sed to interpret this result as normal/abnor mal. Lab Interpretation (test Abnormal code = 66757-5) [facility] [id number] 20:16:35 Test Item Value Reference Range Interpretation Comments FREE T4 (test code = 0.92 See_Comment [Autom ated message] [id number]) The system [employer] generated this result transmitted ref erence range: 0.78 - 2 .20 ng/dL:. The ref erence range was not u sed to interpret this result as normal/abnor mal. Lab Interpretation (test Normal code = 59996-4) [facility] [id number] 20:11:34 Test Item Value Reference Range Interpretation Comments TROPONIN I (test code = 0.015 ng/mL <=0.034 [id number]) [place] (test code = [place]) Reference (Normal) [...] biotin. Lab Interpretation Normal (test code = 72362-6) [facility] SHR-[id number] 20:08:13 Test Item Value Reference Range Interpretation Comments NT-proBNP (test code = 438 pg/mL <=125 H 5139616432) [place] (test code = [place]) Biotin has been reported to cause a negative bias, interpret results relative to patient's use of biotin. Lab Interpretation (test Abnormal code = 96905-5) [facility]oundMAGNESIUM2023-02-06 19:59:32 Test Item Value Reference Range Interpretation Comments MAGNESIUM (test code = 7261617981) 1.8 mg/dL 1.7-2.4 Lab Interpretation (test code = Normal 77808-5) [facility]oundCOMP. METABOLIC PANEL (51970)2022-11-19 19:59:31 Test Item Value Reference Range Interpretation Comments NA (test code = 133 mmol/L 135-145 L 9652270656) K (test code = 4.1 mmol/L 3.5-5.0 3416737207) CL (test code = 103 mmol/L 98-108 5823765612) CO2 TOTAL (test code = 22 mmol/L 23-31 L 7555030799) AGAP (test code = 8 2-16 5428289007) BUN (test code = 21 mg/dL 7-23 2480866131) GLUCOSE (test code = 123 mg/dL 70-110 H 5840551859) CREATININE (test code = 1.34 mg/dL 0.50-1.04 H 7495169736) TOTAL BILI (test code = 0.4 mg/dL 0.1-1.1 9819281146) CALCIUM (test code = 9.0 mg/dL 8.6-10.6 5463815641) T PROTEIN (test code = 6.0 g/dL 6.3-8.2 L 7017086479) ALBUMIN (test code = 3.7 g/dL 3.5-5.0 4335901208) ALK PHOS (test code = 114 U/L 34-122 9737977864) ALTv (test code = 13 U/L 5-35 1742-6) AST(SGOT) (test code = 20 U/L 13-40 2627640956) eGFR (test code = 39.2 mL/min/1.73m2 3386459631) [place] (test code = [place]) Association of [...] tests). Lab Interpretation Abnormal (test code = 25430-9) [facility]oundLIPASE2023-02-06 19:59:11 Test Item Value Reference Range Interpretation Comments LIPASE (test code = 6148321479) 145 U/L 0-220 Lab Interpretation (test code = Normal 26849-5) [facility] MoundPHOSPHORUS2023-02-06 19:59:11 Test Item Value Reference Range Interpretation Comments PHOSPHORUS (test code = 5393079623) 2.9 mg/dL 2.5-5.0 Lab Interpretation (test code = Normal 47709-5) [facility] MoundCREATINE [id number] 19:58:51 Test Item Value Reference Range Interpretation Comments CK (test code = 0345642987) 35 U/L 33-194 Lab Interpretation (test code = Normal 00386-3) [facility] MoundCBC WITH [id number] 19:46:12 Test Item Value Reference Range Interpretation Comments WBC (test code = 7.18 See_Comment [Automated 3508-2) message] The sy stem which generated this result transmitted reference range : 4.30 - 11.10 10*3/?L. The reference range was not used to interpret this result as normal/abnormal . RBC (test code = 4.47 See_Comment [Automated 897-1) message] The sy stem which generated this [...] RDW-SD (test code = 46.1 fL 39.0-49.9 61968-8) RDW-CV (test code = 14.9 % 12.0-15.5 788-0) PLT (test code = 324 See_Comment [Automated 777-3) message] The sy stem which generated this result transmitted reference range : 166 - 358 10*3/ ?L. The reference r xiomara was not used to interpret this result as normal/abnormal . MPV (test code = 8.9 fL 9.5-12.9 L 42098-8) NRBC/100 WBC (test 0.0 See_Comment [Automat ed code = 4287522917) message] The system which generated this result transmitted reference range : 0.0 - 10.0 /100 WBCs. The refer ence range was not u sed to interpret th is result as normal/abnormal . NRBC x10^3 (test code See_Comment [Auto mated = 2491831191) message] The s ystem which generated this result transmitted reference range : 10*3/?L. The reference range was not used to interpret this result as normal/abnormal . GRAN MAT (NEUT) % 63.1 % (test code = 770-8) IMM GRAN % (test code 0.80 % = 5041161167) LYMPH % (test code = 27.9 % 736-9) MONO % (test code = 6.4 % 5905-5) EOS % (test code = 1.1 % 713-8) BASO % (test code = 0.7 % 706-2) GRAN MAT x10^3(ANC) 4.53 10*3/uL 1.88-7.09 (test code = 5646033499) IMM GRAN x10^3 (test 0.06 10*3/uL 0.00-0.06 code = 3508110573) LYMPH x10^3 (test code 2.00 10*3/uL 1.32-3.29 = 731-0) MONO x10^3 (test code 0.46 10*3/uL 0.33-0.92 = 742-7) EOS x10^3 (test code = 0.08 10*3/uL 0.03-0.39 711-2) BASO x10^3 (test code 0.05 10*3/uL 0.01-0.07 = 704-7) Lab Interpretation Abnormal (test code = 23663-8) [facility]oundSurgical pathology [id number] 15:04:00 [facility] [id number] 15:04:00[facility] MedicineBASIC METABOLIC [id number] 07:08:00 Test Item Value Reference Range Interpretation [...] = CA) - XR SHOULDER 1 V [id number] 07:08:00 [facility] 1950 Sex: F Patient Name: MARYSE MOURA Unit No: [id number] EXAMS: CPT CODE: [id number] XR SHOULDER 1 [place] [address] AP portable left shoulder COMMENT: The patient is status post reverse prosthesis placement whichis articulating normally. at 0708 Reported and signed by: Ruben Muñiz MD CC: Darrell Elmore MD; Brian Sharma DO; Stanley Katz MD Technologist: ISMAEL HORN. RT(R) Transcribed D/ (0708) HueyJCL [facility] NAME: MARYSE MOURA [address] [facility] PHYS: Brian Oneil DO : 1950 AGE: 71 SEX: F [place], [place] [address] LOC: Y.306 A PHONE #: [phone] EXAM DATE: 10/22/2022 STATUS: ADM IN FAX #: [phone] RAD #: D/C DT PAGE 1 Signed Report Patient Name: MARYSE MOURA Unit No: [id number] EXAMS: CPT CODE: [id number] XR SHOULDER 1 [place] [address] (Continued) Orig Print D/T: S: 10/23/2022 (0711) [facility] NAME: MARYSE MOURA [address] [facility] [address] PHYS: RORO SharmaBrian : 1950 AGE: 71 SEX: F [place], [place] [address] LOC: Y.306 A PHONE #: [phone] EXAM DATE: 10/22/2022 STATUS: ADM IN FAX #: [phone] RAD #: D/C DT PAGE 2 Signed ReportCBC W/AUTO [id number] 06:14:00 Test Item Value Reference Range Interpretation [...] NRBC) SPECIMEN COMMENT: POD #1SYNOVIAL FLD CELL CT/[id number] 22:06:00 Test Item Value Reference Range Interpretation Comments SYNOVIAL FLD HEMOLYZED LT. YELLOW COLOR (test code = COLSY) SYNOVIAL FLD HAZY CLEAR APPEARANCE (test code = APPSY) SYNOVIAL FLD 1.0 mL VOLUME (test code = VOLSY) SYNOVIAL FLD WBC 226.000 /MM3 0-200 H (test code = WBCSY) SYNOVIAL FLD RBC 16152.000 /mm3 0-2 H NOTE: An automated (test code = method is now b eing RBCSY) used to determinesynovi al fluid WBC and RBC cou nts. The differential wi llstill be performed ma iglesia. SYNOVIAL FLD POLY 10 % 0-25 N (test code = POLYSY) SYNOVIAL FLD 62 % 0-78 N LYMPHOCYTE (test code = LYMPHSY) SYNOVIAL FLD 15 % 0-71 N MONOCYTE (test code = MONOSY) SYNOVIAL FLD 13 % LINING CELLS (test code = LINSY) Cell count and Differential panel - Synovial lmozo9414-15-02 15:45:00 Test Item Value Reference Range Interpretation Comments synovial fld color (test code hemolyzed lt. yellow = synovial fld color) synovial fld appearance (test hazy clear code = synovial fld appearance) synovial fld volume (test code 1.0 mL = synovial fld volume) synovial fld WBC (test code = 226.000 /mm3 0-200 H synovial fld WBC) synovial fld RBC (test code = 91697.000 /mm3 0-2 H synovial fld RBC) synovial fld poly (test code = 10 % 0-25 synovial fld poly) synovial fld lymphocyte (test 62 % 0-78 code = synovial fld lymphocyte) synovial fld monocyte (test 15 % 0-71 code = synovial fld monocyte) synovial fld lining cells 13 % (test code = synovial fld lining cells) performing lab: (test code = performing lab:) [facility] - Synovial knwlu1324-17-35 15:45:00 Test Item Value Reference Range Interpretation Comments synovial fld color (test code hemolyzed lt. yellow = synovial fld color) synovial fld appearance (test hazy clear code = synovial fld appearance) synovial fld volume (test code 1.0 mL = synovial fld volume) synovial fld WBC (test code = 226.000 /mm3 0-200 H synovial fld WBC) synovial fld RBC (test code = 45642.000 /mm3 0-2 H synovial fld RBC) synovial fld poly (test code = 10 % 0-25 synovial fld poly) synovial fld lymphocyte (test 62 % 0-78 code = synovial fld lymphocyte) synovial fld monocyte (test 15 % 0-71 code = synovial fld monocyte) synovial fld lining cells 13 % (test code = synovial fld lining cells) performing lab: (test code = performing lab:) [facility]COMPREHENSIVE METABOLIC [id number] 13:32:00 Test Item Value Reference Range Interpretation [...] PHOSPHATASE TOTAL (test code = ALKP) PROTHROMBIN [id number] 13:27:00 Test Item Value Reference Range Interpretation [...] recurrent embol ism, or 3.0 - 4.5 judy ents with mechanical pros thetic intravascular v carrillo IS PATIENT ON ANTICOAGULANTS ? NHas Lab been notified if Patient is on Heparin Drip? NOIf Yes, orderCBC, OCCULT BLOOD, PT every other day NTHROMBOPLASTIN TIME [id number] 13:27:00 Test Item Value Reference Range Interpretation Comments PTT ACTIVATED (test 29.9 secs 26.6-34.6 N Please n ote new code = APTT) normal range. IS PATIENT ON ANTICOAGULANTS ? NHas Lab [...] NRBC) CBC W Auto Differential panel - [id number] 11:30:00 Test Item Value Reference Range Interpretation [...] performing lab: (test code = performing lab:) [facility] MedicineProthrombin time (PT)2022-10-01 11:30:00 Test Item Value Reference Range Interpretation Comments prothrombin time patient (test code 11.4 secs 9.7-12.5 = prothrombin time patient) international normal ratio (test 1.03 <2.0 code = international normal ratio) performing lab: (test code = performing lab:) [facility]romboplastin time [id number] 11:30:00 Test Item Value Reference Range Interpretation Comments PTT activated (test code = PTT 29.9 secs 26.6-34.6 activated) performing lab: (test code = performing lab:) [facility] - Serum or [id number] 11:30:00 Test Item Value Reference Range Interpretation [...] performing lab: (test code = performing lab:) [facility]Methicillin resistant Staphylococcus aureus [Presence] in Specimen by Organism specific [id number] 11:30:00 Test Item Value Reference Range Interpretation Comments MRSA surveillance screen (test code see below = MRSA surveillance screen) performing lab: (test code = performing lab:) [facility] [id number] 11:30:00 Test Item Value Reference Range Interpretation Comments mssa PCR surveillance screen (test see below code = mssa PCR surveillance screen) performing lab: (test code = performing lab:) [facility] W Auto Differential panel - [id number] 11:30:00 Test Item Value Reference Range Interpretation [...] performing lab: (test code = performing lab:) [facility]Prothrombin time (PT)2022-10-01 11:30:00 Test Item Value Reference Range Interpretation Comments prothrombin time patient (test code 11.4 secs 9.7-12.5 = prothrombin time patient) international normal ratio (test 1.03 <2.0 code = international normal ratio) performing lab: (test code = performing lab:) [facility]romboplastin time [id number] 11:30:00 Test Item Value Reference Range Interpretation Comments PTT activated (test code = PTT 29.9 secs 26.6-34.6 activated) performing lab: (test code = performing lab:) [facility] metabolic 2000 panel - Serum or [id number] 11:30:00 Test Item Value Reference Range Interpretation [...] performing lab: (test code = performing lab:) [facility]Meth[facility] resistant Staphylococcus aureus [Presence] in Specimen by Organism specific [id number] 11:30:00 Test Item Value Reference Range Interpretation Comments MRSA surveillance screen (test code see below = MRSA surveillance screen) performing lab: (test code = performing lab:) [facility] PCR surveillance [id number] 11:30:00 Test Item Value Reference Range Interpretation Comments mssa PCR surveillance screen (test see below code = mssa PCR surveillance screen) performing lab: (test code = performing lab:) [facility]CBC W Auto Differential panel - [id number] 11:30:00 Test Item Value Reference Range Interpretation [...] performing lab: (test code = performing lab:) [facility]Prothrombin time (PT)2022-10-01 11:30:00 Test Item Value Reference Range Interpretation Comments prothrombin time patient (test code 11.4 secs 9.7-12.5 = prothrombin time patient) international normal ratio (test 1.03 <2.0 code = international normal ratio) performing lab: (test code = performing lab:) [facility]ivanthromboplastin time [id number] 11:30:00 Test Item Value Reference Range Interpretation Comments PTT activated (test code = PTT 29.9 secs 26.6-34.6 activated) performing lab: (test code = performing lab:) [facility]Com[facility] metabolic 2000 panel - Serum or [id number] 11:30:00 Test Item Value Reference Range Interpretation [...] performing lab: (test code = performing lab:) [facility]Methicillin resistant Staphylococcus aureus [Presence] in Specimen by Organism specific [id number] 11:30:00 Test Item Value Reference Range Interpretation Comments MRSA surveillance screen (test code see below = MRSA surveillance screen) performing lab: (test code = performing lab:) [facility] PCR surveillance [id number] 11:30:00 Test Item Value Reference Range Interpretation Comments mssa PCR surveillance screen (test see below code = mssa PCR surveillance screen) performing lab: (test code = performing lab:) [facility]ullivanCB W Auto Differential panel - [id number] 11:30:00 Test Item Value Reference Range Interpretation [...] performing lab: (test code = performing lab:) [facility]ullivanProthrombin time (PT)2022-10-01 11:30:00 Test Item Value Reference Range Interpretation Comments prothrombin time patient (test code 11.4 secs 9.7-12.5 = prothrombin time patient) international normal ratio (test 1.03 <2.0 code = international normal ratio) performing lab: (test code = performing lab:) [facility]ivanthromboplastin time [id number] 11:30:00 Test Item Value Reference Range Interpretation Comments PTT activated (test code = PTT 29.9 secs 26.6-34.6 activated) performing lab: (test code = performing lab:) [facility]Com[facility] metabolic 2000 panel - Serum or Gdkenf2449-85-16 11:30:00 Test Item Value Reference Range Interpretation [...] performing lab: (test code = performing lab:) [facility]ullivanMethicillin resistant Staphylococcus aureus [Presence] in Specimen by Organism specific sqybpgm4798-40-15 11:30:00 Test Item Value Reference Range Interpretation Comments MRSA surveillance screen (test code see below = MRSA surveillance screen) performing lab: (test code = performing lab:) [facility] PCR surveillance [id number] 11:30:00 Test Item Value Reference Range Interpretation Comments mssa PCR surveillance screen (test see below code = mssa PCR surveillance screen) performing lab: (test code = performing lab:) [facility]ullivanTHYROGLOBULIN [id number] 15:43:00 Test Item Value Reference Interpretation Comments Range THYROGLOBULIN (test 0.1 ng/mL 1.5-38.5 L THYROBLO BULIN BY ADAIR code = THYROGL) COMMENT: ACC ORDING TO THE [facility]ATIONAL [facility] Y OF CLINCIAL BIOCHE CHANDRIKA,THE REFERENCE INTER AJNICE FOR THYROGLOBULIN ( TG) SHOULD BERELATED TO [...] Antibody (test code = IU/mL measured by [facility] quoc THYROAB) CoulterMethodol ogyUnit of measure: 1St Grade Teacher ational Units/mL PARATHYROID HORMONE [id number] 12:26:00 Test Item Value Reference Range Interpretation Comments PARATHYROID HORMONE 115.0 pg/mL 15-65 H Performe d At: HD INTACT (test code = [facility] [id number] PARAI) [place], [place] [id number] Ari Hansen MD Ph:[phone] - CT UP EXTREM W/CONT [id number] 07:55:00 [facility] : 1950 Sex: F Patient Name: MARYSE MOURA Unit No: [id number] EXAMS: CPT CODE: [id number] CT UP EXTREM W/[place] [address] RIGHT SHOULDER ARTHROGRAM AND ASPIRATION DIAGNOSIS: Postoperative synovitis. 0.5 mL of clearfluid aspirated and sent for analysis. COMMENT: COMPARISON: No prior exams available. After informedconsent was obtained a shoulder aspiration was followed [...] thin sections post arthrography and reconstructions were obt ained. Bony abnormalities are present as noted. The joint is distended with contrast. Moderate rotator cuff atrophy is present. No loose bodies are identified. at 0755 Reported and signed by: Ruben Muñiz MD CC: Darrell Elmore MD; Ruben Browne M.D. Technologist: RT Enrike(R) CTDI: DLP: Trnscrpt: 07/12/2022 (0755) tAMANUELL [facility] NAME: MARYSE MOURA [address] [place] [address] PHYS: Darrell Parker MD : 1950 AGE: 71 SEX: F [place] [address] LOC: Y.RAD PHONE #: [phone] EXAM DATE: 07/11/2022 STATUS: DEP CLI FAX #: [phone] RAD #: D/C DT PAGE 1 Signed Report Patient Name: MARYSE MOURA Unit No: [id number] EXAMS: CPT CODE: [id number] CT UP EXTREM W/[place] [address] (Continued) Orig Print D/T: S: 07/12/2022 (0758) [facility] NAME: MARYSE MOURA [address] [place] [address] PHYS: Darrell Parker MD : 1950 AGE: 71 SEX: F [place], [place] [address] LOC: Y.RAD PHONE #: [phone] EXAM DATE: 07/11/2022 STATUS: DEP CLI FAX #: [phone] RAD #: D/C DT PAGE 2 Signed Report- XR ARTHROGRAM LDR [id number] 07:55:00 [facility] : 1950 Sex: F Patient Name: MARYSE MOURA Unit No: [id number] EXAMS: CPT CODE: [id number] [place] [address] RIGHT SHOULDER ARTHROGRAM AND ASPIRATION DIAGNOSIS: Postoperative synovitis. 0.5 mL of clearfluid aspirated and sent for analysis. COMMENT: COMPARISON: No prior exams available. After informedconsent was obtained a shoulder aspiration was followed [...] thin sections post arthrography and reconstructions were ob tained. Bony abnormalities are present as noted. The joint is distended with contrast. Moderate rotator cuff atrophy is present. No loose bodies are identified. at 0755 Reported and signed by: Ruben Muñiz MD CC: Darrell Elmore MD; Ruben Browne M.D. Technologist: RT. Omid(Lavinia) Transcribed D/ (0755) HueyJCL [facility] NAME: MARYSE MOURA [address] [facility] PHYS: Darrell Hernandez MD : 1950 AGE: 71 SEX: F [place], [place] [address] LOC: Y.RAD PHONE #: [phone] EXAM DATE: 07/11/2022 STATUS: DEP CLI FAX #: [phone] RAD #: D/C DT PAGE 1 Signed Report Patient Name: MARYSE MOURA Unit No: [id number] EXAMS: CPT CODE: [id number] [address] (Continued) Orig Print D/T: S: 07/12/2022 (0758) [facility] NAME: MARYSE MOURA [address] [facility] PHYS: Darrell Parker MD : 1950 AGE:71 SEX: F [place] [address] LOC: JustaRAD PHONE #: [phone] EXAM DATE: 07/11/2022 STATUS: DEP CLI FAX #: [phone] RAD #: D/C DT PAGE 2 Signed ReportSED [id number] 07:24:00 Test Item Value Reference Range Interpretation Comments SED RATE (test code = 6 mm/hr 0-40 Perfor med At: HD [facility] SEDW) [address] [place], [place] [id number] Kyle L MD Ph:[phone] T3 [id number] 21:58:00 Test Item Value Reference Range Interpretation Comments T3 FREE (test code = T3F) 2.86 pg/mL 2.18-3.98 T4 [id number] 21:58:00 Test Item Value Reference Range Interpretation Comments T4 FREE (test code = T4F) 1.28 ng/dL 0.76-1.46 THYROID STIMULATING [id number] 21:58:00 Test Item Value Reference Range Interpretation Comments THYROID STIMULATING 0.83 0.36-3.74 Test Per formed in HORMONE (test code = MicroIn ternational Units/mL TSH) T3 [id number] 21:57:00 Test Item Value Reference Range Interpretation Comments T3 FREE (test code = T3F) 2.86 pg/mL 2.18-3.98 N T4 [id number] 21:57:00 Test Item Value Reference Range Interpretation Comments T4 FREE (test code = T4F) 1.28 ng/dL 0.76-1.46 N THYROID STIMULATING [id number] 21:57:00 Test Item Value Reference Range Interpretation Comments THYROID STIMULATING 0.83 0.36-3.74 N Test Per formed in HORMONE (test code = MicroIn ternational Units/mL TSH) COMPREHENSIVE METABOLIC [id number] 14:16:00 Test Item Value Reference Range Interpretation [...] RATE (test code = GFR) mL/mi n/1.73 b7Mwrhwxsqb Range:Healthy Adults >90 mL/min/1.73 m2 For Chronic Kidney Disease: Stage II Mild Decrease i n GFR 60-90 Stage III Moderate Decrea se in GFR 30-59 S tage IV Severe Decre ase in GFR 15-29 [...] TOTAL (test code = ALKP) C REACTIVE [id number] 14:15:00 Test Item Value Reference Range Interpretation Comments C REACTIVE PROTEIN (test code = < 0.2 mg/dL <0.9 CRP) AFB [id number] 13:47:00 Test Item Value Reference Range Interpretation Comments AFB smear (test code = AFB smear) see below performing lab: (test code = performing lab:) [facility] identified in Specimen by Fungus stain 2022-07-11 13:47:00 Test Item Value Reference Range Interpretation Comments smear fungus (test code = smear see below fungus) performing lab: (test code = performing lab:) [facility] MedicineAFB [id number] 13:47:00 Test Item Value Reference Range Interpretation [...] MedicineMicroscopic observation [Identifier] in Specimen by Gram [id number] 13:47:00 Test Item Value Reference Range Interpretation Comments gram stain (test code = gram stain) see below performing lab: (test code = performing lab:) [facility] Medicineanaerobic [id number] 13:47:00 Test Item Value Reference Range Interpretation Comments anaerobic culture (test code = see below anaerobic culture) performing lab: (test code = performing lab:) [facility] MedicineBacteria identified in Synovial fluid by [id number] 13:47:00 Test Item Value Reference Range Interpretation Comments joint fluid culture see below (test code = joint fluid culture) blank (test code = blank) [address] [place] See_Comment [Auto mated message] (test code = [address] generated this result transmitted ref erence range: 74540. T he reference range was not used to int erpret this result as normal/abnormal . performing lab: (test code = performing lab:) [facility] W/AUTO [id number] 13:25:00 Test Item Value Reference Range Interpretation [...] NRBC) CBC W Auto Differential panel - [id number] 12:45:00 Test Item Value Reference Range Interpretation [...] performing lab: (test code = performing lab:) [facility] reactive [id number] 12:45:00 Test Item Value Reference Range Interpretation Comments C reactive protein (test code = C < 0.2 <0.9 reactive protein) performing lab: (test code = performing lab:) [facility] Medicinesed [id number] 12:45:00 Test Item Value Reference Range Interpretation Comments sed rate (test code = sed rate) 6 mm/HR 0-40 performing lab: (test code = performing lab:) [facility] W Auto Differential panel - [id number] 12:45:00 Test Item Value Reference Range Interpretation [...] performing lab: (test code = performing lab:) [facility] MedicineC reactive [id number] 12:45:00 Test Item Value Reference Range Interpretation Comments C reactive protein (test code = C < 0.2 <0.9 reactive protein) performing lab: (test code = performing lab:) [facility] Medicinesed [id number] 12:45:00 Test Item Value Reference Range Interpretation Comments sed rate (test code = sed rate) 6 mm/HR 0-40 performing lab: (test code = performing lab:) [facility] [id number] 16:38:01 Test Item Value Reference Range Interpretation Comments SUPPLIER NAME (test code [facility] = 6415) SUPPLIER PHONE (test code [phone] = 6416) ORDER STATUS (test code = Delivery Successful 6417) DELIVERY NOTE (test code = 6419) REQUESTED DELIVEY DATE 02/02/2022 (test code = 6420) ITEM DESCRIPTION (test Half Bed Rails Qty : 1 code = 6423) EXPECTED DELIVERY DATE 02/03/2022 (test code = 6421) ACTUAL DELIVERY DATE 02/03/2022 (test code = 6422) [facility] [id number] 16:38:01 Test Item Value Reference Range Interpretation Comments SUPPLIER NAME (test code [facility] = 6415) SUPPLIER PHONE (test code [phone] = 6416) ORDER STATUS (test code = Delivery Successful 6417) DELIVERY NOTE (test code = 6419) REQUESTED DELIVEY DATE 02/02/2022 (test code = 6420) ITEM DESCRIPTION (test Half Bed Rails Qty : 1 code = 6423) EXPECTED DELIVERY DATE 02/03/2022 (test code = 6421) ACTUAL DELIVERY DATE 02/03/2022 (test code = 6422) [facility] [id number] 16:38:01 Test Item Value Reference Range Interpretation Comments [facility]PL[facility] SUPPLIER PHONE (test code [phone] = 6416) ORDER STATUS (test code = Delivery Successful 6417) DELIVERY NOTE (test code = 6419) REQUESTED DELIVEY DATE 02/02/2022 (test code = 6420) ITEM DESCRIPTION (test Half Bed Rails Qty : 1 code = 6423) EXPECTED DELIVERY DATE 02/03/2022 (test code = 6421) ACTUAL DELIVERY DATE 02/03/2022 (test code = 6422) [facility] Electric Bed [id number] 16:38:01 Test Item Value Reference Range Interpretation Comments SUPPLIER NAME (test code [facility] = 6415) SUPPLIER PHONE (test code [phone] = 6416) ORDER STATUS (test code = Delivery Successful 6417) DELIVERY NOTE (test code = 6419) REQUESTED DELIVEY DATE 02/02/2022 (test code = 6420) ITEM DESCRIPTION (test Half Bed Rails Qty : 1 code = 6423) EXPECTED DELIVERY DATE 02/03/2022 (test code = 6421) ACTUAL DELIVERY DATE 02/03/2022 (test code = 6422) [facility] Electric Bed [id number] 16:38:01 Test Item Value Reference Range Interpretation Comments SUPPLIER NAME (test code [facility] = 6415) SUPPLIER PHONE (test code [phone] = 6416) ORDER STATUS (test code = Delivery Successful 6417) DELIVERY NOTE (test code = 6419) REQUESTED DELIVEY DATE 02/02/2022 (test code = 6420) ITEM DESCRIPTION (test Half Bed Rails Qty : 1 code = 6423) EXPECTED DELIVERY DATE 02/03/2022 (test code = 6421) ACTUAL DELIVERY DATE 02/03/2022 (test code = 6422) [facility] Electric Bed [id number] 16:38:01 Test Item Value Reference Range Interpretation Comments SUPPLIER NAME (test code [facility] = 6415) SUPPLIER PHONE (test code [phone] = 6416) ORDER STATUS (test code = Delivery Successful 6417) DELIVERY NOTE (test code = 6419) REQUESTED DELIVEY DATE 02/02/2022 (test code = 6420) ITEM DESCRIPTION (test Half Bed Rails Qty : 1 code = 6423) EXPECTED DELIVERY DATE 02/03/2022 (test code = 6421) ACTUAL DELIVERY DATE 02/03/2022 (test code = 6422) [facility] Electric Bed [id number] 16:38:01 Test Item Value Reference Range Interpretation Comments SUPPLIER NAME (test code [facility] = 6415) SUPPLIER PHONE (test code [phone] = 6416) ORDER STATUS (test code = Delivery Successful 6417) DELIVERY NOTE (test code = 6419) REQUESTED DELIVEY DATE 02/02/2022 (test code = 6420) ITEM DESCRIPTION (test Half Bed Rails Qty : 1 code = 6423) EXPECTED DELIVERY DATE 02/03/2022 (test code = 6421) ACTUAL DELIVERY DATE 02/03/2022 (test code = 6422) [facility] Electric Bed [id number] 16:38:01 Test Item Value Reference Range Interpretation Comments SUPPLIER NAME (test code [facility] = 6415) SUPPLIER PHONE (test code [phone] = 6416) ORDER STATUS (test code = Delivery Successful 6417) DELIVERY NOTE (test code = 6419) REQUESTED DELIVEY DATE 02/02/2022 (test code = 6420) ITEM DESCRIPTION (test Half Bed Rails Qty : 1 code = 6423) EXPECTED DELIVERY DATE 02/03/2022 (test code = 6421) ACTUAL DELIVERY DATE 02/03/2022 (test code = 6422) [facility] Electric Bed [id number] 16:38:01 Test Item Value Reference Range Interpretation Comments SUPPLIER NAME (test code [facility] = 6415) SUPPLIER PHONE (test code [phone] = 6416) ORDER STATUS (test code = Delivery Successful 6417) DELIVERY NOTE (test code = 6419) REQUESTED DELIVEY DATE 02/02/2022 (test code = 6420) ITEM DESCRIPTION (test Half Bed Rails Qty : 1 code = 6423) EXPECTED DELIVERY DATE 02/03/2022 (test code = 6421) ACTUAL DELIVERY DATE 02/03/2022 (test code = 6422) [facility] 12 [id number] 14:21:22 Test Item Value Reference Range Interpretation Comments Ventricular rate (test code = 253) Atrial rate (test code = 255) MS interval (test code = 266) QRSD interval [...] available-Electronica lly Signed By Tierney Li MD ([id number]) on 02/02/2022 9:21:15 AM [place] [address] [id number] 14:21:22 Test Item Value Reference Range Interpretation Comments Ventricular rate (test code = 253) Atrial rate (test code = 255) MS interval (test code = 266) QRSD interval [...] available-Electronica lly Signed By Tierney Li MD ([id number]) on 02/02/2022 9:21:15 AM [address]2022-04-22 14:21:22 Test Item Value Reference Range Interpretation Comments Ventricular rate (test code = 253) Atrial rate (test code = 255) MS interval (test code = 266) QRSD interval [...] available-Electronica lly Signed By Tierney Li MD ([id number]) on 02/02/2022 9:21:15 AM [address]2022-04-22 14:21:22 Test Item Value Reference Range Interpretation Comments Ventricular rate (test code = 253) Atrial rate (test code = 255) MS interval (test code = 266) QRSD interval [...] available-Electronica lly Signed By Tierney Li MD ([id number]) on 02/02/2022 9:21:15 AM [address]2022-04-22 14:21:22 Test Item Value Reference Range Interpretation Comments Ventricular rate (test 68 code = 253) Atrial rate (test code = 68 255) MS interval (test code = 128 266) QRSD [...] available-Electronica lly Signed By Tierney Li MD ([id number]) on 02/02/2022 9:21:15 AM [address]2022-04-22 14:21:22 Test Item Value Reference Range Interpretation Comments Ventricular rate (test 68 code = 253) Atrial rate (test code = 68 255) MS interval (test code = 128 266) QRSD [...] available-Electronica lly Signed By Tierney Li MD ([id number]) on 02/02/2022 9:21:[address]2022-04-22 14:21:22 Test Item Value Reference Range Interpretation Comments Ventricular rate (test 68 code = 253) Atrial rate (test code = 68 255) MS interval (test code = 128 266) QRSD [...] available-Electronica lly Signed By Tierney Li MD ([id number]) on 02/02/2022 9:21:15 AM [place] [address] [id number] 14:21:22 Test Item Value Reference Range Interpretation Comments Ventricular rate (test 68 code = 253) Atrial rate (test code = 68 255) MS interval (test code = 128 266) QRSD [...] available-Electronica lly Signed By Tierney Li MD ([id number]) on 02/02/2022 9:21:15 AM [facility] 12 [id number] 14:21:22 Test Item Value Reference Range Interpretation Comments Ventricular rate (test 68 code = 253) Atrial rate (test code = 68 255) MS interval (test code = 128 266) QRSD [...] available-Electronica lly Signed By Tierney Li MD ([id number]) on 02/02/2022 9:21:[address] [facility] [Presence] in Respiratory specimen by LIAM with probe [id number] 01:51:36 Test Item Value Reference Range Interpretation Comments SARS-CoV-2 (COVID-19) RNA Not detected [Presence] in Respiratory specimen by LIAM with probe detection (test code = 33591-2) Whether patient is employed in a Unknown healthcare setting (test code = 83764-0) Whether the patient has symptoms Unknown related to condition of interest (test code = 71625-6) Whether the patient was Unknown hospitalized for condition of interest (test code = 32680-6) Whether the patient was admitted Unknown to intensive care unit (ICU) for condition of interest (test code = 05842-4) Whether patient resides in a Unknown congregate care setting (test code = 93793-0) status (test code = Unknown 97771-0) Date and time of symptom onset Unknown (test code = 92739-1) [facility]- XR T-SPINE 2 [id number] 04:39:00 [facility]SE [facility] : 1950 Sex: F Patient Name: MARYSE MOURA Unit No: [id number] EXAMS: CPT CODE: [id number] XR T-SPINE 2 VIEWS 95581 COMPARISON: Concurrent MRI of the cervical spine. IMAGES PROVIDED: 4 views of the cervical spineand 2 views of the thoracic spine FINDINGS: [...] ElectronicallySigned by Karen Sung on 06/01/2021 at 0439 Reported and signed by: Anatoliy Sung M.D. CC: Ruben Browne M.D. Technologist: RT Omid.(R) Transcribed D/ (0439) [facility] NAME: MARYSE MOURA [address] [facility] PHYS: Ruben Leon MD : 1950 AGE: 70 SEX: F [place] [address] LOC: Y.MRI PHONE #: [phone] EXAM DATE: 05/30/2021 STATUS: DEP CLI FAX #: [phone] RAD #: D/C DT PAGE 1 Signed Report Patient Name: MARYSE MOURA Unit No: [id number] EXAMS: CPT CODE: [id number] XR T-SPINE 2 VIEWS 03664 <Continued> Orig Print D/T: S: 06/01/2021 (0442) [facility] [address] [facility] PHYS: Ruben Leon MD : 1950 AGE: 70 SEX: F [place] [address] LOC: Y.MRI PHONE #: [phone] EXAM DATE: 05/30/2021 STATUS: DEP CLI FAX #: [phone] RAD #: D/C DT PAGE 2 Signed Report- XR C-SPINE 4-5 [id number] 04:39:00 [facility] : 1950 Sex: F Patient Name: MARYSE MOURA Unit No: [id number] EXAMS: CPT CODE: [id number] XR C-SPINE 4-5 V 02400 COMPARISON: Concurrent MRI of the cervical spine. [...] to accentuation of kyphosis. 3. Osteopenia at 0439 Reported and signed by: Anatoliy Sung M.D. CC: Ruben Browne M.D. Technologist: RT. Omid(R) Transcribed D/ (0439)tLUIS DANIEL.[facility] NAME: MARYSE MOURA [address] [facility] PHYS: Ruben Leon MD : 1950 AGE: 70 SEX: F [place], [place] [address] LOC: Y.MRI PHONE #: [phone] EXAM DATE: 05/30/2021 STATUS: DEP CLI FAX #: [phone] RAD #: D/C DT PAGE 1 Signed Report Patient Name: MARYSE MOURA Unit No: [id number] EXAMS: CPT CODE: [id number] XR C-SPINE 4-5 V 03527 <Continued> Orig Print D/T: S: 06/01/2021 (0442) [facility] NAME: MARYSE MOURA [address] [facility] PHYS: Ruben Leon MD : 1950 AGE: 70 SEX:F [place], [place] [address] LOC: Y.MRI PHONE #: [phone] EXAM DATE: 05/30/2021 STATUS: DEP CLI FAX #: [phone] RAD #: D/C DT PAGE 2 Signed Report- MRI C-SPINE W/O [id number] 10:53:00 [facility] 1950 Sex: F Patient Name: MARYSE MOURA Unit No: [id number] EXAMS: CPT CODE: [id number] MRI C-SPINE W/O CONT 50814 TECHNIQUE: Multiplanar, multisequence MRI examination performed of the cervical spine withoutintravenous contrast material. COMPARISON: CT dated 09/09/2019 FINDINGS: Postoperative changes of C4-C6 ACDF demonstrated. No interbody fusion of C4-C5 is visualized. There is solid interbody fusion at C5- C6 and C6-C7. Interspinous fusion is noted from C4 to C7. Alignment: Grade 1 spondylolisthesis of C3-C4 and grade 1 retrolisthesis of C4-C5. Bone Lesion / Fracture: None present. Cervical Spinal Cord: No cord expansion or abnormal signal. Prevertebral / Paraspinal Soft Tissues: Unremarkable. C2/3:Broad disc bulge osteophyte complex is noted as well as severe left facet hypertrophy. There is moderate left, mild right foraminal stenosis as well as severe central canal stenosis. C3/4: A large leftasymmetric disc bulge ossify complex is demonstrated as [...] right foraminal stenosis. IMPRESSION: Extensive postoperative changes of the cervical spine with severe central canal stenosis from C2-C3 to C4-C5. [facility] NAME: MARYSE MOURA [address] [facility] PHYS: Ruben Leon MD : 1950 AGE: 70SEX: F [place], [place] [address] LOC: Y.MRI PHONE #: [phone] EXAM DATE: 05/30/2021 STATUS: REG CLI FAX #: [phone] RAD #: D/C DT PAGE 1 Signed Report (CONTINUED) Patient Name: MARYSE MOURA Unit No: [id number] EXAMS: CPT CODE: [id number] MRI C-SPINE W/O CONT 54690 <Continued> at 1053 Reported and signed by: Anatoliy Sung M.D. CC: Ruben Browne M.D. Technologist: Maribel Medrano, RT(R) Transcribed D/ (105) MargaretR.SLJ [facility] NAME: MARYSE MOURA [address] PHYS: Ruben Leon MD : 1950 AGE: 70 SEX: F [place] [id number] LOC: Y.MRI PHONE #: [phone] EXAM DATE: 05/30/2021 STATUS: REG CLI FAX #: [phone] RAD #: D/C DT PAGE 2 Signed Report Patient Name: MARYSE MOURA Unit No: [id number] EXAMS: CPT CODE: [id number] MRI C-SPINE W/O CONT 04276 <Continued> Orig Print D/T: S: 05/30/2021 (1052) [facility] NAME: MARYSE MOURA [address] [facility] PHYS: Ruben Leon MD : 1950 AGE: 70 SEX: F [place] [address] LOC: Y.MRI PHONE #: [phone] EXAM DATE: 05/30/2021 STATUS: REG CLI FAX #: [phone] RAD #: D/C DT PAGE 3 Signed ReportCT Head W/O [id number] 02:46:21No acute intracranial abnormalities. RL: 6190 AFC: 31441 End of report ORDERING CLINICIAN: NETTA CADENA [...] for the patient's age.IMPRESSIONNo acute intracranial abnormalities.RL: 6190AF: 83910Fgy of report [facility] CERV[facility] 3 [id number] 02:45:49Impression: 1. No acute fracture or traumatic subluxation.2. Prior cervical fusion at C4-C7, with anterior fusion hardware at C4-C6. RL: 2824 End of Report Electronically signed by Misha Mccord MD at 04/15 9:45 PMExam: Cervical Spine, 04/15/2021 8:45 PM. Ordering Physician: NETTA CADENA. History: Neck pain. Technique: 3 views of the cervical spine. Comparison: None. Findings: Dens is intact. C1-Z2qwoblofhyifb shows mild degenerative changes. Thereis diffuse osteopenia. Vertebral body heights are maintained. ?There isgrade 1 anterolisthesis of C3 on C4. There are changes of anterior cervicaldiscectomy and fusion at C4-C6. There is solid interbody osseous fusion atC5-C7. Facet and uncovertebral arthrosis are seen at multiple levels.Prevertebral soft tissues are normal. Visualized lungs are clear. [facility], Radiant Results Inft User - 04/15/2021 9:46 PM CDTFormatting of this note might be differentfrom the original.Exam: Cervical Spine, 04/15/2021 8:45 PM.Ordering Physician: NETTA CADENA.History: Neck pain.Technique: 3 views of the cervical spine.Comparison: None.Findings: Dens is intact. C1-E0llgigzyxrkop shows mild degenerative changes. Thereis diffuse osteopenia. [...] fusion hardware at C4-C6.RL: 2824End of Report [facility]XR SCAPULA [id number] 02:44:28Impression: No acute osseous abnormality. AFC: 80256WK: 460End of report. Exam: Right scapula, 04/15/2021 [...] a possible intra- articular loose body. Diffuseosteopenia. [facility], Radiant Results Inft User - 04/15/2021 9:45 [...] loose body. Diffuseosteopenia.IMPRESSIONImpression: No acute osseous abnormality.AFC: 43484AW: 460End of report. [facility] RIBS 3 VW [id number] 02:41:50 Impression: No acute intrathoracic disease. No rib fracture. AFC: 16045QM 460End of Report Exam: XR RIBS 3 VW RIGHT, 04/15/2021 8:45 PM. Ordering Physician: NETAT CADENA. History: Right rib pain after falling. [...] Chronic fracture deformity of the proximalright humerus. [facility], Radiant Results Inft User - 04/15/2021 9:43 [...] No acute intrathoracic disease. No rib fracture.AFC: 28472BN 460End of Report Un[facility]neXR CHEST 1 VW COVID 2020-09-09 04:19:48FINDINGS/IMPRESSION: No [...] view, CLINICAL INDICATION: sob COMPARISON: 12/17/2019, 01/29/2019 [facility], Radiant Results Inft User - 09/08/2020 10:20 [...] this study and agree withtheabove report.[facility]oundURINALYSIS2020-11-27 04:16:00 Test Item Value Reference Range Interpretation Comments APPEARANCE (test code = Clear Clear 4006828187) COLOR (test code = Yellow Yellow 5502847188) PH (test code = 4.8-8.0 8821680653) SP GRAVITY (test code = 1.003-1.030 9398074786) GLU U QUAL (test code = Normal Normal 3681104863) BLOOD (test code = Negative Negative 9364352086) KETONES (test code = Negative Negative 8045373393) PROTEIN (test code = Negative Negative 2887-8) UROBILIN (test code = Normal Normal 7440948892) BILIRUBIN (test code = Negative Negative 7502700142) NITRITE (test code = Negative Negative 5737549058) LEUK ALOK (test code = Negative Negative 1659188748) RBC/HPF (test code = <1 See_Comment [Autom ated message] 7946212325) The system [employer] generated this result transmitted ref erence range: 0 - 3 HP F. The reference range was not used to int erpret this result as normal/abnormal . WBC/HPF (test code = <1 See_Comment [Autom ated message] 5854739967) The system [employer] generated this result transmitted ref erence range: 0 - 5 HP F. The reference range was not used to int erpret this result as normal/abnormal . BACTERIA (test code = Negative Negative 1373695193) Lab Interpretation (test Normal code = 49331-7) [facility]OVID-[facility] (ID NOW RAPID TESTING)2020-09-09 03:44:00 Test Item Value Reference Range Interpretation Comments SARS-CoV-2 Rapid ID NOW Not Detected Not Detected (test code = 41471-4) [place] (test code = [place]) ID NOW COVID-19 Assay is an isothermal nucleic acid amplification test intended for the qualitative detection of nucleic acid from SARS-CoV-2 viral RNA in nasopharyngeal (SCRUB NURSE) specimens. It is used under Emergency Use [...] indicated. Lab Interpretation Normal (test code = 21072-5) [facility] MoundTROPONIN [id number] 03:39:00 Test Item Value Reference Range Interpretation Comments TROPONIN I (test <0.012 See_Comment [Automated code = 0551717723) message] The system which generated this result [...] ? Lab Interpretation Normal (test code = 10288-8) [facility]oundN-TERMINAL [id number] 03:36:00 Test Item Value Reference Range Interpretation Comments NT-proBNP (test code 478 pg/mL See_Comment H [Autom ated = 0323895956) message] The system which generated this result transmitted reference range : <=125. The reference range was not used to interpret this result as normal/abnormal . [place] (test code = [place]) Biotin has been reported to cause a negative bias, interpret results relative to patient's use of biotin. Lab Interpretation Abnormal (test code = 87613-2) [facility]oundCOMP. METABOLIC PANEL (33070)2020-09-09 03:27:00 Test Item Value Reference Range Interpretation Comments NA (test code = 138 mmol/L 135-145 9723598456) K (test code = 3.8 mmol/L 3.5-5 6900117575) CL (test code = 106 mmol/L 98-108 0356905879) CO2 TOTAL (test code = 25 mmol/L 23-31 0207939841) AGAP (test code = 2-16 0564995349) BUN (test code = 11 mg/dL 7-23 9220783112) GLUCOSE (test code = 136 mg/dL 70-110 H 3785818914) CREATININE (test code = 0.74 mg/dL 0.5-1.04 9572797076) TOTAL BILI (test code = 0.4 mg/dL 0.1-1.8 4048548878) CALCIUM (test code = 8.9 mg/dL 8.6-10.6 7376783188) T PROTEIN (test code = 6.2 g/dL 6.3-8.2 L 0380282873) ALBUMIN (test code = 3.7 g/dL 3.5-5 5127912452) ALK PHOS (test code = 66 U/L 34-122 9896306253) ALTv (test code = 9 U/L 5-35 1742-6) AST(SGOT) (test code = 18 U/L 13-40 7714348949) eGFR Calculation mL/min/1.73m2 (Non-) (test code = 5174115507) eGFR Calculation mL/min/1.73m2 () (test code = 9647172254) [place] (test code = [place]) Association of [...] tests). Lab Interpretation Abnormal (test code = 00498-2) [facility] WITH [id number] 03:12:00 Test Item Value Reference Range Interpretation Comments WBC (test code = See_Comment [Automated message] 6690-2) The system [employer] generated this result transmitted ref erence range: 4.30 - 1 1.10 10*3/?L. The re ference range was not u sed to interpret this result as normal/abnor mal. RBC (test code = See_Comment [Automated message] 789-8) The system [employer] generated this result transmitted ref erence range: [...] RDW-SD (test code 47.8 fL 39-49.9 = 04936-4) RDW-CV (test code 15.2 % 12-15.5 = 788-0) PLT (test code = See_Comment [Automated message] 777-3) The system [employer] generated this result transmitted ref erence range: 166 - 35 8 10*3/?L. The re ference range was not u sed to interpret this result as normal/abnor mal. MPV (test code = 9.9 fL 9.5-12.9 99644-3) NRBC/100 WBC (test See_Comment [Automat ed message] code = 9370870629) The syste m which generated this result transmitted ref erence range: 0.0 - 10 .0 /100 WBCs. The refer ence range was not u sed to interpret this result as normal/abnor mal. NRBC x10^3 (test <0.01 See_Comment [Automated message] code = 4203757440) The syste m which generated this result transmitted ref erence range: 10*3/?L. The reference range was not used to interpr et this result as normal/abnormal . GRAN MAT (NEUT) % 54.5 % (test code = 770-8) IMM GRAN % (test 0.20 % code = 9812742980) LYMPH % (test code 33.8 % = 736-9) MONO % (test code 6.5 % = 5905-5) EOS % (test code = 4.2 % 713-8) BASO % (test code 0.8 % = 706-2) GRAN MAT 2.84 10*3/uL 1.88-7.09 x10^3(ANC) (test code = 5135888860) IMM GRAN x10^3 <0.03 0-0.06 (test code = 5767906869) LYMPH x10^3 (test 1.76 10*3/uL 1.32-3.29 code = 731-0) MONO x10^3 (test 0.34 10*3/uL 0.33-0.92 code = 742-7) EOS x10^3 (test 0.22 10*3/uL 0.03-0.39 code = 711-2) BASO x10^3 (test 0.04 10*3/uL 0.01-0.07 code = 704-7) [facility] WITH [id number] 15:00:00 Test Item Value Reference Range Interpretation Comments WBC (test code = See_Comment L [Automated 7790-2) message] The sy stem which generated this result transmitted reference range : 4.30 - 11.10 10*3/?L. The reference range was not used to interpret this result as normal/abnormal . RBC (test code = See_Comment [Automated 649-8) message] The sy stem which generated this [...] RDW-SD (test code = 48.6 fL 39-49.9 97573-5) RDW-CV (test code = 14.4 % 12-15.5 788-0) PLT (test code = See_Comment L [Automated 777-3) message] The sy stem which generated this result transmitted reference range : 166 - 358 10*3/ ?L. The reference r xiomara was not used to interpret this result as normal/abnormal . MPV (test code = 9.5 fL 9.5-12.9 01616-3) NRBC/100 WBC (test See_Comment [Automat ed code = 9596450472) message] The system which generated this result transmitted reference range : 0.0 - 10.0 /100 WBCs. The refer ence range was not u sed to interpret th is result as normal/abnormal . NRBC x10^3 (test code <0.01 See_Comment [Auto mated = 1336425383) message] The s ystem which generated this result transmitted reference range : 10*3/?L. The reference range was not used to interpret this result as normal/abnormal . GRAN MAT (NEUT) % 39.4 % (test code = 770-8) IMM GRAN % (test code 0.30 % = 6274477619) LYMPH % (test code = 48.7 % 736-9) MONO % (test code = 7.2 % 5905-5) EOS % (test code = 3.6 % 713-8) BASO % (test code = 0.8 % 706-2) GRAN MAT x10^3(ANC) 1.54 10*3/uL 1.88-7.09 L (test code = 2873410202) IMM GRAN x10^3 (test <0.03 0-0.06 code = 8363957226) LYMPH x10^3 (test code 1.90 10*3/uL 1.32-3.29 = 731-0) MONO x10^3 (test code 0.28 10*3/uL 0.33-0.92 L = 742-7) EOS x10^3 (test code = 0.14 10*3/uL 0.03-0.39 711-2) BASO x10^3 (test code 0.03 10*3/uL 0.01-0.07 = 704-7) Lab Interpretation Abnormal (test code = 09720-7) [id number] 11:13:00 Test Item Value Reference Range Interpretation Comments TROPONIN I (test 0.002 ng/mL See_Comment [Automated code = 0546449363) message] The system which generated this result [...] ? Lab Interpretation Normal (test code = 09518-1) [facility] (NA, K, CL, CO2, GLUCOSE, BUN, CREATININE, CA)2019-12-18 11:01:00 Test Item Value Reference Range Interpretation Comments NA (test code = 137 mmol/L 135-145 1186946764) K (test code = 4.3 mmol/L 3.5-5 8804149588) CL (test code = 105 mmol/L 98-108 2663310006) CO2 TOTAL (test code = 29 mmol/L 23-31 1956171465) AGAP (test code = 2-16 0595810776) BUN (test code = 12 mg/dL 7-23 7721422013) GLUCOSE (test code = 85 mg/dL 70-110 8315335727) CREATININE (test code 0.94 mg/dL 0.5-1.04 = 6468588214) CALCIUM (test code = 8.9 mg/dL 8.6-10.6 1999603949) eGFR Calculation mL/min/1.73m2 (Non-) (test code = 4034174771) eGFR Calculation mL/min/1.73m2 () (test code = 0611960901) [place] (test code = [place]) Association of [...] or urine or abnormalities in imaging tests). [facility] [id number] 05:54:00 Test Item Value Reference Range Interpretation Comments TROPONIN I (test 0.003 ng/mL See_Comment [Automated code = 5262884360) message] The system which generated this result [...] ? Lab Interpretation Normal (test code = 07492-2) [facility] [id number] 01:25:00 Test Item Value Reference Range Interpretation Comments MAGNESIUM (test code = 6455248395) 2.0 mg/dL 1.7-2.4 Lab Interpretation (test code = Normal 69193-2) [facility] [id number] 22:42:00 Test Item Value Reference Range Interpretation Comments TROPONIN I (test 0.003 ng/mL See_Comment [Automated code = 3884365163) message] The system which generated this result [...] ? Lab Interpretation Normal (test code = 97287-3) [facility] / [id number] 22:32:00 Test Item Value Reference Range Interpretation Comments PROTIME PATIENT (test See_Comment [Auto mated message] code = 5964-2) The system wh ich generated this result transmitted ref erence range: 12.0 - 1 4.7 Seconds. The re ference range was not u sed to interpret this result as normal/abnor mal. INR (test code = 6301-6) Nor mal INR <1.1; Warfarin Therap eutic range 2.0 to 3. 0 or 2.5 to 3.5, dep ending upon the indica tions. Lab Interpretation (test Normal code = 66733-4) [facility]. METABOLIC PANEL (45017)2019-12-17 22:32:00 Test Item Value Reference Range Interpretation Comments NA (test code = 134 mmol/L 135-145 L 3295257920) K (test code = 4.4 mmol/L 3.5-5 5709150203) CL (test code = 104 mmol/L 98-108 4262832749) CO2 TOTAL (test code = 24 mmol/L 23-31 8912359528) AGAP (test code = 2-16 0263375593) BUN (test code = 12 mg/dL 7-23 7044943229) GLUCOSE (test code = 81 mg/dL 70-110 6750910893) CREATININE (test code = 0.65 mg/dL 0.5-1.04 5929833390) TOTAL BILI (test code = 0.3 mg/dL 0.1-1.9 1666730970) CALCIUM (test code = 8.9 mg/dL 8.6-10.6 7585822091) T PROTEIN (test code = 6.5 g/dL 6.3-8.2 5503022944) ALBUMIN (test code = 4.0 g/dL 3.5-5 1996778286) ALK PHOS (test code = 58 U/L 34-122 6848676437) ALTv (test code = 8 U/L 5-35 1742-6) AST(SGOT) (test code = 19 U/L 13-40 0150908585) eGFR Calculation mL/min/1.73m2 (Non-) (test code = 6362924719) eGFR Calculation mL/min/1.73m2 () (test code = 4732952064) [place] (test code = [place]) Association of [...] tests). Lab Interpretation Abnormal (test code = 94360-0) [facility]ound[facility]IP[facility], [id number] 22:32:00 Test Item Value Reference Range Interpretation Comments LIPASE (test code = 6655780630) 111 U/L 0-220 Lab Interpretation (test code = Normal 23095-3) [facility]PTT2020-03-05 22:31:00 Test Item Value Reference Range Interpretation Comments APTT Patient (test See_Comment [Automat ed code = 3173-2) message] The system which generated this result transmitted reference range : 23 - 38 Seconds . The reference range was not used to interpr et this result as normal/abnormal . [place] (test code = [place]) The [facility] patient population mean normal value for aPTT is 30 seconds. Lab Interpretation Normal (test code = 51965-1) [facility]CBC WITH [id number] 22:24:00 Test Item Value Reference Range Interpretation Comments WBC (test code = See_Comment [Automated message] 6690-2) The system [employer] generated this result transmitted ref erence range: 4.30 - 1 1.10 10*3/?L. The re ference range was not u sed to interpret this result as normal/abnor mal. RBC (test code = See_Comment [Automated message] 789-8) The system [employer] generated this result transmitted ref erence range: [...] RDW-SD (test code 48.0 fL 39-49.9 = 78876-4) RDW-CV (test code 14.1 % 12-15.5 = 788-0) PLT (test code = See_Comment [Automated message] 777-3) The system [employer] generated this result transmitted ref erence range: 166 - 35 8 10*3/?L. The re ference range was not u sed to interpret this result as normal/abnor mal. MPV (test code = 9.8 fL 9.5-12.9 98729-8) NRBC/100 WBC (test See_Comment [Automat ed message] code = 6724700937) The syste m which generated this result transmitted ref erence range: 0.0 - 10 .0 /100 WBCs. The refer ence range was not u sed to interpret this result as normal/abnor mal. NRBC x10^3 (test <0.01 See_Comment [Automated message] code = 9288047325) The syste m which generated this result transmitted ref erence range: 10*3/?L. The reference range was not used to interpr et this result as normal/abnormal . GRAN MAT (NEUT) % 50.7 % (test code = 770-8) IMM GRAN % (test 0.20 % code = 5904998953) LYMPH % (test code 37.9 % = 736-9) MONO % (test code 6.8 % = 5905-5) EOS % (test code = 3.4 % 713-8) BASO % (test code 1.0 % = 706-2) GRAN MAT 2.54 10*3/uL 1.88-7.09 x10^3(ANC) (test code = 3176523357) IMM GRAN x10^3 <0.03 0-0.06 (test code = 2917170616) LYMPH x10^3 (test 1.90 10*3/uL 1.32-3.29 code = 731-0) MONO x10^3 (test 0.34 10*3/uL 0.33-0.92 code = 742-7) EOS x10^3 (test 0.17 10*3/uL 0.03-0.39 code = 711-2) BASO x10^3 (test 0.05 10*3/uL 0.01-0.07 code = 704-7) [facility]oundCHES 2 [id number] 22:07:58HISTORY: ?Chest pain. TECHNIQUE: PA and lateral [...] noted. CONCLUSIONS: No signs of acute cardiopulmonary disease.Mdmb, Radiant Results Inft User - 12/17/20194:09 PM [...] signs of acute cardiopulmonary disease. [facility] N[facility]K W/[id number] 13:47:00 Name: MARYSE MOURA [facility] [place] : 1950 Age/S: 68 / F [address] [place] [place] Unit #: [id number] Loc: [place] [address] Phys: Todd Ruffin III, MD Acct: [id number] Dis Date: Status: REG CLI PHONE #: [phone] Exam Date: 09/09/2019 1257 FAX #: Reason: MALIGNANT NEOPLASM EXAMS: CPT: [id number] CT NECK W/CONTRAST 14285 CT neck with contrast. Location: B2 Clinical [...] been prior right inferior nasal turbinectomy. Intraorbital contentsare unremarkable. No acute osseous abnormality. Impression: Prior thyroidectomy. No mass or lymphadenopathy is identified. at 1347 Reported and signed by: Ej Guzman M.D. CC: Hermes Yen MD; Todd Ruffin III, MD Technologist:Jose Rutledge, RT(R)(CT)(MRI) CTDI: DLP: Trnscb Date/Time: 09/09/2019 (2424) t.SDR.RB24 Orig Print D/T: S: 09/09/2019 (8122) PAGE 1 Signed [id number]-[id number] 12:06:00 Test Item Value Reference Range Interpretation Comments ISTAT-GLUCOSE (test code = GLUP) 95 mg/dL 70-105 N [id number] 12:06:00 Test Item Value Reference Range Interpretation Comments ISTAT-BUN (test code = BUNP) mg/dL 8-26 BEDSIDE [id number] 12:06:00 Test Item Value Reference Range Interpretation Comments BEDSIDE CREATININE (test code = mg/dL 0.6-1.3 CREATBED) [id number] 12:06:00 Test Item Value Reference Range Interpretation Comments ISTAT-GLUCOSE (test code = GLUP) 95 mg/dL 70-105 N [id number] 12:06:00 Test Item Value Reference Range Interpretation Comments ISTAT-BUN (test code = BUNP) 6 mg/dL 8-26 L BEDSIDE [id number] 12:06:00 Test Item Value Reference Range Interpretation Comments BEDSIDE CREATININE (test code = mg/dL 0.6-1.3 CREATBED) [id number] 12:06:00 Test Item Value Reference Range Interpretation Comments ISTAT-GLUCOSE (test code = GLUP) 95 mg/dL 70-105 N [id number] 12:06:00 Test Item Value Reference Range Interpretation Comments ISTAT-BUN (test code = BUNP) 6 mg/dL 8-26 L BEDSIDE [id number] 12:06:00 Test Item Value Reference Range Interpretation Comments BEDSIDE CREATININE (test code = 0.6 mg/dL 0.6-1.3 N CREATBED) Notes Date/Time Note Provider Source 2023-01-22 14:35:00-00:00 [id number] [place] [address] PATIENT NAME: MARYSE MOURA ADMIT DATE: 0 01/17/23 ACCOUNT NO: [id number] ROOM NO: Y304 AGE: 72 REPORT TYPE: OPERATIVE REPORT SEX: F ADMITTING PHYSICIAN:Darrell Elmore MD ATTENDING PHYSICIAN:Darrell Elmore MD OPERATION DATE: 01/17/2023 PREOPERATIVE DIAGNOSES: 1. Left shoulder pain. 2. 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 3. Left glenoid fracture. POSTOPERATIVE DIAGNOSES: 1. Left shoulder pain. 2. 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 3. Left glenoid fracture. PROCEDURES: 1. Left shoulder extraction of failed reverse sh oulder arthroplasty. 2. Left shoulder hemiarthroplasty. SURGEON: Darrell Elmore M.D. BELT CUTTER: Diego Duval M.D. Zan was medically necessary for the procedure and retraction of vital neurovascu lar structures throughout the case including protection of the axillary artery and nerve as well as structures of brachial plexus through this complex reconstr uctive revision procedure. Additionally, this is not a teaching hospital an d there is no residents available for assistance. [facility] CONSULTANT: Brian Sharma D.O. ANESTHESIA: General plus interscalene block. INTRAVENOUS FLUIDS: Per anesthesia. ESTIMATED BLOOD LOSS: 200 mL. COUNTS: Recorded as correct. COMPLICATIONS: There were no apparent complicati ons. SPECIMENS: Five specimens of cultures were taken , 1 from the synovium, 2 from the humerus, and 2 from the glenoid. An aspirate was taken additionally and then a permanent pathologic specimen of synovium was also taken as indicated in all of our revision procedures. PATIENT NAME: MARYSE MOURA ACCOUNT #: [id number] DRAINS: None. FINDINGS: Multiple plane fractures in the glenoi d with significant osteopenia and bone loss in the glenoid vault, acceptable e xtraction of reverse shoulder arthroplasty with placement of a hemiarthroplast y. IMPLANTS USED: A Tornier Revive humeral stem and tray with an appropriate size eccentric humeral head implant. INDICATIONS FOR PROCEDURE: Maryse is a 72 -year-old female well known to me. She had a failed previous arthroplasty procedure wit h extensive proximal humeral bone loss and underwent revi cleopatra to a revision reverse shoulder arthroplasty in our practice. She was doing well initially posto peratively, but then had the acute onset of pain and dysfunction. Adair ging studies revealed that she had had fractures of the glenoid around her glenoid comp onent and migration and mechanical failure of her glenoid side of her pr osthesis. This constituted a complete mechanical failure of the rever se shoulder arthroplasty, so after all risks, benefits, and alterna tives to surgery were discussed with the patient and family, she elected to proceed. PROCEDURE IN DETAIL: Maryse was brought back to t he operating table and placed under general endotracheal a nesthesia in supine position on a well-padded table. She was then sat up in beach chair posi tion making sure head and neck secured midline neutral. Her left arm and shoulder were prepped and draped in sterile standard fashion. A timeout was called and site, procedure, and patient were confirmed by all in the room who agreed. Preoper ative antibiotics were administered by anesthesia. A previous standard deltopectoral incision was opened in its entirety. Full thickness subcutane ous flaps were elevated with the Bovie electrocautery. The fat stripe was thompson ntified. The anterior deltoid was identified both proximally and distally. The re was a Hohmann placed over the coracoid proximally and over the humerus jus t proximal to the deltoid insertion distally. The middle third of the delt opectoral interval and the scarred region was then open ed carefully. The lateral border of the humerus was identified lateral to the pectoralis esequiel or insertion and then the soft tissues and adhesions were taken directly off the bone a nd the prosthesis was opened prior to opening the deep la veronika and performed a subscapularis peel. An aspirate was taken of the joint fluid, sent for c ulture and analysis. We then performed a subscapularis peel and dislocated the joint an teriorly to mobilize the humerus. The tray and poly were removed from the humeral stem on the humeral side. These were explanted with a tuning fork an d tamps and curettes. We then took 2 humeral specimens and we sent it for perm anent pathologic analysis. We then identified what was left of the sub scapularis, it was tagged. We freed it from the undersurface of the conjoined t endon. The axillary nerve was palpated and protected throughout the entire procedure. We then abducted, externally rotated and extende d the arm for review of the glenoid. The subscap was rel eased on all surfaces and inferior capsular release was performed with direct protection of the axil ronnie nerve. Anterior and posterior retractors were placed. The glenospher e was removed from the underlying loose baseplate, followed by the scre w removal tool to remove the peripheral and central screw s, followed by the baseplate removal and extraction. We then performed a 360-degree labral release a nd we began planning for what was supposed to be a revision to a new reverse s houlder arthroplasty implant. At this point, once we had clearly visualized th e glenoid, we identified PATIENT NAME: MARYSE MOURA ACCOUNT #: [id number] significant fractures of the glenoid with large anterior and posterior fracture lines and at this point, it was determined that there was not adequate bone stock to replace a new implant. The scap ular spine and the body of the scapula were completely fr om these large additional pieces of bone. There was no bone stock to put new implants in place, so efrain ervin elected to instead of performing a revision reverse shoulder arthropla sty to go ahead and perform a hemiarthroplasty in this patient. We then adducted, externally rotated and extended the humerus. We prepared for preparation of our hemiarthroplasty implant. We sized a trial tray, which was impacted onto the humeral stem. We then elected on adequate size humeral head implant to impact onto the humeral tray. These implants were impacted together in appropriate retroversion. The construct was r educed. Attempts were made to repair any additional anterior soft tiss ues. Glenoid side specimens were taken x2. Copious irrigation with pulse lavage was use d. A periarticular injection was placed. Two grams of vancomycin powder place d in the wound and a layered closure was performed including an Aquacel dress ing on the skin. The patient was placed in UltraSling and transferred off the operating table in stable condition without any apparent complications. Dictated By: Darrell Elmore MD Date Dictated: 01/22/2023 14:35:32 Date Transcribed: 01/22/2023 19:14:39 [facility] Receipt ID: [id number] Authenticated by Darrell Elmore MD On 023 07:06:39 AM at 0706 PATIENT NAME: MARYSE MOURA ACCOUNT #: [id number] 2023-01-18 10:29:00-00:00 [facility] ([facility]. Post Op Pain Management REPORT#:[id number] REPORT STATUS: Signed DATE:01/18/23 TIME: 1029 PATIENT: MARYSE MOURA UNIT #: [id number] ROOM/BED: [facility]-A : [birth year] AGE: 72 SEX: F ATTEND: Itz Elmore MD ADM AUTHOR: Evangelist Sykes MD * ALL edits or amendments must be made on the el [employer]/computer document * Post Op Pain Management Post Op Pain Management Nerve block: Left: interscalene. 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 Activity: /10. 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 Electronically Signed by Evangelist Sykes MD on 05/05 at 1034 RPT #:[id number] END OF REPORT 2023-01-18 09:36:00-00:00 [facility] ([facility]) Clinical Note REPORT#:[id number] REPORT STATUS: Signed DATE:01/18/23 TIME: 935 PATIENT: MARYSE MOURA UNIT #: [id number] ROOM/BED: [address] : [birth year] AGE: 72 SEX: F ATTEND: Paddy Elmore MD ADM AUTHOR: Omar Sofia MD * ALL edits or amendments must be made on the el [employer]/computer document * See Addendum Clinical Note Note: [facility] Omar boyce M.D. (cell text [phone]) Assessment/Plan 1.) Anemia of acute blood loss- .Hgb 9.1, asympt omatic. 2.) S/p Revsion Left RSA- .acute multi-modal bradley n control and followup. Anticoagulation as per Dr. Elmore. 3.) COPD- .follow, symptomatic tx. 4.) OsteoArthritis Hypothyroid GERD- .continue o n Rx. * OK for DISCHARGE per Internal Medicine. Prior Events/Overnight: Uneventful. Chief Complaint: No significant complaints. Objective Vital Signs: Date Time Temp Pulse Resp B/P B/P Pulse O2 O2 F low FiO2 Mean Ox Delivery Rate 01/18 0805 98 Room air 21 01/18 07 96.8 86 14 113/65 81.1 98 Nasal cannula 04/07 0320 96 Nasal 2 28 cannula / 0252 96.8 73 16 104/70 81.4 95 04/06 2137 97.2 83 16 106/71 82.3 96 04/06 2127 Nasal 3 cannula 04/06 2100 100 Nasal 3 32 cannula 04/06 1920 96.8 64 16 99/65 76.3 100 04/06 1843 95.2 88 15 105/66 79.3 96 Nasal cannula 04/06 1820 80 15 121/67 100 Nasal 3 cannula 04/06 1805 80 12 122/76 100 Nasal 3 cannula 04/06 1750 Nasal 3 cannula 04/06 1750 97.4 80 13 122/73 100 Nasal 3 cannula 04/06 1735 81 15 120/72 100 Nasal 3 cannula 04/06 1720 81 14 133/79 100 Nasal 3 cannula 04/06 1705 100 18 194/95 100 Simple 8 mask 04/06 1650 104 19 181/101 100 Simple 8 mask 04/06 1638 Simple 15 mask 04/06 1635 97.7 90 16 111/53 100 Simple 15 mask 04/06 1112 71 14 109/70 100 Simple 6 mask 04/06 1108 97.5 87 16 153/74 99 Room air Gen: Alert, oriented, in mild discomfort Neck: No Masses, No Thyromegaly- CV: Regular Rate Rhythm / Edema- no significant Resp: Clear To Ascultation / Normal Respiratory Effort ABD: NonTender / NonDistended MS/Skin: No sign of compartment syndrome / shouder dressing dry, arm in sling, wriggles fingers Other: Labs/X-ray: Laboratory Tests: 01/18 0600 Chemistry Sodium (136 - 145 mmol/L) 136 Potassium (3.5 - 5.1 mmol/L) 5.4 H Chloride (98 - 107 mmol/L) 103.0 Carbon Dioxide (21 - 32 mmol/L) 28.0 BUN (7 - 18 mg/dL) 16 Creatinine (0.55 - 1.30 mg/dL) 1.03 Glomerular Filtr Rate (>60) 58.5 Glucose (70 - 110 mg/dL) 146 H Calcium (8.2 - 10.1 mg/dL) 8.1 L Hematology WBC (5.8 - 11.0 K/mm3) 10.0 RBC (4.2 - 5.4 M/mm3) 3.19 L Hgb (12 - 16 g/dL) 9.1 L Hct (37 - 47 %) 28.0 L MCV (80 - 98 fL) 88 MCH (27 - 34 pg) 28.5 MCHC (30.8 - 34.1 g/dL) 32.5 RDW (11 - 16 %) 14.5 Plt Count (130 - 400 K/mm3) 170 MPV (8.9 - 12.1 fL) 10.1 Add Manual Diff STAIN ACCEPTABLE Total Counted (100) 100 Seg Neutrophils % (50 - 65 %) 94 H Band Neutrophils % (0 - 10 %) 1 Lymphocytes % (Manual) (20 - 40 %) 2 *L Monocytes % (Manual) (2 - 9 %) 3 Nucleated RBC % (0 - 0 %) 0 Microbiology: Date/Time Procedure - Status Source Growth 01/17 1518 Acid Fast Bacilli Smear - RECD SHOULDER 01/17 1518 Acid Fast Bacilli Culture - RECD SHOULDER 01/17 1518 Fungal Smear - RECD SHOULDER 01/17 1518 Fungal Culture - RECD SHOULDER 01/17 1518 Wound Culture - RES SHOULDER 01/17 1518 Anaerobic Culture - RES SHOULDER 01/17 1518 Gram Stain - RES SHOULDER 01/17 1515 Acid Fast Bacilli Smear - RECD SHOULDER 01/17 1515 Acid Fast Bacilli Culture - RECD SHOULDER 01/17 1515 Fungal Smear - RECD SHOULDER 01/17 1515 Fungal Culture - RECD SHOULDER 01/17 1515 Wound Culture - RES SHOULDER / 1515 Anaerobic Culture - RES SHOULDER / 1515 Gram Stain - RES SHOULDER / 1510 Acid Fast Bacilli Smear - RECD SHOULDER 01/17 1510 Acid Fast Bacilli Culture - RECD SHOULDER 01/17 1510 Fungal Smear - RECD SHOULDER 01/17 1510 Fungal Culture - RECD SHOULDER 01/17 1510 Wound Culture - RES SHOULDER / 1510 Anaerobic Culture - RES SHOULDER / 1510 Gram Stain - RES SHOULDER / 1510 Acid Fast Bacilli Smear - RECD SHOULDER 01/17 1510 Acid Fast Bacilli Culture - RECD SHOULDER 01/17 1510 Fungal Smear - RECD SHOULDER 01/17 1510 Fungal Culture - RECD SHOULDER 01/17 1510 Wound Culture - RES SHOULDER 01/17 1510 Anaerobic Culture - RES SHOULDER 01/17 1510 Gram Stain - RES SHOULDER Omar Hernandez M.D. at 1316 Addendum 1: 01/18/23 1433 by Omar Sofia MD Discussed with patient Nurse rupert Hargrove to contact her pain MD early next week for followup. 7days of eRx. at 1434 RPT #:[id number] END OF REPORT 2023-01-18 08:46:00-00:00 [facility] ([facility]) Discharge Summary REPORT#:[id number] REPORT STATUS: Signed DATE:01/18/23 TIME: 08 PATIENT: MARYSE MOURA UNIT #: [id number] ROOM/BED: Y304-A : 52 AGE: 72 SEX: F ATTEND: Itz Elmore MD ADM AUTHOR: Brian Sharma DO * ALL edits or amendments must be made on the [employer]/computer document * General Information Discharge date: 01/18/23 Discharge diagnosis: FAILED L RSA Hospital course: Discharge Diagnosis: FAILED L RSA Discharge: Home Pt Condition: Stable Activity: Ambulate with Assistance Diet as tolerated Sig Findings: uneventful course Treatment Rendered: CONVERSION TO L HEMIARTHROLA STY Prescriptions: On chart Special Instructions: RMAIN IN SLING Follow- up appointment: 2 Week(s) Brief Hospital Course The patient underwent the above procedure on the ir admission date without complication. Postoperatively they were transfer red to the orthopedic patient care unit. They received 24h rs postoperative antibiotics. They were transitioned from IV to oral pain medications with good contr ol at discharge. They were placed in a sling and worked on elbow/wr ist ROM and ADLs with PT. Once patient met all [facility] They had no other complications during the visit. Med Rec Med Rec Discharge meds: Continue taking these medications: METHADONE (DOLOPHINE) 10 MG TAB 10 MILLIGRAM THREE TIMES DAILY NEEDED. as ne eded for PAIN CARVEDILOL (COREG) 12.5 MG TAB 12.5 MILLIGRAM ORAL TWICE DAILY. [LYOTHYROXINE] 5 MCG 10 MICROGRAM ORAL DAILY. tiZANidine (ZANAFLEX) 4 MG TAB 4 MILLIGRAM ORAL EVERY 8 HR NEEDED. as neede d for MUSCLE SPASMS SERTRALINE (ZOLOFT) 50 MG TAB 150 MILLIGRAM ORAL DAILY. OMEPRAZOLE ER (PriLOSEC) 40 MG CAP.DR 40 MILLIGRAM ORAL TWICE DAILY NEEDED. as nee ded for GERD IPRATROPIUM/ALBUTEROL (COMBIVENT RESPIMAT 20/100 MCG/ACT) 20 MCG-100 MCG/ ACTUATION INHALER 1 INH INHALATION FOUR TIMES DAILY NEEDED. as needed for ASBESTOS SENNOSIDES (EX-LAX) 15 MG TAB 15 MILLIGRAM ORAL DAILY NEEDED. as needed fo r CONSTIPATION LEVOTHYROXINE (SYNTHROID) 150 MCG TAB 150 MICROGRAM ORAL DAILY. Discharge Instructions PCP )( Discharge to: Home/Self Care Discharge Instructions Additional Discharge Routines: Attending Follow- Up )( Diet: Regular )( Activity: REMAIN IN SLING Follow-up Appointments Attending Physician: Attending Physician: Darrell Elmore MD Attending physician follow up timeframe: In 2-3 weeks Electronically Signed by Brian Sharma DO on at 0847 RPT #:[id number] END OF REPORT 2023-01-18 08:40:00-00:00 [facility] ([facility]) Orthopaedic Progress Note REPORT#:[id number] REPORT STATUS: Signed DATE:01/18/23 TIME: 0840 PATIENT: MARYSE MOURA UNIT #: [id number] [facility] AGE: 72 SEX: F ATTEND: Paddy Elmore MD ADM AUTHOR: Brian Sharma DO * ALL edits or amendments must be made on the el [employer]/computer document * See Addendum Subjective Comments: Subjective: Patient is alert, oriented, and resting comfortably. Tolerating PO intake well. Pain is tolerable. Denies CP or SOB. NO PALPITATIONS. Denies Numbness, tingling or weakness. SHE HAS SOME TE NDERNESS ALONG HER LATERAL UPPER RIB CAGE THAT HURTS WITH ROLLING IN BED. Objective: L Shoulder- dressing is clean, dry, and intact. Arm in sling. Sensation intact to Axillary, radial, median, u lnar nerves Able to fire deltoid Intact motor function in radial, median, ulnar nerves Radial pulse palpable CHEST WALL - TTP ALONG LATER AL MID-UPPER CHEST WALL UNDER AXILLA. NO TENDERNESS ANTERIOR OR POSTERIOR. Laboratory Tests 01/18/23 0600: [Embedded Image Not Available] Vital Signs: Date Time Temp Pulse Resp B/P B/P Pulse O2 O2 F low FiO2 Mean Ox Delivery Rate 01/18 707 36.0 86 14 113/65 81.1 98 Nasal cannula 01/18 0320 96 Nasal 2 28 cannula 01/18 0252 36.0 73 16 104/70 81.4 95 01/17 2137 36.2 83 16 106/71 82.3 96 01/17 2127 Nasal 3 cannula 01/17 2100 100 Nasal 3 32 cannula Assessment/ Plan: L REVISION RSA WITH REMOVAL OF GLENOID COMPONENT AND CONVERSION TO HEMIARTHROPLASTY - Post op day #1 CHEST X-RAY ORDERED. INTERNAL MEDICINE ON CONSULT PT ON CONSULT May discharge home when ready from orthopedic [place] AFTER CHEST XR Follow up in office with physician in 2 week(s). Prescription for pain control in chart. Electronically Signed by Brian Sharma DO on at 0845 Addendum 1: 01/18/23 0847 by Brian Sharma DO CASE MANAGEMENT CONSULTED FOR POSSIBLE HOME HEAL TH. DR. GODOY ALSO ON CONSULT. Electronically Signed by Brian Sharma DO on at 0848 RPT #:[id number] END OF REPORT 2023-01-17 19:24:00-00:00 [facility] ([facility]) Clinical Note REPORT#:[id number] REPORT STATUS: Signed DATE:01/17/23 TIME: 1923 PATIENT: MARYSE MOURA UNIT #: [id number] [facility] AGE: 72 SEX: F ATTEND: Paddy Elmore MD ADM AUTHOR: Omar Sofia MD * ALL edits or amendments must be made on the el [employer]/computer document * Clinical Note Note: [facility] Omar boyce MD (cell text [phone]) Internal Medicine Consult at request of : Dr. Rebecca lobato. Chief Complaint: .shoulder pain HPI: 72yo F is now s/p Revision reverse left tot al shoulder arthroplasty(RSA) by Dr. Elmore. Ms. Moura has related ymonths of left shoulder pain(recently severe), worse with activity and crunchy restric bita movement at times in quality. She has failed conservative management. Comorbidities: see below. PmHx: osteoarthritis, COPD, hypothyroid, GERD ALLERGY: Allergies: butorphanol (From STADOL) (Coded, Severe, RESPIR ATORY DISTRESS, 12/31/22) levofloxacin (From LEVAQUIN) (Coded, Severe, SWE LLING, 07/11/22) naloxone (From NARCAN) (Code d, Severe, HEART PALPITATION,FLUID IN LUNGS, ) pentobarbital (From NEMBUTAL) (Coded, Severe, RE SPIRATORY DISTRESS, 07/11/22) Home Medications: Home Medications: METHADONE (DOLOPHINE) 10 MG TID PRN PRN PAIN [LYOTHYROXINE] 10 MCG PO DAILY tiZANidine (ZANAFLEX) 4 MG PO Q8H PRN PRN MUSCLE SPASMS SERTRALINE (ZOLOFT) 150 MG PO DAILY OMEPRAZOLE ER (PriLOSEC) 40 MG PO BID PRN PRN GE RD IPRATROPIUM/ALBUTEROL (COMBI VENT RESPIMAT 20/100 MCG/ACT) 1 INH INH QID PRN PRN ASBESTOS SENNOSIDES (EX-LAX) 15 MG PO DAILY PRN PRN CONST IPATION LEVOTHYROXINE (SYNTHROID) 150 MCG PO DAILY CARVEDILOL (COREG) 12.5 MG PO BID SgHx: .aruna shoulder, spinal surgery, appendectom y, cholecystectomy, tubal ligation SHx: Tob: long hx, quit 7yrs ago FHx: .No signif icant hx of DVT/PE. Alcohol: none Drugs: none Lives: alone Vitals: Vital Signs: Date Time Temp Pulse Resp B/P B/P Pulse O2 O2 F low FiO2 Mean Ox Delivery Rate 04/ 1920 96.8 64 16 99/65 76.3 100 04/06 1843 95.2 88 15 105/66 79.3 96 Nasal cannula 04/06 1820 80 15 121/67 100 Nasal 3 cannula 04/06 1805 80 12 122/76 100 Nasal 3 cannula 04/06 1750 Nasal 3 cannula 04/06 1750 97.4 80 13 122/73 100 Nasal 3 cannula 04/06 1735 81 15 120/72 100 Nasal 3 cannula 04/06 1720 81 14 133/79 100 Nasal 3 cannula 04/06 1705 100 18 194/95 100 Simple 8 mask 04/06 1650 104 19 181/101 100 Simple 8 mask 04/06 1638 Simple 15 mask 04/06 1635 97.7 90 16 111/53 100 Simple 15 mask 04/06 1112 71 14 109/70 100 Simple 6 mask 04/06 1108 97.5 87 16 153/74 99 Room air 04/06 0745 97.5 87 16 153/74 99 Room air Gen: Alert, in mild discomfort. EYE: Nl lids conjunctiva. ENT: Nl ears Nose, nl lips,. Neck: Supple, nl thyroid, No masses. CV: Regular Rate Rhythm, no heave or significant murmur. Edema- none RESP: Clear to Auscultation, normal Respiratory effort. ABD: Soft, NonDistended,. LYM: No significant cervical Lymphadenopathy. MS: Dressing dry, arm in sling, fingers warm, n l cap refill . Preop Labs(12/28/22): CBC:. Hgb 12.1, Plt 222, CHEM: Na 135, K 4.2 , C r 0.89 (eGFR 70%), . Ekg: SB(56) (medium to high risk of complications or morbid ity) (major surgery) (IV sedative, meds) Assessment Plan 1.) Anemia of Acute Blood Loss- .will recheck to keri. 2.) S/p Revsion Left RSA- .acute multi-modal bradley n control and followup. Anticoagulation as per Dr. Elmore. 3.) COPD- .follow, symptomatic tx. 4.) OsteoArthritis Hypothyroid GERD- .continue o n Rx. Omar Hernandez M.D. Thanks! G8417 BMI documented as above normal parameters and a f/u plan is documented G9903 - Patient screened for tobacco use AND thompson ntified as a tobacco non-user 1123F - ACP discussion - default code status whi emi at [facility]. at 1316 RPT #:[id number] END OF REPORT 2022-12-19 08:05:00-00:00 [id number] [facility] [address] [address] PATIENT NAME: MARYSE MOURA ADMIT DATE: 0 12/18/22 ACCOUNT NO: [id number] ROOM NO: AGE: 72 REPORT TYPE: CONSULTATION REPORT SEX: F ADMITTING PHYSICIAN: ATTENDING PHYSICIAN:Collins Huerta MD CONSULTATION DATE: 12/18/2022 EMERGENCY ROOM VISIT CHIEF COMPLAINT: Left shoulder pain. HISTORY OF PRESENT ILLNESS: She is status post r evision of reverse shoulder arthroplasty by Dr. Elmore approximately 8 weeks ago. She says that she has been compliant using her sling. She stopped usin g it at about 6 weeks and yesterday she was raising her left arm a nd felt a pop and had a horrible pain. She localizes the pain to the anterior aspect of the shoulder. She also has noticed an indentation in he r incision. She has extreme pain at this point with any attempted elevation of the left arm. PAST MEDICAL HISTORY: Hypothyroid and GERD. PAST SURGICAL HISTORY: Revision reverse shoulder arthroplasty. CURRENT MEDICATIONS AND ALLERGIES: Reviewed and are documented in the EMR. PHYSICAL EXAMINATION: HEENT: She is normocephalic and atraumatic. HEART: Regular rate and rhythm. LUNGS: Clear. No signs of respiratory distress. ABDOMEN: Soft. NEUROLOGIC: She was neurologically intact in aruna ateral upper extremities. EXTREMITIES: Inspection of her incision is well healed. There is no erythema or dehiscence. She is tender along the anterior aspect of the shoulder. She does have an indentation anteriorly abou t the shoulder. She is nontender along her scapular spine and superior acromion. X-rays three views of the left shoulder were obt ained and compared to her postoperative x-ray and it a ppears that the glenosphere has migrated superiorly and no longer in the position it was immediately postoperatively. CLINICAL IMPRESSION: Left shoulder pain with gle nosphere. PLAN: Discussed her case with Dr. Elmore. She is going to continue her sling immobilization and then follow up with him next week. Dictated By: Collins Huerta MD PATIENT NAME: MARYSE MOURA ACCOUNT #: [id number] Date Dictated: 12/19/2022 08:05:49 Date Transcribed: 12/19/2022 08:52:37 WD/CHETAN Receipt ID: [id number] Authenticated by Collins Huerta MD On 12/26/2022 0 4:20:40 PM Electronically Signed by Collins Huerta MD on 12/12 03/05 at 0420 PATIENT NAME: MARYSE MOURA ACCOUNT #: [id number] 2022-10-25 12:05:00-00:00 [id number] [address] PATIENT NAME: MARYSE MOURA ADMIT DATE: 10/22/22 ACCOUNT NO: [id number] [facility] 71 REPORT TYPE: OPERATIVE REPORT SEX: F ADMITTING PHYSICIAN:Darrell Elmore MD ATTENDING PHYSICIAN:Darrell Elmore MD OPERATION DATE: 10/22/2022 PREOPERATIVE DIAGNOSES: 1. 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 2. Left shoulder pain. POSTOPERATIVE DIAGNOSES: 1. 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 2. Left shoulder pain. PROCEDURE: Left revision reverse shoulder arthro plasty, CPT code 42755. Modifier 22. SURGEON: Darrell Elmore MD BELT CUTTER: Diego Duval MD. Zan was medically necessary for the procedure and the retraction of vital neurov ascular structures throughout the case, particularly in this complex revision arthroplasty procedure. Additionally, this is not a teaching hospital an d there are no residents available for assistance. [facility] CONSULTANT: Brian Sharma DO ANESTHESIA: General plus interscalene block. INTRAVENOUS FLUIDS: Per anesthesia. ESTIMATED BLOOD LOSS: 300 mL. COUNTS: Recorded as correct. COMPLICATIONS: There were no apparent complicati ons. SPECIMENS: There were 2 glenoid specimens, 2 hum eral specimens, a synovial specimen and a synovial culture. DRAINS: None. FINDINGS: Loose prosthetic on both the humerus a nd the glenoid side, adequate reconstruction with the revision reverse shoulde r arthroplasty. PATIENT NAME: MARYSE MOURA ACCOUNT #: [id number] IMPLANTS USED: Tornier baseplate 20 mm +6 latera lized with a 6.5 mm central screw. Peripheral screws were appropriate length and glenosphere was 36+2, eccentric glenosphere and on the humeral side, a Revive 13 x 170 mm Revive stem with a standard +0 tray and a 36+6, C poly. INDICATIONS FOR PROCEDURE: Maryse is a 71-year-ol d female with ongoing left shoulder pain. She had previously had a reverse shoulder arthroplasty with a cemented Tornier implant for proximal humerus fr acture. She was having increasing pain. Imaging guilherme dies revealed loosening of her humeral stem between the cement mantle in the bone as well as notchin g of the glenoid side. She was having mechanical failure of her implant. He r pain was worsening. She had an infection workup that was negative preoperati vely. After all risks, benefits and alternatives of surgery were discus sed with the patient and family, she elected to proceed with left revisio n reverse shoulder arthroplasty. PROCEDURE IN DETAIL: Maryse was brought back to [facility] operating room table and placed under general endotra cheal anesthesia in supine position on a well-padded beach chair positioner. She was then set up in beach chair position making sure her head and neck was secured midline ne utral. The left upper shoulder prepped and draped in a sterile standard fashion. A time out was called and site, procedure, and patient were confirmed by all in the room who agreed. Preoperative antibiotics were administered by an esthesia. The previous deltopectoral incision was o pened and it was extended superiorly and inferiorly by approximately 1 to 2 cm, fresh surgical planes were found in these locations. The fat stripe was found at the inferior border of the clavicle and inferiorly the interval was found near the deltoid insertio n. Hohmanns were placed in this location. Then, we elevated the med ial portion of the adhesed and scarred deltopectoral interval and the anterior aspect of the deltoid off the underlying soft tissues. The lateral border of the conjoined tendon was identified and subcoracoid, subdeltoid and suba cromial adhesions were released. A subscapularis peel was performed. T he subscap was then tagged. It was freed from the undersurface of the conjo ined tendon. The axillary nerve was identified and palpated throughout th e entire procedure. The subscap was mobilized for repair at the end of the procedure. At this point, the humeral release was performed to the 6 o'clock position. The arm was externally rotated. The stem was mallet ed out of the humerus with a tamp and other instruments and we began with a long process of cement extraction of the humeral component with rongeu rs, curettes, reverse curettes and additional instruments down to the canal to knock the cement out as well as a cement restrictor. This took a significant portion of time, greater than a normal arthroplasty proced ure to remove the cement mantle and involved C-arm fluoroscopy as well a s multiple instrument trays necessitating a 22 modifier for this procedure. Once we had removed the stem and preserved most of the proximal humeral bone, we placed a trial Revive stem into the humerus to protect the pro ximal humeral bone and we turned to the glenoid side. The arm was abducted, externally rotated and ext ended. Again, the axillary nerve was palpated and protected. A 360-degree l abral release and capsular adhesions were removed from around the glenoid, which again was extensive given the previous surgery and took a significant port ion of time, necessitating additional modifier for this procedure. Once the glenoid was viewed on face, we PATIENT NAME: MARYSE MOURA ACCOUNT #: [id number] removed the glenosphere with the instruments and the extractor provided, we removed the peripheral screw s and then used the handle to remove the baseplate. We then began to evaluate th e glenoid. We removed all adhesions and scar tissue from the glenoid. We took cu ltures, 2 from the humerus, 2 from the glenoid, and 2 from the synovium as well as a capsular fluid sample. We evaluated the glenoid. We saw that there was no posterior rim, but there was good anterior rim. We placed the 10-degree inferior tilt guide in appropriate position and reamed down the bone until w e had a significant portion of intact [place] bone to rest the new implant on. We drilled, measured an d placed the central screw in the boss hole and then we seated the implant ful ly with excellent bicortical stability. We drilled, measured and placed perip heral screws. A coring reamer was used and a 36+2 eccentric glenosphere was im pacted with the eccentricity dialed inferiorly to prevent notching. I t was fully seated and the locking set screw was placed. We then turned our attention back to the humerus . We began trialing our stem. We elected a size 13 x 170 mm Revive stem that w as impacted in 30 degrees of retroversion and we trialed the tray and poly, we elected a standard +0 tray and a 36+6 poly. They were impacted onto the final h umeral component. The construct was reduced. It was taken through rang e of motion and found to be stable. The subscapularis was repaired with cerc christiano sutures around the proximal portion of the implant. Two grams of va ncomycin powder was placed in the wound. A periarticular injection was placed. A layered closure was performed. An Aquacel dressing was placed and th e patient was transferred off the operating table in stable condition without any apparent complications. Dictated By: Darrell Elmore MD Date Dictated: 10/25/2022 12:05:02 Date Transcribed: 10/25/2022 18:03:45 SARMAD/MARIANA/JAE/JAE Receipt ID: [id number] Authenticated and Edited by Darrell Elmore MD On 10/29/22 6:16:52 AM at 0623 PATIENT NAME: MARYSE MOURA ACCOUNT #: [id number] 2022-10-23 08:33:00-00:00 [facility] ([facility]) Clinical Note REPORT#:[id number] REPORT STATUS: Signed DATE:10/23/22 TIME: 832 PATIENT: MARYSE MOURA UNIT #: [id number] [facility] 71 SEX: F ATTEND: Paddy Elmore MD ADM AUTHOR: Omar Sofia MD * ALL edits or amendments must be made on the el Impact [employer]/computer document * Clinical Note Note: [facility] Omar boyce M.D. (cell text [phone]) Assessment/Plan 1.) Anemia of acute blood loss- .Hgb 10.4, asymp tomatic. 2.) S/p Left RSA- .acute mul ti-modal pain control and followup. Anticoagulation as per Dr. Elmore. 3.) Hypertension Hyerkalemia - .follow BP and hold Rxs if SBP<120. Will give one dose of veltassa. Renal Fxn good, expect prompt resolution of surgery related hyperkalemia. 4.) OsteoArthritis Hyperlipidemia Hypothyroidism - .continue on Rx. * OK for DISCHARGE per Internal Medicine. Prior Events/Overnight: Uneventful. Chief Complaint: No significant complaints. Objective Vital Signs: Date Time Temp Pulse Resp B/P B/P Pulse O2 O2 F low FiO2 Mean Ox Delivery Rate 10/23 0657 97.5 59 12 114/67 82.5 98 Room air 10/23 0412 97.2 63 16 114/71 85.3 95 Room air 10/22 2255 94 97/62 73.5 96 10/22 2209 95.4 61 16 85/52 63.2 96 Room air 10/22 1925 Nasal 3 cannula 10/22 1906 95.7 57 16 141/76 97.8 99 Nasal 3 cannula 10/22 1835 Nasal 3 cannula 10/22 1830 98.0 60 14 143/73 100 Nasal 3 cannula 10/22 1815 63 14 146/72 98 Nasal 3 cannula 10/22 1800 76 17 147/70 100 Simple 6 mask 10/22 1756 97.2 64 14 138/60 100 Simple 6 mask 10/22 1755 Simple 6 mask 10/22 1406 60 27 133/73 100 Simple 6 mask 10/22 1110 98.2 54 18 141/71 98 Gen: Alert, oriented, in mild discomfort Neck: No Masses, No Thyromegaly- CV: Regular Rate Rhythm / Edema- no significant Resp: Clear To Ascultation / Normal Respiratory Effort ABD: NonTender / NonDistended MS/Skin: No sign of compartm ent syndrome / +Still with weakness in extension of LUE digits Other: dressing dry, arm in sling Labs/X-ray: Laboratory Tests: 10/23 10/22 0345 1545 Chemistry Sodium (136 - 145 mmol/L) 134 L Potassium (3.5 - 5.1 mmol/L) 5.8 H Chloride (98 - 107 mmol/L) 100.0 Carbon Dioxide (21 - 32 mmol/L) 26.7 BUN (7 - 18 mg/dL) 16 Creatinine (0.55 - 1.30 mg/dL) 0.84 Glomerular Filtr Rate (>60) 75.2 Glucose (70 - 110 mg/dL) 116 H Calcium (8.2 - 10.1 mg/dL) 8.1 L Hematology WBC (5.8 - 11.0 K/mm3) 11.0 RBC (4.2 - 5.4 M/mm3) 3.84 L Hgb (12 - 16 g/dL) 10.4 L Hct (37 - 47 %) 32.4 L MCV (80 - 98 fL) 84 MCH (27 - 34 pg) 27.1 MCHC (30.8 - 34.1 g/dL) 32.1 RDW (11 - 16 %) 16.0 Plt Count (130 - 400 K/mm3) 165 MPV (8.9 - 12.1 fL) 9.7 Neut % (Auto) (45 - 70 %) 86.5 H Lymph % (Auto) (20 - 40 %) 7.0 L Terry % (Auto) (3 - 10 %) 5.8 Eos % (Auto) (1 - 5 %) 0.0 L Baso % (Auto) (0.0 - 1.1 %) 0.1 Neut # (Auto) (2.00 - 7.50 K/mm3) 9.53 H Lymph # (Auto) (1.50 - 4.00 K/mm3) 0.77 L Terry # (Auto) (0.2 - 0.8 K/mm3) 0.64 Eos # (Auto) (0.04 - 0.4 K/mm3) 0.00 L Baso # (Auto) (0.02 - 0.10 K/mm3) 0.01 L Add Manual Diff (MANUAL DIFF) NO Nucleated RBC % (0 - 0 %) 0 Other Body Source Synovial Color (LT. YELLOW) HEMOLYZED Synovial Appearance (CLEAR) HAZY Synovial Volume (mL) 1.0 Synovial WBC (0 - 200 /MM3) 226.000 H Synovial RBC (0 - 2 /mm3) 03965.000 H Synov Polynuclear WBCs (0 - 25 %) 10 Synovial Lymphocytes (0 - 78 %) 62 Synov Monos/Histiocyte (0 - 71 %) 15 Synovial Lining Cell (%) 13 Microbiology: Date/Time Procedure - Status Source Growth 10/22 1654 Acid Fast Bacilli Smear - RECD SHOULDER 10/22 1654 Acid Fast Bacilli Culture - RECD SHOULDER 10/22 1654 Fungal Smear - RECD SHOULDER 10/22 1654 Fungal Culture - RECD SHOULDER 10/22 1654 Wound Culture - RES SHOULDER 10/22 1654 Anaerobic Culture - RES SHOULDER 10/22 1654 Gram Stain - RES SHOULDER 10/22 1620 Acid Fast Bacilli Smear - RECD SHOULDER 10/22 1620 Acid Fast Bacilli Culture - RECD SHOULDER 10/22 1620 Fungal Smear - RECD SHOULDER 10/22 1620 Fungal Culture - RECD SHOULDER 10/22 1620 Wound Culture - RES SHOULDER 10/22 1620 Anaerobic Culture - RES SHOULDER 10/22 1620 Gram Stain - RES SHOULDER 10/22 1618 Acid Fast Bacilli Smear - RECD SHOULDER 10/22 1618 Acid Fast Bacilli Culture - RECD SHOULDER 10/22 1618 Fungal Smear - RECD SHOULDER 10/22 1618 Fungal Culture - RECD SHOULDER 10/22 1618 Wound Culture - RES SHOULDER 10/22 1618 Anaerobic Culture - RES SHOULDER 10/22 1618 Gram Stain - RES SHOULDER 10/22 1611 Acid Fast Bacilli Smear - CAN SHOULDER Cancelled: DUPLICATE 10/22 1611 Acid Fast Bacilli Culture - CAN SHOULDER Cancelled: DUPLICATE 10/22 1611 Fungal Smear - CAN SHOULDER Cancelled: DUPLICATE 10/22 1611 Fungal Culture - CAN SHOULDER Cancelled: DUPLICATE 10/22 1608 Acid Fast Bacilli Smear - RECD SHOULDER 10/22 1608 Acid Fast Bacilli Culture - RECD SHOULDER 10/22 1608 Fungal Smear - RECD SHOULDER 10/22 1608 Fungal Culture - RECD SHOULDER 10/22 1608 Wound Culture - RES SHOULDER 10/22 1608 Anaerobic Culture - RES SHOULDER 10/22 1608 Gram Stain - RES SHOULDER 10/22 1553 Acid Fast Bacilli Smear - RECD SHOULDER 10/22 1553 Acid Fast Bacilli Culture - RECD SHOULDER 10/22 1553 Fungal Smear - RECD SHOULDER 10/22 1553 Fungal Culture - RECD SHOULDER 10/22 1553 Wound Culture - RES SHOULDER 10/22 1553 Anaerobic Culture - RES SHOULDER 10/22 155 Gram Stain - RES SHOULDER Omar Hernandez M.D. at 1130 RPT #:[id number] END OF REPORT 2022-10-23 07:34:00-00:00 [facility] ([facility]) Pain Management Progress Note REPORT#:[id number] REPORT STATUS: Signed DATE:10/23/22 TIME: 733 PATIENT: MARYSE MOURA UNIT #: [id number] ROOM/BED: [address] : 52 AGE: 71 SEX: F ATTEND: Paddy Elmore MD ADM AUTHOR: Leonela Lowery NP * ALL edits or amendments must be made on the Adnexus/computer document * Subjective Chief complaint: LEFT SHOULDER PAIN S/P LFT TSA Comments: Hematology: 10/23 034 Hematology WBC (5.8 - 11.0 K/mm3) 11.0 Hgb (12 - 16 g/dL) 10.4 L Hct (37 - 47 %) 32.4 L Plt Count (130 - 400 K/mm3) 165 Vital Signs: Date Time Temp Pulse Resp B/P B/P Pulse O2 O2 F low FiO2 Mean Ox Delivery Rate 10/23 0657 36.4 59 12 114/67 82.5 98 Room air 10/23 0412 36.2 63 16 114/71 85.3 95 Room air 10/22 2255 94 97/62 73.5 96 10/22 2209 35.2 61 16 85/52 63.2 96 Room air History: PMH: HTN, ASBESTOSIS,ANEMIA,GERD,CHRONIC PAIN POD:1 MD who placed block: Type of block: IS S/S Time block wore off: 719 Activity status: AMBULATING, TOLERATING DIET, P ASSING FLATUS Pain: CONTROLLED Physical Exam: VAS: 4 LOS: 1 Resp Quality: 1 Side Effects: NONE MOTOR MVMT AND STRENGTH INTACT TO HAND Plan: BLOCK FOLLOW UP at 0736 RPT #:[id number] END OF REPORT 2022-10-23 05:28:00-00:00 [facility] ([facility]) Discharge Summary REPORT#:[id number] REPORT STATUS: Signed DATE:10/23/22 TIME: 527 PATIENT: MARYSE MOURA UNIT #: [id number] [facility] AGE: 71 SEX: F ATTEND: Paddy Elmore MD ADM AUTHOR: Brian Sharma DO * ALL edits or amendments must be made on the Adnexus/computer document * General Information Discharge date: 10/23/22 Discharge diagnosis: L FAILED RSA Hospital course: Discharge Diagnosis: L FAILED RSA Discharge: Home Pt Condition: Stable Activity: Ambulate with Assistance Diet as tolerated Sig Findings: uneventful course Treatment Rendered: REVISION L RSA Prescriptions: On chart Special Instructions: REMAIN IN SLING Follow- up appointment: 2 Week(s) Brief Hospital Course The patient underwent the above procedure on the ir admission date without complication. Postoperatively they were transfer red to the orthopedic patient care unit. They received 24h rs postoperative antibiotics. They were transitioned from IV to oral pain medications with good contr ol at discharge. They were placed in a sling and worked on elbow/wr ist ROM and ADLs with PT. Once patient met all criteria they were deemed approp riate for discharge. They had no other complications during the visit. Med Rec Med Rec Discharge meds: Continue taking these medications: METHADONE (DOLOPHINE) 10 MG TAB 10 MILLIGRAM THREE TIMES DAILY NEEDED. as ne eded for PAIN CARVEDILOL (COREG) 12.5 MG TAB 12.5 MILLIGRAM ORAL TWICE DAILY. CALCIUM CARBONATE/VIT D3 (CALCIUM 600 + VIT D3 1 500 MG/125 UNITS) 1 TAB TAB 1 TABLET ORAL DAILY. LEVOTHYROXINE (SYNTHROID) 175 MCG TAB 175 MICROGRAM ORAL DAILY. [LYOTHYROXINE] 5 MCG 10 MICROGRAM ORAL DAILY. tiZANidine (ZANAFLEX) 4 MG TAB 4 MILLIGRAM ORAL EVERY 8 HR NEEDED. as neede d for MUSCLE SPASMS ARIPiprazole (ABILIFY) 10 MG TAB 10 MILLIGRAM ORAL BEEDTIME SERTRALINE (ZOLOFT) 50 MG TAB 150 MILLIGRAM ORAL DAILY. OMEPRAZOLE ER (PriLOSEC) 40 MG CAP.DR 40 MILLIGRAM ORAL TWICE DAILY NEEDED. as nee ded for GERD IPRATROPIUM/ALBUTEROL (COMBIVENT RESPIMAT 20/100 MCG/ACT) 20 MCG-100 MCG/ ACTUATION INHALER 1 INH INHALATION FOUR TIMES DAILY NEEDED. as needed for ASBESTOS SENNOSIDES (EX-LAX) 15 MG TAB 15 MILLIGRAM ORAL DAILY NEEDED. as needed fo r CONSTIPATION Discharge Instructions PCP )( Discharge to: Home/Self Care Discharge Instructions Additional Discharge Routines: Attending Follow- Up )( Diet: Regular )( Activity: remain in sling Follow-up Appointments Attending Physician: Attending Physician: Darrell Elmore MD Attending physician follow up timeframe: In 1-2 weeks Electronically Signed by Brian Sharma DO on at 0529 RPT #:[id number] END OF REPORT 2022-10-23 05:26:00-00:00 [facility] ([facility]) Orthopaedic Progress Note REPORT#:[id number] REPORT STATUS: Signed DATE:10/23/22 TIME: 05 PATIENT: MARYSE MOURA UNIT #: [id number] ROOM/BED: [address] : 52 AGE: 71 SEX: F ATTEND: Paddy Elmore MD ADM AUTHOR: Brian Sharma DO * ALL edits or amendments must be made on the Adnexus/computer document * Subjective Comments: Subjective: Patient is alert, oriented, and resting comfortably. Tolerating PO intake well. Pain is tolerable. Denies CP or SOB. Denies Numb ness, tingling or weakness. Objective: L Shoulder- dressing is clean, dry, and intact. Arm in sling. Sensation intact to Axillary, radial, median, u lnar nerves Able to fire deltoid Intact motor function in radial, median, ulnar nerves Radial pulse palpable Vital Signs: Date Time Temp Pulse Resp B/P B/P Pulse O2 O2 F low FiO2 Mean Ox Delivery Rate 10/23 0412 36.2 63 16 114/71 85.3 95 Room air 10/22 2255 94 97/62 73.5 96 10/22 2209 35.2 61 16 85/52 63.2 96 Room air 10/22 1925 Nasal 3 cannula 10/22 1906 35.4 57 16 141/76 97.8 99 Nasal 3 cannula 10/22 1835 Nasal 3 cannula 10/22 1830 36.7 60 14 143/73 100 Nasal 3 cannula 10/22 1815 63 14 146/72 98 Nasal 3 cannula 10/22 1800 76 17 147/70 100 Simple 6 mask 10/22 175 36.2 64 14 138/60 100 Simple 6 mask 10/22 1755 Simple 6 mask Assessment/ Plan: L RSA - Post op day #1 medicine on consult dressing remove on saturday May discharge home when ready [facility] - Follow up in office with physician in 2 week(s). Prescription for pain control in chart. Electronically Signed by Brian Sharma DO on at 0528 RPT #:[id number] END OF REPORT 2022-10-22 20:09:00-00:00 [facility] ([facility]) Clinical Note REPORT#:[id number] REPORT STATUS: Signed DATE:10/22/22 TIME: 2008 PATIENT: MARYSE MOURA UNIT #: [id number] ROOM/BED: [address] : 52 AGE: 71 SEX: F ATTEND: Paddy Elmore MD ADM AUTHOR: Omar Sofia MD * ALL edits or amendments must be made on the Adnexus/computer document * Clinical Note Note: [facility] Omar boyce MD (cell text [phone]) Internal Medicine Consult at request of : Dr Itz Elmore Chief Complaint: left shoulder pain HPI: 71 yo F is now s/p reverse Left Total Shoul jenna Arthroplasty (RSA) by Dr. Elmore. Ms. Moura relates progressive left shoulder pain (recently severe), worse with activity, restricted with motions at times. She has failed conservative measures. Comorbidities: see below. PmHx: Hypothyroidism, Hypertension, Hypercholest erolemia, history of thyroid cancer, anemia, osteoarthritis, GERD, BMI 30.2 ALLERGY: Allergies: levofloxacin (From LEVAQUIN) (Coded, Severe, SWE LLING, 07/11/22) naloxone (From NARCAN) (Code d, Severe, HEART PALPITATION,FLUID IN LUNGS, ) pentobarbital (From NEMBUTAL) (Coded, Severe, RE SPIRATORY DISTRESS, 07/11/22) codeine (Coded, Mild, NAUSEA-SENSITIVE, 10/01/22 ) Home Medications: Home Medications: METHADONE (DOLOPHINE) 10 MG TID PRN PRN PAIN LEVOTHYROXINE (SYNTHROID) 175 MCG PO DAILY [LYOTHYROXINE] 10 MCG PO DAILY tiZANidine (ZANAFLEX) 4 MG PO Q8H PRN PRN MUSCLE SPASMS ARIPiprazole (ABILIFY) 10 MG PO BEEDTIME SERTRALINE (ZOLOFT) 150 MG PO DAILY OMEPRAZOLE ER (PriLOSEC) 40 MG PO BID PRN PRN GE RD IPRATROPIUM/ALBUTEROL (COMBI VENT RESPIMAT 20/100 MCG/ACT) 1 INH INH QID PRN PRN ASBESTOS SENNOSIDES (EX-LAX) 15 MG PO DAILY PRN PRN CONST IPATION CARVEDILOL (COREG) 12.5 MG PO BID CALCIUM CARBONATE/VIT D3 (CA LCIUM 600 + VIT D3 1500 MG/125 UNITS) 1 TAB PO DAILY SgHx: . Cholecystectomy, cataract, cervical spin e, TSA SHx: Tob: 1.5 ppd x 30 yrs. Quit 2015 FHx: .No s ignificant hx of DVT/PE. Alcohol: none Drugs: none Lives: alone . . Vitals: Vital Signs: Date Time Temp Pulse Resp B/P B/P Pulse O2 O2 F low FiO2 Mean Ox Delivery Rate 10/22 1925 Nasal 3 cannula 10/22 190 95.7 57 16 141/76 97.8 99 Nasal 3 cannula 10/22 1835 Nasal 3 cannula 10/22 1830 98.0 60 14 143/73 100 Nasal 3 cannula 10/22 1815 63 14 146/72 98 Nasal 3 cannula 10/22 1800 76 17 147/70 100 Simple 6 mask 10/22 1756 97.2 64 14 138/60 100 Simple 6 mask 10/22 1755 Simple 6 mask 10/22 1406 60 27 133/73 100 Simple 6 mask 10/22 1110 98.2 54 18 141/71 98 Gen: Alert, in mild discomfort. EYE: Nl lids conjunctiva. ENT: Nl ears Nose, nl lips,. Neck: Supple, nl thyroid, No masses. CV: Regular Rate Rhythm, no heave or significant murmur. Edema- none RESP: Clear to Auscultation, normal Respiratory effort. ABD: Soft, NonDistended,. LYM: No significant cervical Lymphadenopathy. MS: No sign of compartment syndrome, shoulder dr rosas is dry intact, elevated in sling. NEURO: Numbness of fingers, block in effect . . Preop Labs(10/01/22): CBC:. Hgb 12, Plt 218, CHEM: Na 136, K 5.1, Cr 1 (eGFR 61%) Ekg: Sinus Bradycardia at 56 BPM . (medium to high risk of complications or morbidi ty) (major surgery) (IV sedative, meds) . Assessment Plan 1.) Anemia of Acute Blood Loss- .will recheck to keri. 2.) S/p Left RSA- .acute mul ti-modal pain control and followup. Anticoagulation as per Dr. Elmore. 3.) Hypertension- .follow BP and hold Rxs if SBP <120. 4.) OsteoArthritis Hyperlipidemia Hypothyroidism - .continue on Rx. Omar Hernandez M.D. Thanks! . . . . . G8417 BMI documented as above normal parameters and a f/u plan is documented G9903 - Patient screened for tobacco use AND thompson ntified as a tobacco non-user 1123F - ACP discussion - default code status whi le at [facility]. at 0835 RPT #:[id number] END OF REPORT 2022-10-22 19:59:00-00:00 [facility] ([facility]) Brief Op Note REPORT#:[id number] REPORT STATUS: Signed DATE:10/22/22 TIME: 1958 PATIENT: MARYSE MOURA UNIT #: [id number] ROOM/BED: [address] : 52 AGE: 71 SEX: F ATTEND: Paddy Elmore MD ADM AUTHOR: Brian Sharma DO * ALL edits or amendments must be made on the Adnexus/computer document * Op/Inv Proc Note - Brief Pre-procedure diagnosis: L FAILED RSA Post-procedure diagnosis: same as pre procedure dx Procedures performed: REVISION L RSA Primary Surgeon: NINO D[facility] Hand(s): JAMISON Findings: NA Complications: none Estimated blood loss in ml's: 250 Specimens removed/altered: TISSUE CULTURES Electronically Signed by Brian Sharma DO on at 2000 RPT #:[id number] END OF REPORT 2022-10-01 11:40:00-00:00 [id number] [facility] [address] [place] [address] PATIENT NAME: MARYSE MOURA ADMIT DATE: ACCOUNT NO: [id number] ROOM NO: AGE: 71 REPORT TYPE: ELECTROCARDIOGRAM SEX: F ADMITTING PHYSICIAN: ATTENDING PHYSICIAN:Darrell Elmore MD Order: [id number] Test Reason : PRE OP CLEARANCE HTN Test Date/Time Stamp: SatOct 01 2022 11:40:28 Blood Pressure : / mmHG Vent. Rate : 056 BPM Atrial Rate : 056 BPM P-R Int : 156 ms QRS Dur : 070 ms QT Int : 392 ms P-R-T Axes : 068 042 070 degree s QTc Int : 378 ms Sinus bradycardia Otherwise normal ECG When compared with ECG of 21-AUG-2017 17:39, QT has shortened Confirmed by ANAYELI THOMAS MD ([id number]) on 10/02/2022 12:25:20 PM Referred By: Darrell Elmore Confirmed by:ANAYELI THOMAS MD PATIENT NAME: MARYSE MOURA ACCOUNT #: [id number]
[2023-05-16 16:07] LABS: Absolute Lymphocytes (CBC) 1.3 K/uL (0.7-4.9); Hematocrit 34.2 % (36.0-45.0); Lymphocytes % 14.5 % (15.3-44.8); MCV 78.4 fL (80-100); MPV 7.3 fL (7.6-11.3); RBC Red Blood Cell Count 4.37 M/uL (3.86-4.86)
[2023-05-16 16:11] LABS: Protime INR 1.03
[2023-05-16 16:21] LABS: Potassium 4.3 mEq/L (3.5-5.1)
--- NOTE | 2023-05-16 17:37 | RAD REPORT ---
EXAM DESCRIPTION: CT - Chest Abdomen Pelvis W Cont - 05/16/2023 5:31 pm CLINICAL HISTORY: Chest and abdomen pain. fall, right chest and abd pain;Blunt chest trauma COMPARISON: No comparisons TECHNIQUE: Approximately 100 mL nonionic IV contrast was administered to the patient. All CT scans are performed using dose optimization technique as appropriate and may include automated exposure control or mA/KV adjustment according to patient size. FINDINGS: The lungs are clear.No pleural or pericardial effusion.No intrathoracic adenopathy. The liver, spleen, pancreas, adrenal glands and kidneys are within normal limits. Cholecystectomy cli ps. No bowel obstruction, free air, free fluid or abscess. Nonvisualized appendix. Moderate stool in the colon. No pathologic lymphadenopathy in the abdomen or pelvis. No acute fracture is demonstrated. IMPRESSION: No acute findings seen.
--- NOTE | 2023-05-16 17:47 | EDPHYS ---
Physician Documentation [facility] Name: Lidya Moura Age: 72 yrs Sex: Female : 1950 Arrival Date: 05/16/2023 Time: 15:39 Bed 6 Private MD: ED Physician Esvin Bueno HPI: 05/16 15:53 This 72 yrs old Female presents to ER via Unassigned with complaints of right chest rn pain after fall. 15:53 The patient or guardian reports chest pain that is located primarily in the right rn lateral posterior chest and right lateral anterior chest. Onset: The symptoms/episode began/occurred 4 day(s) ago. The pain does not radiate. Associated signs and symptoms: Pertinent positives: abdominal pain, shortness of breath, Pertinent negatives: headache, near syncope, palpitations. The chest pain is described as sharp, stabbing. Duration: The patient or guardian reports multiple episodes, that are intermittent. Modifying factors: The symptoms are alleviated by nothing. the symptoms are aggravated by cough, deep breath, palpation of area. Severity of pain: At its worst the pain was moderate in the emergency department the pain has improved mildly, after fentanyl by EMS. The patient has not experienced similar symptoms in the past. Pt reports fall from standing a few days ago, hurt right chest, now increase in pain and sob. Also reports mild abd pain. Reports pain slowly worsened and couldn't take it anymore. . Historical: - Allergies: 16:36 Levofloxacin; ko1 16:36 Nembutal Sodium; ko1 - PMHx: 16:36 Back pain; Hypertension; THYROID CANCER; ko1 - PSHx: 16:36 back sx; hiatal hernia; Umbilical hernia; ko1 - Immunization history:: Adult Immunizations up to date. - Social history:: Smoking status: Patient denies any tobacco usage or history of. - Family history:: not pertinent. - Hospitalizations: : No recent hospitalization is reported. ROS: 15:53 Constitutional: Negative for fever, chills, and weight loss, Neck: Negative for injury, rn pain, and swelling, Cardiovascular: + right chest pain Respiratory: + sob Abdomen/GI: + mild abd pain Back: + chronic back pain MS/Extremity: Negative for injury and deformity, Skin: Negative for injury, rash, and discoloration, Neuro: Negative for headache, weakness, numbness, tingling, and seizure. Exam: 15:53 Constitutional: This is a well developed, well nourished patient who is awake, alert, rn and in no acute distress. Cardiovascular: Regular rate and rhythm. No pulse deficits. Respiratory: Mild tachypnea Abdomen/GI: soft, mild tenderness RUQ and epigastric subcostal Back: No spinal tenderness. Skin: Warm, dry MS/ Extremity: Pulses equal, no cyanosis Neuro: Awake and alert, GCS 15, got off EMS stretcher and walked to ER bed on her own power. Vital Signs: 15:45 BP 150 / 75; Pulse 60; Resp 16; Temp 98; Pulse Ox 98% ; ko1 16:38 BP 141 / 83; Pulse 92; Resp 18; Pulse Ox 99% on R/A; ko1 17:44 BP 138 / 75; Pulse 88; Resp 18; Pulse Ox 99% ; ko1 MDM: 15:41 Patient medically screened. rn 17:45 Differential diagnosis: Blunt Chest Trauma Chest Wall Contusion Chest Wall Injury rn Pneumopericardium Pneumothorax Pulmonary Contusion Rib Fracture. Data reviewed: vital signs, nurses notes, lab test result(s), radiologic studies, CT scan, and as a result, I will discharge patient. Counseling: I had a detailed discussion with the patient and/or guardian regarding: the historical points, exam findings, and any diagnostic results supporting the discharge/admit diagnosis, lab results, radiology results, the need for outpatient follow up, to return to the emergency department if symptoms worsen or persist or if there are any questions or concerns that arise at home. Special discussion: I discussed with the patient/guardian in detail that at this point there is no indication for admission to the hospital. It is understood, however, that if the symptoms persist or worsen the patient needs to return immediately for re-evaluation. 05/16 15:42 Order name: Basic Metabolic Panel; Complete Time: 16: rn 05/16 15:42 Order name: CBC with Diff; Complete Time: 16: rn 05/16 15:43 Order name: Protime (+inr); Complete Time: 16: rn 05/16 15:43 Order name: Ptt, Activated; Complete Time: 16: rn 05/16 15:42 Order name: CT Chest, Abdomen, Pelvis - W/Contrast; Complete Time: 17:41 rn 05/16 15:42 Order name: Labs collected and sent; Complete Time: 15:59 rn Administered Medications: No medications were administered Disposition Summary: 05/16/23 17:46 Discharge Ordered Location: Home rn Problem: new rn Symptoms: have improved rn Condition: Stable rn Diagnosis - Contusion of right front wall of thorax, initial encounter rn - Fall on same level, unspecified rn Followup: rn - With: Private Physician - When: As needed - Reason: Recheck today's complaints, Re-evaluation by your physician Discharge Instructions: - Discharge Summary Sheet rn - Chest Contusion, Adult rn - Blunt Chest Trauma rn Forms: - Medication Reconciliation Form rn - Thank You Letter rn - Antibiotic rn anesthetist - Prescription Opioid Use rn - Patient Portal Instructions rn Signatures: Dispatcher [employer] Esvin Hinojosa MD MD rn Oliver, Kathy RN RN ko1
--- NOTE | 2023-05-16 17:47 | ER ---
Nurse's Notes [facility] Name: Lidya Moura Age: 72 yrs Sex: Female : 1950 Arrival Date: 05/16/2023 Time: 15:39 Bed 6 Private MD: Diagnosis: Contusion of right front wall of thorax, initial encounter;Fall on same level, unspecified Presentation: 05/16 15:45 Chief complaint: EMS states: patient fell on Saturday and felt a pop in the right ribs, ko1 has had pain and shortness of breath since then. Coronavirus screen: At this time, the client does not indicate any symptoms associated with coronavirus-19. Ebola Screen: No symptoms or risks identified at this time. Initial Sepsis Screen: Does the patient meet any 2 criteria? No. Patient's initial sepsis screen is negative. Does the patient have a suspected source of infection? No. Patient's initial sepsis screen is negative. Risk Assessment: Do you want to hurt yourself or someone else? Patient reports no desire to harm self or others. Onset of symptoms was May 13, 2023. Care prior to arrival: IV initiated. 20 GA, in the right wrist. 15:45 Method Of Arrival: EMS: [facility] ko1 15:45 Acuity: DEVAN 3 ko1 Triage Assessment: 16:36 General: Appears in no apparent distress. uncomfortable, Behavior is calm, cooperative, ko1 appropriate for age. Pain: Complains of pain in right lateral anterior chest and right lateral posterior chest. Historical: - Allergies: 16:36 Levofloxacin; ko1 16:36 Nembutal Sodium; ko1 - PMHx: 16:36 Back pain; Hypertension; THYROID CANCER; ko1 - PSHx: 16:36 back sx; hiatal hernia; Umbilical hernia; ko1 - Immunization history:: Adult Immunizations up to date. - Social history:: Smoking status: Patient denies any tobacco usage or history of. - Family history:: not pertinent. - Hospitalizations: : No recent hospitalization is reported. Screenin:00 [facility] ED Fall Risk Assessment (Adult) History of falling in the last 3 months, ko1 including since admission Yes- single mechanical fall (1 pt) Confusion or Disorientation No (0 pts) Intoxicated or Sedated No (0 pts) Impaired Gait No (0 pts) Mobility Assist Device Used No (0 pt) Altered Elimination No (0 pt) Score/Fall Risk Level 0 - 2 = Low Risk Oriented to surroundings, Maintained a safe environment, Educated pt \T\ family on fall prevention, incl call for assistance when getting out of bed, Assessed \T\ reinforced patient's understanding of fall precautions, Provided non-skid footwear, Hourly rounding (assess needs \T\ fall precautionary measures) done, Used ambulatory aids as needed (educated on \T\ assisted with). Abuse screen: Denies threats or abuse. Denies injuries from another. Nutritional screening: No deficits noted. Tuberculosis screening: No symptoms or risk factors identified. Assessment: 16:00 Neuro: No deficits noted. Cardiovascular: No deficits noted. Respiratory: Reports ko1 shortness of breath. GI: No deficits noted. : No deficits noted. EENT: No deficits noted. Derm: No deficits noted. Musculoskeletal: Reports pain in right lateral anterior chest and right lateral posterior chest. Vital Signs: 15:45 BP 150 / 75; Pulse 60; Resp 16; Temp 98; Pulse Ox 98% ; ko1 16:38 BP 141 / 83; Pulse 92; Resp 18; Pulse Ox 99% on R/A; ko1 17:44 BP 138 / 75; Pulse 88; Resp 18; Pulse Ox 99% ; ko1 ED Course: 15:41 Patient arrived in ED. ds4 15:41 Esvin Bueno MD is Attending Physician. rn 15:46 Osiris Marie, DEBBIE is Primary Nurse. ko1 15:59 Protime (+inr) Sent. ko1 15:59 Ptt, Activated Sent. ko1 15:59 Basic Metabolic Panel Sent. ko1 15:59 CBC with Diff Sent. ko1 16:00 Maintain EMS IV. Dressing intact. Good blood return noted. Site clean \T\ dry. Gauge \T\ ko 1 site: 20g right wrist. Patient maintains SpO2 saturation greater than 95% on room air. 16:00 Patient has correct armband on for positive identification. Bed in low position. Call ko1 light in reach. Side rails up X 1. Provided Education on: NA. 16:36 Triage completed. ko1 16:36 Arm band placed on right wrist. Patient placed in an exam room, on a stretcher, on ko1 cardiac monitor technician, on pulse oximetry, Patient notified of wait time. 17:32 CT Chest, Abdomen, Pelvis - W/Contrast In Process Unspecified. EDMS 17:50 No provider procedures requiring assistance completed. IV discontinued, intact, ko1 bleeding controlled, No redness/swelling at site. Pressure dressing applied. Administered Medications: No medications were administered Medication: 17:44 VIS not applicable for this client. ko1 Outcome: 17:46 Discharge ordered by . rn 18:00 Discharged to home via wheelchair, with family. ko1 18:00 Condition: stable 18:00 Discharge instructions given to patient, Instructed on discharge instructions, follow up and referral plans. Demonstrated understanding of instructions, follow-up care. 18:02 Patient left the ED. ko1 Signatures: Dispatcher [employer] EDMS Esvin Bueno MD MD rn Swanson, Donovan ds4 Osiris Marie RN RN ko1
[2023-05-16 18:09] VITALS: TEMP 98
[2023-05-16 18:11] VITALS: O2SAT 99
[2023-05-16 18:12] VITALS: BP 138/75
== END 2023-05-16 18:02 | disposition home or self-care (01) ==
LOC: ER 15:39
DX: S20.211A Contusion of right front wall of thorax, initial encounter (principal); W18.30XA Fall on same level, unspecified, initial encounter; I10 Essential (primary) hypertension; Z88.8 Allergy status to other drugs, medicaments and biological substances
CPT/HCPCS: 36415; 71260; 74177; 80048; 85025; 85610; 85730; 99284

== ENCOUNTER 2024-09-01 12:45 | Emergency (ER) | payer OTHER, MEDICARE ==
--- OUTSIDE RECORDS SUMMARY | 2024-09-01 12:48 | XMS REPORT | Clinical Summary ---
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 Gender Identity Not on file Sexual Orientation Not on file Plan of Treatment Health Maintenance Due Date Last Done Comments Pneumococcal Vaccine: 65+ Years (1 of - PCV) 018 COVID-19 Vaccine (2023- season) 2024 Influenza Vaccine (#1) 2024 Insurance MEDICARE PART A AND B AARP-SECONDARY ONLY MEDICARE PART A AND B AARP-SECONDARY ONLY MEDICARE PART A AND B AARP-SECONDARY ONLY Care Teams Chip Machine Operator Relationship Specialty Start Date End Date Magy Ma MD [address] [place] [phone] [email or web address] PCP - General Endocrinology 09/22/19 Todd Ruffin III, MD [address] [place] [phone] [email or web address] PCP - External Follow Up A Otolaryngology 09/22/19 Faviola Nieves MD [address] [place] [phone] PCP - External Follow Up B Endocrinology 09/22/19
[2024-09-01] MEDS ORDERED: HYDROCODONE/APAP 5/325 MG TAB ONE (13:26)
--- NOTE | 2024-09-01 15:13 | RAD REPORT ---
EXAM: XR Knee Left 3 View HISTORY: BR MAIN PAIN Bed Name: [email or web address] COMPARISON: None TECHNIQUE: 3 views of the left knee were obtained. FINDINGS: Moderate knee effusion is seen. There is no evidence of acute fracture or dislocation. Mod erate degenerative changes are seen. No soft tissue swelling or other soft tissue abnormality is present. IMPRESSION: No evidence of acute osseous abnormality. Moderate knee effusion is seen. Moderate degen erative changes
--- NOTE | 2024-09-01 15:34 | EDPHYS ---
Physician Documentation [facility] Name: Lidya Moura Age: 73 yrs Sex: Female : 1950 Arrival Date: 09/01/2024 Time: 12:45 Bed 16 Private MD: ED Physician Eric Salvador HPI: 09/01 13:02 This 73 yrs old Female presents to ER via Wheelchair with complaints of knee pain. kb 13:02 Patient is a 73-year-old female who presents for left knee pain that started 1 week ago kb and got worse 2 to 3 days ago. States he is unable to bear weight on that leg due to pain. Denies any injury or trauma. Pain aggravated by weightbearing and movement, alleviated by rest.. Historical: - Allergies: 12:56 Levofloxacin; ll1 12:56 Nembutal Sodium; ll1 - PMHx: 12:56 Back pain; Hypertension; THYROID CANCER; ll1 - PSHx: 12:56 back sx; hiatal hernia; Umbilical hernia; ll1 - Immunization history:: Adult Immunizations up to date. - Infectious Disease History:: Denies. - Social history:: Smoking status: Patient denies any tobacco usage or history of. ROS: 13:00 Constitutional: As per HPI kb Exam: 13:00 Constitutional: This is a well developed, well nourished patient who is awake, alert, kb and in no acute distress. Head/Face: Normocephalic, atraumatic. ENT: Moist Mucous membranes Cardiovascular: Regular rate Respiratory: Respirations even and unlabored. No increased work of breathing. Talking in full sentences Skin: Warm, dry with normal turgor. Normal color. Neuro: Awake and alert, GCS 15, oriented to person, place, time, and situation. 13:00 Musculoskeletal/extremity: Extremities: grossly normal except: noted in the lateral aspect of left knee: pain, ROM: intact in all extremities, Circulation is intact in all extremities. Sensation intact. Weight bearing: is unable to bear weight, Vital Signs: 12:56 BP 159 / 93; Pulse 81; Resp 17; Temp 97.3; Pulse Ox 100% ; Weight 77.56 kg; Height 5 ll1 ft. 1 in. ; Pain 9/10; 12:56 Body Mass Index 32.31 (77.56 kg, 154.94 cm) ll1 12:56 Pain Scale: Adult ll1 MDM: 12:54 Medical Screening Exam initiated kb 13:02 Differential diagnosis: closed fracture, sprain. Data reviewed: vital signs, nurses kb notes. 15:33 Counseling: I had a detailed discussion with the patient and/or guardian regarding the kb historical points, exam findings, and any diagnostic results supporting the discharge/admit diagnosis, radiology results, the need for outpatient follow up, a orthopedic surgeon, to return to the emergency department if symptoms worsen or persist or if there are any questions or concerns that arise at home. 09/01 12:59 Order name: Knee Left 3 View XRAY; Complete Time: 15:23 ll1 Administered Medications: 13:31 Drug: HYDROcodone-acetaminophen PO 5 mg-325 mg 1 tabs PO once Route: PO; ko1 14:02 Follow up: Response: No adverse reaction ko1 Disposition: 13:56 I was immediately available on-site in the Emergency Department for consultation in the ms3 care of the patient. Disposition Summary: 09/01/24 15:33 Discharge Ordered Notes: Location: Home kb Condition: Stable kb Diagnosis - Pain in left knee kb Followup: kb - With: Emergency Department - When: As needed - Reason: Worsening of condition Followup: kb - With: Private Physician - When: 2 - 3 days - Reason: Recheck today's complaints, Continuance of care, Re-evaluation by your physician Discharge Instructions: - Discharge Summary Sheet kb - Knee Effusion, [id number] kb - Acute Knee Pain, Adult, [id number] kb Forms: - Medication Reconciliation Form kb - Antibiotic Education kb - Prescription Opioid Use kb - Patient Portal Instructions kb - Leadership Thank You Letter kb Signatures: Dispatcher [employer] EDAlondra Harkins, JACKSCREW WORKER-C JACKSCREW WORKER-Mikal Lott RN RN ll1 Eric Salvador DO DO ms3 Osiris Marie, RN RN ko1 Corrections: (The following items were deleted from the chart) 21:23 13:56 I was immediately available on-site in the Emergency Department for consultation ms3 in the care of the patient. ms3
--- NOTE | 2024-09-01 15:34 | ER ---
Nurse's Notes [facility] Name: Lidya Moura Age: 73 yrs Sex: Female : 1950 Arrival Date: 09/01/2024 Time: 12:45 Bed 16 Private MD: Diagnosis: Pain in left knee Presentation: 09/01 12:56 Chief complaint: Patient states: L knee pain for 4 days. No trauma or falls. States she ll1 just got done being treated for a spider bite to left ankle area. Coronavirus screen: Client denies travel out of the [place] in the last 14 days. At this time, the client does not indicate any symptoms associated with coronavirus-19. Ebola Screen: Patient denies travel to an Ebola-affected area in the 21 days before illness onset. Initial Sepsis Screen: Does the patient meet any 2 criteria? No. Patient's initial sepsis screen is negative. Does the patient have a suspected source of infection? No. Patient's initial sepsis screen is negative. Risk Assessment: Do you want to hurt yourself or someone else? Patient reports no desire to harm self or others. Onset of symptoms was August 28, 2024. 12:56 Method Of Arrival: Wheelchair ll1 12:56 Acuity: DEVAN 4 ll1 Triage Assessment: 12:56 General: Appears uncomfortable, Behavior is calm, cooperative, appropriate for age. ll1 Pain: Complains of pain in lateral aspect of left knee Quality of pain is described as aching. Musculoskeletal: Reports pain in lateral aspect of left knee. Historical: - Allergies: 12:56 Levofloxacin; ll1 12:56 Nembutal Sodium; ll1 - PMHx: 12:56 Back pain; Hypertension; THYROID CANCER; ll1 - PSHx: 12:56 back sx; hiatal hernia; Umbilical hernia; ll1 - Immunization history:: Adult Immunizations up to date. - Infectious Disease History:: Denies. - Social history:: Smoking status: Patient denies any tobacco usage or history of. Screenin:32 [facility] ED Fall Risk Assessment (Adult) History of falling in the last 3 months, ko1 including since admission No falls in past 3 months (0 pts) Confusion or Disorientation No (0 pts) Intoxicated or Sedated No (0 pts) Impaired Gait Yes (1 pt) Mobility Assist Device Used Yes (1 pt) Altered Elimination No (0 pt) Score/Fall Risk Level 0 - 2 = Low Risk Oriented to surroundings, Maintained a safe environment, Educated pt \T\ family on fall prevention, incl call for assistance when getting out of bed, Assessed \T\ reinforced patient's understanding of fall precautions, Provided non-skid footwear, Hourly rounding (assess needs \T\ fall precautionary measures) done. Abuse screen: Denies threats or abuse. Denies injuries from another. Nutritional screening: No deficits noted. Tuberculosis screening: No symptoms or risk factors identified. Assessment: 13:32 General: Appears in no apparent distress. Pain: Complains of pain in left leg and ko1 lateral aspect of left knee. Neuro: No deficits noted. Cardiovascular: No deficits noted. Respiratory: No deficits noted. GI: No deficits noted. : No deficits noted. EENT: No deficits noted. Derm: No deficits noted. Musculoskeletal: Reports pain in lateral aspect of left knee. 15:58 Reassessment: Patient appears in no apparent distress at this time. Patient and/or jb4 family updated on plan of care and expected duration. Pain level reassessed. Patient is alert, oriented x 3, equal unlabored respirations, skin warm/dry/pink. Vital Signs: 12:56 BP 159 / 93; Pulse 81; Resp 17; Temp 97.3; Pulse Ox 100% ; Weight 77.56 kg; Height 5 ll1 ft. 1 in. ; Pain 9/10; 12:56 Body Mass Index 32.31 (77.56 kg, 154.94 cm) ll1 12:56 Pain Scale: Adult ll1 ED Course: 12:48 Patient arrived in ED. mg5 12:54 Alondra Mckinley FNP-C is PHCP. kb 12:54 Eric Salvador DO is Attending Physician. kb 12:56 Arm band placed on. ll1 12:58 Triage completed. ll1 13:28 Osiris Marie, DEBBIE is Primary Nurse. ko1 13:30 Knee Left 3 View XRAY In Process Unspecified. EDMS 13:32 Patient has correct armband on for positive identification. Allergy band placed. Call ko1 light in reach. Provided Education on: meds. Pulse ox on. NIBP on. Door closed. Noise minimized. Lights dimmed. 13:32 No provider procedures requiring assistance completed. Patient did not have IV access ko1 during this emergency room visit. Administered Medications: 13:31 Drug: HYDROcodone-acetaminophen PO 5 mg-325 mg 1 tabs PO once Route: PO; ko1 14:02 Follow up: Response: No adverse reaction ko1 Medication: 13:32 VIS not applicable for this client. ko1 Outcome: 15:33 Discharge ordered by MD. pisano 15:58 Discharged to home via wheelchair, with family, liz 15:58 Condition: stable 15:58 Discharge instructions given to patient, Instructed on discharge instructions, follow up and referral plans. Demonstrated understanding of instructions, follow-up care, 15:59 Patient left the ED. jb4 Signatures: Dispatcher [employer] EDMS Alondra Mckinley, BOAT HOIST OPERATOR-C BOAT HOIST OPERATOR-Vance Puentes RN RN jb4 Mikal Day RN RN ll1 Osiris Marie RN RN ko1 Luann Mendez 5
[2024-09-01 16:10] VITALS: BP 159/93; TEMP 97.3; O2SAT 100
== END 2024-09-01 15:59 | disposition home or self-care (01) ==
LOC: ER 12:45
DX: M25.562 Pain in left knee (principal)
CPT/HCPCS: 99283

== ENCOUNTER 2024-11-28 11:39 | Inpatient (IN) | payer OTHER, MEDICARE ==
--- OUTSIDE RECORDS SUMMARY | 2024-11-28 11:43 | XMS REPORT | Clinical Summary ---
Author Name Unknown Organization [facility] [place] Address [address] [place] [address] Care Team Providers Care Group Exercise Manager Name Role Phone Magy Ma MD Primary Care Provider [phone] Laly ALLISON MD, Todd Cabral Unavailable Faviola Nieves MD Unavailable [phone] Social History Tobacco Use Types Packs/Day Years Used Date Smoking Tobacco: Never Assessed Comments Unknown Sex and Gender Information Value Date Recorded Sex Assigned at Not on file Legal Sex Female 1:55 PM [employer] Gender Identity Not on file Sexual Orientation Not on file Plan of Treatment Health Maintenance Due Date Last Done Comments Pneumococcal Vaccine: 50+ Years (1 of 1 - PCV) 003 COVID-19 Vaccine (2023- season) 2024 Influenza Vaccine (#1) 2024 Insurance MEDICARE PART A AND B AARP-SECONDARY ONLY MEDICARE PART A AND B AARP-SECONDARY ONLY MEDICARE PART A AND B AARP-SECONDARY ONLY Care Teams Group Exercise Manager Relationship Specialty Start Date End Date Magy Ma MD [address] [place] [phone] [email or web address] PCP - General Endocrinology 09/22/19 Todd Ruffin III, MD [address] [place] [phone] [email or web address] PCP - External Follow Up A Otolaryngology 09/22/19 Faviola Nieves MD [address] [place] [phone] PCP - External Follow Up B Endocrinology 09/22/19
--- NOTE | 2024-11-28 12:24 | RAD REPORT ---
EXAMINATION: US BILATERAL LOWER EXTREMITY VENOUS DOPPLER CLINICAL INDICATION: Pain;Swelling TECHNIQUE: Complete bilateral duplex sonography of the BILATERAL lower extremity veins was performed. The examination included compression for vein patency, color Doppler imaging and flow augmentation in response to distal compression of the distal external iliac, common femoral, femoral, popliteal, t ibial, and great and small saphenous veins. COMPARISON: No prior exam. FINDINGS: Duplex sonography testing of the veins of the BILATERAL lower extremity was performed. Color flow horacio ging shows all veins to be compressible with [id number] color filling. Pulsatile and phasic flow is present within all lower extremity deep and superficial veins examined. IMPRESSION: There is no deep vein or superficial vein thrombosis.
[2024-11-28 13:02] LABS: Absolute Eosinophils 0.2 K/uL (0-0.5); Absolute Lymphocytes (CBC) 1.6 K/uL (0.7-4.9); Absolute Monocytes 0.4 K/uL (0.1-1.3); Absolute Neutrophil 2.7 K/uL (1.8-8.0); Basophils % 0.8 % (0-1.3); Eosinophils % 3.6 % (0-4.4); Hematocrit 30.4 % (36.0-45.0); Hemoglobin 10.2 g/dL (12.0-15.0); Lymphocytes % 32.2 % (15.3-44.8); MCH 28.4 pg (27.0-35.0); MCHC 33.4 g/dL (32.0-36.0); MCV 85.2 fL (80-100); MPV 8.1 fL (7.6-11.3); Monocytes % 8.3 % (3.3-12.3); Neutrophils % 55.1 % (41.7-73.7); Platelets 198 thou/uL (152-406); RBC Red Blood Cell Count 3.58 M/uL (3.86-4.86)
--- NOTE | 2024-11-28 13:19 | RAD REPORT ---
EXAMINATION: ONE VIEW CHEST XR CLINICAL INDICATION: SWELLING TECHNIQUE: Frontal chest projection is submitted. Examination is limited by patient positioning and t echnique. COMPARISON: 08/21/2023 FINDINGS: Mild interstitial pulmonary edema. The heart is mildly enlarged in size. No displaced fractures ident ified. Proximal left humerus hardware. Cervical spine hardware. IMPRESSION: Mild CHF.
[2024-11-28 13:20] LABS: AST/SGOT 15 U/L (15-37); Albumin 3.6 g/dL (3.4-5.0); Albumin/Globulin Ratio 1.3 (1.1-1.8); Alkaline Phosphatase 86 U/L (45-117); Anion Gap 8.5 mEq/L (5.0-15.0); BUN Blood Urea Nitrogen 25 mg/dL (7-18); Bicarbonate 27 mEq/L (21-32); Bilirubin Direct 0.2 mg/dL (0-0.2); Bilirubin Indirect, Calculated 0.3 mg/dL (0.2-0.8); Bilirubin Total 0.5 mg/dL (0.2-1.0); Globulin 2.7 g/dL (2.3-3.5); Glomerular Filtration Rate 48 ml/min (=/>90); Glucose Level 83 mg/dL (74-106); Magnesium 2.4 mg/dL (1.6-2.4); NT PRO-BNP 680 pg/mL (<125); Potassium 5.5 mEq/L (3.5-5.1); Protein, Total 6.3 g/dL (6.4-8.2); Sodium Level 134 mEq/L (136-145); Troponin High Sensitivity 5.7 pg/mL (<58.9)
[2024-11-28 13:22] LABS: ALT/SGPT < 14 U/L (13-56)
--- NOTE | 2024-11-28 13:35 | ER ---
Nurse's Notes [facility] Name: Lidya Moura Age: 74 yrs Sex: Female : 1950 Arrival Date: 11/28/2024 Time: 11:39 Bed 15 Private MD: Diagnosis: Acute pulmonary edema;Hypotension, unspecified;Hyperkalemia Presentation: 11/28 11:54 Chief complaint: Patient states: LOW BACK PAIN AND BILATERAL LEG SWELLING. LEFT LEG db STARTED 4 DAYS AGO NOW RIGHT LEG SWELLING WITH PAIN TODAY. Coronavirus screen: Client denies travel out of the [place] in the last 14 days. At this time, the client does not indicate any symptoms associated with coronavirus-19. Ebola Screen: Patient negative for fever greater than or equal to 101.5 degrees Fahrenheit, and additional compatible Ebola Virus Disease symptoms Patient denies exposure to infectious person. Patient denies travel to an Ebola-affected area in the 21 days before illness onset. No symptoms or risks identified at this time. Initial Sepsis Screen: Does the patient meet any 2 criteria? No. Patient's initial sepsis screen is negative. Does the patient have a suspected source of infection? No. Patient's initial sepsis screen is negative. Risk Assessment: Do you want to hurt yourself or someone else? Patient reports no desire to harm self or others. Onset of symptoms was November 28, 2024. 11:54 Method Of Arrival: Wheelchair db 11:54 Acuity: DEVAN 2 db Triage Assessment: 11:57 General: Appears in no apparent distress. comfortable, Behavior is calm, cooperative. db Pain: Pain currently is 7 out of 10 on a pain scale. Neuro: Level of Consciousness is awake, alert, obeys commands, Oriented to person, place, time, situation. Respiratory: Airway is patent Respiratory effort is even, unlabored, Respiratory pattern is regular, symmetrical. Historical: - Allergies: 11:57 Nembutal Sodium; db 11:57 Levofloxacin; db - PMHx: 11:57 Back pain; Hypertension; THYROID CANCER; db - PSHx: 11:57 hiatal hernia; back sx; Umbilical hernia; db - Immunization history:: Adult Immunizations unknown. - Infectious Disease History:: Denies. - Social history:: Smoking status: Patient denies any tobacco usage or history of. Screenin:06 [facility] ED Fall Risk Assessment (Adult) History of falling in the last 3 months, me1 including since admission No falls in past 3 months (0 pts) Confusion or Disorientation No (0 pts) Intoxicated or Sedated No (0 pts) Impaired Gait No (0 pts) Mobility Assist Device Used No (0 pt) Altered Elimination No (0 pt) Score/Fall Risk Level 0 - 2 = Low Risk Maintained a safe environment, Provided non-skid footwear, Hourly rounding (assess needs \T\ fall precautionary measures) done. Abuse screen: Denies threats or abuse. Nutritional screening: No deficits noted. Tuberculosis screening: No symptoms or risk factors identified. Assessment: 13:06 General: Appears uncomfortable, well groomed, well developed, well nourished, Behavior me1 is calm, cooperative, appropriate for age, Reports LOW BACK PAIN AND BILATERAL LEG SWELLING. LEFT LEG STARTED 4 DAYS AGO NOW RIGHT LEG SWELLING WITH PAIN TODAY. Pain: Complains of pain in left low back, right low back, right leg and left leg Pain does not radiate. Pain currently is 7 out of 10 on a pain scale. Quality of pain is described as aching, Pain began gradually, Is continuous. Neuro: Level of Consciousness is awake, alert, obeys commands, Oriented to person, place, time, situation, Appropriate for age. Cardiovascular: Patient's skin is warm and dry. Respiratory: Airway is patent Respiratory effort is even, unlabored, Respiratory pattern is regular, symmetrical. GI: No signs and/or symptoms were reported involving the gastrointestinal system. : No signs and/or symptoms were reported regarding the genitourinary system. EENT: No signs and/or symptoms were reported regarding the EENT system. Derm: Skin is intact, with poor turgor Skin is pink, warm \T\ dry. Musculoskeletal: Swelling present in right leg and left leg Reports pain in left low back, right low back, right leg and left leg. Vital Signs: 11:54 BP 90 / 52; Pulse 50; Resp 18; Temp 97.8; Pulse Ox 94% ; Weight 77.11 kg; Height 5 ft. db 1 in. ; 13:00 BP 107 / 86; Pulse 54; Resp 15; Pulse Ox 100% on R/A; me1 14:00 BP 139 / 69; Pulse 55; Resp 13; Pulse Ox 100% ; me1 15:00 BP 135 / 73; Pulse 55; Resp 17; Pulse Ox 100% ; me1 16:00 BP 129 / 83; Pulse 57; Resp 12; Pulse Ox 100% ; me1 11:54 Body Mass Index 32.12 (77.11 kg, 154.94 cm) db ED Course: 11:41 Patient arrived in ED. jj6 11:42 Alondra Mckinley FNP-C is [facility]. kb 11:42 Robbie Hickman MD is Attending Physician. kb 11:57 Triage completed. db 11:57 Arm band placed on Patient placed in an exam room. db 11:58 Patient moved to radiology via wheelchair. db 12:22 US Extremity Venous W Compression Adrian In Process Unspecified. EDMS 12:35 Leonela Morales, DEBBIE is Primary Nurse. me1 12:53 Basic Metabolic Panel Sent. me1 12:53 CBC with Diff Sent. me1 12:53 LFT's Sent. me1 12:53 Magnesium Sent. me1 12:53 NT PRO-BNP Sent. me1 12:53 Troponin HS Sent. me1 12:53 Initial lab(s) drawn, by me, sent to lab. Inserted saline lock: 22 gauge in right me1 antecubital area, using aseptic technique. 13:04 EKG done, by ED staff, reviewed by Alondra BARRETT. me1 13:06 Patient has correct armband on for positive identification. Bed in low position. Call me1 light in reach. Side rails up X 1. Provided Education on: POC. Verbalized understanding.. Client placed on continuous cardiac and pulse oximetry monitoring. NIBP monitoring applied. night monitor on. Pulse ox on. NIBP on. 13:06 No provider procedures requiring assistance completed. me1 13:13 XRAY Chest (1 view) In Process Unspecified. EDMS 13:34 Tavares Dobbins is Hospitalizing Provider. kb 15:12 Urine Culture Sent. me1 15:24 Respiratory Syncytial Virus Ag Sent. me1 15:24 SARS-COV-2 Antigen Rapid Sent. me1 15:24 Influenza Screen (A Sent. me1 15:24 COVID swab sent to lab. Flu and/or RSV swab sent to lab. me1 16:18 Patient admitted, IV remains in place. me1 Administered Medications: 13:40 Drug: Furosemide IVP 20 mg IVP once; give over 2 minutes Route: IVP; Site: right me1 antecubital; 15:12 Follow up: Response: No adverse reaction me1 Medication: 13:06 VIS not applicable for this client. me1 Outcome: 13:34 Decision to Hospitalize by Provider. kb 16:19 Admitted to Med/surg accompanied by tech, via wheelchair, room 204, with chart, Report me1 called to faxed, receipt confirmed with Meron 16:19 Condition: stable 16:19 Instructed on the need for admit, 16:19 Patient left the ED. me1 Signatures: Dispatcher [employer] EDAlondra Harkins, LEADERSHIP INTERN-C LEADERSHIP INTERN-Therese Posadas [email or web address] Erendira Peralta, RN RN db Leonela Morales, DEBBIE RN me1 Corrections: (The following items were deleted from the chart) 13:06 11:54 Chief complaint: Patient states: LOW BACK PAIN AND BILATERAL LEG SWELLING. LEFT me1 LEG STARTED 4 DAYS AGO NOW RIGHT LEG SWELLING WITH PAIN TODAY db
--- NOTE | 2024-11-28 13:35 | EDPHYS ---
Physician Documentation [facility] Name: Lidya Moura Age: 74 yrs Sex: Female : 1950 Arrival Date: 11/28/2024 Time: 11:39 Bed 15 Private MD: ED Physician Robbie Hickman HPI: 11/28 11:48 This 74 yrs old Female presents to ER via Unassigned with complaints of Low Back Pain, kb Leg Pain. 11:48 PT is a 74 year old female who presents for left leg swelling and pain that started 4 kb days ago with swelling in right leg that started yesterday. Also reports pain in low back that started 4 days ago. Denies fever. States she took pain medication which made her BP low. Went to PCP today and was sent to the ER for evaluation. Reports shortness of breath. Denies urinary symptoms, fever, n/v/d, chest pain. Historical: - Allergies: 11:57 Nembutal Sodium; db 11:57 Levofloxacin; db - PMHx: 11:57 Back pain; Hypertension; THYROID CANCER; db - PSHx: 11:57 hiatal hernia; back sx; Umbilical hernia; db - Immunization history:: Adult Immunizations unknown. - Infectious Disease History:: Denies. - Social history:: Smoking status: Patient denies any tobacco usage or history of. ROS: 11:48 Constitutional: As per HPI kb Exam: 11:48 Constitutional: This is a well developed, well nourished patient who is awake, alert, kb and in no acute distress. Head/Face: Normocephalic, atraumatic. ENT: Moist Mucous membranes Cardiovascular: Regular rate Respiratory: Respirations even and unlabored. No increased work of breathing. Talking in full sentences Abdomen/GI: Soft, non-tender. No distention Skin: Warm, dry with normal turgor. Normal color. MS/ Extremity: Pulses equal, no cyanosis. Neurovascular intact. Full, normal range of motion. Neuro: Awake and alert, GCS 15, oriented to person, place, time, and situation. 11:48 Back: CVA tenderness, that is moderate, is noted on the left, 11:52 Cardiovascular: Edema: 2+ lle, 1+ rle, kb 13:41 ECG was reviewed by the Attending Physician. kb Vital Signs: 11:54 BP 90 / 52; Pulse 50; Resp 18; Temp 97.8; Pulse Ox 94% ; Weight 77.11 kg; Height 5 ft. db 1 in. ; 13:00 BP 107 / 86; Pulse 54; Resp 15; Pulse Ox 100% on R/A; me1 14:00 BP 139 / 69; Pulse 55; Resp 13; Pulse Ox 100% ; me1 15:00 BP 135 / 73; Pulse 55; Resp 17; Pulse Ox 100% ; me1 16:00 BP 129 / 83; Pulse 57; Resp 12; Pulse Ox 100% ; me1 11:54 Body Mass Index 32.12 (77.11 kg, 154.94 cm) db MDM: 11:42 Medical Screening Exam initiated kb 13:27 Data reviewed: vital signs, nurses notes. kb 13:31 Differential diagnosis: pulmonary edema, Acute renal failure, dvt. Consideration of kb Admission/Observation Patient was admitted/placed on observation. Escalation of care including admission/observation considered. Management of patient was discussed with the following: Hospitalist: Pt accepted for admission under Dr Dobbins . Counseling: I had a detailed discussion with the patient and/or guardian regarding the historical points, exam findings, and any diagnostic results supporting the discharge/admit diagnosis, lab results, radiology results, the need for further work-up and treatment in the hospital. 11/28 11:52 Order name: Basic Metabolic Panel; Complete Time: 13:23 kb 11/28 11:52 Order name: CBC with Diff; Complete Time: 13:21 kb 11/28 11:52 Order name: LFT's; Complete Time: 13:23 kb 11/28 11:52 Order name: Magnesium; Complete Time: 13:23 kb 11/28 11:52 Order name: NT PRO-BNP; Complete Time: 13:23 kb 11/28 11:52 Order name: Troponin HS; Complete Time: 13:23 kb 11/28 13:26 Order name: Urinalysis w/ reflexes; Complete Time: 14:24 kb 11/28 14:04 Order name: Influenza Screen (A ; Complete Time: 16:07 EDMS 11/28 14:04 Order name: Respiratory Syncytial Virus Ag; Complete Time: 16:04 EDMS 11/28 14:04 Order name: SARS-COV-2 Antigen Rapid; Complete Time: 16:04 EDMS 11/28 14:20 Order name: Urine Culture EDMS 11/28 15:21 Order name: CBC with Automated Diff EDMS 11/28 15:21 Order name: CBC with Automated Diff EDMS 11/28 15:21 Order name: CBC with Automated Diff EDMS 11/28 15:21 Order name: CBC with Automated Diff EDMS 11/28 15:21 Order name: Comprehensive Metabolic Panel EDMS 11/28 15:21 Order name: Comprehensive Metabolic Panel EDMS 11/28 15:21 Order name: Comprehensive Metabolic Panel EDMD 11/28 15:21 Order name: Comprehensive Metabolic Panel EDMD 11/28 15:21 Order name: Lipid Profile EDMS 11/28 15:21 Order name: Lipid Profile EDMD 11/28 11:52 Order name: XRAY Chest (1 view); Complete Time: 13:21 kb 11/28 11:52 Order name: US Extremity Venous W Compression Adrian; Complete Time: 12:25 kb 11/28 11:52 Order name: Cardiac monitoring; Complete Time: 13:04 kb 11/28 11:52 Order name: EKG - Nurse/Tech; Complete Time: 13:04 kb 11/28 11:52 Order name: IV Saline Lock; Complete Time: 12:53 kb 11/28 11:52 Order name: Labs collected and sent; Complete Time: 12:46 kb 11/28 11:52 Order name: O2 Per Protocol; Complete Time: 12:46 kb 11/28 11:52 Order name: O2 Sat Monitoring; Complete Time: 12:46 kb EC:41 Rate is 52 beats/min. Rhythm is regular. QRS [place] is Normal. IN interval is normal at kb 180 msec. QRS interval is normal at 76 msec. QT interval is normal at 424 msec. Administered Medications: 13:40 Drug: Furosemide IVP 20 mg IVP once; give over 2 minutes Route: IVP; Site: right me1 antecubital; 15:12 Follow up: Response: No adverse reaction me1 Disposition Summary: 11/28/24 13:34 Hospitalization Ordered Notes: Hospitalization Status: Observation kb Provider: Tavares Dobbins Location: Telemetry/MedSurg (observation) kb Condition: Stable kb Problem: new kb Symptoms: are unchanged kb Bed/Room Type: Standard Room Assignment: 204(11/28/24 15:32) sp Diagnosis - Acute pulmonary edema kb - Hypotension, unspecified kb - Hyperkalemia kb Forms: - Medication Reconciliation Form kb - SBAR form kb - Leadership Thank You Letter kb Addendum: 12/07/2024 20:19 I was immediately available for consultation during this patient's visit. I did not e c2 personally see the patient or discuss the patient with the GARRY. . Signatures: Dispatcher [employer] EDMD Elías Alondra, HALEIGH-Sabrina RICARDO-Linda Roberts Danielle, DEBBIE RN db Leonela Morales RN RN me1 Robbie Hickman MD MD ec2 Corrections: (The following items were deleted from the chart) 11/28 11:52 11:48 Constitutional: This is a well developed, well nourished patient who is awake, kb alert, and in no acute distress. Head/Face: Normocephalic, atraumatic. ENT: Moist Mucous membranes Cardiovascular: Regular rate Respiratory: Respirations even and unlabored. No increased work of breathing. Talking in full sentences Abdomen/GI: Soft, non-tender. No distention Skin: Warm, dry with normal turgor. Normal color. MS/ Extremity: Pulses equal, no cyanosis. Neurovascular intact. Full, normal range of motion. Neuro: Awake and alert, GCS 15, oriented to person, place, time, and situation. kb 11:53 11:53 BASIC METABOLIC PANEL+C.LAB.BRZ ordered. EDMS EDMS 11:53 11:53 CBC+H.LAB.BRZ ordered. EDMS EDMS 11:53 11:53 HEPATIC FUNCTION+C.LAB.BRZ ordered. EDMS EDMS 11:53 11:53 MAGNESIUM+C.LAB.BRZ ordered. EDMS EDMS 11:53 11:53 PROBNP+C.LAB.BRZ ordered. EDMS EDMS 11:53 11:53 Troponin High Sensitivity+C.LAB.BRZ ordered. EDMS EDMS 11:53 11:53 Chest Single View+RAD.RAD.BRZ ordered. EDMS EDMS 11:53 11:53 Extrem Venous W Compression Adrian+US.RAD.BRZ ordered. EDMS EDMS 15:32 13:34 kb shannon
[2024-11-28] MEDS ORDERED: FUROSEMIDE 20 MG/ 2ML VIAL ONE (13:40)
[2024-11-28 14:17] LABS: Sqamous Epithelial <5 /HPF (None Seen); Urine Bacteria <20 /HPF (<20); Urine Bilirubin NEGATIVE (Negative); Urine Blood Negative (Negative); Urine Clarity Turbid (Clear); Urine Color Light-Yellow (Yellow); Urine Crystals Unidentified Few /HPF (None Seen); Urine Culture Reflex Order REFLEXED; Urine Glucose NEGATIVE (Negative); Urine Ketones NEGATIVE (Negative); Urine Microscopic Reflex YN ORDER UMIC; Urine Mucus Slight /HPF (None Seen); Urine Nitrite 2+ (Negative); Urine Protein NEGATIVE (Negative); Urine RBC <5 /HPF (None Seen); Urine Urobilinogen Normal (Normal); Urine WBC 20-50 /HPF (<5); Urine WBC Clump Rare /HPF (None Seen); Urine Yeast (Budding) Trace /HPF (None Seen); Urine pH 5.5 (5.0-7.0)
--- NOTE | 2024-11-28 15:26 | P.HP ---
Certification for Inpatient Patient admitted to: Inpatient With expected LOS: >2 Midnights Practitioner: I am a practitioner with admitting privileges, knowledge of patient current condition, hospital course, and medical plan of care. Services: Services provided to patient in accordance with Admission requirements found in Title 42 Section 412.3 of the Code of Federal Regulations Patient History Date of Service: 11/28/24 Primary Care Provider: Mary Grace Adams Reason for admission: volume overload, edema, sob Allergies levofloxacin [From Levaquin] Allergy (Verified 02/26/22 08:48) swelling nambutol Allergy (Uncoded 02/26/22 08:48) Respiratory distress Home medications list reviewed: No (family to bring) Home Medications: Baclofen 10 mg PO TIDP PRN 11/16/16 Levothyroxine Sodium [Synthroid] 150 mcg PO DAILY 11/16/16 carvediloL [Coreg*] 12.5 mg PO BID 11/16/16 Liothyronine Sodium [Cytomel] 5 mcg PO BID 04/18/20 Mirtazapine 30 mg PO BEDTIME 04/18/20 Sertraline [Zoloft] 100 mg PO DAILY 04/18/20 Tizanidine [Zanaflex] 4 mg PO TIDP PRN 04/18/20 Aspirin/Acetaminophen/Caffeine [Excedrin Extra Strength Caplet] 2 each PO BIDP PRN 03/16/21 - Past Medical/Surgical History Has patient received pneumonia vaccine in the past: Yes Diabetic: No -: HTN -: THYROID CANCER -: BACK PAIN -: Chronic methadone use -: BACK SX. -: APPENDECTOMY -: TUBAL -: BILATERAL KNEE SURGERY -: THYROIDECTOMY -: RIGHT SHOULDER SX. -: LEFT HAND SX. -: Multiple hernia surgeries Psychosocial/ Personal History: Has a rollator and a walker. Quit smoking in 2016 with dx thyroid ca. Hx of a. fib, takes Excedrin for ASA content - Family History Father -: Heart disease, Hypertension Sister -: Lung disease, Diabetes Brother -: Heart disease (a. fib) - Social History Smoking Status: Former smoker Alcohol use: No CD- Drugs: No Caffeine use: No Place of Residence: Home Review of Systems 10-point ROS is otherwise unremarkable General: Unremarkable Eyes: Unremarkable ENT: Unremarkable Respiratory: Shortness of Breath, SOB with Excertion Cardiovascular: Unremarkable Gastrointestinal: Unremarkable Genitourinary: Unremarkable Musculoskeletal: Back Pain, Leg Pain, As per HPI Integumentary: Unremarkable Neurological: Unremarkable Lymphatics: Unremarkable Physical Examination - Vital Signs Blood Pressure: 145/80 Pulse: 57 Respirations: 16 - Physical Exam General: Alert, In no apparent distress, Oriented x3 HEENT: Atraumatic, Normocephalic Neck: Supple Respiratory: Normal air movement Cardiovascular: Regular rate/rhythm, Normal S1 S2 (gil), Edema (DVT lower ext studies negative) Capillary refill: <2 Seconds Gastrointestinal: Soft and benign Musculoskeletal: No clubbing Integumentary: Other (hyperemic skin to bilateral lower extremities) Neurological: Normal speech, Normal tone, Normal affect Lymphatics: No axilla or inguinal lymphadenopathy External genitalia: Deferred Rectal: Deferred - Studies Laboratory Data (last 24 hrs) 11/28/24 11/28/24 12:51 12:51 WBC 5.00 Hgb 10.2 L Hct 30.4 L Plt Count 198 Sodium 134 L Potassium 5.5 H BUN 25 H Creatinine 1.21 H Glucose 83 Magnesium 2.4 Total Bilirubin 0.5 AST 15 ALT < 14 Alkaline Phosphatase 86 Assessment and Plan - Plan Volume overload with hyperkalemia and mild ANNIE Lasix for volume and potassium reduction BB per regular home medication for blood pressure management ASA EC 81mg po daily blood pressure monitoring tele monitor electrolytes/creatinine O2 per protocol I&O avoid nephrotoxins UTI/colonization recent hospitalization for UTI/sepsis with IV abx cloudy urine at bedside with c/o midback pain UA/UC, hold abx for now and await UC/symptomatology/lab indicative of infection Chronic pain chronic methadone/tizanidine use. Pt notified someone would need to bring meds and check them with pharmacy as they are not on formulary VTE prophylaxis Lovenox Discharge Plan: Home Plan to discharge in: Greater than 2 days - Advance Directives Does patient have a Living Will: No Does patient have a Durable POA for Healthcare: No - Code Status/Comfort Care Code Status Assessed: Yes (Yes)
[2024-11-28 16:03] LABS: SARS-CoV-2 Antigen CONTROL BLUE LINE VIS/BG OK; SARS-CoV-2 Antigen Rapid Res Negative (Negative)
[2024-11-28] MEDS: GABAPENTIN 300 MG CAP PO SCH (20:45)
[2024-11-28] MEDS: ACETAMINOPHEN 325 MG TABLET PO PRN (20:45)
[2024-11-29 04:56] LABS: Absolute Eosinophils 0.2 K/uL (0-0.5); Absolute Lymphocytes (CBC) 1.3 K/uL (0.7-4.9); Absolute Monocytes 0.3 K/uL (0.1-1.3); Absolute Neutrophil 1.9 K/uL (1.8-8.0); Basophils % 0.9 % (0-1.3); Eosinophils % 4.7 % (0-4.4); Hematocrit 32.2 % (36.0-45.0); Hemoglobin 10.8 g/dL (12.0-15.0); Lymphocytes % 35.4 % (15.3-44.8); MCH 28.3 pg (27.0-35.0); MCHC 33.4 g/dL (32.0-36.0); MCV 84.7 fL (80-100); MPV 8.3 fL (7.6-11.3); Monocytes % 9.2 % (3.3-12.3); Neutrophils % 49.8 % (41.7-73.7); Platelets 202 thou/uL (152-406); Red Cell Distribution Width 15.3 % (12.1-15.2)
[2024-11-29 05:22] LABS: Albumin 3.4 g/dL (3.4-5.0); Albumin/Globulin Ratio 1.1 (1.1-1.8); Bilirubin Total 0.4 mg/dL (0.2-1.0); Protein, Total 6.4 g/dL (6.4-8.2)
[2024-11-29] MEDS: SPIRONOLACTONE 25 MG TABLET PO SCH (09:00)
[2024-11-29] MEDS: FLU (Fluarix Triv) TS24-25(6MOS UP)/PF 45 MCG/0.5 ML Syringe IM ONE (09:00)
[2024-11-29] MEDS ORDERED: CEFEPIME 1 GM in NA CHLORIDE 0.9% 100 ML IV SCH (09:00)
--- NOTE | 2024-11-29 09:50 | P.PN ---
Subjective Date of Service: 11/29/24 Primary Care Provider: Mary Grace Adams Chief Complaint: volume overload, edema, sob Subjective: Improving Patient says edema of both lower extremity started to improve after diuresis. Her leg pain is getting better. Denied any chest pain or shortness of breath or dizziness or palpitation. Review of Systems Other: Consitutional; fever(-), chills (-), rigor(-), night sweat(-), unintentional ford ght loss(-), malaise (-) HEENT; diplopia (-), rhinorrhea (-), epistaxis (-), otorrhea (-), otalgia (-) Respiratory; shortness of breath (-), wheezing (-), cough (-), sputum (-), pleuritic chest pain (-) Cardiovascular; chest pain (-), peripheral edema (+), paroxysmal nocturnal dyspnea (-), orthopnea (-) Gastrointestinal; nausea (-), vomiting (-), abdominal pain (-), diarrhea (-), constipation (-), melena (-), hematochezia (-) Genitourinary; urinary frequency (-), dysuria (-), urgency (-), flank pain (-), gross hematuria (-), incontinence (-) Skin; rash (-), 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 General: Fragile, chronic ill-looking , in no apparent distress,. HEENT: Normocephalic, atraumatic, nonicteric sclera, nonanemic conjunctive. Neck: Supple, without JVD or goiter or thyroid mass. Respiratory: Normal breathing effort, clear to auscultation bilaterally, no crackles no wheezing or rhonchi. Cardiovascular: Regular rate and rhythm, S1, S2 normal, no murmur no gallop. Gastrointestinal: Normal bowel sounds, nondistended, nontender, No ascites, , No masses, no hepatosplenomegaly. Extremities : No clubbing, +1/+1 peripheral edema,. Integumentary: No rashes, petechia, suspected lesions. Lymphatics: No axilla or cervical lymphadenopathy. Neurology; alert awake oriented x3, no focal neurologic deficit, normal affection . mood and behavior. - Studies Laboratory Data (last 24 hrs) 11/28/24 11/28/24 12:51 12:51 WBC 5.00 Hgb 10.2 L Hct 30.4 L Plt Count 198 Sodium 134 L Potassium 5.5 H BUN 25 H Creatinine 1.21 H Glucose 83 Magnesium 2.4 Total Bilirubin 0.5 AST 15 ALT < 14 Alkaline Phosphatase 86 Assessment And Plan - Plan This is a 74 years old female patient with past medical history notable for chronic pain syndrome on methadone, hypothyroidism, recent hospitalization at [facility] for complicated UTI who presented to emergency room for evaluation of leg pain and lower extremity edema and shortness of breath for few days and admitted on general medical floor. #1 bilateral leg edema with status dermatitis Responding to oral diuretics, spironolactone and furosemide, age-adjusted N- terminal proBNP normal on admission, chest x-ray suggestive of interstitial edema or pneumonitis, tested negative for influenza A and B, COVID-19 and RSV, no DVT of both lower extremity by duplex ultrasound transthoracic echocardiogram ordered 2. ANNIE/CKD Mild hypokalemia resolved, bicarb 30, continue to monitor renal function #3 hypertension Her blood pressure and heart rate reasonably controlled on bisoprolol and diuretics #4 mild normocytic anemia likely anemia of chronic disease Hemoglobin stable around 10, no clinical bleeding, no transfusion indicated DVT prophylaxis enoxaparin Disposition; plan to discharge home 1 or 2 days
[2024-11-29] MEDS: ASPIRIN EC 81 MG TAB PO SCH (09:59)
[2024-11-29] MEDS: LIOTHYRONINE SOD 5 MCG TAB PO SCH (09:59)
[2024-11-29] MEDS: LEVOTHYROXINE SOD 0.075 MG TAB PO SCH (09:59)
[2024-11-29] MEDS: SERTRALINE HCL 100 MG TAB PO SCH (10:00)
[2024-11-29] MEDS: FUROSEMIDE 40 MG TABLET PO SCH (10:00)
[2024-11-29] MEDS: LEVOTHYROXINE SOD 0.1 MG TAB PO SCH (10:01)
[2024-11-29] MEDS: ENOXAPARIN 40 MG/0.4 ML SQ SCH (10:01)
[2024-11-29] MEDS: BISOPROLOL 5 MG TABLET PO SCH (10:01)
[2024-11-29] MEDS: HYDROCODONE/APAP 10/325 TAB PO PRN (15:47)
[2024-11-29] MEDS: TIZANIDINE 4 MG TABLET PO PRN (23:15)
[2024-11-30 04:32] LABS: Absolute Eosinophils 0.2 K/uL (0-0.5); Absolute Lymphocytes (CBC) 1.6 K/uL (0.7-4.9); Absolute Monocytes 0.4 K/uL (0.1-1.3); Absolute Neutrophil 1.6 K/uL (1.8-8.0); Basophils % 0.8 % (0-1.3); Eosinophils % 4.2 % (0-4.4); Hematocrit 28.2 % (36.0-45.0); Hemoglobin 9.4 g/dL (12.0-15.0); Lymphocytes % 43.1 % (15.3-44.8); MCH 28.1 pg (27.0-35.0); MCHC 33.3 g/dL (32.0-36.0); MCV 84.3 fL (80-100); MPV 8.4 fL (7.6-11.3); Monocytes % 10.3 % (3.3-12.3); Neutrophils % 41.6 % (41.7-73.7); Nucleated Red Blood Cells % 0.1 % (0-0); Platelets 154 thou/uL (152-406); RBC Red Blood Cell Count 3.34 M/uL (3.86-4.86); Red Cell Distribution Width 15.1 % (12.1-15.2)
[2024-11-30 04:51] LABS: Albumin/Globulin Ratio 1.2 (1.1-1.8); Alkaline Phosphatase 75 U/L (45-117); Anion Gap 6.3 mEq/L (5.0-15.0); BUN Blood Urea Nitrogen 22 mg/dL (7-18); Bicarbonate 31 mEq/L (21-32); Bilirubin Total 0.3 mg/dL (0.2-1.0); Globulin 2.5 g/dL (2.3-3.5); Glomerular Filtration Rate 55 ml/min (=/>90); Glucose Level 93 mg/dL (74-106); Potassium 4.3 mEq/L (3.5-5.1); Protein, Total 5.5 g/dL (6.4-8.2); Sodium Level 132 mEq/L (136-145)
[2024-11-30 04:52] LABS: ALT/SGPT < 14 U/L (13-56); AST/SGOT < 10 U/L (15-37)
[2024-11-30 06:03] VITALS: BMI 31.5
[2024-11-30] MEDS ORDERED: CEFTRIAXONE 1,000 MG in NA CHLORIDE 0.9% 50 ML IVPB SCH (09:00)
--- NOTE | 2024-11-30 12:43 | P.DS ---
Admission Date: 11/28/24 Discharge Date: 11/30/24 Primary Care Provider: Mary Grace Adams Reason for Admission: volume overload, edema, sob Brief History of Present Illness: Diagnosis Volume overload with hyperkalemia 2/2 mild CHF Bilateral leg edema with status dermatitis ANNIE/CKD Hypertension Mild normocytic anemia likely anemia of chronic disease HPI 11/28/24 Patient presented to the emergency department with mid back and leg pain. On evaluation in the emergency department, she was found to be fluid overloaded. She denies history of CHF. She is seen by her PCP for chronic pain and has recently been discharged from the hospital at [place] for a complicated urinary tract infection for which she was hospitalized October 15 through November 02. On exam, she is not overly short of breath but does have edematous lower extremi ties with mild hyperemia. Doppler studies in the emergency department of the lower extremities are negative for any DVT but chest x-ray does show mild interstitial pulmonary edema. She was given 20 mg IV of Lasix in the emergency department. We will keep her overnight to observe for improvement. Hospital Course: Patient was admitted and treated for the following Volume overload with hyperkalemia and mild ANNIE tolerated Lasix for volume and potassium reduction Continue home medications ASA EC 81mg po daily blood pressure monitoring Continuous telemetry with no events noted monitor electrolytes/creatinine O2 per protocol I&O monitored avoided nephrotoxins UTI/colonization recent hospitalization for UTI/sepsis with IV abx cloudy urine at bedside with c/o midback pain UA/UC, hold abx for now and await UC/symptomatology/lab indicative of infection Chronic pain chronic methadone/tizanidine use Physical Exam General: AAO x3, NAD HEENT: Atraumatic, Normocephalic Respiratory: Normal air movement, nonlabored breathing on RA Cardiovascular: Sinus bradycardia, Normal S1 S2 (gil), Edema (DVT lower ext studies negative) Capillary refill: <2 Seconds Gastrointestinal: Soft and benign on palpation, ND/NT Musculoskeletal: No clubbing Integumentary: Other (hyperemic skin to bilateral lower extremities) Neurological: Normal speech, Normal tone, Normal affect <Maria Guadalupe Lee - Last Filed: 12/19/24 21:07> Admission Date: 11/28/24 Discharge Date: 11/30/24 Hospital Course: Patient was seen and examined. Events of the last 24 hours have been noted. Sp sophie with with GARRY regarding patient's clinical picture after evaluating and examining the patient independently. I performed a substantial part of the MDM during this patient's care today. I personally made or approved the documented management plan and acknowledge its risk of complications. I agree with the findings and documentation provided in the GARRY's notes. <Fabian Landers - Last Filed: 12/24/24 13:11> Disposition: ROUTINE DISCHARGE Discharge Condition: GOOD Vital Signs/Physical Exam: Temp Pulse Resp BP Pulse Ox 97.8 F 59 16 117/59 L 98 11/30/24 08:00 11/30/24 09:11 11/30/24 08:00 11/30/24 09:11 11/30/24 08:00 Other Physical/Emotional Findings: - Physical Exam. General: Fragile, chronic ill-looking , in no apparent distress,. HEENT: Normocephalic, atraumatic, nonicteric sclera, nonanemic conjunctive. Neck: Supple, without JVD or goiter or thyroid mass. Respiratory: Normal breathing effort, clear to auscultation bilaterally, no crackles no wheezing or rhonchi. Cardiovascular: Regular rate and rhythm, S1, S2 normal, no murmur no gallop. Gastrointestinal: Normal bowel sounds, nondistended, nontender, No ascites, , No masses, no hepatosplenomegaly. Extremities : No clubbing, +1/+1 peripheral edema,. Integumentary: No rashes, petechia, suspected lesions. Lymphatics: No axilla or cervical lymphadenopathy. Neurology; alert awake oriented x3, no focal neurologic deficit, normal affection . mood and behavior. Laboratory Data at Discharge: WBC 3.80 thou/uL (4.3-10.9) L 11/30/24 04:23 Hgb 9.4 g/dL (12.0-15.0) L D 11/30/24 04:23 Hct 28.2 % (36.0-45.0) L 11/30/24 04:23 Plt Count 154 thou/uL (152-406) 11/30/24 04:23 Sodium 132 mEq/L (136-145) L 11/30/24 04:23 Potassium 4.3 mEq/L (3.5-5.1) 11/30/24 04:23 BUN 22 mg/dL (7-18) H 11/30/24 04:23 Creatinine 1.07 mg/dL (0.55-1.02) H 11/30/24 04:23 Glucose 93 mg/dL (74-106) 11/30/24 04:23 Magnesium 2.4 mg/dL (1.6-2.4) 11/28/24 12:51 Total Bilirubin 0.3 mg/dL (0.2-1.0) 11/30/24 04:23 AST < 10 U/L (15-37) L 11/30/24 04:23 ALT < 14 U/L (13-56) 11/30/24 04:23 Alkaline Phosphatase 75 U/L (45-117) 11/30/24 04:23 Triglycerides 95 mg/dL (<150) 11/29/24 04:39 Cholesterol 154 mg/dL (<200) 11/29/24 04:39 HDL Cholesterol 40 mg/dL (40-60) 11/29/24 04:39 Cholesterol/HDL Ratio 3.85 11/29/24 04:39 <Maria Guadalupe Lee - Last Filed: 12/19/24 21:07> Vital Signs/Physical Exam: Temp Pulse Resp BP Pulse Ox 97.6 F 52 12 112/82 96 11/30/24 12:00 11/30/24 12:00 11/30/24 12:00 11/30/24 12:00 11/30/24 12:00 Laboratory Data at Discharge: WBC 3.80 thou/uL (4.3-10.9) L 11/30/24 04:23 Hgb 9.4 g/dL (12.0-15.0) L D 11/30/24 04:23 Hct 28.2 % (36.0-45.0) L 11/30/24 04:23 Plt Count 154 thou/uL (152-406) 11/30/24 04:23 Sodium 132 mEq/L (136-145) L 11/30/24 04:23 Potassium 4.3 mEq/L (3.5-5.1) 11/30/24 04:23 BUN 22 mg/dL (7-18) H 11/30/24 04:23 Creatinine 1.07 mg/dL (0.55-1.02) H 11/30/24 04:23 Glucose 93 mg/dL (74-106) 11/30/24 04:23 Magnesium 2.4 mg/dL (1.6-2.4) 11/28/24 12:51 Total Bilirubin 0.3 mg/dL (0.2-1.0) 11/30/24 04:23 AST < 10 U/L (15-37) L 11/30/24 04:23 ALT < 14 U/L (13-56) 11/30/24 04:23 Alkaline Phosphatase 75 U/L (45-117) 11/30/24 04:23 Triglycerides 95 mg/dL (<150) 11/29/24 04:39 Cholesterol 154 mg/dL (<200) 11/29/24 04:39 HDL Cholesterol 40 mg/dL (40-60) 11/29/24 04:39 Cholesterol/HDL Ratio 3.85 11/29/24 04:39 <Fabian Landers - Last Filed: 12/24/24 13:11> Diet: Low sodium Activity: Fall precautions <Maria Guadalupe Lee - Last Filed: 12/19/24 21:07> <Fabian Landers - Last Filed: 12/24/24 13:11> Home Medications: Levothyroxine Sodium [Synthroid] 175 mcg PO DAILY 11/16/16 Liothyronine Sodium [Cytomel] 5 mcg PO BID 04/18/20 Sertraline [Zoloft*] 150 mg PO DAILY 04/18/20 Tizanidine [Zanaflex*] 4 mg PO TIDP PRN 04/18/20 Bisoprolol/Hydrochlorothiazide [Bisoprolol-Hctz 2.5-6.25 mg Tb] 1 each PO DAILY 11/28/24 Methadone HCl 10 mg PO BID 11/28/24 Spironolactone [Aldactone*] 25 mg PO DAILY 11/28/24 Amoxicillin/Potassium Clav [Augmentin 500-125 Tablet] 1 each PO BID 7 Days #14 tab 11/30/24 Furosemide [Lasix*] 40 mg PO DAILY 10 Days #10 tab 11/30/24 New Medications: Amoxicillin/Potassium Clav [Augmentin 500-125 Tablet] 1 each PO BID 7 Days #14 tab Furosemide [Lasix*] 40 mg PO DAILY 10 Days #10 tab Physician Discharge Instructions: OK TO DC IV AND DC HOME FOLLOW-UP WITH PRIMARY CARE PROVIDER IN 1-2 WEEKS FOLLOW-UP WITH CARDIOLOGY IN 1-2 WEEKS RETURN TO THE ER IF symptoms worsen CALL DR. LANDERS AT [phone] IF ANY QUESTIONS REGARDING HOSPITAL STAY. PLEASE CALL THE FLOOR AT [phone] IF ANY MEDICATION OR NURSING QUESTIONS. New medication Furosemide 40 mg daily x 10 days Augmentin 500 mg twice daily x 7 days Followup: Kj Britton MD [ACTIVE - CAN ADMIT] - 1-2 Weeks Mary Grace Adams [Primary Care Provider] - 1-2 Weeks
[2024-11-30 12:49] VITALS: BP 112/82; TEMP 97.6
--- NOTE | 2024-11-30 13:01 | ECHO ---
HEIGHT: 5 ft 0 in WEIGHT: 161 lb 4.8 oz DATE OF STUDY: 11/30/[address]: MARIBETH Dobbins MD 2-DIMENSIONAL: YES M.MODE: YES DOPPLER: YES COLOR FLOW: YES TDS: PORTABLE: YES DEFINITY: BUBBLE STUDY: DIAGNOSIS: SHORTNESS OF BREATH, RULE OUT NEW ONSET HEART FAILURE CARDIAC HISTORY: CATHERIZATION: NO SURGERY: NO PROSTHETIC VALVE: NO PACEMAKER: NO MEASUREMENTS (cm) DIASTOLIC (NORMALS) SYSTOLIC (NORMALS) IVSd 1.3 (0.6-1.2) LA Diam 2.5 (1.9-4.0) LVEF 60-65% LVIDd 3.7 (3.5-5.7) LVIDs 2.2 (2.0-3.5) %FS LVPWd 1.3 (0.6-1.2) Ao Diam 2.9 (2.0-3.7) 2 DIMENSIONAL ASSESSMENT: RIGHT ATRIUM: NORMAL LEFT ATRIUM: NORMAL RIGHT VENTRICLE: NORMAL LEFT VENTRICLE: NORMAL TRICUSPID VALVE: TRACE TRICUSPID REGURGITATION MITRAL VALVE: TRACE MITRAL REGURGITATION PULMONIC VALVE: NORMAL AORTIC VALVE: NORMAL PERICARDIAL EFFUSION: NONE AORTIC ROOT: NORMAL LEFT VENTRICULAR WALL MOTION: NORMAL DOPPLER/COLOR FLOW: GRADE I DIASTOLIC DYSFUNCTION COMMENTS: 1. NORMAL LEFT VENTRICULAR SYSTOLIC FUNCTION, EJECTION FRACTION 60-65%, NORMAL WALL MOTION 2. GRADE I DIASTOLIC DYSFUNCTION 3. NORMAL FILLING PRESSURE TECHNOLOGIST: ALEXEI KRISHNAN
[2024-11-30 14:22] VITALS: O2SAT 96
--- NOTE | 2024-12-07 12:42 | EKG ---
Test Date: 2024-11-28 Test Time: 13:00:57 Skilled Nursing Case Manager: MEASUREMENT RESULTS: Intervals: Rate: 52 SD: 180 QRSD: 76 QT: 456 QTc: 424 [place]: P: 71 SD: 180 QRS: 46 T: 54 INTERPRETIVE STATEMENTS: Sinus bradycardia Otherwise normal ECG Compared to ECG 12/06/2022 14:54:44 Sinus rhythm no longer present Electronically Signed On 12-07-24 12:22:25 EXPORT FREIGHT CLERK by Kj Britton
== END 2024-11-30 14:20 | disposition home or self-care (01) | DRG 291 ==
LOC: ER 11:39 → 2ND 14:56
PROVIDERS: ADMIT Internal Medicine; ATTEND Hospitalist
DX: I13.0 Hypertensive heart and chronic kidney disease with heart failure and stage 1 through stage 4 chronic kidney disease, or unspecified chronic kidney disease (principal); I50.31 Acute diastolic (congestive) heart failure; N17.9 Acute kidney failure, unspecified; N39.0 Urinary tract infection, site not specified; N18.9 Chronic kidney disease, unspecified; D63.1 Anemia in chronic kidney disease; E87.5 Hyperkalemia; E87.6 Hypokalemia; L30.9 Dermatitis, unspecified; G89.29 Other chronic pain; Z88.1 Allergy status to other antibiotic agents; Z11.52 Encounter for screening for COVID-19; Z79.82 Long term (current) use of aspirin; Z90.49 Acquired absence of other specified parts of digestive tract; Z79.890 Hormone replacement therapy; Z79.899 Other long term (current) drug therapy; Z87.891 Personal history of nicotine dependence
CPT/HCPCS: 36415; 71045; 80048; 80053; 80061; 80076; 81001; 83735; 83880; 84484; 85025; 87077; 87086; 87088; 87186; 87804; 87807; 87811; 93005; 93306; 93970; 96374; 99285; J1650; J1940